=== PATIENT | female | born 1940 | race Caucasian/White ===

== ENCOUNTER 2019-11-21 06:12 | Emergency (ER) | payer MEDICARE, OTHER, MEDICAID ==
[2019-11-21] MEDS ORDERED: GI Cocktail Oral Solution 30 ML PO ONE (06:40)
[2019-11-21 06:51] LABS: CHLORIDE,CL 97 mmol/L (98-107); SODIUM,NA 133 mmol/L (136-145)
[2019-11-21] MEDS ORDERED: Aspirin 81 MG Tab.Chew ONE (07:02)
[2019-11-21] MEDS ORDERED: Nitroglycerin 0.4 MG Tab.SL ONE (07:05)
[2019-11-21] MEDS ORDERED: Nitroglycerin 0.4 MG Tab.SL SL ONE (07:13)
[2019-11-21] MEDS ORDERED: Metoprolol Tartrate 50 MG Tab PO ONE (07:29)
[2019-11-21] MEDS ORDERED: Heparin Sodium/0.45% NaCl 500 ML IV SCH (07:30)
--- NOTE | 2019-11-21 07:45 | EDM.PDOC ---
ED HPI GENERAL MEDICAL PROBLEM - General Chief Complaint: Gastrointestinal Problem Stated Complaint: Upper epigastric pain Time Seen by Provider: 11/21/19 06:40 Source of Information: Reports: Patient, Other (assisted staff) History Limitations: Reports: No Limitations - History of Present Illness INITIAL COMMENTS - FREE TEXT/NARRATIVE: Patient comes to ER with complaint of centralized chest pain that radiates to back. Pain on/off for 2-3 days. Worse last night after eating/medications. Some nausea at times. Patient denies SOB/URI complaints. Slept poorly. Pain not r adiate anywhere else. Has otherwise been feeling well with no other health changes over recent weeks. No history of previous [facility] but has prior diagnosis of CHF. Resides at [facility]. Upper Epigastric Pain Score (Numeric/FACES): 7 - Related Data Allergies Allergy/AdvReac Type Severity Reaction Status Date / Time doxycycline Allergy Other Verified 10/25/18 08:13 Home Meds: Home Meds DULoxetine [Cymbalta] 20 mg PO DAILY 11/21/19 [History] DULoxetine [Cymbalta] 30 mg PO DAILY 11/21/19 [History] Fluticasone Propionate [Flonase] 1 spray NASBOTH BID 11/21/19 [History] Gabapentin [Neurontin] 600 mg PO TID 11/21/19 [History] Hydrocodone/Acetaminophen [[place] 10-325 Tablet] 1 each PO BID 11/21/19 [History] Hydrocodone/Acetaminophen [[place] 10-325 Tablet] 1 each PO DAILY PRN 11/21/19 [History] Loratadine 10 mg PO DAILY 11/21/19 [History] Mag Hydrox/Aluminum Hyd/Simeth [Mylanta Maximum Strength Liq] 30 ml PO ASDIRECTED PRN 11/21/19 [History] Melatonin 3 mg PO BEDTIME 11/21/19 [History] Methyl Salicylate/Menthol [Muscle Rub Cream] 1 applic TOP ASDIRECTED PRN 11/21/19 [History] Multivitamin [Multi-Vitamin Daily] 1 each PO DAILY 11/21/19 [History] Omeprazole Magnesium [Prilosec Otc] 20 mg PO BID 11/21/19 [History] Oxybutynin Chloride [Ditropan Xl] 10 mg PO DAILY 11/21/19 [History] Sennosides/Docusate Sodium [Senna-Docusate Sodium Tablet] 1 tab PO DAILY 11/21/19 [History] Past Medical History HEENT History: Reports: Other (See Below) (Tinnitus) Cardiovascular History: Reports: Heart Failure, Heart Murmur, High Cholesterol, Hypertension Gastrointestinal History: Reports: GERD Genitourinary History: Reports: Other (See Below) (overactive bladder) Musculoskeletal History: Reports: Arthritis, Back Pain, Chronic, Osteoarthritis, Other (See Below) (spinal stenosis. Carpal tunnel.) Neurological History: Reports: Other (See Below) (restless leg) Psychiatric History: Reports: Anxiety Endocrine/Metabolic History: Reports: Obesity/BMI 30+ Hematologic History: Reports: Other (See Below) (monoclonal gammopathy) Social & Family History - Tobacco Use Smoking Status *Q: Never Smoker Second Hand Smoke Exposure: No - Caffeine Use Caffeine Use: Reports: Coffee - Alcohol Use Alcohol Use History: No - Recreational Drug Use Recreational Drug Use: No Drug Use in Last 12 Months: No ED ROS GENERAL - Review of Systems Review Of Systems: Comprehensive ROS is negative, except as noted in HPI. ED EXAM, GENERAL - Physical Exam Exam: See Below Exam Limited By: No Limitations General Appearance: Alert, WD/WN, No Apparent Distress, Obese Eye Exam: Bilateral Eye: EOMI, PERRL Ears: Hearing Grossly Normal Nose: No: Nasal Deformity, Nasal Swelling, Nasal Drainage Throat/Mouth: Normal Lips, Normal Voice, No Airway Compromise Head: Atraumatic, Normocephalic Neck: Normal Inspection, Supple, Non-Tender, Full Range of Motion Respiratory/Chest: No Respiratory Distress, Lungs Clear, Normal Breath Sounds, No Accessory Muscle Use, Chest Non-Tender Cardiovascular: Normal Peripheral Pulses, Regular Rate, Rhythm, No Murmur GI/Abdominal: Normal Bowel Sounds, Soft, Non-Tender (Female) Exam: Deferred Rectal (Female) Exam: Deferred Back Exam: No: CVA Tenderness (L), CVA Tenderness (R), Muscle Spasm Extremities: Non-Tender, Normal Capillary Refill, Pedal Edema (lower legs, right mildly worse than left) Neurological: Alert, Oriented, CN II-XII Intact, Normal Cognition Psychiatric: Normal Affect, Normal Mood Skin Exam: Warm, Dry, Intact, Normal Color EKG INTERPRETATION EKG Date: 11/21/19 Time: 06:39 Rhythm: NSR Rate (Beats/Min): 83 [place]: Normal P-Wave: Present QRS: Normal ST-T: Other (minimal ST morphology change noted V1/V2.) QT: Normal Comparison: NA - No Prior EKG Course - Vital Signs Last Recorded V/S: Last Vital Signs Temp 36.9 C 11/21/19 06:40 Pulse 85 11/21/19 07:35 Resp 20 11/21/19 07:22 BP 159/82 H 11/21/19 07:35 Pulse Ox 94 L 11/21/19 07:22 - Orders/Labs/Meds Orders: Active Orders 24 hr Category Date Time Status EKG Documentation Completion [RC] ASDIRECTED Care 11/21/19 06:39 Active Chest 1V Frontal [CR] Stat Exams 11/21/19 07:41 Ordered Heparin Sodium/0.45% NaCl [Heparin 25,000 Units in 1/2 Med 11/21/19 07:30 Ordered NS 500 ML] 500 ml IV TITRATE Medication Orders Heparin Sodium/Sodium Chloride (Heparin 25,000 Units In 1/2 Ns 500 Ml) 500 mls @ 18.507 mls/hr IV TITRATE RAVI; Protocol Last Admin: 11/21/19 07:36 Dose: 12 units/kg/hr, 18.507 mls/hr Documented by: TELMA Cosigned by: SAQIB Labs: Laboratory Tests 11/21/19 11/21/19 11/21/19 Range/Units 06:30 06:30 06:30 WBC 19.2 H (4.0-10.2) K/uL D-Dimer, Quantitative 664 H (0-400) ng/mL Sodium 133 L (136-145) mmol/L Potassium 3.8 (3.5-5.1) mmol/L Chloride 97 L (98-107) mmol/L Carbon Dioxide 26.8 (21.0-32.0) mmol/L BUN 15 (7-18) mg/dL Creatinine 0.59 (0.51-1.17) mg/dL Est Cr Clr Drug Dosing 57.36 mL/min Estimated GFR (MDRD) > 60 mL/min Glucose 132 H (74-106) mg/dL Calcium 9.0 (8.5-10.1) mg/dL Total Bilirubin 0.3 (0.2-1.0) mg/dL AST 79 H (15-37) U/L ALT 29 (12-78) U/L Alkaline Phosphatase 88 (46-116) IU/L Troponin I 6.194 H* (0.000-0.056) ng/mL Total Protein 8.5 H (6.4-8.2) g/dL Albumin 3.2 L (3.4-5.0) g/dL Amylase 68 (25-115) U/L Lipase 102 (73-393) U/L Meds: Medications Generic Name Dose Route Start Last Admin Trade Name Freq PRN Reason Stop Dose Admin Heparin Sodium/Sodium Chloride 500 mls @ 18.507 mls/hr 11/21/19 07:30 11/21/19 07:36 Heparin 25,000 Units In 1/2 Ns 500 Ml IV 12 units/kg/hr TITRATE RAVI 18.507 mls/hr Administration Protocol 12 UNITS/KG/HR Discontinued Medications Generic Name Dose Route Start Last Admin Trade Name Freq PRN Reason Stop Dose Admin Al Hydroxide/Mg Hydroxide 30 ml 11/21/19 06:40 11/21/19 07:13 Gi Cocktail PO 11/21/19 06:41 Not Given ONETIME ONE Aspirin Confirm 11/21/19 07:02 11/21/19 07:13 Aspirin Administered 11/21/19 07:03 324 mg Dose Administration 324 mg .ROUTE .STK-MED ONE Metoprolol Tartrate 50 mg 11/21/19 07:29 11/21/19 07:35 Lopressor PO 11/21/19 07:30 50 mg ONETIME ONE Administration Nitroglycerin Confirm 11/21/19 07:05 11/21/19 07:13 Nitrostat Administered 11/21/19 07:06 0.4 mg Dose Administration 0.4 mg .ROUTE .STK-MED ONE Nitroglycerin 0.4 mg 11/21/19 07:13 Nitrostat SL 11/21/19 07:14 ONETIME ONE - Re-Assessments/Exams Free Text/Narrative Re-Assessment/Exam: 11/21/19 07:54 Labs/EKG ordered. Troponin and DDimer elevated. Non-STEMI. Vital signs stable. [facility] called at 0700 and patient accepted for transfer by /hospitalist. ASA/Beta amy/Heparin given during stay. Pain improved significantly with one nitro. Second dose held due to BP drop. 11/21/19 08:14 Patient denies pain at this time Departure - Departure Time of Disposition: 07:59 Disposition: DC/Tfer to Acute Hospital 02 Condition: Good Clinical Impression: Non-STEMI (non-ST elevated myocardial infarction), Elevated d-dimer - Discharge Information *PRESCRIPTION DRUG MONITORING PROGRAM REVIEWED*: Not Applicable *COPY OF PRESCRIPTION DRUG MONITORING REPORT IN PATIENT MICHELLE: Not Applicable Referrals: Marilee Neville NP [Primary Care Provider] - Forms: ED Department Discharge Sepsis Event Note (ED) - Evaluation Sepsis Screening Result: No Definite Risk - Focused Exam Vital Signs: Vital Signs Temp Pulse Pulse Resp BP BP Pulse Ox 11/21/19 07:35 85 159/82 H 11/21/19 07:22 87 20 159/82 H 94 L 11/21/19 07:14 92 20 135/67 96 11/21/19 07:13 166/68 H 11/21/19 07:11 97 20 166/96 H 94 L 11/21/19 06:40 36.9 C 94 15 138/61 98 - My Orders Last 24 Hours: My Active Orders 11/21/19 06:39 EKG Documentation Completion [RC] ASDIRECTED 11/21/19 07:30 Heparin Sodium/0.45% NaCl [Heparin 25,000 Units in 1/2 NS 500 ML] 500 ml IV TITRATE 11/21/19 07:41 Chest 1V Frontal [CR] Stat - Assessment/Plan Last 24 Hours: My Active Orders 11/21/19 06:39 EKG Documentation Completion [RC] ASDIRECTED 11/21/19 07:30 Heparin Sodium/0.45% NaCl [Heparin 25,000 Units in 1/2 NS 500 ML] 500 ml IV TITRATE 11/21/19 07:41 Chest 1V Frontal [CR] Stat
== END 2019-11-21 08:25 ==
LOC: LL.ED 06:12
DX: I21.4 Non-ST elevation (NSTEMI) myocardial infarction (principal); R79.1 Abnormal coagulation profile; I11.0 Hypertensive heart disease with heart failure; I50.9 Heart failure, unspecified; K21.9 Gastro-esophageal reflux disease without esophagitis; F41.9 Anxiety disorder, unspecified; E66.9 Obesity, unspecified; Z68.33 Body mass index [BMI] 33.0-33.9, adult; Z88.1 Allergy status to other antibiotic agents; Z79.899 Other long term (current) drug therapy
CPT/HCPCS: 36415; 71045; 80053; 82150; 83690; 84484; 85025; 85379; 93005; 96365; 99285; A9270; J1644; 85048

== ENCOUNTER 2020-04-22 12:04 | Emergency (ER) | payer MEDICARE, OTHER, MEDICAID ==
--- NOTE | 2020-04-22 12:18 | EDM.PDOC ---
ED HPI GENERAL MEDICAL PROBLEM - General Chief Complaint: Genitourinary Problem Stated Complaint: painfull urination with visible blood/clots Time Seen by Provider: 04/22/20 12:10 Source of Information: Reports: Patient History Limitations: Reports: No Limitations - History of Present Illness INITIAL COMMENTS - FREE TEXT/NARRATIVE: She presents to the ED for evaluation of possible UTI. She reports pain with urination and blood and clots in the urine. No flank pain. Symptoms started yesterday and are worse today. No fever or chills. No abdominal pain, nausea or vomiting. No chest pain. No shortness of breath or cough. History of recurrent UTIs with hematuria in the past. pelvic pain Pain Score (Numeric/FACES): 4 - Related Data Allergies Allergy/AdvReac Type Severity Reaction Status Date / Time doxycycline Allergy Other Verified 04/22/20 12:06 Home Meds: Home Meds DULoxetine [Cymbalta] 20 mg PO DAILY 11/21/19 [History] DULoxetine [Cymbalta] 30 mg PO DAILY 11/21/19 [History] Fluticasone Propionate [Flonase] 1 spray NASBOTH Q12HR 11/21/19 [History] Gabapentin [Neurontin] 600 mg PO TID@,,11/21/19 [History] Hydrocodone/Acetaminophen [[place] 10-325 Tablet] 1 each PO DAILY PRN 11/21/19 [History] Hydrocodone/Acetaminophen [[place] 10-325 Tablet] 1 each PO TID@,,20 11/21/19 [History] Loratadine 10 mg PO DAILY 11/21/19 [History] Melatonin 3 mg PO BEDTIME 11/21/19 [History] Methyl Salicylate/Menthol [Muscle Rub Cream] 1 applic TOP ASDIRECTED PRN 11/21/19 [History] Multivitamin [Multi-Vitamin Daily] 1 each PO DAILY 11/21/19 [History] Oxybutynin Chloride [Ditropan Xl] 10 mg PO BEDTIME 11/21/19 [History] Sennosides/Docusate Sodium [Senna-Docusate Sodium Tablet] 1 tab PO DAILY 11/21/19 [History] Albuterol [Ventolin 2 MG/5 ML] 0.4 mg PO Q4HR PRN 04/22/20 [History] Aspirin 81 mg PO DAILY 04/22/20 [History] Calcium Carbonate/Vitamin D3 [Calcium 600-Vit D3 400 Tablet] 1 each PO BEDTIME 04/22/20 [History] Cholecalciferol (Vitamin D3) [Vitamin D3] 2,000 unit PO BEDTIME 04/22/20 [History] Clopidogrel [Plavix] 75 mg PO DAILY 04/22/20 [History] Cranberry 500 mg PO BEDTIME 04/22/20 [History] Cyclobenzaprine [Flexeril] 10 mg PO Q8HR PRN 04/22/20 [History] Ferrous Sulfate [Iron] 325 mg PO DAILY 04/22/20 [History] Magnesium Oxide [Magnesium] 400 mg PO DAILY 04/22/20 [History] Methenamine Hippurate [Hiprex] 1 gm PO Q12HR 04/22/20 [History] Metoprolol Succinate [Toprol XL 100mg] 100 mg PO DAILY 04/22/20 [History] Nitroglycerin [Nitrostat] 0.4 mg SL ASDIRECTED 04/22/20 [History] Omeprazole Magnesium [Prilosec Otc] 20 mg PO DAILY 04/22/20 [History] Phenazopyridine [Urinary Pain Relief] 95 mg PO TIDPC PRN tablet 04/22/20 [Rx] Sulfamethoxazole/Trimethoprim [Bactrim Ds Tablet] 1 each PO BID 5 Days #4 tablet 04/22/20 [Rx] atorvaSTATin [Lipitor] 40 mg PO BEDTIME 04/22/20 [History] bisacodyL [Bisacodyl] 5 mg PO Q12HR PRN 04/22/20 [History] rOPINIRole [Requip] 1 mg PO BEDTIME 04/22/20 [History] Past Medical History HEENT History: Reports: Other (See Below) (Tinnitus) Cardiovascular History: Reports: Heart Failure, Heart Murmur, High Cholesterol, Hypertension Gastrointestinal History: Reports: GERD Genitourinary History: Reports: Other (See Below) (overactive bladder) Musculoskeletal History: Reports: Arthritis, Back Pain, Chronic, Osteoarthritis, Other (See Below) (spinal stenosis. Carpal tunnel.) Neurological History: Reports: Other (See Below) (restless leg) Psychiatric History: Reports: Anxiety Endocrine/Metabolic History: Reports: Obesity/BMI 30+ Hematologic History: Reports: Other (See Below) (monoclonal gammopathy) Social & Family History - Caffeine Use Caffeine Use: Reports: Coffee ED ROS GENERAL - Review of Systems Review Of Systems: See Below Constitutional: Denies: Fever, Chills HEENT: Reports: Sinus Problem (Chronic) Respiratory: Reports: Cough. Denies: Shortness of Breath Cardiovascular: Denies: Chest Pain, Palpitations GI/Abdominal: Denies: Abdominal Pain, Nausea, Vomiting : Reports: Dysuria, Frequency, Hematuria, Urgency Musculoskeletal: Reports: Back Pain (Chronic and unchanged) Skin: Reports: No Symptoms Neurological: Denies: Confusion, Dizziness Psychiatric: Denies: Agitation, Anxiety ED EXAM, GENERAL - Physical Exam Exam: See Below Exam Limited By: No Limitations General Appearance: Alert, WD/WN, No Apparent Distress Respiratory/Chest: No Respiratory Distress, Lungs Clear, Normal Breath Sounds Cardiovascular: Regular Rate, Rhythm, No Murmur GI/Abdominal: Normal Bowel Sounds, Soft, Non-Tender, No Mass Back Exam: CVA Tenderness (R) (Mild). No: CVA Tenderness (L) Neurological: Alert, Oriented Psychiatric: Normal Affect, Normal Mood Skin Exam: Warm, Dry Course - Vital Signs Text/Narrative:: Patient is stable. Will treat presumptively for infection with Bactrim DS. Need repeat urine in 5 days. If blood does not clear with antibiotics, consider abdomen/pelvic CT for possible stone or other cause of the bleeding. Last Recorded V/S: Last Vital Signs Temp 36.3 C 04/22/20 12:06 Pulse 81 04/22/20 12:06 Resp 18 04/22/20 12:06 BP 149/55 H 04/22/20 12:06 Pulse Ox 95 04/22/20 12:06 - Orders/Labs/Meds Orders: Active Orders 24 hr Category Date Time Status Insert Douglas Catheter [Insert Urinary Catheter] [OM.PC] Care 04/22/20 13:30 Ordered Q24H Labs: Laboratory Tests 04/22/20 04/22/20 04/22/20 Range/Units 12:30 12:30 13:00 WBC 11.2 H (4.0-10.2) K/uL RBC 4.21 (3.77-5.09) M/uL Hgb 11.3 L D (11.7-15.5) g/dL Hct 37.0 (34.0-46.0) % MCV 87.9 D (84.0-98.0) fL MCH 26.8 L (28.2-33.3) pg MCHC 30.5 L (31.7-36.0) g/dL RDW 23.8 H (11.2-14.1) % Plt Count 211 (150-350) K/uL Add Manual Diff Yes Neutrophils % (Manual) 50 Band Neutrophils % 7 Lymphocytes % (Manual) 36 Monocytes % (Manual) 7 Absolute Neutrophils 6.3840 Lymphocytes # (Manual) 4.0320 Monocytes # (Manual) 0.7840 Sodium 137 (136-145) mmol/L Potassium 4.2 (3.5-5.1) mmol/L Chloride 102 (98-107) mmol/L Carbon Dioxide 28.6 (21.0-32.0) mmol/L BUN 20 H (7-18) mg/dL Creatinine 0.67 (0.51-1.17) mg/dL Est Cr Clr Drug Dosing TNP Estimated GFR (MDRD) > 60 mL/min Glucose 110 H (70-99) mg/dL Calcium 8.3 L (8.5-10.1) mg/dL Total Bilirubin 0.3 (0.2-1.0) mg/dL AST 25 (15-37) U/L ALT 29 (12-78) U/L Alkaline Phosphatase 87 (46-116) IU/L Total Protein 7.6 (6.4-8.2) g/dL Albumin 2.8 L (3.4-5.0) g/dL Specimen Type Urinblad Urine Color Red Urine Appearance Cloudy Urine pH 7.5 (5.0-9.0) Ur Specific [place] 1.025 (1.005-1.030) Urine Protein >=300 H (NEGATIVE) mg/dL Urine Glucose (UA) Negative (NEGATIVE) mg/dL Urine Ketones Negative (NEGATIVE) mg/dL Urine Occult Blood Large H (NEGATIVE) Urine Nitrite Negative (NEGATIVE) Urine Bilirubin Negative (NEGATIVE) Urine Urobilinogen 0.2 (0.2-1.0) E.U./dL Ur Leukocyte Esterase Negative (NEGATIVE) Urine RBC Packed /HPF Urine WBC 0-5 /HPF Ur Epithelial Cells Rare /LPF Urine Bacteria Rare (NONE TO FEW) /HPF Meds: Medications Discontinued Medications Generic Name Dose Route Start Last Admin Trade Name Freq PRN Reason Stop Dose Admin Phenazopyridine HCl 95 mg 04/22/20 13:12 04/22/20 13:29 Phenazopyridine 95 Mg Tab PO 95 mg TIDPC PRN Administration Dysuria Departure - Departure Time of Disposition: 13:31 Disposition: DC/Tfer to [facility] Condition: Good Clinical Impression: Hematuria, UTI (urinary tract infection) - Discharge Information *PRESCRIPTION DRUG MONITORING PROGRAM REVIEWED*: Not Applicable *COPY OF PRESCRIPTION DRUG MONITORING REPORT IN PATIENT MICHELLE: Not Applicable Prescriptions: Sulfamethoxazole/Trimethoprim [Bactrim Ds Tablet] 1 each PO BID 5 Days #4 tablet Referrals: Marilee Neville NP [Family Provider] - Forms: ED Department Discharge Additional Instructions: Push fluids. Bactrim DS twice daily for five days. Pyridium three times daily as needed for pain. Will leave Douglas catheter in place for 24 hours, contact PCP for removal order. Recommend repeat UA in 5-7 days. Hold Plavix and ASA, contact PCP for restart date. Sepsis Event Note (ED) - Evaluation Sepsis Screening Result: No Definite Risk - My Orders Last 24 Hours: My Active Orders 04/22/20 13:30 Insert [place] Catheter [Insert Urinary Catheter] [OM.PC] Q24H - Assessment/Plan Last 24 Hours: My Active Orders 04/22/20 13:30 Insert [place] Catheter [Insert Urinary Catheter] [OM.PC] Q24H Plan: Push fluids. Bactrim DS twice daily for five days. Pyridium three times daily as needed for pain. Will leave Douglas catheter in place for 24 hours. Recommend repeat UA in 5-7 days.
[2020-04-22 12:48] LABS: CHLORIDE,CL 102 mmol/L (98-107); SODIUM,NA 137 mmol/L (136-145)
[2020-04-22] MEDS: Phenazopyridine 95 MG Tab PO PRN (13:29)
== END 2020-04-22 14:30 ==
LOC: LL.ED 12:04 → SUPCPDRO 12:04 → LL.ED 14:30
DX: N39.0 Urinary tract infection, site not specified (principal); R31.9 Hematuria, unspecified; I11.0 Hypertensive heart disease with heart failure; I50.9 Heart failure, unspecified; E78.00 Pure hypercholesterolemia, unspecified; K21.9 Gastro-esophageal reflux disease without esophagitis; M19.90 Unspecified osteoarthritis, unspecified site; E66.9 Obesity, unspecified; Z88.1 Allergy status to other antibiotic agents; Z79.899 Other long term (current) drug therapy; Z79.82 Long term (current) use of aspirin
CPT/HCPCS: 36415; 51702; 80053; 81001; 85025; 99283; A9270

== ENCOUNTER 2020-04-23 14:27 | Emergency (ER) | payer MEDICARE, OTHER, MEDICAID ==
--- NOTE | 2020-04-23 14:38 | EDM.PDOC ---
ED HPI GENERAL MEDICAL PROBLEM - General Chief Complaint: Genitourinary Problem Stated Complaint: BLOODY URINE, FEVER Time Seen by Provider: 04/23/20 14:30 Source of Information: Reports: Patient, Detention Records, Old Records ([facility] EMR. No paper hospital chart available.) History Limitations: Reports: No Limitations - History of Present Illness INITIAL COMMENTS - FREE TEXT/NARRATIVE: The patient was brought to the emergency room via transport vehicle from [facility] in [place] after I received a telephone report from the patient's regular provider, Joaquina Hoffman PA-C, at [facility], prior to arrival to this facility. Patient was evaluated in our emergency room yesterday with suspected UTI with significant gross hematuria and patient started on Bactrim DS. After evaluation by her regular provider earlier today as above the patient was noted to have progressive gross hematuria and leukocytosis/anemia with no known colic or other UTI symptoms. Note that a Douglas catheter was placed in the emergency room yesterday, although the patient apparently did not have any problems with urinary retention at that time. She does have a history of recurrent UTIs and urinary incontinence. Patient does complain of 4/10 nonspecific pelvic abdominal cramping possibly secondary to her Douglas catheter. No recent history of other abdominal pain, heartburn, nausea, diarrhea, melena, gross hematochezia, or any food intolerance, including fatty foods, etc.. The patient denies any chest pain/pressure, heart flutter, dizziness, orthostasis, orthopnea, diaphoresis, paresthesias, recent decreased exercise tolerance, or any other anginal-type symptoms. The patient also denies any recent fever, cough, wheezing, dyspnea, etc.. Onset: Today, Gradual Onset Date: 04/22/20 Duration: Constant, Getting Worse Location: Reports: Abdomen, Pelvis. Denies: Head, Face, Neck, Chest, Back, Upper Extremity, Left, Upper Extremity, Right, Lower Extremity, Left, Lower Extremity, Right, Radiates to Quality: Reports: Ache, Same as Previous Episode Severity: Mild Improves with: Reports: None Worsens with: Reports: None Context: Reports: Other (As above). Denies: Sick Contact, Trauma Associated Symptoms: Reports: Weakness (Stable chronic). 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: Other Medication(s) (Bactrim DS as above) ABDOMINAL PAIN Pain Score (Numeric/FACES): 4 - Related Data Allergies Allergy/AdvReac Type Severity Reaction Status Date / Time doxycycline Allergy Other Verified 04/22/20 12:06 Home Meds: Home Meds DULoxetine [Cymbalta] 20 mg PO DAILY 11/21/19 [History] DULoxetine [Cymbalta] 30 mg PO DAILY 11/21/19 [History] Fluticasone Propionate [Flonase] 1 spray NASBOTH Q12HR 11/21/19 [History] Gabapentin [Neurontin] 600 mg PO TID@,,11/21/19 [History] Hydrocodone/Acetaminophen [[place] 10-325 Tablet] 1 each PO DAILY PRN 11/21/19 [History] Hydrocodone/Acetaminophen [[place] 10-325 Tablet] 1 each PO TID@,,11/21/19 [History] Loratadine 10 mg PO DAILY 11/21/19 [History] Melatonin 3 mg PO BEDTIME 11/21/19 [History] Methyl Salicylate/Menthol [Muscle Rub Cream] 1 applic TOP ASDIRECTED PRN 11/21/19 [History] Multivitamin [Multi-Vitamin Daily] 1 each PO DAILY 11/21/19 [History] Oxybutynin Chloride [Ditropan Xl] 10 mg PO BEDTIME 11/21/19 [History] Sennosides/Docusate Sodium [Senna-Docusate Sodium Tablet] 1 tab PO DAILY 11/21/19 [History] Calcium Carbonate/Vitamin D3 [Calcium 600-Vit D3 400 Tablet] 1 each PO BEDTIME 04/22/20 [History] Cholecalciferol (Vitamin D3) [Vitamin D3] 2,000 unit PO BEDTIME 04/22/20 [History] Cranberry 500 mg PO BEDTIME 04/22/20 [History] Cyclobenzaprine [Flexeril] 10 mg PO Q8HR PRN 04/22/20 [History] Ferrous Sulfate [Iron] 325 mg PO DAILY 04/22/20 [History] Magnesium Oxide [Magnesium] 400 mg PO DAILY 04/22/20 [History] Methenamine Hippurate [Hiprex] 1 gm PO Q12HR 04/22/20 [History] Metoprolol Succinate [Toprol XL 100mg] 100 mg PO DAILY 04/22/20 [History] Nitroglycerin [Nitrostat] 0.4 mg SL ASDIRECTED 04/22/20 [History] Omeprazole Magnesium [Prilosec Otc] 20 mg PO DAILY 04/22/20 [History] Phenazopyridine [Urinary Pain Relief] 95 mg PO TIDPC PRN tablet 04/22/20 [Rx] Sulfamethoxazole/Trimethoprim [Bactrim Ds Tablet] 1 each PO BID 5 Days #4 tablet 04/22/20 [Rx] bisacodyL [Bisacodyl] 5 mg PO Q12HR PRN 04/22/20 [History] rOPINIRole [Requip] 1 mg PO BEDTIME 04/22/20 [History] Albuterol [Ventolin HFA] 2 puff INH Q4H PRN 04/23/20 [History] atorvaSTATin [Lipitor] 40 mg PO BEDTIME 04/23/20 [History] Past Medical History HEENT History: Reports: Allergic Rhinitis, Cataract, Impaired Vision, Other (See Below). Denies: Glaucoma, Hard of Hearing, Macular Degeneration, Otitis Media, Retinal Detachment Other HEENT History: Patient wears glasses. Cardiovascular History: Reports: CAD, Cardiomyopathy, Heart Failure, Heart Murmur, High Cholesterol, Hypertension, MN, PTCA, PVD, Stents, Syncope, Other (See Below). Denies: Afib, Aneurysm, Arrhythmia, Blood Clots/VTE/DVT, Bypass Other Cardiovascular History: History of elevated D-dimer with no previous work- up. Acute MN in December 2019 with PTCA/stent x1 at that time. Diastolic dysfunction. Respiratory History: Reports: Bronchitis, Recurrent, COPD, Intubation, Previous. Denies: Asthma, Intubation, Difficult, PE, Pneumonia, Recurrent, Pneumothorax, Pulmonary Fibrosis, Sleep Apnea, TB Gastrointestinal History: Reports: Chronic Constipation, GERD. Denies: Bowel Obstruction, Celiac Disease, Cholelithiasis, Colon Polyp, Diverticulosis, Fecal Incontinence, Gastritis, GI Bleed, Hiatal Hernia, Inflammatory Bowel Disease, Irritable Bowel Syndrome, Jaundice, Pancreatitis, PUD Genitourinary History: Reports: Urinary Incontinence, UTI, Recurrent, Other (See Below). Denies: Acute Renal Failure, Chronic Renal Insuffiency, Renal Calculus, Retention, Urinary, STD Other Genitourinary History: Right-sided pyelonephritis with additional evidence of chronic cystitis by CT scan in March 2020 as below. Overactive bladder/urinary urgency. 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 Denies: Dysfunctional Uterine Bleeding, Endometriosis, Fibroids, Spontaneous , Therapeutic : 3 Para: 3 LMP (Approximate): Other (See Below) Other BARREL PLATER History: Menopause in her mid 50s. Full term without complications during pregnancies or deliveries. Musculoskeletal History: Reports: Arthritis, Back Pain, Chronic, Neck Pain, Chronic, Osteoarthritis. Denies: Fracture, Gout, Osteoporosis, RA, SLE Other Musculoskeletal History: History of carpal tunnel syndrome with surgery as below. Right ankle fracture in her 30s with surgery as below. Known history of severe degenerative disc disease with additional mild scoliosis and spinal stenosis. Chronic lumbar back pain with current implanted electrical stimulator unit. Neurological History: Reports: Neuropathy, Peripheral, Seizure, Other (See Below). Denies: Alzheimers Disease, Cerebral Aneurysms, Concussion (No MS Parkinson's disease head concussions anything like that), CVA, Headaches, Chronic, Head Trauma, Migraines, MS, Speech Problems, TIA, Vertigo (No stroke or mini stroke) Other Neuro History: History of grand mal seizures since age 17. Restless leg syndrome. Spinal stenosis with bilateral leg weakness and required wheelchair use. Psychiatric History: Reports: Addiction, Anxiety, Depression, Other (See Below). Denies: Abuse, Victim of, ADD, ADHD, Psych Hospitalization(s), PTSD, Suicide Attempt, Suicidal Ideation Other Psychiatric History: Chronic narcotic use secondary to chronic pain syndrome. Endocrine/Metabolic History: Reports: Obesity/BMI 30+, Other (See Below). Denies: Diabetes, Type I, Diabetes, Type II, Hypothyroidism, IDDM, Osteopenia, Osteoporosis Other Endocrine/Metabolic History: Hypomagnesemia. Hematologic History: Reports: Blood Transfusion(s), Iron Deficiency, Other (See Below). Denies: Anemia, B12 Deficiency Other Hematologic History: Blood transfusion with her back surgery as below. Immunologic History: Reports: Immunosuppression, Other (See Below). Denies: AIDS, HIV, SLE Other Immunologic History: Monoclonal gammopathy Oncologic (Cancer) History: Reports: None. Denies: Basal Cell Carcinoma, Breast, Cervix, Colon, Hodgkin's Lymphoma, Leukemia, Malignant Melanoma, Non- Hodgkin's Lymphoma, Ovarian, Squamous Cell Carcinoma, Uterine Dermatologic History: Reports: None. Denies: Eczema, Psoriasis - Infectious Disease History Infectious Disease History: Reports: Chicken Pox, Measles, Mumps, Novel Coronavirus (February 2020). Denies: C-Difficile, Meningitis, Mononucleosis, MRSA, Pertussis (Whooping Cough), Rheumatic Fever, Rubella, Scarlet Fever, Shingles, TB, VRE - Past Surgical History Head Surgeries/Procedures: Reports: None HEENT Surgical History: Reports: Cataract Surgery, Laser Surgery, Oral Surgery, Other (See Below). Denies: Adenoidectomy, Eye Surgery, LASIK, Myringotomy w Tub e(s), Naso-Sinus Surgery, Tonsillectomy Other HEENT Surgeries/Procedures: Bilateral cataract surgery in her 50s? Subsequent laser treatments of her posterior capsules. Almost complete teeth extraction with complete upper dentures and only a few remaining lower dentition. Cardiovascular Surgical History: Reports: Coronary Artery Stent, Percutaneous Transluminal Angioplasty, Other (See Below). Denies: Varicose, Vascular Surgery Other Cardiovascular Surgeries/Procedures: PTCA/stent x1 in December 2019. Respiratory Surgical History: Reports: None. Denies: Lung Biopsies, Thoracentesis GI Surgical History: Reports: Appendectomy, Colonoscopy, Other (See Below). Denies: Cholecystectomy, EGD, Hernia, Abdominal, Hernia, Inguinal, Hernia Repair/Other, Polypectomy Other GI Surgeries/Procedures: Appendectomy in her 30s. Colonoscopy in her 50s. Female Surgical History: Reports: None. Denies: Breast Biopsy, Section, D&C, Hysterectomy, Oophorectomy, Salpingo-Oophorectomy, Tubal Ligation Endocrine Surgical History: Reports: None. Denies: Thyroid Biopsy Neurological Surgical History: Reports: Lumbar Spine, Other (See Below). Denies: C-Spine, Discectomy, Laminectomy, Sacral Spine, Scoliosis, Spinal Fusion, Thoracic Spine, Vertebroplasty Other Neurological Surgeries/Procedures: Unknown type of lumbar surgeries x3, including her spinal cord? Lumbar electro-stimulator unit implant. Musculoskeletal Surgical History: Reports: Carpal Tunnel, ORIF, Other (See Below). Denies: Arthroscopic Procedure, Ganglion Cyst, Joint Replacement, Shoulder Surgery Other Musculoskeletal Surgeries/Procedures:: ORIF of the right ankle in her 30s with subsequent right ankle fusion in her 60s. Right-sided carpal tunnel release in her 50s. Oncologic Surgical History: Reports: None Dermatological Surgical History: Reports: Other (See Below) Other Dermatological Surgeries/Procedures: Pilonidal cyst surgeries x3 in her 20s. - Past Imaging History Past Imaging History: Reports: CAT Scan (CT of the abdomen and pelvis on 03/22/2020.), MRI (Lumbar spine on 07/08/2017. Thoracic spine on 11/23/2018.), Ultrasound (Bilateral renal ultrasound on 11/04/2018.) - History Comment History Comment: Patient is a somewhat poor historian. Social & Family History - Tobacco Use Tobacco Use Status *Q: Never Tobacco User Tobacco Use Within Last Twelve Months: No Used Tobacco, but Quit: No Smoking Cessation Information Provided To Patient: No Second Hand Smoke Exposure: No Second Hand Smoke Education Provided: No - Caffeine Use Caffeine Use: Reports: Coffee (5-6 cups/day), Soda (23 sodas per week), Tea (2 glasses/week). Denies: Energy Drinks - Alcohol Use Alcohol Use History: No Days Per Week of Alcohol Use: 0 Number of Drinks Per Day: 2 Number of Drinks Per Day Comment: Usually beer for holidays. No previous DWIs, problems with alcohol abuse, etc. Total Drinks Per Week: 0 Alcohol Use in Last Twelve Months: Yes - Recreational Drug Use Recreational Drug Use: No Drug Use in Last 12 Months: No Recreational Drug Type: Denies: Amphetamines (Speed), Cocaine, Heroin, Inhalants (Glues, Solvents, Aerosols), LSD (Acid), Marijuana/Hashish, Methamphetamine, Morphine, Oxycodone - Living Situation & Occupation Living situation: Reports: (December 2019, 3 children), Extended Care Facility (Currently at 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 ED EXAM, GENERAL - Physical Exam Exam: See Below Exam Limited By: No Limitations General Appearance: Alert, WD/WN, No Apparent Distress Eye Exam: Bilateral Eye: EOMI, Normal Inspection (Patient is wearing glasses. No vertigo or nystagmus.) Ears: Normal External Exam, Normal Canal, Hearing Grossly Normal, Normal TMs Nose: Normal Inspection, Normal Mucosa, No Blood Throat/Mouth: Normal Inspection, Normal Lips, Normal Gums, Normal Oropharynx, Normal Voice, No Airway Compromise. No: Normal Teeth (Complete upper dentures with only few remaining lower dentition with chipped teeth and some. On ptosis but no acute caries), Dysphagia, Inflammation, Perioral Cyanosis Head: Atraumatic, Normocephalic. No: Facial Swelling, Facial Tenderness, Sinus Tenderness Neck: Supple, Non-Tender, Carotid Bruit (Mild bilateral carotid bruits). No: Lymphadenopathy (L), Lymphadenopathy (R), Thyromegaly Respiratory/Chest: No Respiratory Distress, Lungs Clear, Normal Breath Sounds, No Accessory Muscle Use, Chest Non-Tender. No: Pleural Rub, Retractions Cardiovascular: Normal Peripheral Pulses, Regular Rate, Rhythm, No Gallop, No JVD, No Murmur, No Rub. No: No Edema (Dependent edema as below), Gallop/S3, Gallop/S4, Friction Rub Peripheral Pulses: 2+: Radial (L), Radial (R), Dorsalis Pedis (L), Dorsalis Pedis (R) GI/Abdominal: Normal Bowel Sounds, Soft, Non-Tender, No Organomegaly, No Distention, No Abnormal Bruit, No Mass, Pelvis Stable, Other (Obese). No: Guarding (Female) Exam: Deferred Rectal (Female) Exam: Deferred Back Exam: Decreased Range of Motion (Stable chronic especially in lumbar spine), Other (Mild scoliosis). No: CVA Tenderness (L), CVA Tenderness (R), Muscle Spasm, Paraspinal Tenderness, Vertebral Tenderness Extremities: Non-Tender, Normal Capillary Refill, Pedal Edema (+1 bilateral pedal/pretibial edema), Limited Range of Motion (Stable chronic), Other (Mild cyanosis in toes of the right foot). No: Brandon's Sign Neurological: Alert, Oriented, CN II-XII Intact, Normal Cognition, Normal Reflexes (Negative Babinski's), No Motor/Sensory Deficits. No: Normal Gait (Wheelchair use required) Psychiatric: Normal Affect, Normal Mood Skin Exam: Warm, Dry, Intact, Normal Color, No Rash, Stud(s) (Auricles bilaterally). No: Diaphoretic, Wound/Incision Lymphatic: No Adenopathy Course - Vital Signs Last Recorded V/S: Last Vital Signs Temp 36.7 C 04/23/20 14:33 Pulse 77 04/23/20 20:00 Resp 18 04/23/20 20:00 BP 110/40 L 04/23/20 20:00 Pulse Ox 98 04/23/20 20:00 Vital Signs - 24 hr 04/23/20 04/23/20 04/23/20 14:33 14:50 15:00 Temperature [ 36.7 C Temporal] Pulse, Peripheral [ Apical] Respiratory 24 H 15 17 Rate Blood Pressure 89/38 L 105/24 L [Right Upper Arm] O2 Sat by Pulse 98 93 L 96 Oximetry 04/23/20 04/23/20 04/23/20 15:15 15:30 15:45 Temperature [ Temporal] Pulse, Peripheral [ Apical] Respiratory 15 18 18 Rate Blood Pressure 121/52 L 115/36 L 126/28 L [Right Upper Arm] O2 Sat by Pulse 97 98 97 Oximetry 04/23/20 04/23/20 04/23/20 16:00 16:15 16:30 Temperature [ Temporal] Pulse, Peripheral [ Apical] Respiratory 19 17 17 Rate Blood Pressure 143/54 H 180/59 H 123/45 L [Right Upper Arm] O2 Sat by Pulse 96 97 96 Oximetry 04/23/20 04/23/20 04/23/20 16:45 17:00 17:15 Temperature [ Temporal] Pulse, Peripheral [ Apical] Respiratory 17 16 15 Rate Blood Pressure 128/40 L 132/46 L 129/39 L [Right Upper Arm] O2 Sat by Pulse 96 97 98 Oximetry 04/23/20 04/23/20 04/23/20 17:30 18:00 18:32 Temperature [ Temporal] Pulse, 80 Peripheral [ Apical] Respiratory 16 18 17 Rate Blood Pressure 127/54 L 113/45 L 75/54 L [Right Upper Arm] O2 Sat by Pulse 100 96 97 Oximetry 04/23/20 04/23/20 04/23/20 18:35 18:40 19:00 Temperature [ Temporal] Pulse, 73 Peripheral [ Apical] Respiratory 17 18 18 Rate Blood Pressure 171/47 H 130/75 139/75 [Right Upper Arm] O2 Sat by Pulse 97 97 97 Oximetry 04/23/20 20:00 Temperature [ Temporal] Pulse, 77 Peripheral [ Apical] Respiratory 18 Rate Blood Pressure 110/40 L [Right Upper Arm] O2 Sat by Pulse 98 Oximetry - Orders/Labs/Meds Orders: Active Orders 24 hr Category Date Time Status Cardiac Monitoring [RC] . DIRECTED Care 04/23/20 14:45 Ordered Insert Douglas Catheter [Insert Urinary Catheter] [OM.PC] Care 04/23/20 16:30 Ordered Q24H Peripheral IV Care [RC] . DIRECTED Care 04/23/20 14:44 Active Remove Douglas Catheter [Urinary Catheter Removal] [RC] Care 04/23/20 16:21 Active PER UNIT ROUTINE Urinary Catheter Assessment [RC] ASDIRECTED Care 04/23/20 16:22 Active Nothing Per Oral Diet [DIET] Diet 04/23/20 Breakfast Active Abdomen Series w Chest 1V [CR] Stat Exams 04/23/20 14:43 Taken CULTURE BLOOD [BC] Stat Lab 04/23/20 14:44 Ordered CULTURE BLOOD [BC] Stat Lab 04/23/20 14:45 Received CULTURE URINE [RM] Stat Lab 04/23/20 16:45 Received Lactated Ringers [Ringers, Lactated] 1,000 ml Med 04/23/20 16:30 Active IV ASDIRECTED Sodium Chloride 0.9% [Saline Flush] Med 04/23/20 14:43 Active 10 ml FLUSH ASDIRECTED PRN Blood Culture x2 Reflex Set [OM.PC] Urgent Oth 04/23/20 14:43 Ordered Obtain Past Medical Record [OM.PC] Urgent Oth 04/23/20 14:43 Active Peripheral IV Insertion Adult [OM.PC] Stat Oth 04/23/20 14:43 Ordered Resuscitation Status Stat Resus Stat 04/23/20 14:43 Ordered Medication Orders Lactated Ringer's (Ringers, Lactated) 1,000 mls @ 100 mls/hr IV ASDIRECTED RAVI Last Admin: 04/23/20 16:48 Dose: 100 mls/hr Documented by: COURTNEY Sodium Chloride (Sodium Chloride 0.9% 10 Ml Syringe) 10 ml FLUSH ASDIRECTED PRN PRN Reason: Keep Vein Open Last Admin: 04/23/20 15:15 Dose: 10 ml Documented by: Admin: 04/23/20 15:14 Dose: 10 ml Documented by: SEMAJ Labs: Laboratory Tests 04/23/20 04/23/20 04/23/20 Range/Units 14:43 14:45 14:45 WBC 23.9 H (4.0-10.2) K/uL RBC 3.42 L (3.77-5.09) M/uL Hgb 9.2 L (11.7-15.5) g/dL Hct 30.3 L (34.0-46.0) % MCV 88.6 (84.0-98.0) fL MCH 26.9 L (28.2-33.3) pg MCHC 30.4 L (31.7-36.0) g/dL RDW 23.6 H (11.2-14.1) % Plt Count 226 (150-350) K/uL Add Manual Diff Yes Neutrophils % (Manual) 70 Band Neutrophils % 2 Lymphocytes % (Manual) 16 Monocytes % (Manual) 12 Absolute Neutrophils 17.2080 Lymphocytes # (Manual) 3.8240 Monocytes # (Manual) 2.8680 PT (9.5-12.0) SEC INR APTT (24.5-32.8) SEC Sodium 132 L (136-145) mmol/L Potassium 4.5 (3.5-5.1) mmol/L Chloride 98 (98-107) mmol/L Carbon Dioxide 27.7 (21.0-32.0) mmol/L BUN 25 H (7-18) mg/dL Creatinine 1.00 (0.51-1.17) mg/dL Est Cr Clr Drug Dosing 33.84 mL/min Estimated GFR (MDRD) 54 mL/min Glucose 125 H (70-99) mg/dL Lactic Acid (0.4-2.0) mmol/L Uric Acid 4.8 (2.6-7.2) mg/dL Calcium 8.9 (8.5-10.1) mg/dL Magnesium 1.9 (1.8-2.4) mg/dL Total Bilirubin 0.2 (0.2-1.0) mg/dL AST 25 (15-37) U/L ALT 27 (12-78) U/L Alkaline Phosphatase 75 (46-116) IU/L Total Protein 7.5 (6.4-8.2) g/dL Albumin 3.0 L (3.4-5.0) g/dL Amylase 61 (25-115) U/L Lipase 63 L (73-393) U/L SARS-CoV-2 RNA (MIKE) (NEGATIVE) 04/23/20 04/23/20 04/23/20 Range/Units 14:45 14:45 15:40 WBC (4.0-10.2) K/uL RBC (3.77-5.09) M/uL Hgb (11.7-15.5) g/dL Hct (34.0-46.0) % MCV (84.0-98.0) fL MCH (28.2-33.3) pg MCHC (31.7-36.0) g/dL RDW (11.2-14.1) % Plt Count (150-350) K/uL Add Manual Diff Neutrophils % (Manual) Band Neutrophils % Lymphocytes % (Manual) Monocytes % (Manual) Absolute Neutrophils Lymphocytes # (Manual) Monocytes # (Manual) PT 10.1 (9.5-12.0) SEC INR 1.0 APTT 20.1 L (24.5-32.8) SEC Sodium (136-145) mmol/L Potassium (3.5-5.1) mmol/L Chloride (98-107) mmol/L Carbon Dioxide (21.0-32.0) mmol/L BUN (7-18) mg/dL Creatinine (0.51-1.17) mg/dL Est Cr Clr Drug Dosing mL/min Estimated GFR (MDRD) mL/min Glucose (70-99) mg/dL Lactic Acid 4.0 H (0.4-2.0) mmol/L Uric Acid (2.6-7.2) mg/dL Calcium (8.5-10.1) mg/dL Magnesium (1.8-2.4) mg/dL Total Bilirubin (0.2-1.0) mg/dL AST (15-37) U/L ALT (12-78) U/L Alkaline Phosphatase (46-116) IU/L Total Protein (6.4-8.2) g/dL Albumin (3.4-5.0) g/dL Amylase (25-115) U/L Lipase (73-393) U/L SARS-CoV-2 RNA (MIKE) Negative (NEGATIVE) 04/23/20 Range/Units 18:26 WBC (4.0-10.2) K/uL RBC (3.77-5.09) M/uL Hgb (11.7-15.5) g/dL Hct (34.0-46.0) % MCV (84.0-98.0) fL MCH (28.2-33.3) pg MCHC (31.7-36.0) g/dL RDW (11.2-14.1) % Plt Count (150-350) K/uL Add Manual Diff Neutrophils % (Manual) Band Neutrophils % Lymphocytes % (Manual) Monocytes % (Manual) Absolute Neutrophils Lymphocytes # (Manual) Monocytes # (Manual) PT (9.5-12.0) SEC INR APTT (24.5-32.8) SEC Sodium (136-145) mmol/L Potassium (3.5-5.1) mmol/L Chloride (98-107) mmol/L Carbon Dioxide (21.0-32.0) mmol/L BUN (7-18) mg/dL Creatinine (0.51-1.17) mg/dL Est Cr Clr Drug Dosing mL/min Estimated GFR (MDRD) mL/min Glucose (70-99) mg/dL Lactic Acid 1.9 (0.4-2.0) mmol/L Uric Acid (2.6-7.2) mg/dL Calcium (8.5-10.1) mg/dL Magnesium (1.8-2.4) mg/dL Total Bilirubin (0.2-1.0) mg/dL AST (15-37) U/L ALT (12-78) U/L Alkaline Phosphatase (46-116) IU/L Total Protein (6.4-8.2) g/dL Albumin (3.4-5.0) g/dL Amylase (25-115) U/L Lipase (73-393) U/L SARS-CoV-2 RNA (MIKE) (NEGATIVE) Note UA on 04/22/2020 did show some significant hematuria, however normal leukocyte esterase and negative nitrites at that time. Urine specimen from 04/23/2020 was sent for culture and sensitivity Blood cultures x2 were collected. Meds: Medications Generic Name Dose Route Start Last Admin Trade Name Freq PRN Reason Stop Dose Admin Lactated Ringer's 1,000 mls @ 100 mls/hr 04/23/20 16:30 04/23/20 16:48 Ringers, Lactated IV 100 mls/hr ASDIRECTED RAVI Administration Sodium Chloride 10 ml 04/23/20 14:43 04/23/20 15:15 Sodium Chloride 0.9% 10 Ml Syringe FLUSH 10 ml ASDIRECTED PRN Administration Keep Vein Open Discontinued Medications Generic Name Dose Route Start Last Admin Trade Name Freq PRN Reason Stop Dose Admin Ceftriaxone Sodium 2 gm 04/23/20 16:29 04/23/20 16:36 Ceftriaxone 2 Gm Vial IVPUSH 04/23/20 16:30 2 gm ONETIME ONE Administration Cyclobenzaprine HCl 10 mg 04/23/20 18:09 04/23/20 18:17 Cyclobenzaprine 10 Mg Tab PO 04/23/20 18:10 10 mg ONETIME ONE Administration Famotidine 40 mg 04/23/20 14:43 04/23/20 15:14 Famotidine 20 Mg/2 Ml Sdv IVPUSH 04/23/20 14:44 40 mg ONETIME ONE Administration Lactated Ringer's 1,000 mls @ 999 mls/hr 04/23/20 14:43 04/23/20 15:12 Ringers, Lactated IV 04/23/20 15:43 999 mls/hr .BOLUS ONE Administration Pantoprazole Sodium 40 mg 04/23/20 14:43 04/23/20 15:14 Pantoprazole 40 Mg Vial IVPUSH 04/23/20 14:44 40 mg ONETIME ONE Administration - Radiology Interpretation Free Text/Narrative:: 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 Acute abdominal x-rays shows evidence of moderate stool but no free air, ileus, or obstruction. Note to moderate osteoarthritic changes with mild scoliosis and implanted electrical stimulator unit in the lumbar area. Moderately elevated right hemidiaphragm with additional mild COPD changes with no evidence of cardiomegaly, CHF, pneumothorax, pulmonary infiltrates, etc. Departure - Departure Time of Disposition: 21:35 Disposition: DC/Tfer to Acute Hospital 02 Condition: Fair Clinical Impression: Hypoalbuminemia, Elevated lactic acid level, Hyponatremia, Peptic reflux disease, Mixed anxiety depressive disorder Hematuria Qualifiers: Hematuria type: gross Qualified Code(s): R31.0 - Gross hematuria Coronary artery disease Qualifiers: Coronary Disease-Associated Artery/Lesion type: [place] artery [place] vs. transplanted heart: [place] heart Associated angina: without angina Qualified Code(s): I25.10 - Atherosclerotic heart disease of [place] coronary artery without angina pectoris Osteoarthritis Qualifiers: Osteoarthritis location: multiple joints Osteoarthritis type: primary Qualified Code(s): M89.49 - Other hypertrophic osteoarthropathy, multiple sites COPD (chronic obstructive pulmonary disease) Qualifiers: COPD type: emphysema Emphysema type: panlobular Qualified Code(s): J43.1 - Panlobular emphysema Anemia Qualifiers: Anemia type: other cause Other causes of anemia: acute posthemorrhagic Qualified Code(s): D62 - Acute posthemorrhagic anemia - Discharge Information *PRESCRIPTION DRUG MONITORING PROGRAM REVIEWED*: Not Applicable *COPY OF PRESCRIPTION DRUG MONITORING REPORT IN PATIENT MICHELLE: Not Applicable Referrals: Joaquina Hoffman PA [Primary Care Provider] - Forms: ED Department Discharge, Interfacility Transfer EMTALA Care Plan Goals: Ambulance transfer as below. Sepsis Event Note (ED) - Focused Exam Vital Signs: Vital Signs Temp Pulse Resp BP Pulse Ox 04/23/20 20:00 77 18 110/40 L 98 04/23/20 19:00 73 18 139/75 97 04/23/20 18:40 18 130/75 97 04/23/20 18:35 17 171/47 H 97 04/23/20 18:32 17 75/54 L 97 04/23/20 18:00 18 113/45 L 96 04/23/20 17:30 80 16 127/54 L 100 04/23/20 17:15 15 129/39 L 98 04/23/20 17:00 16 132/46 L 97 04/23/20 16:45 17 128/40 L 96 04/23/20 16:30 17 123/45 L 96 04/23/20 16:15 17 180/59 H 97 04/23/20 16:00 19 143/54 H 96 04/23/20 15:45 18 126/28 L 97 04/23/20 15:30 18 115/36 L 98 04/23/20 15:15 15 121/52 L 97 04/23/20 15:00 17 105/24 L 96 04/23/20 14:50 15 89/38 L 93 L 04/23/20 14:33 36.7 C 24 H 98 - Problem List & Annotations (1) Hematuria SNOMED Code(s): 26732396 Code(s): R31.9 - HEMATURIA, UNSPECIFIED Status: Acute Priority: High Current Visit: Yes Onset Date: ~04/22/20 Annotation/Comment:: The patient and her daughter are requesting transfer to [facility] in [place]. Telephone consultation at 7 PM this evening with Dr. Peters, hospitalist at [facility] in [place], who does accept the patient for direct admission and probable urology consultation. Note progressive hematuria since emergency room evaluation yesterday. A 3-hole Douglas catheter placement and bladder irrigation were required in the emergency room today as below with improved gross hematuria with this therapy prior to patient transfer.. Possible concomitant UTI with IV Rocephin given as below secondary to possible beginning sepsis. CT scan of the abdomen pelvis on 03/22/2020 did indicate some right-sided pyelonephritis with possible chronic bladder wall inflammation/cystitis. Urology consultation for possible cystoscopy, repeat CT scan, etc. depending on her clinical course. Vital signs and clinical exam were stable at time of transfer with ambulance transfer via ambulance with shoe shanker accompaniment. Secondary to lack of ambulance availability and need for another transfer from our facility there was a delay in ambulance transport without sequelae. Qualifiers: Hematuria type: gross Qualified Code(s): R31.0 - Gross hematuria (2) Elevated lactic acid level SNOMED Code(s): 2766595 Code(s): R79.89 - OTHER SPECIFIED ABNORMAL FINDINGS OF BLOOD CHEMISTRY Status: Acute Priority: High Current Visit: Yes Onset Date: 04/23/20 Annotation/Comment:: Patient does meet sepsis criteria. Blood cultures x2 were collected. Yesterday's urine specimen was not sent for culture and sensitivity. Secondary to significant gross hematuria, including clot formation and clotted Douglas catheter the patient was changed to a 3-hole Douglas irrigation catheter with irrigation initiated in the emergency room and urine specimen collected for culture and sensitivity. Lactic acid levelrepeated prior to patient's discharge was normal. Patient was initially hydrated with 1 L IV bolus of lactated Ringer's with subsequent lactated Ringer's at 100 cc/h, which will be continued in route. Note that Rocephin 2 g IV was also given in the emergency room prior to patient's transfer. Patient did show some fairly inconsistent and probable inaccurate blood pressures during the later part of her emergency room care including blood pressure of 75/54 and subsequent immediate blood pressure of 171/49 both nonsymptomatic in nature. Continue to observe closely by accepting providers. Note mildly elevated CRP earlier today with additional progression of her leukocytosis from 11.2 yesterday to 23.9 today. (3) COPD (chronic obstructive pulmonary disease) SNOMED Code(s): 01360316 Code(s): J44.9 - CHRONIC OBSTRUCTIVE PULMONARY DISEASE, UNSPECIFIED Status: Chronic Priority: Medium Current Visit: Yes Annotation/Comment:: No recent bronchitic type symptoms. Today's x-ray did not show any evidence of pneumonia. Note negative COVID-19 evaluation in our facility. Qualifiers: COPD type: emphysema Emphysema type: panlobular Qualified Code(s): J43.1 - Panlobular emphysema (4) Coronary artery disease SNOMED Code(s): 35552606 Code(s): I25.10 - ATHSCL HEART DISEASE OF [place] CORONARY ARTERY W/O ANG PCTRS Status: Chronic Priority: Medium Current Visit: Yes Annotation/Comment:: No chest pain or anginal type symptoms. No significant CHF by today's chest x-ray or clinical exam with history of diastolic dysfunction and previous PTCA/stent. Qualifiers: Coronary Disease-Associated Artery/Lesion type: [place] artery [place] vs. transplanted heart: [place] heart Associated angina: without angina Qualified Code(s): I25.10 - Atherosclerotic heart disease of [place] coronary artery without angina pectoris (5) Hypoalbuminemia SNOMED Code(s): 935195270 Code(s): E88.09 - OTH DISORDERS OF PLASMA-PROTEIN METABOLISM, NEC Status: Chronic Priority: Medium Current Visit: Yes Annotation/Comment:: Observe for now (6) Hyponatremia SNOMED Code(s): 01413153 Code(s): E87.1 - HYPO-OSMOLALITY AND HYPONATREMIA Status: Acute Priority: Medium Current Visit: Yes Onset Date: 04/23/20 Annotation/Comment:: [place] danny Ringer's given as above. (7) Osteoarthritis SNOMED Code(s): 075404246 Code(s): M19.90 - UNSPECIFIED OSTEOARTHRITIS, UNSPECIFIED SITE Status: Chronic Priority: Medium Current Visit: Yes Annotation/Comment:: Stable by history with current implantable electrical stimulator in the lumbar region. Flexeril given in the emergency room secondary to mild exacerbation of her low back pain and some leg cramps versus arthritic complaints. 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 High-dose IV Pepcid and IV Protonix given as GI prophylaxis. (9) Anemia SNOMED Code(s): 942850849 Code(s): D64.9 - ANEMIA, UNSPECIFIED Status: Acute Priority: High Current Visit: Yes Onset Date: 04/23/20 Annotation/Comment:: Note progressive anemia secondary to significant gross hematuria as above. Hemogl obin of 11.3 yesterday in our emergency room with subsequent decrease of her hemoglobin to 9.2 this afternoon. Platelets, INR, and PTT are normal. Continue to observe closely by accepting providers. Qualifiers: Anemia type: other cause Other causes of anemia: acute posthemorrhagic Qualified Code(s): D62 - Acute posthemorrhagic anemia (10) Mixed anxiety depressive disorder SNOMED Code(s): 162019583 Code(s): F41.8 - OTHER SPECIFIED ANXIETY DISORDERS Status: Chronic Priority: Medium Current Visit: Yes Annotation/Comment:: Stable in the emergency room and by history. Note chronic narcotic use secondary to chronic pain syndrome. - Problem List Review Problem List Initiated/Reviewed/Updated: Yes - My Orders Last 24 Hours: My Active Orders 04/23/20 Breakfast Nothing Per Oral Diet [DIET] 04/23/20 14:43 Abdomen Series w Chest 1V [CR] Stat Sodium Chloride 0.9% [Saline Flush] 10 ml FLUSH ASDIRECTED PRN Blood Culture x2 Reflex Set [OM.PC] Urgent Obtain Past Medical Record [OM.PC] Urgent Peripheral IV Insertion Adult [OM.PC] Stat Resuscitation Status Stat 04/23/20 14:44 Peripheral IV Care [RC] . DIRECTED CULTURE BLOOD [BC] Stat 04/23/20 14:45 Cardiac Monitoring [RC] . DIRECTED CULTURE BLOOD [BC] Stat 04/23/20 16:21 Remove Douglas Catheter [Urinary Catheter Removal] [RC] PER UNIT ROUTINE 04/23/20 16:22 Urinary Catheter Assessment [RC] ASDIRECTED 04/23/20 16:30 Insert Douglas Catheter [Insert Urinary Catheter] [OM.PC] Q24H Lactated Ringers [Ringers, Lactated] 1,000 ml IV ASDIRECTED 04/23/20 16:45 CULTURE URINE [RM] Stat - Assessment/Plan Last 24 Hours: My Active Orders 04/23/20 Breakfast Nothing Per Oral Diet [DIET] 04/23/20 14:43 Abdomen Series w Chest 1V [CR] Stat Sodium Chloride 0.9% [Saline Flush] 10 ml FLUSH ASDIRECTED PRN Blood Culture x2 Reflex Set [OM.PC] Urgent Obtain Past Medical Record [OM.PC] Urgent Peripheral IV Insertion Adult [OM.PC] Stat Resuscitation Status Stat 04/23/20 14:44 Peripheral IV Care [RC] . DIRECTED CULTURE BLOOD [BC] Stat 04/23/20 14:45 Cardiac Monitoring [RC] . DIRECTED CULTURE BLOOD [BC] Stat 04/23/20 16:21 Remove Douglas Catheter [Urinary Catheter Removal] [RC] PER UNIT ROUTINE 04/23/20 16:22 Urinary Catheter Assessment [RC] ASDIRECTED 04/23/20 16:30 Insert Douglas Catheter [Insert Urinary Catheter] [OM.PC] Q24H Lactated Ringers [Ringers, Lactated] 1,000 ml IV ASDIRECTED 04/23/20 16:45 CULTURE URINE [RM] Stat Assessment:: As above Plan: As above. Extensive precautions were given to the patient and her daughter, Gabriella by telephone, who are in agreement with the treatment plan. Ambulance transfer to [facility] in [place] as above.
[2020-04-23] MEDS ORDERED: Pantoprazole 40 MG Vial IVPUSH ONE (14:43)
[2020-04-23] MEDS ORDERED: Lactated Ringers 1,000 ML IV ONE (14:43)
[2020-04-23] MEDS ORDERED: Famotidine 20 MG/2 ML SDV IVPUSH ONE (14:43)
[2020-04-23 15:06] LABS: PTT,PARTIAL THROMBOPLSTIN TIME 20.1 SEC (24.5-32.8)
[2020-04-23] MEDS: Sodium Chloride 0.9% 10 ML Syringe FLUSH PRN ×2 (15:14→15:15)
[2020-04-23] MEDS ORDERED: cefTRIAXone 2 GM Vial IVPUSH ONE (16:29)
[2020-04-23] MEDS ORDERED: Lactated Ringers 1,000 ML IV SCH (16:30)
[2020-04-23] MEDS ORDERED: Cyclobenzaprine 10 MG Tab PO ONE (18:09)
[2020-04-23 20:07] VITALS: BP 110/40; PULSE 77
== END 2020-04-23 20:35 ==
LOC: LL.ED 14:27
DX: J43.1 Panlobular emphysema (principal); D62 Acute posthemorrhagic anemia; M89.49 Other hypertrophic osteoarthropathy, multiple sites; I25.10 Atherosclerotic heart disease of native coronary artery without angina pectoris; R31.0 Gross hematuria; E88.09 Other disorders of plasma-protein metabolism, not elsewhere classified; R74.02 Elevation of levels of lactic acid dehydrogenase [LDH]; E87.1 Hypo-osmolality and hyponatremia; K21.9 Gastro-esophageal reflux disease without esophagitis; F41.8 Other specified anxiety disorders; I11.0 Hypertensive heart disease with heart failure; I50.9 Heart failure, unspecified; G25.81 Restless legs syndrome; I25.2 Old myocardial infarction; E66.9 Obesity, unspecified; Z20.822 Contact with and (suspected) exposure to COVID-19; Z88.1 Allergy status to other antibiotic agents; Z79.899 Other long term (current) drug therapy; Z95.5 Presence of coronary angioplasty implant and graft
CPT/HCPCS: 36415; 51702; 74022; 80053; 82150; 83605; 83690; 83735; 84550; 85025; 85610; 85730; 87040; 87086; 96374; 96375; 99284; 99285-25; A9270-GY; C9113; J0696; J3490; J7120; U0002

== ENCOUNTER 2020-05-10 07:09 | Emergency (ER) | payer MEDICARE, OTHER ==
[2020-05-10] MEDS ORDERED: Lactated Ringers 1,000 ML IV ONE ×2 (07:10→07:30)
[2020-05-10] MEDS ORDERED: Midazolam 1 MG/ML 2 ML SDV ONE ×2 (07:19→07:20)
[2020-05-10] MEDS ORDERED: Succinylcholine 200 MG/10 ML MDV ONE (07:19)
[2020-05-10] MEDS ORDERED: Famotidine 20 MG/2 ML SDV ONE (07:20)
[2020-05-10] MEDS ORDERED: Norepinephrine 4 MG/4 ML SDV ONE ×2 (07:20→07:35)
[2020-05-10] MEDS ORDERED: Ondansetron 4 MG/2 ML SDV ONE ×2 (07:20→07:48)
[2020-05-10] MEDS ORDERED: HYDROmorphone 1 MG/ML Syringe ONE (07:20)
[2020-05-10] MEDS ORDERED: Rocuronium 100 MG/10 ML MDV ONE ×2 (07:20→07:26)
[2020-05-10] MEDS ORDERED: Sodium Chloride 0.9% 10 ML Syringe FLUSH PRN (07:31)
[2020-05-10] MEDS ORDERED: Famotidine 20 MG/2 ML SDV IVPUSH ONE (07:31)
--- NOTE | 2020-05-10 07:31 | EDM.PDOC ---
ED HPI GENERAL MEDICAL PROBLEM - General Chief Complaint: Cardiovascular Problem Stated Complaint: code blue Time Seen by Provider: 05/10/20 07:09 Source of Information: Reports: Patient, EMS, Family (Patient's daughter, Sherly), Correction Records, Old Records ([facility] EMR. No paper hospital chart available.). 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 CPR was not required, although the patient was very not responsive with agonal breathing and response only to pain. Very limited history obtained from the [facility]. The patient apparently did not feel well yesterday with progressive decreased blood pressures during the course of the night. Patient was apparently started on verapamil on 05/03. No apparent recent chest pain or anginal type symptoms, fever, etc., with recent hospital discharge from [facility] on 04/27 for severely hemorrhagic cystitis and urosepsis during that hospitalization. Onset: Unknown/Unsure Onset Date: 05/10/20 Onset Time: 05:30 Context: Reports: Other (As above). Denies: Sick Contact, Trauma (Okay come from event) Associated Symptoms: Reports: Shortness of Breath (Agonal breathing), Other (Lethargic, responsive to pain only I did I just told him that date if you). 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 - Related Data Allergies Allergy/AdvReac Type Severity Reaction Status Date / Time doxycycline Allergy Other Verified 04/22/20 12:06 Home Meds: Home Meds DULoxetine [Cymbalta] 20 mg PO DAILY 11/21/19 [History] DULoxetine [Cymbalta] 30 mg PO DAILY 11/21/19 [History] Fluticasone Propionate [Flonase] 1 spray NASBOTH Q12HR 11/21/19 [History] Gabapentin [Neurontin] 600 mg PO TID@08,14,20 11/21/19 [History] Hydrocodone/Acetaminophen [Strong 10-325 Tablet] 1 each PO DAILY PRN 10/12/20 [History] Hydrocodone/Acetaminophen [Strong 10-325 Tablet] 1 each PO TID@,,11/21/19 [History] Loratadine 10 mg PO DAILY 11/21/19 [History] Melatonin 3 mg PO BEDTIME 11/21/19 [History] Methyl Salicylate/Menthol [Muscle Rub Cream] 1 applic TOP ASDIRECTED PRN 11/21/19 [History] Multivitamin [Multi-Vitamin Daily] 1 each PO DAILY 11/21/19 [History] Oxybutynin Chloride [Ditropan Xl] 10 mg PO BEDTIME 11/21/19 [History] Sennosides/Docusate Sodium [Senna-Docusate Sodium Tablet] 1 tab PO DAILY 11/21/19 [History] Calcium Carbonate/Vitamin D3 [Calcium 600-Vit D3 400 Tablet] 1 each PO BEDTIME 04/22/20 [History] Cholecalciferol (Vitamin D3) [Vitamin D3] 2,000 unit PO BEDTIME 04/22/20 [History] Cranberry 500 mg PO BEDTIME 04/22/20 [History] Cyclobenzaprine [Flexeril] 10 mg PO Q8HR PRN 04/22/20 [History] Ferrous Sulfate [Iron] 325 mg PO DAILY 04/22/20 [History] Magnesium Oxide [Magnesium] 400 mg PO DAILY 04/22/20 [History] Methenamine Hippurate [Hiprex] 1 gm PO Q12HR 04/22/20 [History] Metoprolol Succinate [Toprol XL 100mg] 100 mg PO DAILY 04/22/20 [History] Nitroglycerin [Nitrostat] 0.4 mg SL ASDIRECTED 04/22/20 [History] Omeprazole Magnesium [Prilosec Otc] 20 mg PO DAILY 04/22/20 [History] Phenazopyridine [Urinary Pain Relief] 95 mg PO TIDPC PRN tablet 04/22/20 [Rx] Sulfamethoxazole/Trimethoprim [Bactrim Ds Tablet] 1 each PO BID 5 Days #4 tablet 04/22/20 [Rx] bisacodyL [Bisacodyl] 5 mg PO Q12HR PRN 04/22/20 [History] rOPINIRole [Requip] 1 mg PO BEDTIME 04/22/20 [History] Albuterol [Ventolin HFA] 2 puff INH Q4H PRN 04/23/20 [History] atorvaSTATin [Lipitor] 40 mg PO BEDTIME 04/23/20 [History] Past Medical History HEENT History: Reports: Allergic Rhinitis, Cataract, Impaired Vision, Other (See Below). Denies: Glaucoma, Hard of Hearing, Macular Degeneration, Otitis Media, Retinal Detachment Other HEENT History: Patient wears glasses. Cardiovascular History: Reports: CAD, Cardiomyopathy, Heart Failure, Heart Murmur, High Cholesterol, Hypertension, GA, PTCA, PVD, Stents, Syncope, Other (See Below). Denies: Afib, Aneurysm, Arrhythmia, Blood Clots/VTE/DVT, Bypass Other Cardiovascular History: History of elevated D-dimer with no previous work- up. Acute GA in December 2019 with PTCA/stent x1 at that time. Diastolic dysfunction. Respiratory History: Reports: Bronchitis, Recurrent, COPD, Intubation, Previous. Denies: Asthma, Intubation, Difficult, PE, Pneumonia, Recurrent, Pneumothorax, Pulmonary Fibrosis, Sleep Apnea, TB Gastrointestinal History: Reports: Chronic Constipation, GERD. Denies: Bowel Obstruction, Celiac Disease, Cholelithiasis, Colon Polyp, Diverticulosis, Fecal Incontinence, Gastritis, GI Bleed, Hiatal Hernia, Inflammatory Bowel Disease, Irritable Bowel Syndrome, Jaundice, Pancreatitis, PUD Genitourinary History: Reports: Urinary Incontinence, UTI, Recurrent, Other (See Below). Denies: Acute Renal Failure, Chronic Renal Insuffiency, Renal Calculus, Retention, Urinary, STD Other Genitourinary History: Hemorrhagic cystitis with severe bleeding and secondary urosepsis requiring hospitalization at [facility] with discharge from that facility on 04/27/2020. Right-sided pyelonephritis with additional evidence of chronic cystitis by CT scan in March 2020 as below. Overactive bladder/urinary urgency. 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 Full term without complications during pregnancies or deliveries. Musculoskeletal History: Reports: Arthritis, Back Pain, Chronic, Neck Pain, Chronic, Osteoarthritis. Denies: Fracture, Gout, Osteoporosis, RA, SLE Other Musculoskeletal History: History of carpal tunnel syndrome with surgery as below. Right ankle fracture in her 30s with surgery as below. Known history of severe degenerative disc disease with additional mild scoliosis and spinal s tenosis. Chronic lumbar back pain with current implanted electrical stimulator unit. Neurological History: Reports: Neuropathy, Peripheral, Seizure, Other (See Below). Denies: Alzheimers Disease, Cerebral Aneurysms, Concussion (No MS Parkinson's disease head concussions anything like that), CVA, Headaches, Chronic, Head Trauma, Migraines, MS, Speech Problems, TIA, Vertigo (No stroke or mini stroke) Other Neuro History: History of grand mal seizures since age 17. Restless leg syndrome. Spinal stenosis with bilateral leg weakness and required wheelchair use. Psychiatric History: Reports: Addiction, Anxiety, Depression, Other (See Below). Denies: Abuse, Victim of, ADD, ADHD, Psych Hospitalization(s), PTSD, Suicide Attempt, Suicidal Ideation Other Psychiatric History: Chronic narcotic use secondary to chronic pain syndrome. Endocrine/Metabolic History: Reports: Obesity/BMI 30+, Other (See Below). Denies: Diabetes, Gestational, Diabetes, Type I, Diabetes, Type II, Diabetes Mellitus, Type 3c, Hypothyroidism, IDDM, Osteopenia, Osteoporosis Other Endocrine/Metabolic History: Hypoalbuminemia. Hyponatremia. Hypomagnesemia. Hematologic History: Reports: Blood Transfusion(s), Iron Deficiency, Other (See Below). Denies: Anemia, B12 Deficiency Other Hematologic History: Blood transfusion with her back surgery as below. Immunologic History: Reports: Immunosuppression, Other (See Below). Denies: AIDS, HIV, SLE Other Immunologic History: Monoclonal gammopathy Oncologic (Cancer) History: Reports: None. Denies: Basal Cell Carcinoma, Breast, Cervix, Colon, Hodgkin's Lymphoma, Leukemia, Malignant Melanoma, Non- Hodgkin's Lymphoma, Ovarian, Squamous Cell Carcinoma, Uterine Dermatologic History: Reports: None. Denies: Eczema, Psoriasis - Infectious Disease History Infectious Disease History: Reports: Chicken Pox, Measles, Mumps, Novel [place] virus (February 2020). Denies: C-Difficile, Meningitis, Mononucleosis, MRSA, Pertussis (Whooping Cough), Rheumatic Fever, Rubella, Scarlet Fever, Shingles, TB, VRE - Past Surgical History Head Surgeries/Procedures: Reports: None HEENT Surgical History: Reports: Cataract Surgery, Laser Surgery, Oral Surgery, Other (See Below). Denies: Adenoidectomy, Eye Surgery, LASIK, Myringotomy w Tube(s), Naso-Sinus Surgery, Tonsillectomy Other HEENT Surgeries/Procedures: Bilateral cataract surgery in her 50s? Subsequent laser treatments of her posterior capsules. Almost complete teeth extraction with complete upper dentures and only a few remaining lower dentition. Cardiovascular Surgical History: Reports: Coronary Artery Stent, Percutaneous Transluminal Angioplasty, Other (See Below). Denies: Varicose, Vascular Surgery Other Cardiovascular Surgeries/Procedures: PTCA/stent x1 in December 2019. Respiratory Surgical History: Reports: None. Denies: Lung Biopsies, Thoracentesis GI Surgical History: Reports: Appendectomy, Colonoscopy, Other (See Below). Denies: Cholecystectomy, EGD, Hernia, Abdominal, Hernia, Inguinal, Hernia Repair/Other, Polypectomy Other GI Surgeries/Procedures: Appendectomy in her 30s. Colonoscopy in her 50s. Female Surgical History: Reports: None. Denies: Breast Biopsy, Section, D&C, Hysterectomy, Oophorectomy, Salpingo-Oophorectomy, Tubal Ligation Endocrine Surgical History: Reports: None. Denies: Thyroid Biopsy Neurological Surgical History: Reports: Lumbar Spine, Other (See Below). Denies: C-Spine, Discectomy, Laminectomy, Sacral Spine, Scoliosis, Spinal Fusion, Thoracic Spine, Vertebroplasty Other Neurological Surgeries/Procedures: Unknown type of lumbar surgeries x3, including her spinal cord? Lumbar electro-stimulator unit implant. Musculoskeletal Surgical History: Reports: Carpal Tunnel, ORIF, Other (See Below). Denies: Arthroscopic Procedure, Ganglion Cyst, Joint Replacement, Shoulder Surgery Other Musculoskeletal Surgeries/Procedures:: ORIF of the right ankle in her 30s with subsequent right ankle fusion in her 60s. Right-sided carpal tunnel release in her 50s. Oncologic Surgical History: Reports: None Dermatological Surgical History: Reports: Other (See Below) Other Dermatological Surgeries/Procedures: Pilonidal cyst surgeries x3 in her 20s. - Past Imaging History Past Imaging History: Reports: CAT Scan (CT of the abdomen and pelvis on 03/22/2020.), MRI (Lumbar spine on 07/08/2017. Thoracic spine on 11/23/2018.), Ultrasound (Bilateral renal ultrasound on 11/04/2018.) - History Comment History Comment: Patient is a somewhat poor historian. Social & Family History - Caffeine Use Caffeine Use: Reports: Coffee (5-6 cups/day), Soda (23 sodas per week), Tea (2 glasses/week). 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 Positive gag reflex.). No: Normal Teeth (Completely absent dentition with no dentures) Head Exam: Atraumatic, Normocephalic. No: Facial Swelling, Facial Tenderness, Sinus Tenderness Neck: Supple, Non-Tender, Full Range of Motion, Carotid Bruit (Mild bilateral carotid bruits). No: Lymphadenopathy (L), Lymphadenopathy (R), Thyromegaly Respiratory/Chest: Chest Non-Tender, Rales (Mild diffuse bilateral), Other (Agonal breathing) Cardiovascular: Normal Peripheral Pulses, Regular Rate, Rhythm, No Gallop, No JVD, No Murmur, No Rub. No: No Edema (Dependent edema as below), Systolic Murmur, Gallop/S3, Gallop/S4, Friction Rub GI/Abdominal: Normal Bowel Sounds, Soft, Non-Tender, No Organomegaly, No Distention, No Abnormal Bruit, No Mass, Pelvis Stable, Other (Morbidly obese). No: Guarding (Female) Exam: Deferred Rectal (Female) Exam: Deferred Neurological: Babinski (Moderate right-sided positive), Other (Responsive to pain only) Back Exam: Normal Inspection, Full Range of Motion. No: CVA Tenderness (L), CVA Tenderness (R), Muscle Spasm Extremities: Normal Range of Motion, Non-Tender, Normal Capillary Refill, Pedal Edema (Trace to +1 bilateral pedal/pretibial edema). No: Brandon's Sign Psychiatric: Other (Not responsive) Skin Exam: Warm, Dry, Intact, Normal Color, No Rash, Ecchymosis (Occasional). No: Diaphoretic, Petechiae, Wound/Incision ED NEURO PROCEDURES - Endotracheal Intubation Time of Intubation: 07:23 ET Intubation Indication: Respiratory Failure Preparation: Suction, Balloon Tested, BVM Set Up Airway Assessment: Obese, Large Tongue Pre-Oxygenation: Assisted with BVM, 100% FiO2 Anesthesia Meds: Rocuronium (80 mg), Succinylcholine (100 mg), Other (Versed 2 mg) Placement: Orotracheal, Cuffed, Uncomplicated Placement Cords Visualized: Yes, Grade 1 ETT Size In mm: 7.0 Number of Attempts: 1 Confirmed By: CO2 Indicator, Bilateral Breath Sounds, Chest Xray Tube Secured By: By RN #1 Interpretation EKG Date: 05/10/20 Time: 08:15 Rhythm: NSR Rate (Beats/Min): 72 [place]: Normal (Left) P-Wave: Enlarged (Mild diffuse biphasic P waves) QRS: Normal (0.07 seconds) ST-T: Other (Noisy baseline with questionable ST elevations in V2 and V3. T wave inversion in lead V1 and aVL) KY/PQ Interval: 0.19 seconds with extreme poor R wave progression in the anterior leads Comparison: NA - No Prior EKG EKG Interpretation Comments: 1. No definite acute ischemic changes with possibility of developing anterior wall STEMI 2. Left atrial enlargement Course - Vital Signs Last Recorded V/S: See E med and Stroke code sheet - Orders/Labs/Meds Labs: Laboratory Tests 05/10/20 05/10/20 05/10/20 Range/Units 07:20 07:20 07:20 WBC 57.1 H* (4.0-10.2) K/uL RBC 3.51 L (3.77-5.09) M/uL Hgb 9.9 L (11.7-15.5) g/dL Hct 32.2 L (34.0-46.0) % MCV 91.7 D (84.0-98.0) fL MCH 28.2 (28.2-33.3) pg MCHC 30.7 L (31.7-36.0) g/dL RDW 20.1 H (11.2-14.1) % Plt Count 194 (150-350) K/uL Add Manual Diff Yes Neutrophils % (Manual) 64 Band Neutrophils % 12 Lymphocytes % (Manual) 4 Monocytes % (Manual) 20 Absolute Neutrophils 43.3960 Lymphocytes # (Manual) 2.2840 Monocytes # (Manual) 11.4200 PT 11.1 (9.5-12.0) SEC INR 1.1 APTT 26.5 (24.5-32.8) SEC D-Dimer, Quantitative 925 H (0-400) ng/mL Sodium (136-145) mmol/L Potassium (3.5-5.1) mmol/L Chloride (98-107) mmol/L Carbon Dioxide (21.0-32.0) mmol/L BUN (7-18) mg/dL Creatinine (0.51-1.17) mg/dL Est Cr Clr Drug Dosing Estimated GFR (MDRD) mL/min Glucose (70-99) mg/dL Lactic Acid (0.4-2.0) mmol/L Uric Acid (2.6-7.2) mg/dL Calcium (8.5-10.1) mg/dL Magnesium (1.8-2.4) mg/dL Total Bilirubin (0.2-1.0) mg/dL AST (15-37) U/L ALT (12-78) U/L Alkaline Phosphatase (46-116) IU/L Creatine Kinase (26-308) U/L Creatine Kinase Index (0.0-2.5) % CK-MB (CK-2) (0.00-3.60) ng/mL Troponin I (0.000-0.056) ng/mL NT-Pro-B Natriuret Pep (0-125) pg/mL Total Protein (6.4-8.2) g/dL Albumin (3.4-5.0) g/dL TSH, Ultra Sensitive (0.358-3.740) mIU/mL Prolactin ng/mL 05/10/20 05/10/20 05/10/20 Range/Units 07:20 07:20 07:20 WBC (4.0-10.2) K/uL RBC (3.77-5.09) M/uL Hgb (11.7-15.5) g/dL Hct (34.0-46.0) % MCV (84.0-98.0) fL MCH (28.2-33.3) pg MCHC (31.7-36.0) g/dL RDW (11.2-14.1) % Plt Count (150-350) K/uL Add Manual Diff Neutrophils % (Manual) Band Neutrophils % Lymphocytes % (Manual) Monocytes % (Manual) Absolute Neutrophils Lymphocytes # (Manual) Monocytes # (Manual) PT (9.5-12.0) SEC INR APTT (24.5-32.8) SEC D-Dimer, Quantitative (0-400) ng/mL Sodium 139 (136-145) mmol/L Potassium 4.2 (3.5-5.1) mmol/L Chloride 102 (98-107) mmol/L Carbon Dioxide 28.1 (21.0-32.0) mmol/L BUN 30 H (7-18) mg/dL Creatinine 1.97 H (0.51-1.17) mg/dL Est Cr Clr Drug Dosing TNP Estimated GFR (MDRD) 25 mL/min Glucose 108 H (70-99) mg/dL Lactic Acid 2.2 H (0.4-2.0) mmol/L Uric Acid 6.1 (2.6-7.2) mg/dL Calcium 9.2 (8.5-10.1) mg/dL Magnesium 1.6 L (1.8-2.4) mg/dL Total Bilirubin 0.6 (0.2-1.0) mg/dL AST 30 (15-37) U/L ALT 28 (12-78) U/L Alkaline Phosphatase 86 (46-116) IU/L Creatine Kinase 57 (26-308) U/L Creatine Kinase Index 0.7 (0.0-2.5) % CK-MB (CK-2) 0.40 (0.00-3.60) ng/mL Troponin I 0.123 H* (0.000-0.056) ng/mL NT-Pro-B Natriuret Pep 74136 H (0-125) pg/mL Total Protein 7.2 (6.4-8.2) g/dL Albumin 2.7 L (3.4-5.0) g/dL TSH, Ultra Sensitive 5.149 H (0.358-3.740) mIU/mL Prolactin 10.4 ng/mL Meds: Medications Discontinued Medications Generic Name Dose Route Start Last Admin Trade Name Roman PRN Reason Stop Dose Admin Diazepam 2.5 mg 05/10/20 08:18 Diazepam 10 Mg/2 Ml Syringe IVPUSH 05/10/20 08:19 ONETIME ONE Diazepam Confirm 05/10/20 08:21 Diazepam 10 Mg/2 Ml Syringe Administered 05/10/20 08:22 Dose 10 mg .ROUTE .STK-MED ONE Famotidine 40 mg 05/10/20 07:31 Famotidine 20 Mg/2 Ml Sdv IVPUSH 05/10/20 07:32 ONETIME ONE Hydromorphone HCl 1 mg 05/10/20 07:46 Hydromorphone 1 Mg/Ml Syringe IVPUSH 05/10/20 07:47 ONETIME ONE Vancomycin HCl 2 gm/ Sodium 500 mls @ 165 mls/hr 05/10/20 07:44 Chloride IV 05/10/20 10:45 ONETIME ONE Norepinephrine Bitartrate 4 mg 250 mls @ 7.5 mls/hr 05/10/20 07:45 / Dextrose/Water IV TITRATE RAVI Protocol 2 MCG/MIN Sodium Chloride 1,000 mls @ 999 mls/hr 05/10/20 07:52 Normal Saline IV 05/10/20 08:52 .BOLUS ONE Lactated Ringer's 1,000 mls @ 999 mls/hr 05/10/20 07:30 Ringers, Lactated IV 05/10/20 08:30 .BOLUS ONE Midazolam HCl Confirm 05/10/20 07:19 Midazolam 1 Mg/Ml 2 Ml Sdv Administered 05/10/20 07:20 Dose 2 mg .ROUTE .STK-MED ONE Norepinephrine Bitartrate Confirm 05/10/20 07:35 Norepinephrine 4 Mg/4 Ml Sdv Administered 05/10/20 07:36 Dose 4 mg .ROUTE .STK-MED ONE Ondansetron HCl 4 mg 05/10/20 07:46 Ondansetron 4 Mg/2 Ml Sdv IVPUSH 05/10/20 07:47 ONETIME ONE Ondansetron HCl Confirm 05/10/20 07:48 Ondansetron 4 Mg/2 Ml Sdv Administered 05/10/20 07:49 Dose 4 mg .ROUTE .STK-MED ONE Rocuronium [place] Confirm 05/10/20 07:26 Rocuronium 100 Mg/10 Ml Mdv Administered 05/10/20 07:27 Dose 100 mg .ROUTE .STK-MED ONE Sodium Chloride 10 ml 05/10/20 07:31 Sodium Chloride 0.9% 10 Ml Syringe FLUSH ASDIRECTED PRN Keep Vein Open Succinylcholine Chloride Confirm 05/10/20 07:19 Succinylcholine 200 Mg/10 Ml Mdv Administered 05/10/20 07:20 Dose 200 mg .ROUTE .STK-MED ONE - Radiology Interpretation Free Text/Narrative:: child monitor shows normal sinus rhythm in the 70s to 80s with occasional PVCs noted. Chest x-ray, portable, shows borderline deep endotracheal tube placement, although excellent airflow based on clinical exam. Moderate cardiomegaly with mild CHF. No pulmonary infiltrates, pneumothorax, etc. Telephone consultation at 8:26 AM with the radiology department at [facility]. Preliminary verbal report of noncontrast CT scan of the head was positive for an old left cerebellar lacunar infarct with otherwise no evidence of acute CVA, cerebral hemorrhage, etc. Otherwise stable microvascular cerebral disease. CT Results Date: 05/10/20 CT Results Time: 08:26 Departure - Departure Time of Disposition: 09:22 Disposition: DC/Tfer to Acute Hospital 02 Condition: Critical Clinical Impression: Mixed anxiety depressive disorder, Peptic reflux disease, Renal insufficiency, Hypomagnesemia, Hypothyroidism (acquired), Hypoalbuminemia, Elevated d-dimer Anemia Qualifiers: Anemia type: other cause Other causes of anemia: acute posthemorrhagic Qualified Code(s): D62 - Acute posthemorrhagic anemia COPD (chronic obstructive pulmonary disease) Qualifiers: COPD type: emphysema Emphysema type: panlobular Qualified Code(s): J43.1 - Panlobular emphysema Coronary artery disease Qualifiers: Coronary Disease-Associated Artery/Lesion type: [place] artery [place] vs. adams splanted heart: stebbins heart Associated angina: without angina Qualified Code(s): I25.10 - Atherosclerotic heart disease of [place] coronary artery without angina pectoris CHF (congestive heart failure) Qualifiers: Heart failure type: combined systolic and diastolic Heart failure chronicity: acute on chronic Qualified Code(s): I50.43 - Acute on chronic combined systolic (congestive) and diastolic (congestive) heart failure CVA (cerebral vascular accident) Qualifiers: CVA mechanism: unspecified Qualified Code(s): I63.9 - Cerebral infarction, unspecified Respiratory failure Qualifiers: Chronicity: acute Respiratory failure complication: hypoxia Qualified Code(s): J96.01 - Acute respiratory failure with hypoxia Sepsis Qualifiers: Sepsis type: sepsis due to unspecified organism Sepsis acute organ dysfunction status: with acute organ dysfunction Severe sepsis acute organ dysfunction type: acute respiratory failure Acute respiratory failure type: with hypoxia Severe sepsis shock status: with septic shock Qualified Code(s): A41.9 - Sepsis, unspecified organism - Discharge Information *PRESCRIPTION DRUG MONITORING PROGRAM REVIEWED*: Not Applicable *COPY OF PRESCRIPTION DRUG MONITORING REPORT IN PATIENT MICHELLE: Not Applicable Referrals: Joaquina Hoffman PA [Primary Care Provider] - Forms: ED Department Discharge, Interfacility Transfer EMTALA - Problem List & Annotations (1) CVA (cerebral vascular accident) SNOMED Code(s): 293585140 Code(s): I63.9 - CEREBRAL INFARCTION, UNSPECIFIED Status: Acute Priority: High Onset Date: 05/10/20 Annotation/Comment:: Stroke code called by this provider immediately upon arrival to patient to our emergency room. [facility] at 7:30 AM with subsequent telephone consultation at 7:[address] Linares, stroke neurologist, at [facility] [place], with no further treatment recommendations given. He did advise possible initiation of fresh frozen plasma, if evidence of acute bleeding was present, although this was not required. Much improved vital signs, oxygenation, etc. at time of patient transfer with patient still lethargic and given IV sedation and pain control as above. Note that Emed was used to document patient care. CT of the head was delayed secondary to patient's respiratory failure and distress with successful placement of endotracheal tube after 1 attempt. Strong positive right-sided Babinski on arrival, although improved with treatment in the emergency room. Patient was unable to perform a complete neurological exam. CT scan of the head does not show an acute CVA or hemorrhagic bleed with probable MRI of the head at time of arrival to accepting facility. Note that during course of performance of CT the endotracheal tube was accidentally moved deeper to 24 cm throughout the initial 22 cm with airflight team assisting us none withdrawing the endotracheal tube back to the original position with excellent oxygenation. In addition, multiple medication changes by the airflight team prior to patient's transfer. Qualifiers: CVA mechanism: unspecified Qualified Code(s): I63.9 - Cerebral infarction, unspecified (2) Sepsis SNOMED Code(s): 47508899 Code(s): A41.9 - SEPSIS, UNSPECIFIED ORGANISM Status: Acute Priority: High Onset Date: ~05/10/20 Annotation/Comment:: Note significant history urosepsis requiring hospitalization at [facility] as above. Significant leukocytosis possibly secondary to either sepsis and/or stress reaction from patient's respiratory failure, etc. as above/below. Blood cultures could not be obtained secondary to unstable patient at time of her arrival. High-dose IV vancomycin was initiated in the emergency room. Note mildly elevated lactic acid level. Qualifiers: Sepsis type: sepsis due to unspecified organism Sepsis acute organ dysfunction status: with acute organ dysfunction Severe sepsis acute organ dysfunction type: acute respiratory failure Acute respiratory failure type: with hypoxia Severe sepsis shock status: with septic shock Qualified Code(s): A41.9 - Sepsis, unspecified organism; R65.21 - Severe sepsis with septic shock; J96.01 - Acute respiratory failure with hypoxia (3) Respiratory failure SNOMED Code(s): 998561457 Code(s): J96.90 - RESPIRATORY FAILURE, UNSP, UNSP W HYPOXIA OR HYPERCAPNIA Status: Acute Priority: High Onset Date: 05/10/20 Annotation/Comment:: As above Qualifiers: Chronicity: acute Respiratory failure complication: hypoxia Qualified Code(s): J96.01 - Acute respiratory failure with hypoxia (4) Coronary artery disease SNOMED Code(s): 20017347 Code(s): I25.10 - ATHSCL HEART DISEASE OF [place] CORONARY ARTERY W/O ANG PCTRS Status: Chronic Priority: Medium Annotation/Comment:: No chest pain or anginal type symptoms. Note significant CHF by blood work and today's chest x-ray. History of diastolic dysfunction and previous PTCA/stent. Limited history available. Possible acute GA at this time. Qualifiers: Coronary Disease-Associated Artery/Lesion type: [place] artery [place] vs. transplanted heart: [place] heart Associated angina: without angina Qualified Code(s): I25.10 - Atherosclerotic heart disease of [place] coronary artery without angina pectoris (5) CHF (congestive heart failure) SNOMED Code(s): 69034768 Code(s): I50.9 - HEART FAILURE, UNSPECIFIED Status: Acute Priority: High Annotation/Comment:: Moderate CHF based on chest x-ray and blood work. No diuresis at this time secondary patient's recent hypotension and possibility of sepsis. Note aggressive IV hydration during the course of her care as above. Possible concomitant acute GA, although no definite acute EKG changes with suspected possible developing anterior wall non-STEMI as above. Further cardiology consultation, work-up, etc. per accepting providers. Qualifiers: Heart failure type: combined systolic and diastolic Heart failure chroni city: acute on chronic Qualified Code(s): I50.43 - Acute on chronic combined systolic (congestive) and diastolic (congestive) heart failure (6) Anemia SNOMED Code(s): 206317016 Code(s): D64.9 - ANEMIA, UNSPECIFIED Status: Acute Priority: High Onset Date: 04/23/20 Annotation/Comment:: Stable recent progressive anemia after hospitalization for hemorrhagic cystitis as above. High-dose IV Pepcid given as GI prophylaxis. No evidence of acute GI bleed. Qualifiers: Anemia type: other cause Other causes of anemia: acute posthemorrhagic Qualified Code(s): D62 - Acute posthemorrhagic anemia (7) Hypomagnesemia SNOMED Code(s): 582681306 Code(s): E83.42 - HYPOMAGNESEMIA Status: Acute Priority: High Onset Date: 05/10/20 Annotation/Comment:: Consider supplementation by accepting providers, however note initial significant hypotension. (8) COPD (chronic obstructive pulmonary disease) SNOMED Code(s): 79603828 Code(s): J44.9 - CHRONIC OBSTRUCTIVE PULMONARY DISEASE, UNSPECIFIED Status: Chronic Priority: Medium Annotation/Comment:: No recent bronchitic type symptoms or fever. Note negative COVID-19 evaluation in our facility on 04/23/2020 at time of patient's transfer for urosepsis as above. Patient already has had COVID-19 in the past. No evidence of pneumonia by today's x-ray. Qualifiers: COPD type: emphysema Emphysema type: panlobular Qualified Code(s): J43.1 - Panlobular emphysema (9) Hypoalbuminemia SNOMED Code(s): 572939678 Code(s): E88.09 - OTH DISORDERS OF PLASMA-PROTEIN METABOLISM, NEC Status: Chronic Priority: Medium Annotation/Comment:: Observe for now (10) Mixed anxiety depressive disorder SNOMED Code(s): 817187758 Code(s): F41.8 - OTHER SPECIFIED ANXIETY DISORDERS Status: Chronic Priority: Medium Annotation/Comment:: Stable in the emergency room and by history. Note chronic narcotic use secondary to chronic pain syndrome. (11) Peptic reflux disease SNOMED Code(s): 368992314 Code(s): K21.9 - GASTRO-ESOPHAGEAL REFLUX DISEASE WITHOUT ESOPHAGITIS Status: Chronic Priority: Medium Annotation/Comment:: No evidence of GI bleed despite progressive anemia. High-dose IV Pepcid and IV Protonix given as GI prophylaxis. (12) Renal insufficiency SNOMED Code(s): 478900483, 689561364 Code(s): N28.9 - DISORDER OF KIDNEY AND URETER, UNSPECIFIED Status: Acute Priority: Medium Onset Date: 05/10/20 Annotation/Comment:: Continue to observe closely by accepting providers. (13) Elevated d-dimer SNOMED Code(s): 787578147 Code(s): R79.89 - OTHER SPECIFIED ABNORMAL FINDINGS OF BLOOD CHEMISTRY Status: Chronic Priority: High Annotation/Comment:: Chronic condition. Observe for now. - Problem List Review Problem List Initiated/Reviewed/Updated: Yes - Assessment/Plan Assessment:: As above Plan: As above. Extensive precautions were given to the patient's daughter, who is in agreement with the treatment plan. Air ambulance transfer to [facility] in [place] as above.
[2020-05-10] MEDS ORDERED: Vancomycin 2 GM in Sodium Chloride 0.9% 500 ML IV ONE ×2 (07:44→07:54)
[2020-05-10] MEDS ORDERED: Norepinephrine 4 MG in Dextrose 5% in Water 246 ML IV SCH ×2 (07:45)
[2020-05-10] MEDS ORDERED: HYDROmorphone 1 MG/ML Syringe IVPUSH ONE (07:46)
[2020-05-10] MEDS ORDERED: Ondansetron 4 MG/2 ML SDV IVPUSH ONE (07:46)
[2020-05-10 07:52] LABS: PTT,PARTIAL THROMBOPLSTIN TIME 26.5 SEC (24.5-32.8)
[2020-05-10] MEDS ORDERED: Sodium Chloride 0.9% 1,000 ML IV ONE (07:52)
[2020-05-10] MEDS ORDERED: Sodium Chloride 0.9% 10 ML Syringe ONE ×4 (08:24)
[2020-05-10 08:36] LABS: CHLORIDE,CL 102 mmol/L (98-107); SODIUM,NA 139 mmol/L (136-145)
== END 2020-05-10 09:07 ==
LOC: LL.ED 07:09
DX: A41.9 Sepsis, unspecified organism (principal); R65.21 Severe sepsis with septic shock; J96.01 Acute respiratory failure with hypoxia; I11.0 Hypertensive heart disease with heart failure; I50.43 Acute on chronic combined systolic (congestive) and diastolic (congestive) heart failure; J43.1 Panlobular emphysema; I63.9 Cerebral infarction, unspecified; I25.10 Atherosclerotic heart disease of native coronary artery without angina pectoris; K21.9 Gastro-esophageal reflux disease without esophagitis; F41.8 Other specified anxiety disorders; N28.9 Disorder of kidney and ureter, unspecified; E83.42 Hypomagnesemia; E03.9 Hypothyroidism, unspecified; E88.09 Other disorders of plasma-protein metabolism, not elsewhere classified; R79.1 Abnormal coagulation profile; D62 Acute posthemorrhagic anemia; E78.00 Pure hypercholesterolemia, unspecified; E66.9 Obesity, unspecified; R01.1 Cardiac murmur, unspecified; Z88.1 Allergy status to other antibiotic agents; Z79.899 Other long term (current) drug therapy
CPT/HCPCS: 31500; 36415; 43752; 70450; 71045; 80053; 82550; 82553; 83605; 83735; 83880; 84146; 84443; 84484; 84550; 85025; 85379; 85610; 85730; 93005; 93010; 96365; 96374; 96375; 99285; 99285-25; J0330; J1170; J2250; J2405; J3360; J3370; J3490; J7040; J7120

== ENCOUNTER 2020-05-23 20:10 | Inpatient (IN) | payer MEDICARE, OTHER ==
[2020-05-23] MEDS ORDERED: Sodium Chloride 0.9% 1,000 ML IV SCH (21:15)
--- NOTE | 2020-05-23 21:20 | EDM.PDOC ---
ED HPI GENERAL MEDICAL PROBLEM - General Chief Complaint: General Stated Complaint: INCREASED LETHARGY, SYNCOPAL EPISODE X 2 Time Seen by Provider: 05/23/20 20:14 Source of Information: Reports: Patient, Family History Limitations: Reports: No Limitations - History of Present Illness INITIAL COMMENTS - FREE TEXT/NARRATIVE: Pt. presents to ER via EMS today from [facility]. Pt. was admitted to the [facility] on 05/21/[address] [facility] with septic shock and respiratory failure secondary to R sided pyelonephritis. Pt. had been seen initially at this facility at which time she was intubated due to respiratory failure. She was started on levophed, broad spectrum antibiotics and transferred to [place]. Pt. urine grew ciprofloxacin resistant pseudomonas. CT abd. and pelvis at that time showed R sided pyelo without abscess formation. Pt. was subsequently transitioned to cefepime 2000mg every 8 hours. She improved and was weaned off pressors. She self-extubated herself in the ICU but did not require further ventilatory support, according to daughter. Her blood cultures both drawn at this facility and at [place] did not grow any bacteria. Pt. was transferred to [facility] on 05/21. She is to continue cefepime administered thru picc line until 05/24/2020. group home staff relates that the patient was more confused, fatigued, and was hypotensive at the [facility] with BP in the 80s today. Staff states that she has been afebrile, and was afebrile on arrival to ER. CBC, CRP, chemistry, and UA were performed late this afternoon by pt. PCP. White count was 15.4, up from 13.6 2 days ago. CRP was 4 and LDH was 311. CMP was also obtained. Renal function and electrolytes were stable. UA showed trace leukocyte esterase, negative nitrates. To note, pt. was started back on her gabapentin on Thursday. Pt. denies any shortness of breath. Denies any cough or chest congestion. Denies any rashes. No abdominal discomfort. Denies any headache. No neck pain. No unilateral weakness. No report of facial droop. Pt. was able to answer most questions but relies heavily on her daughter. Daughter states that she thinks the patient is more fatigued and seems less alert today. Onset: Today Location: Reports: Generalized Associated Symptoms: Reports: Confusion, Malaise. Denies: Chest Pain, Cough, cough w sputum, Diaphoresis, Fever/Chills, Headaches, Loss of Appetite, Nausea/Vomiting, Rash, Seizure, Shortness of Breath, Syncope - Related Data Allergies Allergy/AdvReac Type Severity Reaction Status Date / Time doxycycline Allergy Other Verified 05/23/20 20:20 Home Meds: Home Meds DULoxetine [Cymbalta] 20 mg PO DAILY 11/21/19 [History] DULoxetine [Cymbalta] 30 mg PO DAILY 11/21/19 [History] Gabapentin [Neurontin] 600 mg PO TID@,,11/21/19 [History] Hydrocodone/Acetaminophen [[place] 10-325 Tablet] 1 each PO DAILY PRN 11/21/19 [History] Hydrocodone/Acetaminophen [[place] 10-325 Tablet] 1 each PO TID@,,11/21/19 [History] Loratadine 10 mg PO DAILY 11/21/19 [History] Melatonin 3 mg PO BEDTIME 11/21/19 [History] Multivitamin [Multi-Vitamin Daily] 1 each PO DAILY 11/21/19 [History] Oxybutynin Chloride [Ditropan Xl] 10 mg PO BEDTIME 11/21/19 [History] Sennosides/Docusate Sodium [Senna-Docusate Sodium Tablet] 2 tab PO DAILY 11/21/19 [History] Calcium Carbonate/Vitamin D3 [Calcium 600-Vit D3 400 Tablet] 1 each PO BEDTIME 04/22/20 [History] Cholecalciferol (Vitamin D3) [Vitamin D3] 2,000 unit PO BEDTIME 04/22/20 [History] Cranberry 500 mg PO BEDTIME 04/22/20 [History] Cyclobenzaprine [Flexeril] 10 mg PO Q8HR PRN 04/22/20 [History] Ferrous Sulfate [Iron] 325 mg PO DAILY 04/22/20 [History] Magnesium Oxide [Magnesium] 400 mg PO DAILY 04/22/20 [History] Methenamine Hippurate [Hiprex] 1 gm PO Q12HR 04/22/20 [History] Metoprolol Succinate [Toprol XL 100mg] 100 mg PO DAILY 04/22/20 [History] Nitroglycerin [Nitrostat] 0.4 mg SL ASDIRECTED PRN 04/22/20 [History] bisacodyL [Bisacodyl] 5 mg PO Q12HR PRN 04/22/20 [History] rOPINIRole [Requip] 1 mg PO BEDTIME 04/22/20 [History] Albuterol [Ventolin HFA] 2 puff INH Q4H PRN 04/23/20 [History] atorvaSTATin [Lipitor] 40 mg PO BEDTIME 04/23/20 [History] Aspirin 81 mg PO DAILY 05/23/20 [History] Cefepime [Maxipime] 2 gm IV Q8HR 05/23/20 [History] Clopidogrel [Plavix] 75 mg PO DAILY 05/23/20 [History] Famotidine 20 mg PO DAILY 05/23/20 [History] Lactulose 10 gm PO DAILY PRN 05/23/20 [History] Methyl Salicylate/Menthol [Muscle Rub] 85 gm TP QID PRN 05/23/20 [History] Omeprazole 40 mg PO DAILY 05/23/20 [History] Phenazopyridine [Pyridium] 200 mg PO Q8H PRN 05/23/20 [History] ramipriL [Ramipril] 1.25 mg PO DAILY 05/23/20 [History] Past Medical History HEENT History: Reports: Allergic Rhinitis, Cataract, Impaired Vision, Other (See Below). Denies: Glaucoma, Hard of Hearing, Macular Degeneration, Otitis Media, Retinal Detachment Other HEENT History: Patient wears glasses. Cardiovascular History: Reports: CAD, Cardiomyopathy, Heart Failure, Heart Murmur, High Cholesterol, Hypertension, IA, PTCA, PVD, Stents, Syncope, Other (See Below). Denies: Afib, Aneurysm, Arrhythmia, Blood Clots/VTE/DVT, Bypass Other Cardiovascular History: History of elevated D-dimer with no previous work- up. Acute IA in December 2019 with PTCA/stent x1 at that time. Diastolic dysfunction. Respiratory History: Reports: Bronchitis, Recurrent, COPD, Intubation, Previous. Denies: Asthma, Intubation, Difficult, PE, Pneumonia, Recurrent, Pneumothorax, Pulmonary Fibrosis, Sleep Apnea, TB Gastrointestinal History: Reports: Chronic Constipation, GERD. Denies: Bowel Obstruction, Celiac Disease, Cholelithiasis, Colon Polyp, Diverticulosis, Fecal Incontinence, Gastritis, GI Bleed, Hiatal Hernia, Inflammatory Bowel Disease, Irritable Bowel Syndrome, Jaundice, Pancreatitis, PUD Genitourinary History: Reports: Urinary Incontinence, UTI, Recurrent, Other (See Below). Denies: Acute Renal Failure, Chronic Renal Insuffiency, Renal Calculus, Retention, Urinary, STD Other Genitourinary History: Hemorrhagic cystitis with severe bleeding and secondary urosepsis requiring hospitalization at [facility] with discharge from that facility on 04/27/2020. Right-sided pyelonephritis with additional evidence of chronic cystitis by CT scan in March 2020 as below. Overactive bladder/urinary urgency. HYPO DIPPER History: Reports: . Denies: Dysfunctional Uterine Bleeding, Endometriosis, Fibroids, Spontaneous , Therapeutic Other HYPO DIPPER History: Menopause in her mid 50s. Full term without complications during pregnancies or deliveries. Musculoskeletal History: Reports: Arthritis, Back Pain, Chronic, Neck Pain, Chronic, Osteoarthritis. Denies: Fracture, Gout, Osteoporosis, RA, SLE Other Musculoskeletal History: History of carpal tunnel syndrome with surgery as below. Right ankle fracture in her 30s with surgery as below. Known history of severe degenerative disc disease with additional mild scoliosis and spinal stenosis. Chronic lumbar back pain with current implanted electrical stimulator unit. Neurological History: Reports: Neuropathy, Peripheral, Seizure, Other (See Below). Denies: Alzheimers Disease, Cerebral Aneurysms, Concussion (No MS Parkinson's disease head concussions anything like that), CVA, Headaches, Chronic, Head Trauma, Migraines, MS, Speech Problems, TIA, Vertigo (No stroke or mini stroke) Other Neuro History: History of grand mal seizures since age 17. Restless leg syndrome. Spinal stenosis with bilateral leg weakness and required wheelchair use. Psychiatric History: Reports: Addiction, Anxiety, Depression, Other (See Below). Denies: Abuse, Victim of, ADD, ADHD, Psych Hospitalization(s), PTSD, Suicide Attempt, Suicidal Ideation Other Psychiatric History: Chronic narcotic use secondary to chronic pain syndrome. Endocrine/Metabolic History: Reports: Obesity/BMI 30+, Other (See Below). Denies: Diabetes, Gestational, Diabetes, Type I, Diabetes, Type II, Diabetes Mellitus, Type 3c, Hypothyroidism, IDDM, Osteopenia, Osteoporosis Other Endocrine/Metabolic History: Hypoalbuminemia. Hyponatremia. Hypomagnesemia. Hematologic History: Reports: Blood Transfusion(s), Iron Deficiency, Other (See Below). Denies: Anemia, B12 Deficiency Other Hematologic History: Blood transfusion with her back surgery as below. Immunologic History: Reports: Immunosuppression, Other (See Below). Denies: AIDS, HIV, SLE Other Immunologic History: Monoclonal gammopathy Oncologic (Cancer) History: Reports: None. Denies: Basal Cell Carcinoma, Breast, Cervix, Colon, Hodgkin's Lymphoma, Leukemia, Malignant Melanoma, Non- Hodgkin's Lymphoma, Ovarian, Squamous Cell Carcinoma, Uterine Dermatologic History: Reports: None. Denies: Eczema, Psoriasis - Infectious Disease History Infectious Disease History: Reports: Chicken Pox, Measles, Mumps, Novel Coronavirus (February 2020). Denies: C-Difficile, Meningitis, Mononucleosis, MRSA, Pertussis (Whooping Cough), Rheumatic Fever, Rubella, Scarlet Fever, Shingles, TB, VRE - Past Surgical History Head Surgeries/Procedures: Reports: None HEENT Surgical History: Reports: Cataract Surgery, Laser Surgery, Oral Surgery, Other (See Below). Denies: Adenoidectomy, Eye Surgery, LASIK, Myringotomy w Tube(s), Naso-Sinus Surgery, Tonsillectomy Other HEENT Surgeries/Procedures: Bilateral cataract surgery in her 50s? Subsequent laser treatments of her posterior capsules. Almost complete teeth extraction with complete upper dentures and only a few remaining lower dentition. Cardiovascular Surgical History: Reports: Coronary Artery Stent, Percutaneous Transluminal Angioplasty, Other (See Below). Denies: Varicose, Vascular Surgery Other Cardiovascular Surgeries/Procedures: PTCA/stent x1 in December 2019. Respiratory Surgical History: Reports: None. Denies: Lung Biopsies, Thoracentesis GI Surgical History: Reports: Appendectomy, Colonoscopy, Other (See Below). Denies: Cholecystectomy, EGD, Hernia, Abdominal, Hernia, Inguinal, Hernia Repair/Other, Polypectomy Other GI Surgeries/Procedures: Appendectomy in her 30s. Colonoscopy in her 50s. Female Surgical History: Reports: None. Denies: Breast Biopsy, Section, D&C, Hysterectomy, Oophorectomy, Salpingo-Oophorectomy, Tubal Ligation Endocrine Surgical History: Reports: None. Denies: Thyroid Biopsy Neurological Surgical History: Reports: Lumbar Spine, Other (See Below). Denies: C-Spine, Discectomy, Laminectomy, Sacral Spine, Scoliosis, Spinal Fusion, Thoracic Spine, Vertebroplasty Other Neurological Surgeries/Procedures: Unknown type of lumbar surgeries x3, including her spinal cord? Lumbar electro-stimulator unit implant. Musculoskeletal Surgical History: Reports: Carpal Tunnel, ORIF, Other (See Below). Denies: Arthroscopic Procedure, Ganglion Cyst, Joint Replacement, Shoulder Surgery Other Musculoskeletal Surgeries/Procedures:: ORIF of the right ankle in her 30s with subsequent right ankle fusion in her 60s. Right-sided carpal tunnel release in her 50s. Oncologic Surgical History: Reports: None Dermatological Surgical History: Reports: Other (See Below) Other Dermatological Surgeries/Procedures: Pilonidal cyst surgeries x3 in her 20s. - Past Imaging History Past Imaging History: Reports: CAT Scan (CT of the abdomen and pelvis on 03/22/2020.), MRI (Lumbar spine on 07/08/2017. Thoracic spine on 11/23/2018.), Ultrasound (Bilateral renal ultrasound on 11/04/2018.) - History Comment History Comment: Patient is a somewhat poor historian. 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67.) ED ROS GENERAL - Review of Systems Review Of Systems: See Below Constitutional: Reports: Malaise, Fatigue HEENT: Reports: No Symptoms Respiratory: Reports: No Symptoms Cardiovascular: Reports: No Symptoms Endocrine: Reports: Fatigue GI/Abdominal: Reports: No Symptoms : Reports: Other (See HPI) Musculoskeletal: Reports: No Symptoms Skin: Reports: No Symptoms Neurological: Reports: Confusion, Other (fatigue) Psychiatric: Reports: No Symptoms Hematologic/Lymphatic: Reports: No Symptoms Immunologic: Reports: No Symptoms ED EXAM, GENERAL - Physical Exam Exam: See Below Exam Limited By: No Limitations General Appearance: Alert, WD/WN, No Apparent Distress Eye Exam: Bilateral Eye: EOMI, Normal Fundi, Normal Inspection, PERRL Ears: Normal External Exam, Normal Canal, Normal TMs Ear Exam: Bilateral Ear: Auricle Normal, Canal Normal, TM normal Nose: Normal Inspection, No Blood Throat/Mouth: Normal Inspection, Normal Lips, Normal Voice, No Airway Compromise. No: Normal Teeth (poor dentition. No obvious dental abscess noted. No erythema to hypopharynx.) Head: Atraumatic, Normocephalic Neck: Normal Inspection, Supple, Non-Tender. No: Lymphadenopathy (L), Lymphadenopathy (R) Respiratory/Chest: No Respiratory Distress, Lungs Clear, Normal Breath Sounds, No Accessory Muscle Use, Chest Non-Tender Cardiovascular: Normal Peripheral Pulses, Regular Rate, Rhythm, No Edema, No JVD, No Murmur Peripheral Pulses: 3+: Radial (L) GI/Abdominal: Soft, Non-Tender, No Distention, No Mass (Female) Exam: Deferred Rectal (Female) Exam: Deferred Back Exam: Normal Inspection, Full Range of Motion Extremities: Normal Inspection, Normal Range of Motion, Normal Capillary Refill Neurological: Alert, Oriented, No Motor/Sensory Deficits, Other (Pt. in wheelchair. Equal strength in upper and lower extremities. No pronator drift. No facial droop. Smile and eyebrow raise are symmetrical. Speech is fluent, having difficulty finding words occasionally. ) Psychiatric: Normal Affect, Normal Mood Skin Exam: Warm, Dry, Pallor Lymphatic: No Adenopathy #1 Interpretation Rhythm: NSR ST-T: Normal QT: Prolonged (1st degree AV block) Comparison: No Change (No significant change from previous.) Course - Vital Signs Last Recorded V/S: Last Vital Signs Temp 36.3 C 05/23/20 20:14 Pulse 89 05/23/20 20:35 Resp 16 05/23/20 20:14 BP 84/48 L 05/23/20 20:35 Pulse Ox 99 05/23/20 20:14 - Orders/Labs/Meds Orders: Active Orders 24 hr Category Date Time Status EKG Documentation Completion [RC] ASDIRECTED Care 05/23/20 20:29 Active Peripheral IV Care [RC] . DIRECTED Care 05/23/20 20:29 Active Abdomen Pelvis w Cont [CT] Stat Exams 05/23/20 21:30 Taken Chest 1V Frontal [CR] Stat Exams 05/23/20 20:26 Taken CULTURE BLOOD [BC] Stat Lab 05/23/20 20:55 Received CULTURE BLOOD [BC] Stat Lab 05/23/20 21:10 Received CULTURE URINE [RM] Stat Lab 05/23/20 21:38 Ordered UA RFX LEO AND CULT IF INDIC [URIN] Stat Lab 05/23/20 20:28 Ordered Sodium Chloride 0.9% [Normal Saline] 1,000 ml Med 05/23/20 21:15 Active IV ASDIRECTED Sodium Chloride 0.9% [Saline Flush] Med 05/23/20 20:26 Active 10 ml FLUSH ASDIRECTED PRN Blood Culture x2 Reflex Set [OM.PC] Stat Oth 05/23/20 20:27 Ordered Peripheral IV Insertion Adult [OM.PC] Routine Oth 05/23/20 20:27 Ordered Medication Orders Sodium Chloride (Normal Saline) 1,000 mls @ 500 mls/hr IV ASDIRECTED RAVI Last Admin: 05/23/20 21:17 Dose: 500 mls/hr Documented by: JENNY Sodium Chloride (Sodium Chloride 0.9% 10 Ml Syringe) 10 ml FLUSH ASDIRECTED PRN PRN Reason: Keep Vein Open Labs: Laboratory Tests 05/23/20 05/23/20 05/23/20 Range/Units 20:55 20:55 20:55 PT 10.6 (9.5-12.0) SEC INR 1.1 APTT 22.5 L (24.5-32.8) SEC Sodium Cancelled Potassium Cancelled Chloride Cancelled Carbon Dioxide Cancelled BUN Cancelled Creatinine Cancelled Est Cr Clr Drug Dosing Cancelled Estimated GFR (MDRD) Cancelled Glucose Cancelled Lactic Acid (0.4-2.0) mmol/L Calcium Cancelled Magnesium 2.1 (1.8-2.4) mg/dL Total Bilirubin Cancelled AST Cancelled ALT Cancelled Alkaline Phosphatase Cancelled Troponin I 0.056 (0.000-0.056) ng/mL C-Reactive Protein Cancelled NT-Pro-B Natriuret Pep 4225 H (0-125) pg/mL Total Protein Cancelled Albumin Cancelled SARS-CoV-2 Ag (Rapid) (NEGATIVE) 05/23/20 05/23/20 Range/Units 20:55 21:15 PT (9.5-12.0) SEC INR APTT (24.5-32.8) SEC Sodium Potassium Chloride Carbon Dioxide BUN Creatinine Est Cr Clr Drug Dosing Estimated GFR (MDRD) Glucose Lactic Acid 1.5 (0.4-2.0) mmol/L Calcium Magnesium (1.8-2.4) mg/dL Total Bilirubin AST ALT Alkaline Phosphatase Troponin I (0.000-0.056) ng/mL C-Reactive Protein NT-Pro-B Natriuret Pep (0-125) pg/mL Total Protein Albumin SARS-CoV-2 Ag (Rapid) Negative (NEGATIVE) Meds: Medications Generic Name Dose Route Start Last Admin Trade Name Freq PRN Reason Stop Dose Admin Sodium Chloride 1,000 mls @ 500 mls/hr 05/23/20 21:15 05/23/20 21:17 Normal Saline IV 500 mls/hr ASDIRECTED RAVI Administration Sodium Chloride 10 ml 05/23/20 20:26 Sodium Chloride 0.9% 10 Ml Syringe FLUSH ASDIRECTED PRN Keep Vein Open Discontinued Medications Generic Name Dose Route Start Last Admin Trade Name Freq PRN Reason Stop Dose Admin Iopamidol 100 ml 05/23/20 21:45 05/23/20 21:57 Iopamidol 612 Mg/Ml 100 Ml Bottle IVPUSH 05/23/20 21:46 100 ml ONETIME STA Administration - Radiology Interpretation Free Text/Narrative:: Chest xray obtained. No lobar consolidation, pleural effusion, or pneumothorax. Borderline cardiomegaly without failure pattern. No evidence of acute infiltrate. CT abdomen and pelvis with IV contrast were obtained. Interval resolution of R perinephric fat stranding. Mild residual enhancement of distal R ureter, consistent with recent infection vs. residual infectious process. There is wall thickening of the distal rectum/anus which was not present on CT scan on 05/10/2020. Findings concerning for development of proctocolitis, ? early c-diff colitis. - Re-Assessments/Exams Free Text/Narrative Re-Assessment/Exam: PICC line was accessed. Pt. was judiciously given a liter of NS over several hours. Pt. blood pressure increased from the 80-90 range systolic into the 100- 115 range systolic. Pt. did not report any difficulty breathing. Lung sounds were unchanged. Departure - Departure Time of Disposition: 23:17 Disposition: Admitted As Inpatient 68 Clinical Impression: Pyelonephritis, Infection with Pseudomonas aeruginosa resistant to multiple drugs, Systemic inflammatory response syndrome (SIRS) due to infectious process, Proctocolitis - Discharge Information Referrals: PCP,None [Primary Care Provider] - Forms: ED Department Discharge Sepsis Event Note (ED) - Evaluation Sepsis Screening Result: No Definite Risk - Focused Exam Vital Signs: Vital Signs Temp Pulse Resp BP Pulse Ox 05/23/20 20:35 89 84/48 L 05/23/20 20:14 36.3 C 91 16 100/50 L 99 - My Orders Last 24 Hours: My Active Orders 05/23/20 20:26 Chest 1V Frontal [CR] Stat Sodium Chloride 0.9% [Saline Flush] 10 ml FLUSH ASDIRECTED PRN 05/23/20 20:27 Blood Culture x2 Reflex Set [OM.PC] Stat Peripheral IV Insertion Adult [OM.PC] Routine 05/23/20 20:28 UA RFX LEO AND CULT IF INDIC [URIN] Stat 05/23/20 20:29 EKG Documentation Completion [RC] ASDIRECTED Peripheral IV Care [RC] . DIRECTED 05/23/20 20:55 CULTURE BLOOD [BC] Stat 05/23/20 21:10 CULTURE BLOOD [BC] Stat 05/23/20 21:15 Sodium Chloride 0.9% [Normal Saline] 1,000 ml IV ASDIRECTED 05/23/20 21:30 Abdomen Pelvis w Cont [CT] Stat 05/23/20 21:38 CULTURE URINE [RM] Stat - Assessment/Plan Admission H&P: Please use this note as an admission H&P Last 24 Hours: My Active Orders 05/23/20 20:26 Chest 1V Frontal [CR] Stat Sodium Chloride 0.9% [Saline Flush] 10 ml FLUSH ASDIRECTED PRN 05/23/20 20:27 Blood Culture x2 Reflex Set [OM.PC] Stat Peripheral IV Insertion Adult [OM.PC] Routine 05/23/20 20:28 UA RFX LEO AND CULT IF INDIC [URIN] Stat 05/23/20 20:29 EKG Documentation Completion [RC] ASDIRECTED Peripheral IV Care [RC] . DIRECTED 05/23/20 20:55 CULTURE BLOOD [BC] Stat 05/23/20 21:10 CULTURE BLOOD [BC] Stat 05/23/20 21:15 Sodium Chloride 0.9% [Normal Saline] 1,000 ml IV ASDIRECTED 05/23/20 21:30 Abdomen Pelvis w Cont [CT] Stat 05/23/20 21:38 CULTURE URINE [RM] Stat Plan: Pt. will be admitted acute. Pt. is a code 1. She will be on telemetry. Discontinue gabapentin. Will stop oral protonix and start IV protonix daily for now. Lactic acid this evening was 1.5. This will be repeated in 4 hours. In the AM, will obtain lactic acid, CBC, CMP, and CRP. Discussed findings with Dr. Lopez, [place] [facility]. He advised extending coverage with Cefepime for 5-7 days. Blood cultures were redrawn tonight. Will attempt to get blood culture off of PICC line. Nursing is having problems with obtaining blood return; will utilize Cath Isak. Pt. did have trace LE in urine. This will be cultured. Stool for c-diff was ordered. Pt. has not had significant diarrhea. Appearance on CT consistent with early infectious process, per radiologist. Will empirically start Vancomycin 125 mg PO QID, pending stool study. Continue normal saline at 75ml/hr. after first liter. Discussed findings with pt. daughter, Latasha. Anticipate discharge when trended lactic acid is normal, pt. is hemodynamically stable, respiratory difficulty, and not showing any signs of acute organ failure.
[2020-05-23] MEDS ORDERED: Iopamidol 612 MG/ML 100 ML Bottle IVPUSH STA (21:45)
[2020-05-24] MEDS ORDERED: Albuterol 6.7 GM Inhaler INH PRN (00:06)
[2020-05-24] MEDS ORDERED: Menthol/Methyl Salicylate 85 GM Tube TOP PRN (00:06)
[2020-05-24] MEDS ORDERED: D5 1/2 NS w/ 20 mEq/L KCl 1,000 ML IV SCH (00:15)
[2020-05-24] MEDS: Pantoprazole 40 MG Vial IVPUSH SCH ×3 (01:22→20:04)
[2020-05-24] MEDS: Enoxaparin 30 MG/0.3 ML Syringe SUBCUT SCH ×2 (01:38→08:37)
[2020-05-24] MEDS ORDERED: Alteplase 2 MG Vial IVPUSH ONE (02:06)
[2020-05-24] MEDS: Sodium Chloride 0.9% 10 ML Syringe FLUSH PRN ×5 (04:10→20:07)
[2020-05-24] MEDS ORDERED: Cefepime 2 GM Vial IV SCH (08:00)
[2020-05-24] MEDS: Cefepime 2 GM in Sodium Chloride 0.9% 100 ML IV SCH ×2 (08:35→16:41)
[2020-05-24] MEDS: Multivitamin Tab PO SCH (08:41)
[2020-05-24] MEDS: Magnesium Oxide 400 MG Tab PO SCH (08:41)
[2020-05-24] MEDS: Aspirin 81 MG Tab.Chew PO SCH (08:41)
[2020-05-24] MEDS: Lisinopril 5 MG Tab PO SCH (08:42)
[2020-05-24] MEDS: Metoprolol Succinate 50 MG Tab.ER PO SCH (08:42)
[2020-05-24] MEDS: Acetaminophen/HYDROcodone 325-10 MG Tab PO SCH ×3 (08:43→20:05)
[2020-05-24] MEDS: Ferrous Sulfate 325 MG Tab PO SCH (08:43)
[2020-05-24] MEDS: Famotidine 20 MG Tab PO SCH (08:43)
[2020-05-24] MEDS: Vancomycin 125 MG Cap PO SCH ×4 (08:43→20:05)
[2020-05-24] MEDS: Clopidogrel 75 MG Tab PO SCH (08:43)
[2020-05-24] MEDS: DULoxetine 20 MG Cap PO SCH (08:44)
[2020-05-24] MEDS: DULoxetine 30 MG Cap PO SCH (08:44)
[2020-05-24] MEDS: Acetaminophen/HYDROcodone 325-10 MG Tab PO PRN (12:43)
--- NOTE | 2020-05-24 15:01 | PCM.PN ---
- General Info Date of Service: 05/24/20 Admission Dx/Problem (Free Text): 1. UTI with recent urosepsis with secondary respiratory failure requiring intubation 2. CHF 3. Coronary artery disease Functional Status: Reports: Pain Controlled, Tolerating Diet, Ambulating (With difficulty with assist), Urinating (However severe incontinence), Incentive Spirometry. Denies: New Symptoms Pain Score: 2 - Review of Systems General: Reports: Weakness (Moderate generalized). Denies: Fever, Fatigue, Malaise, Chills, Night Sweats, Appetite (Adequate) HEENT: Reports: No Symptoms Pulmonary: Reports: No Symptoms. Denies: Shortness of Breath, Pleuritic Chest Pain, Cough, Sputum, Hemoptysis, Wheezing Cardiovascular: Reports: No Symptoms. Denies: Chest Pain, Dyspnea on Exertion, Orthopnea, Edema, Lightheadedness Gastrointestinal: Reports: Abdominal Pain, Other (Some bladder discomfort). Denies: Constipation (No bowel movement since admission despite previous history of possible loose stools), Decreased Appetite, Diarrhea, Difficulty Swallowing, Flatus, Hematochezia, Vomiting Genitourinary: Reports: Dysuria, Frequency, Burning, Incontinence. Denies: Urgency, Hematuria, Retention, Flank Pain Musculoskeletal: Reports: No Symptoms. Denies: Neck Pain, Shoulder Pain, Arm Pain, Back Pain, Leg Pain Skin: Reports: Other (2 cm decubitus ulcer in the coccyx region). Denies: Diaphoresis Neurological: Reports: Difficulty Walking, Weakness (Generalized weakness) Psychiatric: Reports: No Symptoms. Denies: Confusion, Depression, Anxiety, Agitation, Cravings, Hallucinations, Homicidal Ideation - Patient Data Vitals - Most Recent: Last Vital Signs Temp 36.6 C 05/24/20 12:00 Pulse 74 05/24/20 12:00 Resp 20 05/24/20 12:00 BP 105/35 L 05/24/20 12:00 Pulse Ox 98 05/24/20 12:00 Vital Signs - 24 hr 05/23/20 05/23/20 05/23/20 20:14 20:35 21:00 Temperature [ Axillary] Temperature [ Oral] Temperature [ 36.3 C Temporal] Pulse, Peripheral Pulse, Peripheral [ Left] Pulse, 91 89 86 Peripheral [ Right Pulse Oximetry] Respiratory 16 17 Rate Blood Pressure Blood Pressure 100/50 L 84/48 L 86/43 L [Right Upper Arm] O2 Sat by Pulse 99 98 Oximetry 05/23/20 05/23/20 05/23/20 21:15 22:00 22:15 Temperature [ Axillary] Temperature [ Oral] Temperature [ 36.6 C Temporal] Pulse, Peripheral Pulse, Peripheral [ Left] Pulse, 82 78 Peripheral [ Right Pulse Oximetry] Respiratory 17 Rate Blood Pressure Blood Pressure 101/44 L 90/34 L 98/39 L [Right Upper Arm] O2 Sat by Pulse 99 98 Oximetry 05/23/20 05/23/20 05/24/20 22:45 23:00 01:39 Temperature [ 36.1 C Axillary] Temperature [ Oral] Temperature [ 36.3 C Temporal] Pulse, Peripheral Pulse, Peripheral [ Left] Pulse, 79 81 70 Peripheral [ Right Pulse Oximetry] Respiratory 15 14 Rate Blood Pressure Blood Pressure 115/41 L 114/51 L 129/58 L [Right Upper Arm] O2 Sat by Pulse 96 99 96 Oximetry 05/24/20 05/24/20 05/24/20 04:00 05:59 07:20 Temperature [ 36.3 C Axillary] Temperature [ 36.7 C 36.9 C Oral] Temperature [ Temporal] Pulse, Peripheral Pulse, 76 Peripheral [ Left] Pulse, 77 76 Peripheral [ Right Pulse Oximetry] Respiratory 16 14 16 Rate Blood Pressure Blood Pressure 117/52 L 122/40 L 111/47 L [Right Upper Arm] O2 Sat by Pulse 97 96 100 Oximetry 05/24/20 05/24/20 05/24/20 08:42 10:00 12:00 Temperature [ Axillary] Temperature [ 36.8 C 36.6 C Oral] Temperature [ Temporal] Pulse, 76 Peripheral Pulse, 74 Peripheral [ Left] Pulse, 81 Peripheral [ Right Pulse Oximetry] Respiratory 14 20 Rate Blood Pressure 111/47 L Blood Pressure 110/48 L 105/35 L [Right Upper Arm] O2 Sat by Pulse 100 98 Oximetry Weight - Most Recent: 78.245 kg I&O - Last 24 Hours: Intake & Output 05/23/20 05/24/20 05/24/20 22:59 06:59 14:59 Output Total 600 Balance -600 Imaging Impressions - Last 24 Hours: quality assurance monitor body shows normal sinus rhythm with heart rate in the 70s. Chest x-ray, portable, shows evidence of probable pulmonary obstructive changes with possible mild pulmonary hypertension and/or borderline centralized CHF. Note chest x-ray report from 05/23/2020 did not indicate any evidence of CHF. Lab Results Last 24 Hours: Laboratory Results - last 24 hr 05/23/20 05/23/20 05/23/20 Range/Units 20:55 20:55 20:55 WBC (4.0-10.2) K/uL RBC (3.77-5.09) M/uL Hgb (11.7-15.5) g/dL Hct (34.0-46.0) % MCV (84.0-98.0) fL MCH (28.2-33.3) pg MCHC (31.7-36.0) g/dL RDW (11.2-14.1) % Plt Count (150-350) K/uL Add Manual Diff Neutrophils % (Manual) Band Neutrophils % Lymphocytes % (Manual) Atypical Lymphs % Monocytes % (Manual) Absolute Neutrophils Lymphocytes # (Manual) Monocytes # (Manual) PT 10.6 (9.5-12.0) SEC INR 1.1 APTT 22.5 L (24.5-32.8) SEC D-Dimer, Quantitative (0-400) ng/mL Sodium Cancelled Potassium Cancelled Chloride Cancelled Carbon Dioxide Cancelled BUN Cancelled Creatinine Cancelled Est Cr Clr Drug Dosing Cancelled Estimated GFR (MDRD) Cancelled Glucose Cancelled Lactic Acid (0.4-2.0) mmol/L Calcium Cancelled Magnesium 2.1 (1.8-2.4) mg/dL Total Bilirubin Cancelled AST Cancelled ALT Cancelled Alkaline Phosphatase Cancelled Creatine Kinase (26-308) U/L Creatine Kinase Index (0.0-2.5) % CK-MB (CK-2) (0.00-3.60) ng/mL Troponin I 0.056 (0.000-0.056) ng/mL C-Reactive Protein Cancelled NT-Pro-B Natriuret Pep 4225 H (0-125) pg/mL Total Protein Cancelled Albumin Cancelled Specimen Type Urine Color Urine Appearance Urine pH (5.0-9.0) Ur Specific [place] (1.005-1.030) Urine Protein (NEGATIVE) mg/dL Urine Glucose (UA) (NEGATIVE) mg/dL Urine Ketones (NEGATIVE) mg/dL Urine Occult Blood (NEGATIVE) Urine Nitrite (NEGATIVE) Urine Bilirubin (NEGATIVE) Urine Urobilinogen (0.2-1.0) E.U./dL Ur Leukocyte Esterase (NEGATIVE) Urine RBC /HPF Urine WBC /HPF Ur Epithelial Cells /LPF Amorphous Sediment (0/HPF) /HPF Urine Bacteria (NONE TO FEW) /HPF Urine Yeast (NEGATIVE) /HPF SARS-CoV-2 Ag (Rapid) (NEGATIVE) 05/23/20 05/23/20 05/24/20 Range/Units 20:55 21:15 01:29 WBC (4.0-10.2) K/uL RBC (3.77-5.09) M/uL Hgb (11.7-15.5) g/dL Hct (34.0-46.0) % MCV (84.0-98.0) fL MCH (28.2-33.3) pg MCHC (31.7-36.0) g/dL RDW (11.2-14.1) % Plt Count (150-350) K/uL Add Manual Diff Neutrophils % (Manual) Band Neutrophils % Lymphocytes % (Manual) Atypical Lymphs % Monocytes % (Manual) Absolute Neutrophils Lymphocytes # (Manual) Monocytes # (Manual) PT (9.5-12.0) SEC INR APTT (24.5-32.8) SEC D-Dimer, Quantitative (0-400) ng/mL Sodium Potassium Chloride Carbon Dioxide BUN Creatinine Est Cr Clr Drug Dosing Estimated GFR (MDRD) Glucose Lactic Acid 1.5 0.9 (0.4-2.0) mmol/L Calcium Magnesium (1.8-2.4) mg/dL Total Bilirubin AST ALT Alkaline Phosphatase Creatine Kinase (26-308) U/L Creatine Kinase Index (0.0-2.5) % CK-MB (CK-2) (0.00-3.60) ng/mL Troponin I (0.000-0.056) ng/mL C-Reactive Protein NT-Pro-B Natriuret Pep (0-125) pg/mL Total Protein Albumin Specimen Type Urine Color Urine Appearance Urine pH (5.0-9.0) Ur Specific [place] (1.005-1.030) Urine Protein (NEGATIVE) mg/dL Urine Glucose (UA) (NEGATIVE) mg/dL Urine Ketones (NEGATIVE) mg/dL Urine Occult Blood (NEGATIVE) Urine Nitrite (NEGATIVE) Urine Bilirubin (NEGATIVE) Urine Urobilinogen (0.2-1.0) E.U./dL Ur Leukocyte Esterase (NEGATIVE) Urine RBC /HPF Urine WBC /HPF Ur Epithelial Cells /LPF Amorphous Sediment (0/HPF) /HPF Urine Bacteria (NONE TO FEW) /HPF Urine Yeast (NEGATIVE) /HPF SARS-CoV-2 Ag (Rapid) Negative (NEGATIVE) 05/24/20 05/24/20 05/24/20 Range/Units 07:15 07:15 07:30 WBC 14.1 H (4.0-10.2) K/uL RBC 3.54 L (3.77-5.09) M/uL Hgb 9.9 L (11.7-15.5) g/dL Hct 32.9 L (34.0-46.0) % MCV 92.9 (84.0-98.0) fL MCH 28.0 L (28.2-33.3) pg MCHC 30.1 L (31.7-36.0) g/dL RDW 18.9 H (11.2-14.1) % Plt Count 194 (150-350) K/uL Add Manual Diff Yes Neutrophils % (Manual) 64 Band Neutrophils % 1 Lymphocytes % (Manual) 17 Atypical Lymphs % 3 Monocytes % (Manual) 15 Absolute Neutrophils 9.1650 Lymphocytes # (Manual) 2.8200 Monocytes # (Manual) 2.1150 PT (9.5-12.0) SEC INR APTT (24.5-32.8) SEC D-Dimer, Quantitative (0-400) ng/mL Sodium 138 Potassium 3.3 L Chloride 104 Carbon Dioxide 24.7 BUN 32 H Creatinine 1.13 Est Cr Clr Drug Dosing 29.95 Estimated GFR (MDRD) 47 Glucose 105 H Lactic Acid 1.3 (0.4-2.0) mmol/L Calcium 8.6 Magnesium (1.8-2.4) mg/dL Total Bilirubin 0.3 AST 30 ALT 43 Alkaline Phosphatase 84 Creatine Kinase (26-308) U/L Creatine Kinase Index (0.0-2.5) % CK-MB (CK-2) (0.00-3.60) ng/mL Troponin I (0.000-0.056) ng/mL C-Reactive Protein 3.7 H NT-Pro-B Natriuret Pep (0-125) pg/mL Total Protein 7.2 Albumin 2.3 L Specimen Type Urine Color Urine Appearance Urine pH (5.0-9.0) Ur Specific [place] (1.005-1.030) Urine Protein (NEGATIVE) mg/dL Urine Glucose (UA) (NEGATIVE) mg/dL Urine Ketones (NEGATIVE) mg/dL Urine Occult Blood (NEGATIVE) Urine Nitrite (NEGATIVE) Urine Bilirubin (NEGATIVE) Urine Urobilinogen (0.2-1.0) E.U./dL Ur Leukocyte Esterase (NEGATIVE) Urine RBC /HPF Urine WBC /HPF Ur Epithelial Cells /LPF Amorphous Sediment (0/HPF) /HPF Urine Bacteria (NONE TO FEW) /HPF Urine Yeast (NEGATIVE) /HPF SARS-CoV-2 Ag (Rapid) (NEGATIVE) 05/24/20 05/24/20 05/24/20 Range/Units 07:30 07:30 12:40 WBC (4.0-10.2) K/uL RBC (3.77-5.09) M/uL Hgb (11.7-15.5) g/dL Hct (34.0-46.0) % MCV (84.0-98.0) fL MCH (28.2-33.3) pg MCHC (31.7-36.0) g/dL RDW (11.2-14.1) % Plt Count (150-350) K/uL Add Manual Diff Neutrophils % (Manual) Band Neutrophils % Lymphocytes % (Manual) Atypical Lymphs % Monocytes % (Manual) Absolute Neutrophils Lymphocytes # (Manual) Monocytes # (Manual) PT (9.5-12.0) SEC INR APTT (24.5-32.8) SEC D-Dimer, Quantitative 2490 H (0-400) ng/mL Sodium Potassium Chloride Carbon Dioxide BUN Creatinine Est Cr Clr Drug Dosing Estimated GFR (MDRD) Glucose Lactic Acid (0.4-2.0) mmol/L Calcium Magnesium (1.8-2.4) mg/dL Total Bilirubin AST ALT Alkaline Phosphatase Creatine Kinase 32 (26-308) U/L Creatine Kinase Index 19.7 H (0.0-2.5) % CK-MB (CK-2) 6.30 H* (0.00-3.60) ng/mL Troponin I 0.052 (0.000-0.056) ng/mL C-Reactive Protein NT-Pro-B Natriuret Pep 2843 H (0-125) pg/mL Total Protein Albumin Specimen Type [place] Urine Color Yellow Urine Appearance Clear Urine pH 6.5 (5.0-9.0) Ur Specific [place] 1.015 (1.005-1.030) Urine Protein 100 H (NEGATIVE) mg/dL Urine Glucose (UA) Negative (NEGATIVE) mg/dL Urine Ketones Negative (NEGATIVE) mg/dL Urine Occult Blood Moderate H (NEGATIVE) Urine Nitrite Negative (NEGATIVE) Urine Bilirubin Negative (NEGATIVE) Urine Urobilinogen 0.2 (0.2-1.0) E.U./dL Ur Leukocyte Esterase Negative (NEGATIVE) Urine RBC 0-5 /HPF Urine WBC 5-10 H /HPF Ur Epithelial Cells Rare /LPF Amorphous Sediment Few (0/HPF) /HPF Urine Bacteria Few (NONE TO FEW) /HPF Urine Yeast Many H (NEGATIVE) /HPF SARS-CoV-2 Ag (Rapid) (NEGATIVE) Robert Results Last 24 Hours: Urine culture and sensitivity collected today with results pending. Med Orders - Current: Current Medications Hydrocodone Bitart/Acetaminophen (Acetaminophen/Hydrocodone 325-10 Mg Tab) 1 tab PO TID PRN PRN Reason: Pain Last Admin: 05/24/20 12:43 Dose: 1 tab Documented by: Hydrocodone Bitart/Acetaminophen (Acetaminophen/Hydrocodone 325-10 Mg Tab) 1 tab PO TID@08,14,20 [facility] Last Admin: 05/24/20 13:39 Dose: Not Given Documented by: Albuterol (Albuterol 6.7 Gm Inhaler) 2 gm INH Q4H PRN PRN Reason: Shortness of Breath Aspirin (Aspirin 81 Mg Tab.Chew) 81 mg PO DAILY [facility] Last Admin: 05/24/20 08:41 Dose: 81 mg Documented by: Atorvastatin Calcium (Atorvastatin 40 Mg Tab) 40 mg PO BEDTIME [facility] Calcium Carbonate (Calcium Carbonate/Vitamin D3 1500 Mg-400 Units Tab) 1 tab PO BEDTIME [facility] Cholecalciferol (Cholecalciferol (Vitamin D3) 25 Mcg Tab) 2,000 mcg PO BEDTIME [facility] Clopidogrel Bisulfate (Clopidogrel 75 Mg Tab) 75 mg PO DAILY [facility] Last Admin: 05/24/20 08:43 Dose: 75 mg Documented by: Duloxetine HCl (Duloxetine 20 Mg Cap) 20 mg PO DAILY [facility] Last Admin: 05/24/20 08:44 Dose: 20 mg Documented by: Duloxetine HCl (Duloxetine 30 Mg Cap) 30 mg PO DAILY [facility] Last Admin: 05/24/20 08:44 Dose: 30 mg Documented by: Enoxaparin Sodium (Enoxaparin 30 Mg/0.3 Ml Syringe) 30 mg SUBCUT DAILY [facility] Last Admin: 05/24/20 08:37 Dose: 30 mg Documented by: Famotidine (Famotidine 20 Mg Tab) 20 mg PO DAILY [facility] Last Admin: 05/24/20 08:43 Dose: 20 mg Documented by: Ferrous Sulfate (Ferrous Sulfate 325 Mg Tab) 325 mg PO DAILY [facility] Last Admin: 05/24/20 08:43 Dose: 325 mg Documented by: Sodium Chloride (Normal Saline) 1,000 mls @ 500 mls/hr IV ASDIRECTED [facility] Last Admin: 05/23/20 21:17 Dose: 500 mls/hr Documented by: Potassium Chloride/Dextrose/Sod Cl (D5 1/2 Ns W/ 20 Meq/L Kcl) 1,000 mls @ 75 mls/hr IV ASDIRECTED [facility] Last Admin: 05/24/20 01:32 Dose: 75 mls/hr Documented by: Cefepime HCl 2 gm/ Sodium (Chloride) 100 mls @ 200 mls/hr IV Q8HR [facility] Last Admin: 05/24/20 08:35 Dose: 200 mls/hr Documented by: Lisinopril (Lisinopril 5 Mg Tab) 2.5 mg PO DAILY [facility] Last Admin: 05/24/20 08:42 Dose: 2.5 mg Documented by: Magnesium Oxide (Magnesium Oxide 400 Mg Tab) 400 mg PO DAILY [facility] Last Admin: 05/24/20 08:41 Dose: 400 mg Documented by: Methenamine Hippurate (Methenamine Hippurate 1 Gm Tab) 1 gm PO Q12HR [facility] Last Admin: 05/24/20 08:44 Dose: 1 gm Documented by: Methyl Salicylate (Menthol/Methyl Salicylate 85 Gm Tube) 85 gm TOP QID PRN PRN Reason: Pain Metoprolol Succinate (Metoprolol Succinate 50 Mg Tab.Er) 100 mg PO DAILY [facility] Last Admin: 05/24/20 08:42 Dose: 100 mg Documented by: Multivitamins/Minerals/Vitamin C (Multivitamin Tab) 1 tab PO DAILY [facility] Last Admin: 05/24/20 08:41 Dose: 1 tab Documented by: Oxybutynin Chloride (Oxybutynin 5 Mg Tab.Er) 10 mg PO BEDTIME [facility] Pantoprazole Sodium (Pantoprazole 40 Mg Vial) 40 mg IVPUSH Q12HR [facility] Last Admin: 05/24/20 08:44 Dose: 40 mg Documented by: Ropinirole HCl (Ropinirole 1 Mg Tab) 1 mg PO BEDTIME [facility] Senna/Docusate Sodium (Docusate Sodium/Sennosides 50-8.6 Mg Tab) 2 tab PO DAILY [facility] Last Admin: 05/24/20 08:43 Dose: 2 tab Documented by: Sodium Chloride (Sodium Chloride 0.9% 10 Ml Syringe) 10 ml FLUSH ASDIRECTED PRN PRN Reason: Keep Vein Open Last Admin: 05/24/20 08:37 Dose: 10 ml Documented by: Vancomycin HCl (Vancomycin 125 Mg Cap) 125 mg PO QID [facility] Last Admin: 05/24/20 12:43 Dose: 125 mg Documented by: Discontinued Medications Alteplase, Recombinant (Alteplase 2 Mg Vial) 2 mg IVPUSH ONETIME ONE Stop: 05/24/20 02:07 Last Admin: 05/24/20 04:09 Dose: 2 mg Documented by: Cefepime HCl (Cefepime 2 Gm Vial) 2 gm IV Q8HR [facility] Iopamidol (Iopamidol 612 Mg/Ml 100 Ml Bottle) 100 ml IVPUSH ONETIME STA Stop: 05/23/20 21:46 Last Admin: 05/23/20 21:57 Dose: 100 ml Documented by: - Exam Quality Assessment: Supplemental Oxygen, Urine Catheter (Placed after rounds on 05/24), DVT Prophylaxis. No: Central Line/PICC, Skin Breakdown, Restraints General: Alert, Oriented, Cooperative, No Acute Distress HEENT: Pupils Equal, Pupils Reactive, EOMI, Mucous Membr. Moist/[place]. No: Scleral Icterus Neck: Supple, Trachea Midline, No JVD, No Thyromegaly, Carotid Bruit (Mild bilat eral carotid bruits). No: Lymphadenopathy Lungs: Normal Respiratory Effort, Rales (Mild bilateral baseline). No: Rhonchi, Rub, Wheezing Cardiovascular: Regular Rate, Regular Rhythm, No Murmurs. No: Gallops, Rubs GI/Abdominal Exam: Normal Bowel Sounds, Soft, Non-Tender, No Organomegaly, No Distention, No Abnormal Bruit, No Mass, Other (Obese). No: Guarding (Female) Exam: Deferred Back Exam: Full Range of Motion, Other (Mild kyphoscoliosis). No: CVA Tenderness (L), CVA Tenderness (R), Muscle Spasm, Paraspinal Tenderness, Vertebral Tenderness Extremities: Normal Range of Motion, Non-Tender, Normal Capillary Refill, Pedal Edema (Trace+1 bilateral pedal/pretibial edema). No: Brandon's Sign Peripheral Pulses: 2+: Radial (L), Radial (R), Dorsalis Pedis (L), Dorsalis Pedis (R) Skin: Ecchymosis (Hands and forearms bilaterally secondary to previous IV sites), Other (2 cm grade 2 decubitus ulcer over the coccyx) Wound/Incisions: No Drainage, Erythema Improving Neurological: No New Focal Deficit, Other (Moderate generalized weakness) Psy/Mental Status: Alert, Normal Affect, Normal Mood. No: Agitated, Hallucinat ions, Withdrawal Symptoms #1 Interpretation EKG Date: 05/24/20 Time: 12:13 Rhythm: NSR Rate (Beats/Min): 79 [place]: Normal (Left) P-Wave: Enlarged (Moderate diffuse biphasic) QRS: Normal (0.08 seconds) ST-T: Other (Moderate T wave inversion in leads I and aVL relatively stable from 05/23/2020, however significantly more prominent since previous EKG on 05/10/2020. Noisy baseline) PA/PQ Interval: 0.21 seconds representing a stable first-degree AV block with stable poor R wave progression in the anterior leads. Comparison: NA - No Prior EKG (As above) EKG Interpretation Comments: 1. Stable lateral wall cardiac ischemia 2. First-degree AV block 3. Left atrial enlargement - Patient Data Lab Results Last 24 hrs: Laboratory Results - last 24 hr 05/23/20 05/23/20 05/23/20 Range/Units 20:55 20:55 20:55 WBC (4.0-10.2) K/uL RBC (3.77-5.09) M/uL Hgb (11.7-15.5) g/dL Hct (34.0-46.0) % MCV (84.0-98.0) fL MCH (28.2-33.3) pg MCHC (31.7-36.0) g/dL RDW (11.2-14.1) % Plt Count (150-350) K/uL Add Manual Diff Neutrophils % (Manual) Band Neutrophils % Lymphocytes % (Manual) Atypical Lymphs % Monocytes % (Manual) Absolute Neutrophils Lymphocytes # (Manual) Monocytes # (Manual) PT 10.6 (9.5-12.0) SEC INR 1.1 APTT 22.5 L (24.5-32.8) SEC D-Dimer, Quantitative (0-400) ng/mL Sodium Cancelled Potassium Cancelled Chloride Cancelled Carbon Dioxide Cancelled BUN Cancelled Creatinine Cancelled Est Cr Clr Drug Dosing Cancelled Estimated GFR (MDRD) Cancelled Glucose Cancelled Lactic Acid (0.4-2.0) mmol/L Calcium Cancelled Magnesium 2.1 (1.8-2.4) mg/dL Total Bilirubin Cancelled AST Cancelled ALT Cancelled Alkaline Phosphatase Cancelled Creatine Kinase (26-308) U/L Creatine Kinase Index (0.0-2.5) % CK-MB (CK-2) (0.00-3.60) ng/mL Troponin I 0.056 (0.000-0.056) ng/mL C-Reactive Protein Cancelled NT-Pro-B Natriuret Pep 4225 H (0-125) pg/mL Total Protein Cancelled Albumin Cancelled Specimen Type Urine Color Urine Appearance Urine pH (5.0-9.0) Ur Specific [place] (1.005-1.030) Urine Protein (NEGATIVE) mg/dL Urine Glucose (UA) (NEGATIVE) mg/dL Urine Ketones (NEGATIVE) mg/dL Urine Occult Blood (NEGATIVE) Urine Nitrite (NEGATIVE) Urine Bilirubin (NEGATIVE) Urine Urobilinogen (0.2-1.0) E.U./dL Ur Leukocyte Esterase (NEGATIVE) Urine RBC /HPF Urine WBC /HPF Ur Epithelial Cells /LPF Amorphous Sediment (0/HPF) /HPF Urine Bacteria (NONE TO FEW) /HPF Urine Yeast (NEGATIVE) /HPF SARS-CoV-2 Ag (Rapid) (NEGATIVE) 04/14/21 04/14/21 04/15/21 Range/Units 20:55 21:15 01:29 WBC (4.0-10.2) K/uL RBC (3.77-5.09) M/uL Hgb (11.7-15.5) g/dL Hct (34.0-46.0) % MCV (84.0-98.0) fL MCH (28.2-33.3) pg MCHC (31.7-36.0) g/dL RDW (11.2-14.1) % Plt Count (150-350) K/uL Add Manual Diff Neutrophils % (Manual) Band Neutrophils % Lymphocytes % (Manual) Atypical Lymphs % Monocytes % (Manual) Absolute Neutrophils Lymphocytes # (Manual) Monocytes # (Manual) PT (9.5-12.0) SEC INR APTT (24.5-32.8) SEC D-Dimer, Quantitative (0-400) ng/mL Sodium Potassium Chloride Carbon Dioxide BUN Creatinine Est Cr Clr Drug Dosing Estimated GFR (MDRD) Glucose Lactic Acid 1.5 0.9 (0.4-2.0) mmol/L Calcium Magnesium (1.8-2.4) mg/dL Total Bilirubin AST ALT Alkaline Phosphatase Creatine Kinase (26-308) U/L Creatine Kinase Index (0.0-2.5) % CK-MB (CK-2) (0.00-3.60) ng/mL Troponin I (0.000-0.056) ng/mL C-Reactive Protein NT-Pro-B Natriuret Pep (0-125) pg/mL Total Protein Albumin Specimen Type Urine Color Urine Appearance Urine pH (5.0-9.0) Ur Specific [place] (1.005-1.030) Urine Protein (NEGATIVE) mg/dL Urine Glucose (UA) (NEGATIVE) mg/dL Urine Ketones (NEGATIVE) mg/dL Urine Occult Blood (NEGATIVE) Urine Nitrite (NEGATIVE) Urine Bilirubin (NEGATIVE) Urine Urobilinogen (0.2-1.0) E.U./dL Ur Leukocyte Esterase (NEGATIVE) Urine RBC /HPF Urine WBC /HPF Ur Epithelial Cells /LPF Amorphous Sediment (0/HPF) /HPF Urine Bacteria (NONE TO FEW) /HPF Urine Yeast (NEGATIVE) /HPF SARS-CoV-2 Ag (Rapid) Negative (NEGATIVE) 04/15/21 04/15/21 04/15/21 Range/Units 07:15 07:15 07:30 WBC 14.1 H (4.0-10.2) K/uL RBC 3.54 L (3.77-5.09) M/uL Hgb 9.9 L (11.7-15.5) g/dL Hct 32.9 L (34.0-46.0) % MCV 92.9 (84.0-98.0) fL MCH 28.0 L (28.2-33.3) pg MCHC 30.1 L (31.7-36.0) g/dL RDW 18.9 H (11.2-14.1) % Plt Count 194 (150-350) K/uL Add Manual Diff Yes Neutrophils % (Manual) 64 Band Neutrophils % 1 Lymphocytes % (Manual) 17 Atypical Lymphs % 3 Monocytes % (Manual) 15 Absolute Neutrophils 9.1650 Lymphocytes # (Manual) 2.8200 Monocytes # (Manual) 2.1150 PT (9.5-12.0) SEC INR APTT (24.5-32.8) SEC D-Dimer, Quantitative (0-400) ng/mL Sodium 138 Potassium 3.3 L Chloride 104 Carbon Dioxide 24.7 BUN 32 H Creatinine 1.13 Est Cr Clr Drug Dosing 29.95 Estimated GFR (MDRD) 47 Glucose 105 H Lactic Acid 1.3 (0.4-2.0) mmol/L Calcium 8.6 Magnesium (1.8-2.4) mg/dL Total Bilirubin 0.3 AST 30 ALT 43 Alkaline Phosphatase 84 Creatine Kinase (26-308) U/L Creatine Kinase Index (0.0-2.5) % CK-MB (CK-2) (0.00-3.60) ng/mL Troponin I (0.000-0.056) ng/mL C-Reactive Protein 3.7 H NT-Pro-B Natriuret Pep (0-125) pg/mL Total Protein 7.2 Albumin 2.3 L Specimen Type Urine Color Urine Appearance Urine pH (5.0-9.0) Ur Specific [place] (1.005-1.030) Urine Protein (NEGATIVE) mg/dL Urine Glucose (UA) (NEGATIVE) mg/dL Urine Ketones (NEGATIVE) mg/dL Urine Occult Blood (NEGATIVE) Urine Nitrite (NEGATIVE) Urine Bilirubin (NEGATIVE) Urine Urobilinogen (0.2-1.0) E.U./dL Ur Leukocyte Esterase (NEGATIVE) Urine RBC /HPF Urine WBC /HPF Ur Epithelial Cells /LPF Amorphous Sediment (0/HPF) /HPF Urine Bacteria (NONE TO FEW) /HPF Urine Yeast (NEGATIVE) /HPF SARS-CoV-2 Ag (Rapid) (NEGATIVE) 05/24/20 05/24/20 05/24/20 Range/Units 07:30 07:30 12:40 WBC (4.0-10.2) K/uL RBC (3.77-5.09) M/uL Hgb (11.7-15.5) g/dL Hct (34.0-46.0) % MCV (84.0-98.0) fL MCH (28.2-33.3) pg MCHC (31.7-36.0) g/dL RDW (11.2-14.1) % Plt Count (150-350) K/uL Add Manual Diff Neutrophils % (Manual) Band Neutrophils % Lymphocytes % (Manual) Atypical Lymphs % Monocytes % (Manual) Absolute Neutrophils Lymphocytes # (Manual) Monocytes # (Manual) PT (9.5-12.0) SEC INR APTT (24.5-32.8) SEC D-Dimer, Quantitative 2490 H (0-400) ng/mL Sodium Potassium Chloride Carbon Dioxide BUN Creatinine Est Cr Clr Drug Dosing Estimated GFR (MDRD) Glucose Lactic Acid (0.4-2.0) mmol/L Calcium Magnesium (1.8-2.4) mg/dL Total Bilirubin AST ALT Alkaline Phosphatase Creatine Kinase 32 (26-308) U/L Creatine Kinase Index 19.7 H (0.0-2.5) % CK-MB (CK-2) 6.30 H* (0.00-3.60) ng/mL Troponin I 0.052 (0.000-0.056) ng/mL C-Reactive Protein NT-Pro-B Natriuret Pep 2843 H (0-125) pg/mL Total Protein Albumin Specimen Type [place] Urine Color Yellow Urine Appearance Clear Urine pH 6.5 (5.0-9.0) Ur Specific [place] 1.015 (1.005-1.030) Urine Protein 100 H (NEGATIVE) mg/dL Urine Glucose (UA) Negative (NEGATIVE) mg/dL Urine Ketones Negative (NEGATIVE) mg/dL Urine Occult Blood Moderate H (NEGATIVE) Urine Nitrite Negative (NEGATIVE) Urine Bilirubin Negative (NEGATIVE) Urine Urobilinogen 0.2 (0.2-1.0) E.U./dL Ur Leukocyte Esterase Negative (NEGATIVE) Urine RBC 0-5 /HPF Urine WBC 5-10 H /HPF Ur Epithelial Cells Rare /LPF Amorphous Sediment Few (0/HPF) /HPF Urine Bacteria Few (NONE TO FEW) /HPF Urine Yeast Many H (NEGATIVE) /HPF SARS-CoV-2 Ag (Rapid) (NEGATIVE) Result Diagrams: 05/24/20 07:30 05/24/20 07:15 Sepsis Event Note - Evaluation Sepsis Screening Result: No Definite Risk - Focused Exam Vital Signs: Vital Signs Temp Temp Pulse Pulse Pulse Resp BP 05/24/20 12:00 36.6 C 74 20 05/24/20 10:00 36.8 C 81 14 05/24/20 08:42 76 111/47 L 05/24/20 07:20 36.9 C 76 16 05/24/20 05:59 36.7 C 76 14 05/24/20 04:00 36.3 C 77 16 BP Pulse Ox 05/24/20 12:00 105/35 L 98 05/24/20 10:00 110/48 L 100 05/24/20 08:42 05/24/20 07:20 111/47 L 100 05/24/20 05:59 122/40 L 96 05/24/20 04:00 117/52 L 97 - Problem List & Annotations (1) Pyelonephritis SNOMED Code(s): 06720322 Code(s): N12 - TUBULO-INTERSTITIAL NEPHRITIS, NOT SPCF ACUTE OR CHRONIC Status: Acute Priority: High Current Visit: Yes Onset Date: 05/10/20 Annotation/Comment:: No significant history of significant right-sided pyelonephritis with secondary urosepsis resulting in respiratory failure on 05/10/2020 and requiring intubation by me in this facility on that day. Prolonged hospitalization both at [facility] and the [facility] with subsequent transfer to this facility for further IV antibiotic therapy. Note that the on-call powerhouse mechanic apprentice provider did have an infectious disease consultation as per admission history and physical. Continue recommended antibiotics for now. Secondary to significant urinary incontinence and secondary perineal dermatitis and for better accurate diagnosis a Douglas catheter was placed on 05/24 with cath UA and culture and sensitivity reordered. Patient placed on telemetry secondary to previous history of urosepsis, borderline CHF, etc.. Note that the patient was hospitalized at [facility] from 05/10 through 05/21/2020 with subsequent hospitalization at the [facility] in [place]. (2) Proctocolitis SNOMED Code(s): 292089714 Code(s): K52.9 - NONINFECTIVE GASTROENTERITIS AND COLITIS, UNSPECIFIED Status: Acute Priority: High Current Visit: Yes Onset Date: 05/23/20 Annotation/Comment:: As evident by CT scan of the abdomen and pelvis on 03/25/2020. Previous history of mild loose stools prior to admission after aggressive previous treatment for her urosepsis both at [facility] and at the [facility] in [place]. The patient has not had a bowel movement since admission with no direct evidence of C. difficile colitis, although specimen has been ordered by on-call [facility] provider. He also started oral vancomycin therapy as a preventative measure. Continue isolation precautions. (3) Anemia SNOMED Code(s): 899123432 Code(s): D64.9 - ANEMIA, UNSPECIFIED Status: Acute Priority: High Current Visit: Yes Onset Date: 04/23/20 Qualifiers: Anemia type: other cause Other causes of anemia: acute posthemorrhagic Qualified Code(s): D62 - Acute posthemorrhagic anemia Annotation/Comment:: Note previous hemorrhagic cystitis resulting in significant anemia both on 05/10 and persistent anemia on 05/24. Iron studies, etc. in the a.m. No evidence of acute bleeding at this time. (4) CHF (congestive heart failure) SNOMED Code(s): 31510040 Code(s): I50.9 - HEART FAILURE, UNSPECIFIED Status: Acute Priority: High Current Visit: Yes Qualifiers: Heart failure type: combined systolic and diastolic Heart failure chronicity: acute on chronic Qualified Code(s): I50.43 - Acute on chronic combined systolic (congestive) and diastolic (congestive) heart failure Annotation/Comment:: No chest pain or anginal type symptoms with moderately elevated BNP, however only mild CHF by clinical exam and chest x-ray. Continue to observe closely with medication adjustments during this hospitalization. Consider echocardiogram on an outpatient basis, if this was not previously performed at [facility] as above. Note slowly improved BNP since admiss ion. CK index and CK-MB are elevated with relatively stable high normal troponin I. Note relatively low normal CK. EKG is relatively stable. Repeat cardiac enzymes in the a.m. (5) UTI (urinary tract infection) SNOMED Code(s): 06864332 Code(s): N39.0 - URINARY TRACT INFECTION, SITE NOT SPECIFIED Status: Acute Priority: Medium Current Visit: Yes Onset Date: 05/10/20 Qualifiers: Urinary tract infection type: acute cystitis Hematuria presence: with hematuria Qualified Code(s): N30.01 - Acute cystitis with hematuria Annotation/Comment:: As above (6) Elevated d-dimer SNOMED Code(s): 086216352 Code(s): R79.89 - OTHER SPECIFIED ABNORMAL FINDINGS OF BLOOD CHEMISTRY Status: Chronic Priority: High Current Visit: Yes Annotation/Comment:: Chronic condition. Observe for now with patient apparently having venous Doppler studies of the lower extremities at [facility] per history from her daughter on 05/24. [facility] records will be reviewed in order to determine further work-up in that facility during recent hospitalization as above. (7) Hypokalemia SNOMED Code(s): 56739961 Code(s): E87.6 - HYPOKALEMIA Status: Acute Priority: Medium Current Visit: Yes Onset Date: 05/24/20 Annotation/Comment:: Medication adjustment during this hospitalization. (8) Coronary artery disease SNOMED Code(s): 48335711 Code(s): I25.10 - ATHSCL HEART DISEASE OF [place] CORONARY ARTERY W/O ANG PCTRS Status: Chronic Priority: Medium Current Visit: Yes Qualifiers: Coronary Disease-Associated Artery/Lesion type: [place] artery [place] vs. transplanted heart: [place] heart Associated angina: without angina Qualified Code(s): I25.10 - Atherosclerotic heart disease of [place] coronary artery without angina pectoris Annotation/Comment:: No chest pain or anginal type symptoms with likely stable lateral wall cardiac ischemia.. Note significant CHF by blood work and chest x- ray on 05/10 at time of urosepsis/respiratory failure. History of diastolic dysfunction and previous PTCA/stent. Continue to observe closely. (9) Mixed anxiety depressive disorder SNOMED Code(s): 712499678 Code(s): F41.8 - OTHER SPECIFIED ANXIETY DISORDERS Status: Chronic Priority: Medium Current Visit: Yes Annotation/Comment:: Stable by history and during this hospitalization. Note chronic narcotic use secondary to chronic pain syndrome. (10) Peptic reflux disease SNOMED Code(s): 427207824 Code(s): K21.9 - GASTRO-ESOPHAGEAL REFLUX DISEASE WITHOUT ESOPHAGITIS Status: Chronic Priority: Medium Current Visit: Yes Annotation/Comment:: No evidence of GI bleed despite recent progressive anemia as above. Continue to observe closely. - Problem List Review Problem List Initiated/Reviewed/Updated: Yes - My Orders Last 24 Hours: My Active Orders 05/24/20 Lunch Fluid Restriction [DIET] 05/24/20 11:48 Chest 1V Frontal [CR] Stat 05/24/20 11:49 EKG Documentation Completion [RC] ASDIRECTED EKG 12 Lead [EK] Stat 05/24/20 12:00 Douglas Catheter Insertion [Insert Urinary Catheter] [OM.PC] Q24H Urinary Catheter Assessment [RC] ASDIRECTED 05/24/20 13:00 CULTURE URINE [RM] Routine - Assessment Assessment:: As above - Plan Plan:: As above. Extensive precautions were given to the patient and her daughter, who are in agreement with the treatment plan. flex o writer operator physician assumes care in the a.m. The patient will require about 3-4 days of inpatient/acute care secondary to multiple health problems as above. Expect somewhat prolonged hospitalization secondary to previous significant history of urosepsis, etc.
[2020-05-24] MEDS: Potassium Chloride 20 MEQ Tab.ER PO SCH (17:17)
[2020-05-24] MEDS ORDERED: Calcium Carbonate/Vitamin D3 1500 MG-400 Units Tab PO SCH (20:00)
[2020-05-24] MEDS ORDERED: atorvaSTATin 40 MG Tab PO SCH (20:00)
[2020-05-24] MEDS ORDERED: Oxybutynin 5 MG Tab.ER PO SCH (20:00)
[2020-05-24] MEDS ORDERED: rOPINIRole 1 MG Tab PO SCH (20:00)
[2020-05-24] MEDS ORDERED: Cholecalciferol (Vitamin D3) 25 MCG Tab PO SCH ×2 (20:00)
[2020-05-25] MEDS: Cefepime 2 GM in Sodium Chloride 0.9% 100 ML IV SCH ×3 (00:01→15:09)
[2020-05-25] MEDS: Sodium Chloride 0.9% 10 ML Syringe FLUSH PRN ×2 (00:02→07:41)
[2020-05-25] MEDS: Acetaminophen/HYDROcodone 325-10 MG Tab PO PRN (01:57)
[2020-05-25] MEDS: Pantoprazole 40 MG Vial IVPUSH SCH (07:41)
[2020-05-25] MEDS: DULoxetine 20 MG Cap PO SCH (07:42)
[2020-05-25] MEDS: Multivitamin Tab PO SCH (07:43)
[2020-05-25] MEDS: DULoxetine 30 MG Cap PO SCH (07:43)
[2020-05-25] MEDS: Clopidogrel 75 MG Tab PO SCH (07:44)
[2020-05-25] MEDS: Potassium Chloride 20 MEQ Tab.ER PO SCH (07:44)
[2020-05-25] MEDS: Ferrous Sulfate 325 MG Tab PO SCH (07:45)
[2020-05-25] MEDS: Metoprolol Succinate 50 MG Tab.ER PO SCH (07:45)
[2020-05-25] MEDS: Aspirin 81 MG Tab.Chew PO SCH (07:45)
[2020-05-25] MEDS: Vancomycin 125 MG Cap PO SCH ×2 (07:46→12:23)
[2020-05-25] MEDS: Enoxaparin 30 MG/0.3 ML Syringe SUBCUT SCH (07:46)
[2020-05-25] MEDS: Lisinopril 5 MG Tab PO SCH (07:47)
[2020-05-25] MEDS: Acetaminophen/HYDROcodone 325-10 MG Tab PO SCH ×2 (07:48→14:29)
[2020-05-25] MEDS: Famotidine 20 MG Tab PO SCH (07:49)
[2020-05-25] MEDS: Magnesium Oxide 400 MG Tab PO SCH (07:49)
--- NOTE | 2020-05-25 12:15 | PCM.PN ---
- General Info Date of Service: 05/25/20 Admission Dx/Problem (Free Text): 1. UTI with recent urosepsis with secondary respiratory failure requiring intubation 2. CHF 3. Coronary artery disease Subjective Update: Feeling much better. Reports poor appetite. Functional Status: Reports: Pain Controlled, Urinating. Denies: New Symptoms Pain Score: 0 - Review of Systems General: Reports: Appetite (poor) HEENT: Reports: Other (no acute changes) Pulmonary: Denies: Shortness of Breath, Pleuritic Chest Pain, Cough, Sputum, Hemoptysis, Wheezing Cardiovascular: Denies: Chest Pain, Dyspnea on Exertion, Lightheadedness Gastrointestinal: Reports: Decreased Appetite, Nausea (mild), Other (no BM since admission). Denies: Abdominal Pain, Diarrhea, Hematochezia, Vomiting Genitourinary: Denies: Dysuria, Frequency, Burning, Pain, Urgency, Hematuria, Flank Pain Musculoskeletal: Reports: Other (no acute changes from baseline) Skin: Reports: Bruising (from IVs/blood draws) Neurological: Reports: No Symptoms Psychiatric: Reports: No Symptoms - Patient Data Vitals - Most Recent: Last Vital Signs Temp 36.6 C 05/25/20 08:00 Pulse 80 05/25/20 08:00 Resp 14 05/25/20 08:00 BP 140/60 05/25/20 08:00 Pulse Ox 100 05/25/20 08:00 Weight - Most Recent: 78.245 kg I&O - Last 24 Hours: Intake & Output 05/24/20 05/25/20 05/25/20 22:59 06:59 14:59 Intake Total 526 420 Output Total 300 150 Balance 226 -150 420 Lab Results Last 24 Hours: Laboratory Results - last 24 hr 05/24/20 05/24/20 05/24/20 Range/Units 07:30 07:30 12:40 WBC (4.0-10.2) K/uL RBC (3.77-5.09) M/uL Hgb (11.7-15.5) g/dL Hct (34.0-46.0) % MCV (84.0-98.0) fL MCH (28.2-33.3) pg MCHC (31.7-36.0) g/dL RDW (11.2-14.1) % Plt Count (150-350) K/uL Add Manual Diff Neutrophils % (Manual) Band Neutrophils % Lymphocytes % (Manual) Atypical Lymphs % Monocytes % (Manual) Absolute Neutrophils Lymphocytes # (Manual) Monocytes # (Manual) D-Dimer, Quantitative 2490 H (0-400) ng/mL Sodium (136-145) mmol/L Potassium (3.5-5.1) mmol/L Chloride (98-107) mmol/L Carbon Dioxide (21.0-32.0) mmol/L BUN (7-18) mg/dL Creatinine (0.51-1.17) mg/dL Est Cr Clr Drug Dosing mL/min Estimated GFR (MDRD) mL/min Glucose (70-99) mg/dL Lactic Acid (0.4-2.0) mmol/L Uric Acid (2.6-7.2) mg/dL Calcium (8.5-10.1) mg/dL Magnesium (1.8-2.4) mg/dL Iron (50-175) ug/dL TIBC (250-450) ug/dL % Saturation Ferritin (8-388) ng/mL Creatine Kinase 32 (26-308) U/L Creatine Kinase Index 19.7 H (0.0-2.5) % CK-MB (CK-2) 6.30 H* (0.00-3.60) ng/mL Troponin I 0.052 (0.000-0.056) ng/mL NT-Pro-B Natriuret Pep 2843 H (0-125) pg/mL Vitamin B12 (193-986) pg/mL Specimen Type Urincath Urine Color Yellow Urine Appearance Clear Urine pH 6.5 (5.0-9.0) Ur Specific [place] 1.015 (1.005-1.030) Urine Protein 100 H (NEGATIVE) mg/dL Urine Glucose (UA) Negative (NEGATIVE) mg/dL Urine Ketones Negative (NEGATIVE) mg/dL Urine Occult Blood Moderate H (NEGATIVE) Urine Nitrite Negative (NEGATIVE) Urine Bilirubin Negative (NEGATIVE) Urine Urobilinogen 0.2 (0.2-1.0) E.U./dL Ur Leukocyte Esterase Negative (NEGATIVE) Urine RBC 0-5 /HPF Urine WBC 5-10 H /HPF Ur Epithelial Cells Rare /LPF Amorphous Sediment Few (0/HPF) /HPF Urine Bacteria Few (NONE TO FEW) /HPF Urine Yeast Many H (NEGATIVE) /HPF 05/25/20 05/25/20 05/25/20 Range/Units 07:15 07:15 07:15 WBC 9.6 (4.0-10.2) K/uL RBC 3.66 L (3.77-5.09) M/uL Hgb 10.3 L (11.7-15.5) g/dL Hct 34.0 (34.0-46.0) % MCV 92.9 (84.0-98.0) fL MCH 28.1 L (28.2-33.3) pg MCHC 30.3 L (31.7-36.0) g/dL RDW 19.0 H (11.2-14.1) % Plt Count 194 (150-350) K/uL Add Manual Diff Yes Neutrophils % (Manual) 63 Band Neutrophils % 7 Lymphocytes % (Manual) 18 Atypical Lymphs % 5 Monocytes % (Manual) 7 Absolute Neutrophils 6.7200 Lymphocytes # (Manual) 2.2080 Monocytes # (Manual) 0.6720 D-Dimer, Quantitative 2170 H (0-400) ng/mL Sodium (136-145) mmol/L Potassium (3.5-5.1) mmol/L Chloride (98-107) mmol/L Carbon Dioxide (21.0-32.0) mmol/L BUN (7-18) mg/dL Creatinine (0.51-1.17) mg/dL Est Cr Clr Drug Dosing mL/min Estimated GFR (MDRD) mL/min Glucose (70-99) mg/dL Lactic Acid 0.8 (0.4-2.0) mmol/L Uric Acid (2.6-7.2) mg/dL Calcium (8.5-10.1) mg/dL Magnesium (1.8-2.4) mg/dL Iron (50-175) ug/dL TIBC (250-450) ug/dL % Saturation Ferritin (8-388) ng/mL Creatine Kinase (26-308) U/L Creatine Kinase Index (0.0-2.5) % CK-MB (CK-2) (0.00-3.60) ng/mL Troponin I (0.000-0.056) ng/mL NT-Pro-B Natriuret Pep (0-125) pg/mL Vitamin B12 (193-986) pg/mL Specimen Type Urine Color Urine Appearance Urine pH (5.0-9.0) Ur Specific [place] (1.005-1.030) Urine Protein (NEGATIVE) mg/dL Urine Glucose (UA) (NEGATIVE) mg/dL Urine Ketones (NEGATIVE) mg/dL Urine Occult Blood (NEGATIVE) Urine Nitrite (NEGATIVE) Urine Bilirubin (NEGATIVE) Urine Urobilinogen (0.2-1.0) E.U./dL Ur Leukocyte Esterase (NEGATIVE) Urine RBC /HPF Urine WBC /HPF Ur Epithelial Cells /LPF Amorphous Sediment (0/HPF) /HPF Urine Bacteria (NONE TO FEW) /HPF Urine Yeast (NEGATIVE) /HPF 05/25/20 05/25/20 Range/Units 07:15 07:55 WBC (4.0-10.2) K/uL RBC (3.77-5.09) M/uL Hgb (11.7-15.5) g/dL Hct (34.0-46.0) % MCV (84.0-98.0) fL MCH (28.2-33.3) pg MCHC (31.7-36.0) g/dL RDW (11.2-14.1) % Plt Count (150-350) K/uL Add Manual Diff Neutrophils % (Manual) Band Neutrophils % Lymphocytes % (Manual) Atypical Lymphs % Monocytes % (Manual) Absolute Neutrophils Lymphocytes # (Manual) Monocytes # (Manual) D-Dimer, Quantitative (0-400) ng/mL Sodium 137 (136-145) mmol/L Potassium 4.4 (3.5-5.1) mmol/L Chloride 107 (98-107) mmol/L Carbon Dioxide 22.6 (21.0-32.0) mmol/L BUN 28 H (7-18) mg/dL Creatinine 0.98 (0.51-1.17) mg/dL Est Cr Clr Drug Dosing 34.53 mL/min Estimated GFR (MDRD) 55 mL/min Glucose 99 (70-99) mg/dL Lactic Acid (0.4-2.0) mmol/L Uric Acid 5.7 (2.6-7.2) mg/dL Calcium 9.3 (8.5-10.1) mg/dL Magnesium 1.9 (1.8-2.4) mg/dL Iron 37 L (50-175) ug/dL TIBC 309 (250-450) ug/dL % Saturation 11.56765 Ferritin 63 (8-388) ng/mL Creatine Kinase (26-308) U/L Creatine Kinase Index (0.0-2.5) % CK-MB (CK-2) (0.00-3.60) ng/mL Troponin I 0.027 (0.000-0.056) ng/mL NT-Pro-B Natriuret Pep 3366 H (0-125) pg/mL Vitamin B12 2660 H (193-986) pg/mL Specimen Type Urine Color Urine Appearance Urine pH (5.0-9.0) Ur Specific [place] (1.005-1.030) Urine Protein (NEGATIVE) mg/dL Urine Glucose (UA) (NEGATIVE) mg/dL Urine Ketones (NEGATIVE) mg/dL Urine Occult Blood (NEGATIVE) Urine Nitrite (NEGATIVE) Urine Bilirubin (NEGATIVE) Urine Urobilinogen (0.2-1.0) E.U./dL Ur Leukocyte Esterase (NEGATIVE) Urine RBC /HPF Urine WBC /HPF Ur Epithelial Cells /LPF Amorphous Sediment (0/HPF) /HPF Urine Bacteria (NONE TO FEW) /HPF Urine Yeast (NEGATIVE) /HPF Robert Results Last 24 Hours: Microbiology 05/23/20 21:10 Aerobic Blood Culture - Preliminary Blood - Venous - Lab Draw NO GROWTH AFTER 1 DAY Anaerobic Blood Culture - Preliminary NO GROWTH AFTER 1 DAY 05/23/20 20:55 Aerobic Blood Culture - Preliminary Blood - Venous NO GROWTH AFTER 1 DAY Anaerobic Blood Culture - Preliminary NO GROWTH AFTER 1 DAY Med Orders - Current: Current Medications Hydrocodone Bitart/Acetaminophen (Acetaminophen/Hydrocodone 325-10 Mg Tab) 1 tab PO TID PRN PRN Reason: Pain Last Admin: 05/25/20 01:57 Dose: 1 tab Documented by: Hydrocodone Bitart/Acetaminophen (Acetaminophen/Hydrocodone 325-10 Mg Tab) 1 tab PO TID@,, [facility] Last Admin: 05/25/20 07:48 Dose: 1 tab Documented by: Albuterol (Albuterol 6.7 Gm Inhaler) 2 gm INH Q4H PRN PRN Reason: Shortness of Breath Aspirin (Aspirin 81 Mg Tab.Chew) 81 mg PO DAILY [facility] Last Admin: 05/25/20 07:45 Dose: 81 mg Documented by: Atorvastatin Calcium (Atorvastatin 40 Mg Tab) 40 mg PO BEDTIME [facility] Last Admin: 05/24/20 20:06 Dose: 40 mg Documented by: Calcium Carbonate (Calcium Carbonate/Vitamin D3 1500 Mg-400 Units Tab) 1 tab PO BEDTIME [facility] Last Admin: 05/24/20 20:05 Dose: 1 tab Documented by: Cholecalciferol (Cholecalciferol (Vitamin D3) 25 Mcg Tab) 50 mcg PO BEDTIME [facility] Last Admin: 05/24/20 20:05 Dose: 50 mcg Documented by: Clopidogrel Bisulfate (Clopidogrel 75 Mg Tab) 75 mg PO DAILY [facility] Last Admin: 05/25/20 07:44 Dose: 75 mg Documented by: Duloxetine HCl (Duloxetine 20 Mg Cap) 20 mg PO DAILY [facility] Last Admin: 05/25/20 07:42 Dose: 20 mg Documented by: Duloxetine HCl (Duloxetine 30 Mg Cap) 30 mg PO DAILY [facility] Last Admin: 05/25/20 07:43 Dose: 30 mg Documented by: Enoxaparin Sodium (Enoxaparin 30 Mg/0.3 Ml Syringe) 30 mg SUBCUT DAILY [facility] Last Admin: 05/25/20 07:46 Dose: 30 mg Documented by: Famotidine (Famotidine 20 Mg Tab) 20 mg PO DAILY [facility] Last Admin: 05/25/20 07:49 Dose: 20 mg Documented by: Ferrous Sulfate (Ferrous Sulfate 325 Mg Tab) 325 mg PO DAILY [facility] Last Admin: 05/25/20 07:45 Dose: 325 mg Documented by: Cefepime HCl 2 gm/ Sodium (Chloride) 100 mls @ 200 mls/hr IV Q8HR [facility] Last Admin: 05/25/20 07:40 Dose: 200 mls/hr Documented by: Lisinopril (Lisinopril 5 Mg Tab) 2.5 mg PO DAILY [facility] Last Admin: 05/25/20 07:47 Dose: 2.5 mg Documented by: Magnesium Oxide (Magnesium Oxide 400 Mg Tab) 400 mg PO DAILY [facility] Last Admin: 05/25/20 07:49 Dose: 400 mg Documented by: Methenamine Hippurate (Methenamine Hippurate 1 Gm Tab) 1 gm PO Q12HR [facility] Last Admin: 05/25/20 07:42 Dose: 1 gm Documented by: Methyl Salicylate (Menthol/Methyl Salicylate 85 Gm Tube) 85 gm TOP QID PRN PRN Reason: Pain Metoprolol Succinate (Metoprolol Succinate 50 Mg Tab.Er) 100 mg PO DAILY [facility] Last Admin: 05/25/20 07:45 Dose: 100 mg Documented by: Multivitamins/Minerals/Vitamin C (Multivitamin Tab) 1 tab PO DAILY [facility] Last Admin: 05/25/20 07:43 Dose: 1 tab Documented by: Oxybutynin Chloride (Oxybutynin 5 Mg Tab.Er) 10 mg PO BEDTIME [facility] Last Admin: 05/24/20 20:06 Dose: 10 mg Documented by: Pantoprazole Sodium (Pantoprazole 40 Mg Vial) 40 mg IVPUSH Q12HR [facility] Last Admin: 05/25/20 07:41 Dose: 40 mg Documented by: Potassium Chloride (Potassium Chloride 20 Meq Tab.Er) 20 meq PO BID [facility] Last Admin: 05/25/20 07:44 Dose: 20 meq Documented by: Ropinirole HCl (Ropinirole 1 Mg Tab) 1 mg PO BEDTIME [facility] Last Admin: 05/24/20 20:06 Dose: 1 mg Documented by: Senna/Docusate Sodium (Docusate Sodium/Sennosides 50-8.6 Mg Tab) 2 tab PO DAILY [facility] Last Admin: 05/25/20 07:43 Dose: 2 tab Documented by: Sodium Chloride (Sodium Chloride 0.9% 10 Ml Syringe) 10 ml FLUSH ASDIRECTED PRN PRN Reason: Keep Vein Open Last Admin: 05/25/20 07:41 Dose: 10 ml Documented by: Vancomycin HCl (Vancomycin 125 Mg Cap) 125 mg PO QID [facility] Last Admin: 05/25/20 07:46 Dose: 125 mg Documented by: Discontinued Medications Alteplase, Recombinant (Alteplase 2 Mg Vial) 2 mg IVPUSH ONETIME ONE Stop: 05/24/20 02:07 Last Admin: 05/24/20 04:09 Dose: 2 mg Documented by: Cefepime HCl (Cefepime 2 Gm Vial) 2 gm IV Q8HR [facility] Cholecalciferol (Cholecalciferol (Vitamin D3) 25 Mcg Tab) 2,000 mcg PO BEDTIME [facility] Sodium Chloride (Normal Saline) 1,000 mls @ 500 mls/hr IV ASDIRECTED [facility] Last Admin: 05/23/20 21:17 Dose: 500 mls/hr Documented by: Potassium Chloride/Dextrose/Sod Cl (D5 1/2 Ns W/ 20 Meq/L Kcl) 1,000 mls @ 75 mls/hr IV ASDIRECTED RAVI Last Admin: 05/24/20 01:32 Dose: 75 mls/hr Documented by: Iopamidol (Iopamidol 612 Mg/Ml 100 Ml Bottle) 100 ml IVPUSH ONETIME STA Stop: 05/23/20 21:46 Last Admin: 05/23/20 21:57 Dose: 100 ml Documented by: - Exam Quality Assessment: DVT Prophylaxis General: Alert, Oriented, Cooperative, No Acute Distress HEENT: Pupils Equal, Pupils Reactive, EOMI, Mucous Membr. Moist/[place] Neck: Supple Lungs: Clear to Auscultation, Normal Respiratory Effort Cardiovascular: Regular Rate, Regular Rhythm GI/Abdominal Exam: Normal Bowel Sounds, Soft, Non-Tender, No Distention (Female) Exam: Deferred Back Exam: No: CVA Tenderness (L), CVA Tenderness (R), Muscle Spasm Extremities: Non-Tender, Normal Capillary Refill Skin: Warm, Dry Neurological: No New Focal Deficit Psy/Mental Status: Alert, Normal Affect, Normal Mood - Patient Data Lab Results Last 24 hrs: Laboratory Results - last 24 hr 05/24/20 05/24/20 05/24/20 Range/Units 07:30 07:30 12:40 WBC (4.0-10.2) K/uL RBC (3.77-5.09) M/uL Hgb (11.7-15.5) g/dL Hct (34.0-46.0) % MCV (84.0-98.0) fL MCH (28.2-33.3) pg MCHC (31.7-36.0) g/dL RDW (11.2-14.1) % Plt Count (150-350) K/uL Add Manual Diff Neutrophils % (Manual) Band Neutrophils % Lymphocytes % (Manual) Atypical Lymphs % Monocytes % (Manual) Absolute Neutrophils Lymphocytes # (Manual) Monocytes # (Manual) D-Dimer, Quantitative 2490 H (0-400) ng/mL Sodium (136-145) mmol/L Potassium (3.5-5.1) mmol/L Chloride (98-107) mmol/L Carbon Dioxide (21.0-32.0) mmol/L BUN (7-18) mg/dL Creatinine (0.51-1.17) mg/dL Est Cr Clr Drug Dosing mL/min Estimated GFR (MDRD) mL/min Glucose (70-99) mg/dL Lactic Acid (0.4-2.0) mmol/L Uric Acid (2.6-7.2) mg/dL Calcium (8.5-10.1) mg/dL Magnesium (1.8-2.4) mg/dL Iron (50-175) ug/dL TIBC (250-450) ug/dL % Saturation Ferritin (8-388) ng/mL Creatine Kinase 32 (26-308) U/L Creatine Kinase Index 19.7 H (0.0-2.5) % CK-MB (CK-2) 6.30 H* (0.00-3.60) ng/mL Troponin I 0.052 (0.000-0.056) ng/mL NT-Pro-B Natriuret Pep 2843 H (0-125) pg/mL Vitamin B12 (193-986) pg/mL Specimen Type Urincath Urine Color Yellow Urine Appearance Clear Urine pH 6.5 (5.0-9.0) Ur Specific [place] 1.015 (1.005-1.030) Urine Protein 100 H (NEGATIVE) mg/dL Urine Glucose (UA) Negative (NEGATIVE) mg/dL Urine Ketones Negative (NEGATIVE) mg/dL Urine Occult Blood Moderate H (NEGATIVE) Urine Nitrite Negative (NEGATIVE) Urine Bilirubin Negative (NEGATIVE) Urine Urobilinogen 0.2 (0.2-1.0) E.U./dL Ur Leukocyte Esterase Negative (NEGATIVE) Urine RBC 0-5 /HPF Urine WBC 5-10 H /HPF Ur Epithelial Cells Rare /LPF Amorphous Sediment Few (0/HPF) /HPF Urine Bacteria Few (NONE TO FEW) /HPF Urine Yeast Many H (NEGATIVE) /HPF 05/25/20 05/25/20 05/25/20 Range/Units 07:15 07:15 07:15 WBC 9.6 (4.0-10.2) K/uL RBC 3.66 L (3.77-5.09) M/uL Hgb 10.3 L (11.7-15.5) g/dL Hct 34.0 (34.0-46.0) % MCV 92.9 (84.0-98.0) fL MCH 28.1 L (28.2-33.3) pg MCHC 30.3 L (31.7-36.0) g/dL RDW 19.0 H (11.2-14.1) % Plt Count 194 (150-350) K/uL Add Manual Diff Yes Neutrophils % (Manual) 63 Band Neutrophils % 7 Lymphocytes % (Manual) 18 Atypical Lymphs % 5 Monocytes % (Manual) 7 Absolute Neutrophils 6.7200 Lymphocytes # (Manual) 2.2080 Monocytes # (Manual) 0.6720 D-Dimer, Quantitative 2170 H (0-400) ng/mL Sodium (136-145) mmol/L Potassium (3.5-5.1) mmol/L Chloride (98-107) mmol/L Carbon Dioxide (21.0-32.0) mmol/L BUN (7-18) mg/dL Creatinine (0.51-1.17) mg/dL Est Cr Clr Drug Dosing mL/min Estimated GFR (MDRD) mL/min Glucose (70-99) mg/dL Lactic Acid 0.8 (0.4-2.0) mmol/L Uric Acid (2.6-7.2) mg/dL Calcium (8.5-10.1) mg/dL Magnesium (1.8-2.4) mg/dL Iron (50-175) ug/dL TIBC (250-450) ug/dL % Saturation Ferritin (8-388) ng/mL Creatine Kinase (26-308) U/L Creatine Kinase Index (0.0-2.5) % CK-MB (CK-2) (0.00-3.60) ng/mL Troponin I (0.000-0.056) ng/mL NT-Pro-B Natriuret Pep (0-125) pg/mL Vitamin B12 (193-986) pg/mL Specimen Type Urine Color Urine Appearance Urine pH (5.0-9.0) Ur Specific [place] (1.005-1.030) Urine Protein (NEGATIVE) mg/dL Urine Glucose (UA) (NEGATIVE) mg/dL Urine Ketones (NEGATIVE) mg/dL Urine Occult Blood (NEGATIVE) Urine Nitrite (NEGATIVE) Urine Bilirubin (NEGATIVE) Urine Urobilinogen (0.2-1.0) E.U./dL Ur Leukocyte Esterase (NEGATIVE) Urine RBC /HPF Urine WBC /HPF Ur Epithelial Cells /LPF Amorphous Sediment (0/HPF) /HPF Urine Bacteria (NONE TO FEW) /HPF Urine Yeast (NEGATIVE) /HPF 05/25/20 05/25/20 Range/Units 07:15 07:55 WBC (4.0-10.2) K/uL RBC (3.77-5.09) M/uL Hgb (11.7-15.5) g/dL Hct (34.0-46.0) % MCV (84.0-98.0) fL MCH (28.2-33.3) pg MCHC (31.7-36.0) g/dL RDW (11.2-14.1) % Plt Count (150-350) K/uL Add Manual Diff Neutrophils % (Manual) Band Neutrophils % Lymphocytes % (Manual) Atypical Lymphs % Monocytes % (Manual) Absolute Neutrophils Lymphocytes # (Manual) Monocytes # (Manual) D-Dimer, Quantitative (0-400) ng/mL Sodium 137 (136-145) mmol/L Potassium 4.4 (3.5-5.1) mmol/L Chloride 107 (98-107) mmol/L Carbon Dioxide 22.6 (21.0-32.0) mmol/L BUN 28 H (7-18) mg/dL Creatinine 0.98 (0.51-1.17) mg/dL Est Cr Clr Drug Dosing 34.53 mL/min Estimated GFR (MDRD) 55 mL/min Glucose 99 (70-99) mg/dL Lactic Acid (0.4-2.0) mmol/L Uric Acid 5.7 (2.6-7.2) mg/dL Calcium 9.3 (8.5-10.1) mg/dL Magnesium 1.9 (1.8-2.4) mg/dL Iron 37 L (50-175) ug/dL TIBC 309 (250-450) ug/dL % Saturation 11.25372 Ferritin 63 (8-388) ng/mL Creatine Kinase (26-308) U/L Creatine Kinase Index (0.0-2.5) % CK-MB (CK-2) (0.00-3.60) ng/mL Troponin I 0.027 (0.000-0.056) ng/mL NT-Pro-B Natriuret Pep 3366 H (0-125) pg/mL Vitamin B12 2660 H (193-986) pg/mL Specimen Type Urine Color Urine Appearance Urine pH (5.0-9.0) Ur Specific [place] (1.005-1.030) Urine Protein (NEGATIVE) mg/dL Urine Glucose (UA) (NEGATIVE) mg/dL Urine Ketones (NEGATIVE) mg/dL Urine Occult Blood (NEGATIVE) Urine Nitrite (NEGATIVE) Urine Bilirubin (NEGATIVE) Urine Urobilinogen (0.2-1.0) E.U./dL Ur Leukocyte Esterase (NEGATIVE) Urine RBC /HPF Urine WBC /HPF Ur Epithelial Cells /LPF Amorphous Sediment (0/HPF) /HPF Urine Bacteria (NONE TO FEW) /HPF Urine Yeast (NEGATIVE) /HPF Result Diagrams: 05/25/20 07:15 05/25/20 07:55 Robert Results Last 24 hrs: Microbiology 05/23/20 21:10 Aerobic Blood Culture - Preliminary Blood - Venous - Lab Draw NO GROWTH AFTER 1 DAY Anaerobic Blood Culture - Preliminary NO GROWTH AFTER 1 DAY 05/23/20 20:55 Aerobic Blood Culture - Preliminary Blood - Venous NO GROWTH AFTER 1 DAY Anaerobic Blood Culture - Preliminary NO GROWTH AFTER 1 DAY Sepsis Event Note - Evaluation Sepsis Screening Result: No Definite Risk - Focused Exam Vital Signs: Vital Signs Temp Pulse Pulse Pulse Resp BP BP 05/25/20 08:00 36.6 C 80 14 140/60 05/25/20 07:47 140/60 05/25/20 07:45 80 140/60 05/25/20 04:00 36.9 C 72 15 110/58 L Pulse Ox 05/25/20 08:00 100 05/25/20 07:47 05/25/20 07:45 05/25/20 04:00 96 - Problem List & Annotations (1) Pyelonephritis SNOMED Code(s): 39129863 Code(s): N12 - TUBULO-INTERSTITIAL NEPHRITIS, NOT SPCF ACUTE OR CHRONIC Status: Acute Priority: High Current Visit: Yes Onset Date: 05/10/20 Annotation/Comment:: No significant history of significant right-sided pyelonephritis with secondary urosepsis resulting in respiratory failure on 05/10/2020 and requiring intubation by in this facility on that day. Prolonged hospitalization both at [facility] and the [facility] with subsequent transfer to this facility for further IV antibiotic therapy. Note that the on-call [facility] provider did have an infectious disease consultation as per admission history and physical. Continue recommended antibiotics for now. Secondary to significant urinary incontinence and secondary perineal dermatitis and for better accurate diagnosis a [place] catheter was placed on 05/24 with cath UA and culture and sensitivity reordered. Patient placed on telemetry secondary to previous history of urosepsis, borderline CHF, etc.. Note that the patient was hospitalized at [facility] from 05/10 through 05/21/2020 with subsequent hospitalization at the [facility]. (2) Anemia SNOMED Code(s): 498055065 Code(s): D64.9 - ANEMIA, UNSPECIFIED Status: Acute Priority: Medium Current Visit: Yes Onset Date: 04/23/20 Qualifiers: Anemia type: other cause Other causes of anemia: acute posthemorrhagic Qualified Code(s): D62 - Acute posthemorrhagic anemia Annotation/Comment:: Note previous hemorrhagic cystitis resulting in significant anemia both on 05/10 and persistent anemia on 05/24. Iron studies normal except fo r low Iron. Follow up with PCP for further eval/treatment as needed. No evidence of acute bleeding at this time. (3) Hypokalemia SNOMED Code(s): 05170660 Code(s): E87.6 - HYPOKALEMIA Status: Acute Priority: Medium Current Visit: Yes Onset Date: 05/24/20 Annotation/Comment:: Medication adjustment during this hospitalization. Normal level today (4) Elevated d-dimer SNOMED Code(s): 758367674 Code(s): R79.89 - OTHER SPECIFIED ABNORMAL FINDINGS OF BLOOD CHEMISTRY Status: Chronic Priority: Medium Current Visit: Yes Annotation/Comment:: Chronic condition. Observe for now with patient apparently having venous Doppl er studies of the lower extremities at [facility] per history from her daughter on 05/24. No acute changes suggestive of PE/DVT on ROS (5) Proctocolitis SNOMED Code(s): 999469765 Code(s): K52.9 - NONINFECTIVE GASTROENTERITIS AND COLITIS, UNSPECIFIED Status: Acute Priority: Medium Current Visit: Yes Onset Date: 04/14/21 Annotation/Comment:: As evident by CT scan of the abdomen and pelvis on 03/25/2020. Previous history of mild loose stools prior to admission after aggressive previous treatment for her urosepsis both at [facility] and at the [facility]. Specimen has been ordered by on-call [facility] provider. He also started oral vancomycin therapy as a preventative measure. This was discontinued today as patient has not had a stool for 2 days which would not be consistent with active C-Diff infection. (6) CHF (congestive heart failure) SNOMED Code(s): 12107571 Code(s): I50.9 - HEART FAILURE, UNSPECIFIED Status: Chronic Priority: Medium Current Visit: Yes Qualifiers: Heart failure type: combined systolic and diastolic Heart failure chronici ty: acute on chronic Qualified Code(s): I50.43 - Acute on chronic combined systolic (congestive) and diastolic (congestive) heart failure Annotation/Comment:: No chest pain or anginal type symptoms with moderately elevated BNP, however only mild CHF by clinical exam and chest x-ray. Note slowly improved BNP since admission. CK index and CK-MB are elevated with relatively stable high normal troponin I. (7) Coronary artery disease SNOMED Code(s): 22678230 Code(s): I25.10 - ATHSCL HEART DISEASE OF [place] CORONARY ARTERY W/O ANG PCTRS Status: Chronic Priority: Low Current Visit: Yes Qualifiers: Coronary Disease-Associated Artery/Lesion type: [place] artery [place] vs. transplanted heart: [place] heart Associated angina: without angina Qualified Code(s): I25.10 - Atherosclerotic heart disease of [place] coronary artery without angina pectoris Annotation/Comment:: No chest pain or anginal type symptoms with likely stable lateral wall cardiac ischemia.. Note significant CHF by blood work and chest x- ray on 05/10 at time of urosepsis/respiratory failure. History of diastolic dysfunction and previous PTCA/stent. (8) Mixed anxiety depressive disorder SNOMED Code(s): 533149662 Code(s): F41.8 - OTHER SPECIFIED ANXIETY DISORDERS Status: Chronic Priority: Medium Current Visit: Yes Annotation/Comment:: Stable by history and during this hospitalization. Note chronic narcotic use secondary to chronic pain syndrome. (9) Peptic reflux disease SNOMED Code(s): 078956077 Code(s): K21.9 - GASTRO-ESOPHAGEAL REFLUX DISEASE WITHOUT ESOPHAGITIS Status: Chronic Priority: Medium Current Visit: Yes Annotation/Comment:: No evidence of GI bleed despite recent progressive anemia as above. Continue to observe closely. - Problem List Review Problem List Initiated/Reviewed/Updated: Yes - My Orders Last 24 Hours: My Active Orders 05/25/20 08:10 Consult to Speech Language Pathology [DAUB COLOR MIXER Evaluation and Treatment] [CONS] Routine - Assessment Assessment:: As above - Plan Plan:: As above. Patient doing better today. Is interactive, awake, reports feeling much better. [facility] Otherwise consider discharge back to their facility tomorrow.
[2020-05-25] MEDS ORDERED: Fluconazole 100 MG Tab PO ONE (12:18)
[2020-05-25] MEDS ORDERED: Nystatin Topical Powder 15 GM Bottle TOP SCH (12:19)
--- NOTE | 2020-05-25 15:39 | PCM.DCSUM1 ---
Discharge Summary - Hospital Course Brief History: Admitted for treatment lethargy and syncope following diagnosis and initial treatment of pyelonephrtitis and sepsis. Diagnosis: Stroke: No - Discharge Data Discharge Date: 05/25/20 Discharge Disposition: DC/Tfer to SNF 03 Condition: Good - Referral to Home Health Primary Care Physician: SILVIA Hernández - Discharge Diagnosis/Problem(s) (1) Pyelonephritis SNOMED Code(s): 21259315 ICD Code: N12 - TUBULO-INTERSTITIAL NEPHRITIS, NOT SPCF ACUTE OR CHRONIC Status: Acute Priority: High Current Visit: Yes Onset Date: 05/10/20 Problem Details: Continue IV antibiotics. Follow up next week with PCP on rounds Thursday. Repeat UA Thursday. Will need to be decided if antibiotics can safely be discontnued. No significant history of significant right-sided pyelonephritis with secondary urosepsis resulting in respiratory failure on 05/10/2020 and requiring intubation by in this facility on that day. Prolonged hospitalization both at [facility] and the [facility] with subsequent transfer to this facility for further IV antibiotic therapy. Note that the on-call [facility] provider did have an infectious disease consultation as per admission history and physical. Continue recommended antibiotics for now. Secondary to significant urinary incontinence and secondary perineal dermatitis and for better accurate diagnosis a [place] catheter was placed on 05/24 with cath UA and culture and sensitivity reordered. Patient placed on telemetry secondary to previous history of urosepsis, borderline CHF, etc.. Note that the patient was hospitalized at [facility] from 05/10 through 05/21/2020 with subsequent hospitalization at the [facility]. (2) Anemia SNOMED Code(s): 131086209 ICD Code: D64.9 - ANEMIA, UNSPECIFIED Status: Acute Priority: Medium Current Visit: Yes Onset Date: 04/23/20 Problem Details: Note previous hemorrhagic cystitis resulting in significant anemia both on 05/10 and persistent anemia on 05/24. Iron studies normal except for low Iron. Follow up with PCP for further eval/treatment as needed. No evidence of acute bleeding at this time. Qualifiers: Anemia type: other cause Other causes of anemia: acute posthemorrhagic Qualified Code(s): D62 - Acute posthemorrhagic anemia (3) Hypokalemia SNOMED Code(s): 64416728 ICD Code: E87.6 - HYPOKALEMIA Status: Acute Priority: Medium Current Visit: Yes Onset Date: 05/24/20 Problem Details: Medication adjustment during this hospitalization. Normal level today (4) Elevated d-dimer SNOMED Code(s): 028411661 ICD Code: R79.89 - OTHER SPECIFIED ABNORMAL FINDINGS OF BLOOD CHEMISTRY Status: Chronic Priority: Medium Current Visit: Yes Problem Details: Chronic condition. Observe for now with patient apparently having venous Doppler studies of the lower extremities at [facility] per history from her daughter on 05/24. No acute changes suggestive of PE/DVT on ROS (5) Proctocolitis SNOMED Code(s): 113192870 ICD Code: K52.9 - NONINFECTIVE GASTROENTERITIS AND COLITIS, UNSPECIFIED Status: Acute Priority: Medium Current Visit: Yes Onset Date: 05/23/20 Problem Details: As evident by CT scan of the abdomen and pelvis on 03/25/2020. Previous history of mild loose stools prior to admission after aggressive previous treatment for her urosepsis both at [facility] and at the [facility] in [place]. Specimen has been ordered by on-call [facility] provider. He also started oral vancomycin therapy as a preventative measure. This was discontinued today as patient has not had a stool for 2 days which would not be consistent with active C-Diff infection. (6) CHF (congestive heart failure) SNOMED Code(s): 12391434 ICD Code: I50.9 - HEART FAILURE, UNSPECIFIED Status: Chronic Priority: Medium Current Visit: Yes Problem Details: No chest pain or anginal type symptoms with moderately elevated BNP, however only mild CHF by clinical exam and chest x-ray. Note slowly improved BNP since admission. CK index and CK-MB are elevated with relatively stable high normal troponin I. Qualifiers: Heart failure type: combined systolic and diastolic Heart failure chronicity: acute on chronic Qualified Code(s): I50.43 - Acute on chronic combined systolic (congestive) and diastolic (congestive) heart failure (7) Coronary artery disease SNOMED Code(s): 81827837 ICD Code: I25.10 - ATHSCL HEART DISEASE OF [place] CORONARY ARTERY W/O ANG PCTRS Status: Chronic Priority: Low Current Visit: Yes Problem Details: No chest pain or anginal type symptoms with likely stable lateral wall cardiac ischemia.. Note significant CHF by blood work and chest x-ray on 05/10 at time of urosepsis/respiratory failure. History of diastolic dysfunction and previous PTCA/stent. Qualifiers: Coronary Disease-Associated Artery/Lesion type: [place] artery [place] vs. transplanted heart: [place] heart Associated angina: without angina Qualified Code(s): I25.10 - Atherosclerotic heart disease of [place] coronary artery without angina pectoris (8) Mixed anxiety depressive disorder SNOMED Code(s): 479289142 ICD Code: F41.8 - OTHER SPECIFIED ANXIETY DISORDERS Status: Chronic Priority: Medium Current Visit: Yes Problem Details: Stable by history and during this hospitalization. Note chronic narcotic use secondary to chronic pain syndrome. (9) Peptic reflux disease SNOMED Code(s): 014178567 ICD Code: K21.9 - GASTRO-ESOPHAGEAL REFLUX DISEASE WITHOUT ESOPHAGITIS Status: Chronic Priority: Medium Current Visit: Yes Problem Details: No evidence of GI bleed despite recent progressive anemia as above. Continue to observe closely. - Patient Summary/Data Consults: Consultations 05/25/20 08:10 Consult to Speech Language Pathology [MITER OPERATOR Evaluation and Treatment] [CONS] Routine Hospital Course: As above. Improved throughout stay. Possible that patient's Gabapentin being restarted may have contributed to her lethargy. That was held during her stay. Will be cautiously restarted at lower dose today. - Patient Instructions Activity: Apply Ice Showering/Bathing: May Shower Other/Special Instructions: Follow up Thursday with PCP on rounds at [facility]. Be aware that we reduced the Gabapentin and you will need to increase that dose as needed. Recheck urine recommended on Thursday or Thursday to make certain infection appears to responding to antibiotics. Recheck Potassium next week to see if it is still within normal limits. Follow up with infectious disease as scheduled. - Discharge Plan *PRESCRIPTION DRUG MONITORING PROGRAM REVIEWED*: Not Applicable *COPY OF PRESCRIPTION DRUG MONITORING REPORT IN PATIENT MICHELLE: Not Applicable Prescriptions/Med Rec: Cefepime [Maxipime] 2 gm IV Q8HR #15 vial Gabapentin [Neurontin] 100 mg PO TID #90 cap Nystatin [Nystop] 1 gm TOP TID #1 bottle Home Medications: Home Meds DULoxetine [Cymbalta] 20 mg PO DAILY 11/21/19 [History] DULoxetine [Cymbalta] 30 mg PO DAILY 11/21/19 [History] Hydrocodone/Acetaminophen [[place] 10-325 Tablet] 1 each PO DAILY PRN 11/21/19 [History] Hydrocodone/Acetaminophen [[place] 10-325 Tablet] 1 each PO TID@08,14,20 11/21/19 [History] Loratadine 10 mg PO DAILY 11/21/19 [History] Melatonin 3 mg PO BEDTIME 11/21/19 [History] Multivitamin [Multi-Vitamin Daily] 1 each PO DAILY 11/21/19 [History] Oxybutynin Chloride [Ditropan Xl] 10 mg PO BEDTIME 11/21/19 [History] Sennosides/Docusate Sodium [Senna-Docusate Sodium Tablet] 2 tab PO DAILY 11/21/19 [History] Calcium Carbonate/Vitamin D3 [Calcium 600-Vit D3 400 Tablet] 1 each PO BEDTIME 0 04/22/20 [History] Cholecalciferol (Vitamin D3) [Vitamin D3] 2,000 unit PO BEDTIME 04/22/20 [History] Cranberry 500 mg PO BEDTIME 04/22/20 [History] Cyclobenzaprine [Flexeril] 10 mg PO Q8HR PRN 04/22/20 [History] Ferrous Sulfate [Iron] 325 mg PO DAILY 04/22/20 [History] Magnesium Oxide [Magnesium] 400 mg PO DAILY 04/22/20 [History] Methenamine Hippurate [Hiprex] 1 gm PO Q12HR 04/22/20 [History] Metoprolol Succinate [Toprol XL 100mg] 100 mg PO DAILY 04/22/20 [History] Nitroglycerin [Nitrostat] 0.4 mg SL ASDIRECTED PRN 04/22/20 [History] bisacodyL [Bisacodyl] 5 mg PO Q12HR PRN 04/22/20 [History] rOPINIRole [Requip] 1 mg PO BEDTIME 04/22/20 [History] Albuterol [Ventolin HFA] 2 puff INH Q4H PRN 04/23/20 [History] atorvaSTATin [Lipitor] 40 mg PO BEDTIME 04/23/20 [History] Aspirin 81 mg PO DAILY 05/23/20 [History] Clopidogrel [Plavix] 75 mg PO DAILY 05/23/20 [History] Famotidine 20 mg PO DAILY 05/23/20 [History] Lactulose 10 gm PO DAILY PRN 05/23/20 [History] Methyl Salicylate/Menthol [Muscle Rub] 85 gm TP QID PRN 05/23/20 [History] Omeprazole 40 mg PO DAILY 05/23/20 [History] Phenazopyridine [Pyridium] 200 mg PO Q8H PRN 05/23/20 [History] ramipriL [Ramipril] 1.25 mg PO DAILY 05/23/20 [History] Cefepime [Maxipime] 2 gm IV Q8HR #15 vial 05/25/20 [Rx] Gabapentin [Neurontin] 100 mg PO TID #90 cap 05/25/20 [Rx] Nystatin [Nystop] 1 gm TOP TID #1 bottle 05/25/20 [Rx] Forms: ED Department Discharge Referrals: PCP,None [Ordering Only Provider] - - Discharge Summary/Plan Comment DC Time >30 min.: No - Patient Data Vitals - Most Recent: Last Vital Signs Temp 36.5 C 05/25/20 12:00 Pulse 76 05/25/20 12:00 Resp 18 05/25/20 12:00 BP 137/62 05/25/20 12:00 Pulse Ox 99 05/25/20 12:00 Weight - Most Recent: 78.245 kg I&O - Last 24 hours: Intake & Output 05/25/20 05/25/20 05/25/20 06:59 14:59 22:59 Intake Total 780 Output Total 150 Balance -150 780 Lab Results - Last 24 hrs: Laboratory Results - last 24 hr 05/25/20 05/25/20 05/25/20 Range/Units 07:15 07:15 07:15 WBC 9.6 (4.0-10.2) K/uL RBC 3.66 L (3.77-5.09) M/uL Hgb 10.3 L (11.7-15.5) g/dL Hct 34.0 (34.0-46.0) % MCV 92.9 (84.0-98.0) fL MCH 28.1 L (28.2-33.3) pg MCHC 30.3 L (31.7-36.0) g/dL RDW 19.0 H (11.2-14.1) % Plt Count 194 (150-350) K/uL Add Manual Diff Yes Neutrophils % (Manual) 63 Band Neutrophils % 7 Lymphocytes % (Manual) 18 Atypical Lymphs % 5 Monocytes % (Manual) 7 Absolute Neutrophils 6.7200 Lymphocytes # (Manual) 2.2080 Monocytes # (Manual) 0.6720 D-Dimer, Quantitative 2170 H (0-400) ng/mL Sodium (136-145) mmol/L Potassium (3.5-5.1) mmol/L Chloride (98-107) mmol/L Carbon Dioxide (21.0-32.0) mmol/L BUN (7-18) mg/dL Creatinine (0.51-1.17) mg/dL Est Cr Clr Drug Dosing mL/min Estimated GFR (MDRD) mL/min Glucose (70-99) mg/dL Lactic Acid 0.8 (0.4-2.0) mmol/L Uric Acid (2.6-7.2) mg/dL Calcium (8.5-10.1) mg/dL Magnesium (1.8-2.4) mg/dL Iron (50-175) ug/dL TIBC (250-450) ug/dL % Saturation Ferritin (8-388) ng/mL Troponin I (0.000-0.056) ng/mL NT-Pro-B Natriuret Pep (0-125) pg/mL Vitamin B12 (193-986) pg/mL 05/25/20 05/25/20 Range/Units 07:15 07:55 WBC (4.0-10.2) K/uL RBC (3.77-5.09) M/uL Hgb (11.7-15.5) g/dL Hct (34.0-46.0) % MCV (84.0-98.0) fL MCH (28.2-33.3) pg MCHC (31.7-36.0) g/dL RDW (11.2-14.1) % Plt Count (150-350) K/uL Add Manual Diff Neutrophils % (Manual) Band Neutrophils % Lymphocytes % (Manual) Atypical Lymphs % Monocytes % (Manual) Absolute Neutrophils Lymphocytes # (Manual) Monocytes # (Manual) D-Dimer, Quantitative (0-400) ng/mL Sodium 137 (136-145) mmol/L Potassium 4.4 (3.5-5.1) mmol/L Chloride 107 (98-107) mmol/L Carbon Dioxide 22.6 (21.0-32.0) mmol/L BUN 28 H (7-18) mg/dL Creatinine 0.98 (0.51-1.17) mg/dL Est Cr Clr Drug Dosing 34.53 mL/min Estimated GFR (MDRD) 55 mL/min Glucose 99 (70-99) mg/dL Lactic Acid (0.4-2.0) mmol/L Uric Acid 5.7 (2.6-7.2) mg/dL Calcium 9.3 (8.5-10.1) mg/dL Magnesium 1.9 (1.8-2.4) mg/dL Iron 37 L (50-175) ug/dL TIBC 309 (250-450) ug/dL % Saturation 11.28181 Ferritin 63 (8-388) ng/mL Troponin I 0.027 (0.000-0.056) ng/mL NT-Pro-B Natriuret Pep 3366 H (0-125) pg/mL Vitamin B12 2660 H (193-986) pg/mL LEO Results - Last 24 hrs: Microbiology 05/23/20 21:10 Aerobic Blood Culture - Preliminary Blood - Venous - Lab Draw NO GROWTH AFTER 1 DAY Anaerobic Blood Culture - Preliminary NO GROWTH AFTER 1 DAY 05/23/20 20:55 Aerobic Blood Culture - Preliminary Blood - Venous NO GROWTH AFTER 1 DAY Anaerobic Blood Culture - Preliminary NO GROWTH AFTER 1 DAY Med Orders - Current: Current Medications Hydrocodone Bitart/Acetaminophen (Acetaminophen/Hydrocodone 325-10 Mg Tab) 1 tab PO TID PRN PRN Reason: Pain Last Admin: 05/25/20 01:57 Dose: 1 tab Documented by: Hydrocodone Bitart/Acetaminophen (Acetaminophen/Hydrocodone 325-10 Mg Tab) 1 tab PO TID@,, [facility] Last Admin: 05/25/20 14:29 Dose: 1 tab Documented by: Albuterol (Albuterol 6.7 Gm Inhaler) 2 gm INH Q4H PRN PRN Reason: Shortness of Breath Aspirin (Aspirin 81 Mg Tab.Chew) 81 mg PO DAILY@1200 [facility]I Atorvastatin Calcium (Atorvastatin 40 Mg Tab) 40 mg PO BEDTIME [facility] Last Admin: 05/24/20 20:06 Dose: 40 mg Documented by: Calcium Carbonate (Calcium Carbonate/Vitamin D3 1500 Mg-400 Units Tab) 1 tab PO BEDTIME [facility] Last Admin: 05/24/20 20:05 Dose: 1 tab Documented by: Cholecalciferol (Cholecalciferol (Vitamin D3) 25 Mcg Tab) 50 mcg PO BEDTIME [facility] Last Admin: 05/24/20 20:05 Dose: 50 mcg Documented by: Clopidogrel Bisulfate (Clopidogrel 75 Mg Tab) 75 mg PO DAILY [facility] Last Admin: 05/25/20 07:44 Dose: 75 mg Documented by: Duloxetine HCl (Duloxetine 20 Mg Cap) 20 mg PO DAILY [facility] Last Admin: 05/25/20 07:42 Dose: 20 mg Documented by: Duloxetine HCl (Duloxetine 30 Mg Cap) 30 mg PO DAILY [facility] Last Admin: 05/25/20 07:43 Dose: 30 mg Documented by: Enoxaparin Sodium (Enoxaparin 30 Mg/0.3 Ml Syringe) 30 mg SUBCUT DAILY [facility] Last Admin: 05/25/20 07:46 Dose: 30 mg Documented by: Famotidine (Famotidine 20 Mg Tab) 20 mg PO DAILY [facility] Last Admin: 05/25/20 07:49 Dose: 20 mg Documented by: Ferrous Sulfate (Ferrous Sulfate 325 Mg Tab) 325 mg PO DAILY@1200 [facility] Gabapentin (Gabapentin 100 Mg Cap) 100 mg PO TID [facility] Cefepime HCl 2 gm/ Sodium (Chloride) 100 mls @ 200 mls/hr IV Q8HR [facility] Last Admin: 05/25/20 15:09 Dose: 200 mls/hr Documented by: Lisinopril (Lisinopril 5 Mg Tab) 2.5 mg PO DAILY [facility] Last Admin: 05/25/20 07:47 Dose: 2.5 mg Documented by: Magnesium Oxide (Magnesium Oxide 400 Mg Tab) 400 mg PO DAILY@1200 [facility] Methenamine Hippurate (Methenamine Hippurate 1 Gm Tab) 1 gm PO Q12HR [facility] Last Admin: 05/25/20 07:42 Dose: 1 gm Documented by: Methyl Salicylate (Menthol/Methyl Salicylate 85 Gm Tube) 85 gm TOP QID PRN PRN Reason: Pain Metoprolol Succinate (Metoprolol Succinate 50 Mg Tab.Er) 100 mg PO DAILY [facility] Last Admin: 05/25/20 07:45 Dose: 100 mg Documented by: Multivitamins/Minerals/Vitamin C (Multivitamin Tab) 1 tab PO DAILY@1200 [facility] Nystatin (Nystatin Topical Powder 15 Gm Bottle) 1 gm TOP TID [facility] Last Admin: 05/25/20 13:00 Dose: 1 applic Documented by: Oxybutynin Chloride (Oxybutynin 5 Mg Tab.Er) 10 mg PO BEDTIME [facility] Last Admin: 05/24/20 20:06 Dose: 10 mg Documented by: Pantoprazole Sodium (Pantoprazole 40 Mg Vial) 40 mg IVPUSH Q12HR [facility] Last Admin: 05/25/20 07:41 Dose: 40 mg Documented by: Potassium Chloride (Potassium Chloride 20 Meq Tab.Er) 20 meq PO BID [facility] Last Admin: 05/25/20 07:44 Dose: 20 meq Documented by: Ropinirole HCl (Ropinirole 1 Mg Tab) 1 mg PO BEDTIME [facility] Last Admin: 05/24/20 20:06 Dose: 1 mg Documented by: Senna/Docusate Sodium (Docusate Sodium/Sennosides 50-8.6 Mg Tab) 2 tab PO DAILY@1200 [facility] Sodium Chloride (Sodium Chloride 0.9% 10 Ml Syringe) 10 ml FLUSH ASDIRECTED PRN PRN Reason: Keep Vein Open Last Admin: 05/25/20 07:41 Dose: 10 ml Documented by: Discontinued Medications Alteplase, Recombinant (Alteplase 2 Mg Vial) 2 mg IVPUSH ONETIME ONE Stop: 05/24/20 02:07 Last Admin: 05/24/20 04:09 Dose: 2 mg Documented by: Aspirin (Aspirin 81 Mg Tab.Chew) 81 mg PO DAILY [facility] Last Admin: 05/25/20 07:45 Dose: 81 mg Documented by: Cefepime HCl (Cefepime 2 Gm Vial) 2 gm IV Q8HR [facility] Cholecalciferol (Cholecalciferol (Vitamin D3) 25 Mcg Tab) 2,000 mcg PO BEDTIME [facility] Ferrous Sulfate (Ferrous Sulfate 325 Mg Tab) 325 mg PO DAILY [facility] Last Admin: 05/25/20 07:45 Dose: 325 mg Documented by: Fluconazole (Fluconazole 100 Mg Tab) 100 mg PO ONETIME ONE Stop: 05/25/20 12:19 Last Admin: 05/25/20 13:00 Dose: 100 mg Documented by: Sodium Chloride (Normal Saline) 1,000 mls @ 500 mls/hr IV ASDIRECTED [facility] Last Admin: 05/23/20 21:17 Dose: 500 mls/hr Documented by: Potassium Chloride/Dextrose/Sod Cl (D5 1/2 Ns W/ 20 Meq/L Kcl) 1,000 mls @ 75 mls/hr IV ASDIRECTED [facility] Last Admin: 05/24/20 01:32 Dose: 75 mls/hr Documented by: Iopamidol (Iopamidol 612 Mg/Ml 100 Ml Bottle) 100 ml IVPUSH ONETIME STA Stop: 05/23/20 21:46 Last Admin: 05/23/20 21:57 Dose: 100 ml Documented by: Magnesium Oxide (Magnesium Oxide 400 Mg Tab) 400 mg PO DAILY [facility] Last Admin: 05/25/20 07:49 Dose: 400 mg Documented by: Multivitamins/Minerals/Vitamin C (Multivitamin Tab) 1 tab PO DAILY [facility] Last Admin: 05/25/20 07:43 Dose: 1 tab Documented by: Senna/Docusate Sodium (Docusate Sodium/Sennosides 50-8.6 Mg Tab) 2 tab PO DAILY [facility] Last Admin: 05/25/20 07:43 Dose: 2 tab Documented by: Vancomycin HCl (Vancomycin 125 Mg Cap) 125 mg PO QID [facility] Last Admin: 05/25/20 12:23 Dose: Not Given Documented by:
[2020-05-25] MEDS ORDERED: Gabapentin 100 MG Cap PO SCH (18:00)
[2020-05-26] MEDS ORDERED: Aspirin 81 MG Tab.Chew PO SCH (12:00)
[2020-05-26] MEDS ORDERED: Magnesium Oxide 400 MG Tab PO SCH (12:00)
[2020-05-26] MEDS ORDERED: Multivitamin Tab PO SCH (12:00)
[2020-05-26] MEDS ORDERED: Ferrous Sulfate 325 MG Tab PO SCH (12:00)
== END 2020-05-25 16:05 | DRG 689 ==
LOC: LL.ED 20:10 → LL.MS 23:21
PROVIDERS: ADMIT Physician Assistant; ATTEND Physician Assistant
DX: N10 Acute pyelonephritis (principal); I50.43 Acute on chronic combined systolic (congestive) and diastolic (congestive) heart failure; D62 Acute posthemorrhagic anemia; E87.6 Hypokalemia; B96.5 Pseudomonas (aeruginosa) (mallei) (pseudomallei) as the cause of diseases classified elsewhere; R79.89 Other specified abnormal findings of blood chemistry; K52.9 Noninfective gastroenteritis and colitis, unspecified; F41.8 Other specified anxiety disorders; M19.90 Unspecified osteoarthritis, unspecified site; R65.10 Systemic inflammatory response syndrome (SIRS) of non-infectious origin without acute organ dysfunction; G89.29 Other chronic pain; M54.5 Low back pain; M54.2 Cervicalgia; G25.81 Restless legs syndrome; I25.10 Atherosclerotic heart disease of native coronary artery without angina pectoris; H54.7 Unspecified visual loss; I11.0 Hypertensive heart disease with heart failure; I50.9 Heart failure, unspecified; E78.5 Hyperlipidemia, unspecified; K59.09 Other constipation; K21.9 Gastro-esophageal reflux disease without esophagitis; Z20.822 Contact with and (suspected) exposure to COVID-19; J44.9 Chronic obstructive pulmonary disease, unspecified; Z90.49 Acquired absence of other specified parts of digestive tract; Z79.02 Long term (current) use of antithrombotics/antiplatelets; Z98.42 Cataract extraction status, left eye; I25.2 Old myocardial infarction; Z95.5 Presence of coronary angioplasty implant and graft; Z98.41 Cataract extraction status, right eye; Z79.82 Long term (current) use of aspirin; Z79.899 Other long term (current) drug therapy; Z88.1 Allergy status to other antibiotic agents
CPT/HCPCS: 36415; 71045; 74177; 83605; 83735; 83880; 84484; 85610; 85730; 87040 ×2; 87426; 93005; 99285; J7030; Q9967; 51702; 80048; 80053; 81001; 82550; 82553; 82607; 82728; 83540; 83550; 84550; 85025; 85379; 86140; 87086; 87088; 92610-GN; A9270-GY; C9113; J0692; J1650; J2997; J3480

== ENCOUNTER 2020-05-31 10:54 | Inpatient (IN) | payer MEDICARE, OTHER ==
--- NOTE | 2020-05-31 11:10 | EDM.PDOC ---
ED HPI GENERAL MEDICAL PROBLEM - General Chief Complaint: Neurological Problem Stated Complaint: more confusion noted by nursing staff Time Seen by Provider: 05/31/20 11:00 Source of Information: Reports: Patient, Family (Daughter, Sherly), Long Term Records, Old Records ([facility] EMR. No paper hospital chart available.) History Limitations: Reports: Altered Mental Status - History of Present Illness INITIAL COMMENTS - FREE TEXT/NARRATIVE: The patient was brought to the emergency room via transport vehicle from [facility] in [place] for evaluation of persistent progressive and intermittent confusion since discharge from our swing bed unit on 05/25/2020. Note that the patient was entered into our swing bed unit on 05/23/2025 for strengthening after recent extended hospitalization for urosepsis with secondary respiratory failure, etc. requiring intubation in this facility on 05/10/2020. The patient is an extremely poor historian secondary to her current mental status with limited history obtained from transfer prison records and also from her daughter. The patient has been experiencing intermittent frequent episodes of progressive confusion with some disorientation and forgetfulness with patient having brief episodes of absence' without true seizure activity. She has otherwise tolerated her reinitiation of her Neurontin therapy well since discharge with significantly decreased dosage from previous regimen prior to urosepsis as above. No history of recent headaches, visual changes, diplopia, or other change in neurological status. No recent history of abdominal pain, heartburn, diarrhea, melena, gross hematochezia, or any food intolerance, including fatty foods, etc., although some mild progressive anorexia and intermittent emesis since discharge on 05/25 with patient refusing her medications this morning. She also developed some nonspecific hives of her lower extremities since 05/28 with completion of her IV Cefepime on 05/30 by her daughter's history. No return of her previous significant gross hematuria. The patient also denies any recent fever, cough, wheezing, dyspnea, etc.. The patient denies any chest pain/pressure, heart flutter, dizziness, orthostasis, orthopnea, diaphoresis, paresthesias, recent decreased exercise tolerance, or any other anginal-type symptoms, although her overall activity is extremely low with patient requiring a wheelchair. She denies any specific pain or discomfort. Onset: Gradual, Unknown/Unsure Onset Date: 05/25/20 Duration: Getting Worse, Intermittent Location: Reports: Other (No pain) Quality: Reports: Same as Previous Episode (Confusion) Severity: Moderate (Confusion) Improves with: Reports: None Worsens with: Reports: None Context: Reports: Other (As above). Denies: Sick Contact, Trauma Associated Symptoms: Reports: Confusion, Loss of Appetite, Nausea/Vomiting, Rash ( as above), Seizure (Possible as above), Shortness of Breath, Weakness (Moderate generalized). 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) (None) - Related Data Allergies Allergy/AdvReac Type Severity Reaction Status Date / Time doxycycline Allergy Other Verified 05/31/20 10:55 Home Meds: Home Meds DULoxetine [Cymbalta] 20 mg PO DAILY 11/21/19 [History] DULoxetine [Cymbalta] 30 mg PO DAILY 11/21/19 [History] Hydrocodone/Acetaminophen [Lucien 10-325 Tablet] 1 each PO DAILY PRN 11/21/19 [History] Hydrocodone/Acetaminophen [Lucien 10-325 Tablet] 1 each PO TID@08,,11/21/19 [History] Loratadine 10 mg PO DAILY 11/21/19 [History] Melatonin 3 mg PO BEDTIME 11/21/19 [History] Oxybutynin Chloride [Ditropan Xl] 10 mg PO BEDTIME 11/21/19 [History] Sennosides/Docusate Sodium [Senna-Docusate Sodium Tablet] 2 tab PO DAILY 11/21/19 [History] Cyclobenzaprine [Flexeril] 10 mg PO Q8HR PRN 04/22/20 [History] Methenamine Hippurate [Hiprex] 1 gm PO Q12HR 04/22/20 [History] Metoprolol Succinate [Toprol XL 100mg] 100 mg PO DAILY 04/22/20 [History] Nitroglycerin [Nitrostat] 0.4 mg SL ASDIRECTED PRN 04/22/20 [History] bisacodyL [Bisacodyl] 5 mg PO Q12HR PRN 04/22/20 [History] rOPINIRole [Requip] 1 mg PO BEDTIME 04/22/20 [History] Albuterol [Ventolin HFA] 2 puff INH Q4H PRN 04/23/20 [History] atorvaSTATin [Lipitor] 40 mg PO BEDTIME 04/23/20 [History] Aspirin 81 mg PO DAILY 05/23/20 [History] Clopidogrel [Plavix] 75 mg PO DAILY 05/23/20 [History] Famotidine 20 mg PO DAILY 05/23/20 [History] Lactulose 10 gm PO DAILY PRN 05/23/20 [History] Methyl Salicylate/Menthol [Muscle Rub] 85 gm TP QID PRN 05/23/20 [History] Omeprazole 40 mg PO DAILY 05/23/20 [History] Phenazopyridine [Pyridium] 200 mg PO Q8H PRN 05/23/20 [History] ramipriL [Ramipril] 1.25 mg PO DAILY 05/23/20 [History] Gabapentin [Neurontin] 100 mg PO TID #90 cap 05/25/20 [Rx] Nystatin [Nystop] 1 gm TOP TID #1 bottle 05/25/20 [Rx] Past Medical History HEENT History: Reports: Allergic Rhinitis, Cataract, Impaired Vision, Other (See Below). Denies: Glaucoma, Hard of Hearing, Macular Degeneration, Otitis Media, Retinal Detachment, Sinusitis Other HEENT History: Patient wears glasses. Cardiovascular History: Reports: CAD, Cardiomyopathy, Heart Failure, Heart Murmur, High Cholesterol, Hypertension, [place], PTCA, PVD, Stents, Syncope, Other (See Below). Denies: Afib, Aneurysm, Arrhythmia, Blood Clots/VTE/DVT, Pacemaker Other Cardiovascular History: History of elevated D-dimer with no previous work- up. Acute NJ in December 2019 with PTCA/stent x1 at that time. Questional non- STEMI with anterior wall cardiac ischemia at time of respiratory failure on 05/10/2020. Diastolic dysfunction. Respiratory History: Reports: Bronchitis, Recurrent, COPD, Intubation, Previous, Other (See Below). Denies: Asthma, Intubation, Difficult, PE, Pneumonia, Recurrent, Pneumothorax, Pulmonary Fibrosis, Sleep Apnea, TB Other Respiratory History: Benign right lower lobe pulmonary granuloma by CT scan. Acute respiratory failure secondary to urosepsis requiring intubation on 05/10/2020. Gastrointestinal History: Reports: Chronic Constipation, GERD, Other (See Below). Denies: Celiac Disease, Cholelithiasis, Chronic Diarrhea, Colon Polyp, Diverticulosis, Fecal Incontinence, Gastritis, GI Bleed, Hepatitis, Hiatal Hernia, Inflammatory Bowel Disease, Irritable Bowel Syndrome, Jaundice, Pancreatitis, PUD Other Gastrointestinal History: Proctocolitis in May 2020 possibly secondary to antibiotic therapy and/or suspected possible secondary C. difficile infection, however undocumented. Genitourinary History: Reports: Chronic Renal Insuffiency, Urinary Incontinence, UTI, Recurrent, Other (See Below). Denies: Acute Renal Failure, Hydronephrosis, Neurogenic Bladder, Renal Calculus, Retention, Urinary, STD Other Genitourinary History: Hemorrhagic cystitis with severe bleeding and secondary urosepsis and right renal abscess requiring hospitalization at [facility] with discharge from that facility on 04/27/2020. Right-sided pyelonephritis with additional evidence of chronic cystitis by CT scan in March 2020 as below. Overactive bladder/urinary urgency. 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 Denies: Dysfunctional Uterine Bleeding, Endometriosis, Fibroids, Spontaneous : 3 Para: 3 Other FOREST ECOLOGY PROFESSOR History: Menopause in her mid 50s. Full term without complications during pregnancies or deliveries. Musculoskeletal History: Reports: Arthritis, Back Pain, Chronic, Fracture, Neck Pain, Chronic, Osteoarthritis, RA. 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 History of carpal tunnel syndrome with surgery as below. Right ankle fracture in her 30s with surgery as below. Known history of severe degenerative disc disease with additional mild scoliosis and spinal stenosis. Chronic lumbar back pain with current implanted electrical stimulator unit. Neurological History: Reports: CVA, Neuropathy, Peripheral, Seizure, Other (See Below). Denies: Alzheimers Disease, Cerebral Aneurysms, Concussion, Headaches, Chronic, Head Trauma, Migraines, MS, Parkinson's, TIA, Vertigo Other Neuro History: History of grand mal seizures since age 17. Restless leg syndrome. Spinal stenosis with bilateral leg weakness and required wheelchair use. 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 Psychiatric History: Reports: Addiction, Anxiety, Dementia, Depression, Other (See Below). Denies: Abuse, Victim of, ADD, ADHD, Alzheimers Disease, Psych Hospitalization(s), Psychosis, PTSD, Schizophrenia, Suicide Attempt, Suicidal Ideation Other Psychiatric History: Chronic narcotic use secondary to chronic pain syndrome. Endocrine/Metabolic History: Reports: Hypokalemia, Hypomagnesemia, Obesity/BMI 30+, Other (See Below). Denies: Diabetes, Gestational, Diabetes, Type I, Diabetes, Type II, Diabetes Mellitus, Type 3c Other Endocrine/Metabolic History: Hypoalbuminemia. Hyponatremia. Hematologic History: Reports: Anemia, Blood Transfusion(s), Iron Deficiency, Other (See Below) Other Hematologic History: Blood transfusion with her back surgery as below. Immunologic History: Reports: Immunosuppression, Other (See Below). Denies: AIDS, HIV, SLE Other Immunologic History: Monoclonal gammopathy Oncologic (Cancer) History: Reports: None. Denies: Basal Cell Carcinoma, Bladder, Breast, Cervix, Colon, Hodgkin's Lymphoma, Leukemia, Lung, Lymphoma, Malignant Melanoma, Non-Hodgkin's Lymphoma, Ovarian, Squamous Cell Carcinoma, Uterine Dermatologic History: Reports: None. Denies: Eczema, Psoriasis - Infectious Disease History Infectious Disease History: Reports: C-Difficile (Undocumented as above.), Chicken Pox, Measles, Mumps, Novel Coronavirus (February 2020 with subsequent Moderna immunizations x2.). Denies: Meningitis, Mononucleosis, MRSA, Pertussis (Whooping Cough), Rheumatic Fever, Rubella, Scarlet Fever, Shingles, TB, VRE - Past Surgical History Head Surgeries/Procedures: Reports: None HEENT Surgical History: Reports: Cataract Surgery, Laser Surgery, Oral Surgery, Other (See Below). Denies: Adenoidectomy, Eye Surgery, LASIK, Myringotomy w Tube(s), Naso-Sinus Surgery, Tonsillectomy Other HEENT Surgeries/Procedures: Bilateral cataract surgery in her 50s? Subsequent laser treatments of her posterior capsules. Almost complete teeth extraction with complete upper dentures and only a few remaining lower dentition and the patient not having partial lower dentures. Cardiovascular Surgical History: Reports: Coronary Artery Stent, Percutaneous Transluminal Angioplasty, Other (See Below). Denies: Aneurysm, Carotid Endarterectomy, Coronary Artery Bypass, Varicose Other Cardiovascular Surgeries/Procedures: PTCA/stent x1 in December 2019. Respiratory Surgical History: Reports: None. Denies: Thoracentesis GI Surgical History: Reports: Appendectomy, Colonoscopy, Other (See Below). Denies: Cholecystectomy, EGD, Hernia, Abdominal, Hernia, Inguinal, Hernia Repair/Other, Polypectomy Other GI Surgeries/Procedures: Appendectomy in her 30s. Colonoscopy in her 50s. Female Surgical History: Reports: None. Denies: Section, D&C, Oophorectomy, Salpingo-Oophorectomy, Tubal Ligation Endocrine Surgical History: Reports: None. Denies: Thyroid Biopsy Neurological Surgical History: Reports: Lumbar Spine, Other (See Below). Denies: C-Spine, Sacral Spine, Spinal Fusion, Thoracic Spine, Vertebroplasty Other Neurological Surgeries/Procedures: Unknown type of lumbar surgeries x3, including her spinal cord? Lumbar electro-stimulator unit implant. Musculoskeletal Surgical History: Reports: Carpal Tunnel, ORIF, Other (See Below). Denies: Arthroscopic Procedure, Ganglion Cyst, Joint Replacement, Shoulder Surgery Other Musculoskeletal Surgeries/Procedures:: ORIF of the right ankle in her 30s with subsequent right ankle fusion in her 60s. Right-sided carpal tunnel release in her 50s. Oncologic Surgical History: Reports: None Dermatological Surgical History: Reports: Other (See Below) Other Dermatological Surgeries/Procedures: Pilonidal cyst surgeries x3 in her 20s. - Past Imaging History Past Imaging History: Reports: CAT Scan (CT of the head on 05/30/2020 and 05/10/2020. CT of the abdomen and pelvis on 05/23/2020 and 03/22/2020.), MRI (Lumbar spine on 07/08/2017. Thoracic spine on 11/23/2018.), Ultrasound (Timmy ateral renal ultrasound on 11/04/2018.) - History Comment History Comment: Patient is a somewhat poor historian. Social & Family History - Family History Family Medical History: Unobtainable - Caffeine Use Caffeine Use: Reports: Coffee, Soda, Tea - Living Situation & Occupation Living situation: Reports: (December 2019, 3 children), Extended Care Facility (Currently at 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 ED EXAM, GENERAL - Physical Exam Exam: See Below Exam Limited By: No Limitations General Appearance: Alert, WD/WN, No Apparent Distress, Anxious (Mild) Eye Exam: Bilateral Eye: EOMI, Normal Fundi, Normal Inspection (No vertigo or nystagmus), Periorbital Changes Ears: Normal External Exam, Normal Canal, Hearing Grossly Normal, Normal TMs Nose: Normal Inspection, Normal Mucosa, No Blood Throat/Mouth: Normal Lips, Normal Gums, Normal Oropharynx, Normal Voice, No Airway Compromise. No: Normal Teeth (Complete upper dentures with only a few remaining lower dentition with no acute caries or abscess, however moderate peridontosis.), Dysphagia, Inflammation, Perioral Cyanosis Head: Atraumatic, Normocephalic. No: Facial Swelling, Facial Tenderness, Sinus Tenderness Neck: Supple, Non-Tender, Full Range of Motion, Carotid Bruit (Mild bilateral carotid bruits), Limited Range of Motion. No: Lymphadenopathy (L), Lymphadenopathy (R), Thyromegaly Respiratory/Chest: No Respiratory Distress, Lungs Clear, Normal Breath Sounds, No Accessory Muscle Use, Chest Non-Tender Cardiovascular: Normal Peripheral Pulses, Regular Rate, Rhythm, No Gallop, No JVD, No Murmur, No Rub. No: No Edema (Dependent edema as below), Gallop/S3, Gallop/S4, Friction Rub Peripheral Pulses: 2+: Radial (L), Radial (R), Dorsalis Pedis (L), Dorsalis Pedis (R) GI/Abdominal: Normal Bowel Sounds, Soft, Non-Tender, No Organomegaly, No Distention, No Abnormal Bruit, No Mass, Pelvis Stable, Other (Obese. Multiple small areas of ecchymosis on abdomen secondary to previous Lovenox injections.). No: Guarding (Female) Exam: Deferred Rectal (Female) Exam: Deferred Back Exam: Full Range of Motion, Other (Mild kyphoscoliosis). No: CVA Tenderness (L), CVA Tenderness (R), Decreased Range of Motion, Muscle Spasm, Paraspinal Tenderness, Vertebral Tenderness Extremities: Normal Range of Motion, Non-Tender, Pedal Edema (Trace bilateral pedal/pretibial edema), Other (Moderate rheumatoid arthritic changes including on the hands with ulnar deviation but no acute inflammation). No: Brandon's Sign Neurological: Alert, Confused (Moderate with disorientation to place and sporadic forgetfulness but no evidence of absence' or other seizure activity), Other (Negative Babinski's, finger to nose, and pronator rotation tests. No evidence of facial paresis, tongue deviation, orthostasis, etc.. ). No: Oriented, Normal Gait (Stable by history moderate generalized weakness with patient requiring a wheelchair) Psychiatric: Anxious (Mild), Depressed Mood (Borderline) Skin Exam: Ecchymosis (As above), Rash (Mild to moderate confluent urticarial rash on the lower extremities bilaterally), Wound/Incision (2 cm grade 2 ulcer in the inferior aspect of the rectal fold with no significant drainage, erythema, lymphangitis, etc. DuoDERM in place with wound specimen collected.). No: Diaphoretic Lymphatic: No Adenopathy Course - Vital Signs Last Recorded V/S: Last Vital Signs Temp 35.9 C L 05/31/20 13:30 Pulse 95 05/31/20 14:06 Resp 16 05/31/20 14:06 BP 130/51 L 05/31/20 14:06 Pulse Ox 97 05/31/20 14:06 - Orders/Labs/Meds Orders: Active Orders 24 hr Category Date Time Status Cardiac Monitoring [RC] . DIRECTED Care 05/31/20 11:48 Active Nothing Per Oral Diet [DIET] Diet 05/31/20 Breakfast Active Abdomen Pelvis w Cont [CT] Stat Exams 05/31/20 11:17 Stop Req Abdomen Series w Chest 1V [CR] Stat Exams 05/31/20 11:17 Taken CULTURE BLOOD [BC] Stat Lab 05/31/20 12:00 Received CULTURE BLOOD [BC] Stat Lab 05/31/20 12:55 Received CULTURE URINE [RM] Stat Lab 05/31/20 11:30 Received MISCELLANEOUS CULT [MREF] Stat Lab 05/31/20 11:45 Received Blood Culture x2 Reflex Set [OM.PC] Urgent Oth 05/31/20 11:17 Ordered Obtain Past Medical Record [OM.PC] Urgent Oth 05/31/20 11:17 Active Resuscitation Status Stat Resus Stat 05/31/20 11:17 Ordered Labs: Laboratory Tests 05/31/20 05/31/20 05/31/20 Range/Units 11:30 12:02 12:55 WBC (4.0-10.2) K/uL RBC (3.77-5.09) M/uL Hgb (11.7-15.5) g/dL Hct (34.0-46.0) % MCV (84.0-98.0) fL MCH (28.2-33.3) pg MCHC (31.7-36.0) g/dL RDW (11.2-14.1) % Plt Count (150-350) K/uL Add Manual Diff Neutrophils % (Manual) Band Neutrophils % Lymphocytes % (Manual) Monocytes % (Manual) Absolute Neutrophils Lymphocytes # (Manual) Monocytes # (Manual) Anisocytosis PT (9.5-12.0) SEC INR APTT (24.5-32.8) SEC Sodium (136-145) mmol/L Potassium (3.5-5.1) mmol/L Chloride (98-107) mmol/L Carbon Dioxide (21.0-32.0) mmol/L BUN (7-18) mg/dL Creatinine (0.51-1.17) mg/dL Est Cr Clr Drug Dosing mL/min Estimated GFR (MDRD) mL/min Glucose (70-99) mg/dL Lactic Acid (0.4-2.0) mmol/L Uric Acid (2.6-7.2) mg/dL Calcium (8.5-10.1) mg/dL Magnesium (1.8-2.4) mg/dL Total Bilirubin (0.2-1.0) mg/dL AST (15-37) U/L ALT (12-78) U/L Alkaline Phosphatase (46-116) IU/L Total Protein (6.4-8.2) g/dL Albumin (3.4-5.0) g/dL Amylase 55 (25-115) U/L Lipase (73-393) U/L Specimen Type Urincath Urine Color Yellow Urine Appearance Slightly cloudy Urine pH 6.5 (5.0-9.0) Ur Specific [place] 1.025 (1.005-1.030) Urine Protein 100 H (NEGATIVE) mg/dL Urine Glucose (UA) Negative (NEGATIVE) mg/dL Urine Ketones Negative (NEGATIVE) mg/dL Urine Occult Blood Small H (NEGATIVE) Urine Nitrite Negative (NEGATIVE) Urine Bilirubin Negative (NEGATIVE) Urine Urobilinogen 0.2 (0.2-1.0) E.U./dL Ur Leukocyte Esterase Small H (NEGATIVE) Urine RBC 0-5 /HPF Urine WBC 75-100 H /HPF Ur Epithelial Cells Few /LPF Urine Bacteria Many H (NONE TO FEW) /HPF Granular Casts (Auto) Few Urine Yeast Few H (NEGATIVE) /HPF Urinalysis Comment SARS-CoV-2 RNA (MIKE) Positive H (NEGATIVE) 05/31/20 05/31/20 05/31/20 Range/Units 12:55 12:55 12:55 WBC 13.4 H (4.0-10.2) K/uL RBC 4.12 (3.77-5.09) M/uL Hgb 11.7 (11.7-15.5) g/dL Hct 37.7 (34.0-46.0) % MCV 91.5 (84.0-98.0) fL MCH 28.4 (28.2-33.3) pg MCHC 31.0 L (31.7-36.0) g/dL RDW 18.9 H (11.2-14.1) % Plt Count 133 L (150-350) K/uL Add Manual Diff Yes Neutrophils % (Manual) 56 Band Neutrophils % 2 Lymphocytes % (Manual) 25 Monocytes % (Manual) 17 Absolute Neutrophils 7.7720 Lymphocytes # (Manual) 3.3500 Monocytes # (Manual) 2.2780 Anisocytosis 1+ slight PT 11.6 (9.5-12.0) SEC INR 1.2 APTT 22.5 L (24.5-32.8) SEC Sodium 138 (136-145) mmol/L Potassium 4.0 (3.5-5.1) mmol/L Chloride 103 (98-107) mmol/L Carbon Dioxide 21.4 (21.0-32.0) mmol/L BUN 43 H (7-18) mg/dL Creatinine 1.55 H (0.51-1.17) mg/dL Est Cr Clr Drug Dosing 21.83 mL/min Estimated GFR (MDRD) 32 mL/min Glucose 100 H (70-99) mg/dL Lactic Acid (0.4-2.0) mmol/L Uric Acid 7.3 H (2.6-7.2) mg/dL Calcium 9.9 (8.5-10.1) mg/dL Magnesium 2.4 (1.8-2.4) mg/dL Total Bilirubin 0.3 (0.2-1.0) mg/dL AST 33 (15-37) U/L ALT 26 (12-78) U/L Alkaline Phosphatase 113 (46-116) IU/L Total Protein 8.3 H (6.4-8.2) g/dL Albumin 2.5 L (3.4-5.0) g/dL Amylase (25-115) U/L Lipase 182 (73-393) U/L Specimen Type Urine Color Urine Appearance Urine pH (5.0-9.0) Ur Specific [place] (1.005-1.030) Urine Protein (NEGATIVE) mg/dL Urine Glucose (UA) (NEGATIVE) mg/dL Urine Ketones (NEGATIVE) mg/dL Urine Occult Blood (NEGATIVE) Urine Nitrite (NEGATIVE) Urine Bilirubin (NEGATIVE) Urine Urobilinogen (0.2-1.0) E.U./dL Ur Leukocyte Esterase (NEGATIVE) Urine RBC /HPF Urine WBC /HPF Ur Epithelial Cells /LPF Urine Bacteria (NONE TO FEW) /HPF Granular Casts (Auto) Urine Yeast (NEGATIVE) /HPF Urinalysis Comment SARS-CoV-2 RNA (MIKE) (NEGATIVE) 05/31/20 Range/Units 12:55 WBC (4.0-10.2) K/uL RBC (3.77-5.09) M/uL Hgb (11.7-15.5) g/dL Hct (34.0-46.0) % MCV (84.0-98.0) fL MCH (28.2-33.3) pg MCHC (31.7-36.0) g/dL RDW (11.2-14.1) % Plt Count (150-350) K/uL Add Manual Diff Neutrophils % (Manual) Band Neutrophils % Lymphocytes % (Manual) Monocytes % (Manual) Absolute Neutrophils Lymphocytes # (Manual) Monocytes # (Manual) Anisocytosis PT (9.5-12.0) SEC INR APTT (24.5-32.8) SEC Sodium (136-145) mmol/L Potassium (3.5-5.1) mmol/L Chloride (98-107) mmol/L Carbon Dioxide (21.0-32.0) mmol/L BUN (7-18) mg/dL Creatinine (0.51-1.17) mg/dL Est Cr Clr Drug Dosing mL/min Estimated GFR (MDRD) mL/min Glucose (70-99) mg/dL Lactic Acid 1.7 (0.4-2.0) mmol/L Uric Acid (2.6-7.2) mg/dL Calcium (8.5-10.1) mg/dL Magnesium (1.8-2.4) mg/dL Total Bilirubin (0.2-1.0) mg/dL AST (15-37) U/L ALT (12-78) U/L Alkaline Phosphatase (46-116) IU/L Total Protein (6.4-8.2) g/dL Albumin (3.4-5.0) g/dL Amylase (25-115) U/L Lipase (73-393) U/L Specimen Type Urine Color Urine Appearance Urine pH (5.0-9.0) Ur Specific [place] (1.005-1.030) Urine Protein (NEGATIVE) mg/dL Urine Glucose (UA) (NEGATIVE) mg/dL Urine Ketones (NEGATIVE) mg/dL Urine Occult Blood (NEGATIVE) Urine Nitrite (NEGATIVE) Urine Bilirubin (NEGATIVE) Urine Urobilinogen (0.2-1.0) E.U./dL Ur Leukocyte Esterase (NEGATIVE) Urine RBC /HPF Urine WBC /HPF Ur Epithelial Cells /LPF Urine Bacteria (NONE TO FEW) /HPF Granular Casts (Auto) Urine Yeast (NEGATIVE) /HPF Urinalysis Comment SARS-CoV-2 RNA (MIKE) (NEGATIVE) Blood cultures x2 were collected Blood specimen sent out for IgG COVID-19 antibodies Urine specimen set up for culture and sensitivity. Meds: Medications Discontinued Medications Generic Name Dose Route Start Last Admin Trade Name Roman PRN Reason Stop Dose Admin Iopamidol 100 ml 05/31/20 11:37 Iopamidol 612 Mg/Ml 100 Ml Bottle IVPUSH 05/31/20 11:38 ONETIME ONE Iopamidol Confirm 05/31/20 11:40 Iopamidol 612 Mg/Ml 100 Ml Bottle Administered 05/31/20 11:41 Dose 100 ml .ROUTE .K-MED ONE - Radiology Interpretation Free Text/Narrative:: electronic device monitor shows normal sinus rhythm with average heart rate in the 80s to 90s with no ectopy or arrhythmia Acute abdominal x-rays, portable, shows evidence of moderately elevated right hemidiaphragm with possible borderline right perihilar pulmonary infiltrates versus borderline pulmonary hypertension and/your centralized CHF. Moderate osteoarthritic and osteoporotic changes with mild scoliosis noted. Note electrical stimulator. Moderate diffuse stool with nonspecific bowel gaseous pattern with no free air, fluid levels, ileus, or obstruction. Departure - Departure Time of Disposition: 14:30 Disposition: Refer to Observation Condition: Fair Clinical Impression: Mixed anxiety depressive disorder, Confusion, COVID-19, Renal insufficiency, Hyperuricemia COPD (chronic obstructive pulmonary disease) Qualifiers: COPD type: emphysema Emphysema type: panlobular Qualified Code(s): J43.1 - Panlobular emphysema Coronary artery disease Qualifiers: Coronary Disease-Associated Artery/Lesion type: [place] artery [place] vs. transplanted heart: [place] heart Associated angina: without angina Qualified Code(s): I25.10 - Atherosclerotic heart disease of [place] coronary artery without angina pectoris Hypertension Qualifiers: Hypertension type: essential hypertension Qualified Code(s): I10 - Essential (primary) hypertension Decubitus ulcer Qualifiers: Pressure injury location: buttock Pressure injury stage: stage 2 Laterality: unspecified laterality Qualified Code(s): L89.302 - Pressure ulcer of unspecified buttock, stage 2 UTI (urinary tract infection) Qualifiers: Urinary tract infection type: acute cystitis Hematuria presence: with hematuria Qualified Code(s): N30.01 - Acute cystitis with hematuria - Discharge Information *PRESCRIPTION DRUG MONITORING PROGRAM REVIEWED*: Not Applicable *COPY OF PRESCRIPTION DRUG MONITORING REPORT IN PATIENT MICHELLE: Not Applicable Referrals: Joaquina Hoffman PA [Primary Care Provider] - Forms: ED Department Discharge Care Plan Goals: See plan Sepsis Event Note (ED) - Evaluation Sepsis Screening Result: No Definite Risk - Focused Exam Vital Signs: Vital Signs Temp Pulse Resp BP Pulse Ox 05/31/20 14:06 95 16 130/51 L 97 05/31/20 13:30 35.9 C L 96 17 142/58 H 95 05/31/20 12:30 99 16 156/61 H 98 05/31/20 11:30 94 18 142/52 H 99 05/31/20 10:56 36.0 C L 94 20 164/49 H 98 - Problem List & Annotations (1) Confusion SNOMED Code(s): 880565936 Code(s): R41.0 - DISORIENTATION, UNSPECIFIED Status: Acute Priority: High Onset Date: ~05/25/20 Annotation/Comment:: Telephone consultation at 1:50 PM and subsequently at 2:[address] Jerez, hospitalist at [facility] in [place], with no beds available in that facility until tomorrow. Note recurrent COVID-19 infection as below with no further treatment, including IV steroids, etc. per his recommendations. The patient will be placed in observation status in this facility until a bed is available at [facility]. Subsequent telephone consultation with the patient's daughter, who is requesting that the patient stay in this facility until the above transfer can be arranged. Contact tracing, etc. were discussed with the patient's daughter and nurses that [facility] in [place] concerning patient's breakthrough repeat COVID-19 infection. Note progressive confusion of unknown etiology with possible organic brain syndrome, sequelae from current UTI/Covid infection, etc. 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 Note CT scan of the head on 05/30/2020 in this facility did not show any significant change from previous evaluation on 05/10/2020 with consideration of MRI of the brain in the future depending on her clinical course.. Questionable current absence' episodes per family history with no direct seizure activity noted in the emergency room today. Otherwise n eurological status is relatively stable. IgG antibody COVID-19 test will be sent out from today's blood work as per recommendations from Dr. Jerez as above. (2) COVID-19 SNOMED Code(s): 445959248 Code(s): U07.1 - COVID-19 Status: Acute Priority: High Onset Date: 05/31/20 Annotation/Comment:: Note repeat COVID-19 infection, which could be a partial explanation for patient's recent confusion as above. Patient did rec eive her initial Moderna immunization on 02/08/2020 with subsequent positive COVID-19 infection a couple of days thereafter. She also received her second Moderna immunization on 03/07/2020 with subsequent multiple negative COVID-19 rapid test both in this facility and at [facility] in [place]. No further treatment for her COVID-19 current infection at this time as above, although IgG antibodies have been ordered. No respiratory symptoms, distress, etc. with close observation of her neurological status, including neurological checks with vitals. Note urticaria on the lower extremities likely secondary to her COVID- 19 infection rather than her recent antibiotics. (3) UTI (urinary tract infection) SNOMED Code(s): 85033738 Code(s): N39.0 - URINARY TRACT INFECTION, SITE NOT SPECIFIED Status: Acute Priority: Medium Onset Date: 05/10/20 Annotation/Comment:: Note recent completion of IV Cefepime on 05/30 with cath UA showing probable persistent infection. Urine specimen set up for culture and sensitivity with previous IV antibiotic regimen per instructions from infectious disease at [facility], including continuation during recent swing bed care as above. Significant previous history of urosepsis with secondary respiratory failure and right renal abscess. In spite of mild progressive leukocytosis since yesterday's blood work, no direct clinical evidence of sepsis with normal lactic acid level at this time. IV vancomycin will be initiated and dosed by pharmacy with additional history of previous proctocolitis as above, although no current diarrhea or evidence of C. difficile infection. Note previous oral vancomycin therapy during recent swing bed care. Blood cultures x2 were collected. Qualifiers: Urinary tract infection type: acute cystitis Hematuria presence: with hematuria Qualified Code(s): N30.01 - Acute cystitis with hematuria (4) COPD (chronic obstructive pulmonary disease) SNOMED Code(s): 33468460 Code(s): J44.9 - CHRONIC OBSTRUCTIVE PULMONARY DISEASE, UNSPECIFIED Status: Chronic Priority: Medium Annotation/Comment:: No recent bronchitic type symptoms or fever. Qualifiers: COPD type: emphysema Emphysema type: panlobular Qualified Code(s): J43.1 - Panlobular emphysema (5) Coronary artery disease SNOMED Code(s): 81821584 Code(s): I25.10 - ATHSCL HEART DISEASE OF [place] CORONARY ARTERY W/O ANG PCTRS Status: Chronic Priority: Medium Annotation/Comment:: No chest pain or anginal type symptoms. History of diastolic dysfunction and previous PTCA/stent. Qualifiers: Coronary Disease-Associated Artery/Lesion type: [place] artery [place] vs. transplanted heart: [place] heart Associated angina: without angina Qualified Code(s): I25.10 - Atherosclerotic heart disease of [place] coronary artery without angina pectoris (6) Mixed anxiety depressive disorder SNOMED Code(s): 558515630 Code(s): F41.8 - OTHER SPECIFIED ANXIETY DISORDERS Status: Chronic Priority: Medium Annotation/Comment:: Stable by history. Note previous chronic narcotic use secondary to chronic pain syndrome. (7) Hypertension SNOMED Code(s): 85520903 Code(s): I10 - ESSENTIAL (PRIMARY) HYPERTENSION Status: Chronic Priority: Medium Annotation/Comment:: Somewhat elevated initially in the emergency room however improved prior to patient transfer with no further treatment required. Continue to observe closely by accepting providers. Qualifiers: Hypertension type: essential hypertension Qualified Code(s): I10 - Essential (primary) hypertension (8) Decubitus ulcer SNOMED Code(s): 539069292 Code(s): L89.90 - PRESSURE ULCER OF UNSPECIFIED SITE, UNSPECIFIED STAGE Status: Chronic Priority: High Annotation/Comment:: Slowly healing and improved grade 2 decubitus ulcer in the coccyx region from previous hospitalization at [facility] in [place] as above with no direct evidence of infection, although specimen collected for Gram stain, culture, and sensitivity. Qualifiers: Pressure injury location: buttock Pressure injury stage: stage 2 Laterality: unspecified laterality Qualified Code(s): L89.302 - Pressure ulcer of unspecified buttock, stage 2 (9) Renal insufficiency SNOMED Code(s): 178913113, 610851515 Code(s): N28.9 - DISORDER OF KIDNEY AND URETER, UNSPECIFIED Status: Acute Priority: Medium Onset Date: 05/10/20 Annotation/Comment:: Mild progression of her renal insufficiency since yesterday with close observation secondary to IV vancomycin therapy. (10) Hyperuricemia SNOMED Code(s): 79153944 Code(s): E79.0 - HYPERURICEMIA W/O SIGNS OF INFLAM ARTHRIT AND TOPHACEOUS DIS Status: Chronic Priority: Medium Onset Date: 05/31/20 Annotation/Comment:: Newly diagnosed. No gout type symptoms. Observe for now. - Problem List Review Problem List Initiated/Reviewed/Updated: Yes - My Orders Last 24 Hours: My Active Orders 05/31/20 Breakfast Nothing Per Oral Diet [DIET] 05/31/20 11:17 Abdomen Pelvis w Cont [CT] Stat Abdomen Series w Chest 1V [CR] Stat Blood Culture x2 Reflex Set [OM.PC] Urgent Obtain Past Medical Record [OM.PC] Urgent Resuscitation Status Stat 05/31/20 11:30 CULTURE URINE [RM] Stat 05/31/20 11:45 MISCELLANEOUS CULT [MREF] Stat 05/31/20 11:48 Cardiac Monitoring [RC] . DIRECTED 05/31/20 12:00 CULTURE BLOOD [BC] Stat 05/31/20 12:55 CULTURE BLOOD [BC] Stat - Assessment/Plan Admission H&P: Please use this note as an admission H&P Last 24 Hours: My Active Orders 05/31/20 Breakfast Nothing Per Oral Diet [DIET] 05/31/20 11:17 Abdomen Pelvis w Cont [CT] Stat Abdomen Series w Chest 1V [CR] Stat Blood Culture x2 Reflex Set [OM.PC] Urgent Obtain Past Medical Record [OM.PC] Urgent Resuscitation Status Stat 05/31/20 11:30 CULTURE URINE [RM] Stat 05/31/20 11:45 MISCELLANEOUS CULT [MREF] Stat 05/31/20 11:48 Cardiac Monitoring [RC] . DIRECTED 05/31/20 12:00 CULTURE BLOOD [BC] Stat 05/31/20 12:55 CULTURE BLOOD [BC] Stat Assessment:: As above Plan: As above. Extensive precautions were given to the patient and her daughter, who are in agreement with the treatment plan. The patient's condition is stable enough for observation status and general supervision. [facility] provider assumes care in the a.m.
[2020-05-31] MEDS ORDERED: Iopamidol 612 MG/ML 100 ML Bottle IVPUSH ONE (11:37)
[2020-05-31] MEDS ORDERED: Iopamidol 612 MG/ML 100 ML Bottle ONE (11:40)
[2020-05-31 13:19] LABS: PTT,PARTIAL THROMBOPLSTIN TIME 22.5 SEC (24.5-32.8)
[2020-05-31] MEDS ORDERED: Albuterol 6.7 GM Inhaler INH PRN (14:37)
[2020-05-31] MEDS ORDERED: Bisacodyl 5 MG Tab PO PRN (14:37)
[2020-05-31] MEDS ORDERED: Ondansetron 4 MG/2 ML SDV IVPUSH PRN (15:00)
[2020-05-31] MEDS ORDERED: Acetaminophen 325 MG Tab PO PRN (15:00)
[2020-05-31] MEDS ORDERED: Nitroglycerin 0.4 MG Tab.SL SL PRN (15:00)
[2020-05-31] MEDS ORDERED: Menthol/Methyl Salicylate 85 GM Tube TOP PRN (15:36)
[2020-05-31] MEDS: D5 1/2 NS w/ 20 mEq/L KCl 1,000 ML IV SCH (17:52)
[2020-05-31] MEDS: Enoxaparin 40 MG/0.4 ML Syringe SUBCUT SCH (17:54)
[2020-05-31] MEDS: Nystatin Topical Powder 15 GM Bottle TOP SCH (17:56)
[2020-05-31] MEDS: Gabapentin 100 MG Cap PO SCH (17:57)
[2020-05-31] MEDS ORDERED: Pantoprazole 40 MG Vial IVPUSH SCH ×2 (18:00→23:15)
[2020-05-31] MEDS: atorvaSTATin 40 MG Tab PO SCH ×2 (19:47→19:54)
[2020-05-31] MEDS: rOPINIRole 1 MG Tab PO SCH ×2 (19:47→19:56)
[2020-05-31] MEDS: Melatonin 3 MG Tab PO SCH ×2 (19:47→19:55)
[2020-05-31] MEDS: Sodium Chloride 0.9% 10 ML Syringe FLUSH SCH (19:47)
[2020-05-31] MEDS ORDERED: LORazepam 2 MG/ML SDV IVPUSH ONE (23:19)
[2020-05-31] MEDS ORDERED: LORazepam 2 MG/ML SDV ONE (23:25)
[2020-06-01] MEDS: D5 1/2 NS w/ 20 mEq/L KCl 1,000 ML IV SCH (07:57)
[2020-06-01] MEDS: Nystatin Topical Powder 15 GM Bottle TOP SCH ×3 (08:00→17:41)
[2020-06-01] MEDS: Clopidogrel 75 MG Tab PO SCH (08:40)
[2020-06-01] MEDS: Lisinopril 5 MG Tab PO SCH (08:40)
[2020-06-01] MEDS: DULoxetine 30 MG Cap PO SCH (08:40)
[2020-06-01] MEDS: DULoxetine 20 MG Cap PO SCH (08:40)
[2020-06-01] MEDS: Gabapentin 100 MG Cap PO SCH ×3 (08:40→17:40)
[2020-06-01] MEDS: Aspirin 81 MG Tab.Chew PO SCH (08:40)
[2020-06-01] MEDS: Sodium Chloride 0.9% 10 ML Syringe FLUSH SCH ×2 (08:40→20:24)
[2020-06-01] MEDS: Loratadine 10 MG Tab PO SCH (08:40)
[2020-06-01] MEDS: Metoprolol Succinate 50 MG Tab.ER PO SCH (08:41)
[2020-06-01] MEDS: Pantoprazole 40 MG Vial IVPUSH SCH ×2 (10:19→20:24)
[2020-06-01] MEDS ORDERED: Saliva Substitute Oral Spray 120 ML Bottle MUCMEM PRN (12:53)
--- NOTE | 2020-06-01 14:31 | PCM.PN ---
- General Info Date of Service: 06/01/20 Admission Dx/Problem (Free Text): Pt admitted with UTI and confusion On IV antibiotics - Review of Systems General: Reports: No Symptoms Pulmonary: Reports: No Symptoms Cardiovascular: Reports: No Symptoms Gastrointestinal: Reports: Abdominal Pain Skin: Reports: No Symptoms Neurological: Reports: Confusion - Patient Data Vitals - Most Recent: Last Vital Signs Temp 98.3 F 06/01/20 12:00 Pulse 106 H 06/01/20 12:00 Resp 16 06/01/20 12:00 BP 106/58 L 06/01/20 12:00 Pulse Ox 100 06/01/20 12:00 Weight - Most Recent: 167 lb 8.821 oz I&O - Last 24 Hours: Intake & Output 06/01/20 06/01/20 06/01/20 02:59 10:59 18:59 Intake Total 50 Balance 50 Lab Results Last 24 Hours: Laboratory Results - last 24 hr 05/31/20 06/01/20 Range/Units 12:55 09:17 SARS-CoV-2 RNA (MIKE) Negative (NEGATIVE) SARS-CoV-2 IgG Ab Reactive H (Non-Reactive) Robert Results Last 24 Hours: Microbiology 05/31/20 12:55 Aerobic Blood Culture - Preliminary Blood - Venous - Lab Draw NO GROWTH AFTER 1 DAY 05/31/20 12:00 Aerobic Blood Culture - Preliminary Blood - Venous NO GROWTH AFTER 1 DAY Med Orders - Current: Current Medications Acetaminophen (Acetaminophen 325 Mg Tab) 650 mg PO Q4H PRN PRN Reason: Pain Albuterol (Albuterol 6.7 Gm Inhaler) 0 gm INH Q4H PRN PRN Reason: Shortness of Breath Aspirin (Aspirin 81 Mg Tab.Chew) 81 mg PO DAILY [facility] Last Admin: 06/01/20 08:40 Dose: Not Given Documented by: Atorvastatin Calcium (Atorvastatin 40 Mg Tab) 40 mg PO BEDTIME [facility] Last Admin: 05/31/20 19:54 Dose: Not Given Documented by: Bisacodyl (Bisacodyl 5 Mg Tab) 5 mg PO Q12HR PRN PRN Reason: Constipation Clopidogrel Bisulfate (Clopidogrel 75 Mg Tab) 75 mg PO DAILY [facility] Last Admin: 06/01/20 08:40 Dose: Not Given Documented by: Duloxetine HCl (Duloxetine 20 Mg Cap) 20 mg PO DAILY [facility] Last Admin: 06/01/20 08:40 Dose: Not Given Documented by: Duloxetine HCl (Duloxetine 30 Mg Cap) 30 mg PO DAILY [facility] Last Admin: 06/01/20 08:40 Dose: Not Given Documented by: Enoxaparin Sodium (Enoxaparin 40 Mg/0.4 Ml Syringe) 40 mg SUBCUT DAILY@1800 [facility] Last Admin: 05/31/20 17:54 Dose: 40 mg Documented by: Gabapentin (Gabapentin 100 Mg Cap) 100 mg PO TID [facility] Last Admin: 06/01/20 13:17 Dose: Not Given Documented by: Potassium Chloride/Dextrose/Sod Cl (D5 1/2 Ns W/ 20 Meq/L Kcl) 1,000 mls @ 75 mls/hr IV ASDIRECTED [facility] Last Admin: 06/01/20 07:57 Dose: 75 mls/hr Documented by: Vancomycin HCl 1 gm/ Sodium (Chloride) 250 mls @ 165 mls/hr IV Q24H [facility] Last Admin: 05/31/20 16:12 Dose: 165 mls/hr Documented by: Lisinopril (Lisinopril 5 Mg Tab) 2.5 mg PO DAILY [facility] Last Admin: 06/01/20 08:40 Dose: Not Given Documented by: Loratadine (Loratadine 10 Mg Tab) 10 mg PO DAILY [facility] Last Admin: 06/01/20 08:40 Dose: Not Given Documented by: Melatonin (Melatonin 3 Mg Tab) 3 mg PO BEDTIME [facility] Last Admin: 05/31/20 19:55 Dose: Not Given Documented by: Methenamine Hippurate (Methenamine Hippurate 1 Gm Tab) 1 gm PO Q12HR [facility] Last Admin: 06/01/20 08:40 Dose: Not Given Documented by: Methyl Salicylate (Menthol/Methyl Salicylate 85 Gm Tube) 0 gm TOP QID PRN PRN Reason: pain Metoprolol Succinate (Metoprolol Succinate 50 Mg Tab.Er) 100 mg PO DAILY [facility] Last Admin: 06/01/20 08:41 Dose: Not Given Documented by: Nitroglycerin (Nitroglycerin 0.4 Mg Tab.Sl) 0.4 mg SL ASDIRECTED PRN PRN Reason: Chest Pain Nystatin (Nystatin Topical Powder 15 Gm Bottle) 1 gm TOP TID [facility] Last Admin: 06/01/20 12:00 Dose: 1 applic Documented by: Ondansetron HCl (Ondansetron 4 Mg/2 Ml Sdv) 4 mg IVPUSH Q6H PRN PRN Reason: Nausea/Vomiting Pantoprazole Sodium (Pantoprazole 40 Mg Vial) 40 mg IVPUSH Q12HR [facility] Last Admin: 06/01/20 10:19 Dose: Not Given Documented by: Ropinirole HCl (Ropinirole 1 Mg Tab) 1 mg PO BEDTIME [facility] Last Admin: 05/31/20 19:56 Dose: Not Given Documented by: Saliva Substitute (Saliva Substitute Oral [place] 120 Ml Bottle) 1 ml MUCMEM ASDIRECTED PRN PRN Reason: Dry Mouth Last Admin: 06/01/20 13:52 Dose: 1 applic Documented by: Senna/Docusate Sodium (Docusate Sodium/Sennosides 50-8.6 Mg Tab) 2 tab PO DAILY [facility] Last Admin: 06/01/20 08:40 Dose: Not Given Documented by: Sodium Chloride (Sodium Chloride 0.9% 10 Ml Syringe) 10 ml FLUSH Q12HR [facility] Last Admin: 06/01/20 08:40 Dose: Not Given Documented by: Discontinued Medications Vancomycin HCl 1 gm/ Dextrose/ (Water) 250 mls @ 165 mls/hr IV Q24H [facility] Last Admin: 05/31/20 18:16 Dose: Not Given Documented by: Iopamidol (Iopamidol 612 Mg/Ml 100 Ml Bottle) 100 ml IVPUSH ONETIME ONE Stop: 05/31/20 11:38 Last Admin: 06/01/20 14:07 Dose: Not Given Documented by: Iopamidol (Iopamidol 612 Mg/Ml 100 Ml Bottle) Confirm Administered Dose 100 ml .ROUTE .STK-MED ONE Stop: 05/31/20 11:41 Last Admin: 06/01/20 14:07 Dose: Not Given Documented by: Lorazepam (Lorazepam 2 Mg/Ml Sdv) 1 mg IVPUSH ONETIME ONE Stop: 05/31/20 23:20 Last Admin: 05/31/20 23:32 Dose: 1 mg Documented by: Lorazepam (Lorazepam 2 Mg/Ml Sdv) Confirm Administered Dose 2 mg .ROUTE .STK-MED ONE Stop: 05/31/20 23:26 Last Admin: 05/31/20 23:32 Dose: Not Given Documented by: Pantoprazole Sodium (Pantoprazole 40 Mg Vial) 40 mg IVPUSH Q12H RAVI Last Admin: 05/31/20 17:54 Dose: 40 mg Documented by: Pantoprazole Sodium (Pantoprazole 40 Mg Vial) 40 mg IVPUSH Q12H RAVI - Exam General: No Acute Distress Lungs: Clear to Auscultation Cardiovascular: Regular Rate GI/Abdominal Exam: Soft, Non-Tender Extremities: Normal Inspection Psy/Mental Status: Other (Mildly confused) - Patient Data Lab Results Last 24 hrs: Laboratory Results - last 24 hr 05/31/20 06/01/20 Range/Units 12:55 09:17 SARS-CoV-2 RNA (MIKE) Negative (NEGATIVE) SARS-CoV-2 IgG Ab Reactive H (Non-Reactive) Result Diagrams: 05/31/20 12:55 05/31/20 12:55 Robert Results Last 24 hrs: Microbiology 05/31/20 12:55 Aerobic Blood Culture - Preliminary Blood - Venous - Lab Draw NO GROWTH AFTER 1 DAY 05/31/20 12:00 Aerobic Blood Culture - Preliminary Blood - Venous NO GROWTH AFTER 1 DAY Sepsis Event Note - Evaluation Sepsis Screening Result: Severe Sepsis Risk - Focused Exam Vital Signs: Vital Signs Temp Temp Pulse Resp BP Pulse Ox 06/01/20 12:00 98.3 F 106 H 16 106/58 L 100 06/01/20 08:00 98.2 F 116 H 24 H 138/60 116 H 06/01/20 04:00 98.2 F 109 H 18 159/58 H 99 - Problem List Review Problem List Initiated/Reviewed/Updated: Yes - My Orders Last 24 Hours: My Active Orders 06/01/20 12:53 Carboxymethylcellulose/Lytes [Prem-Stir Oral [place]] 1 ml MUCMEM ASDIRECTED PRN - Assessment Assessment:: IMP: UTI - on antibiotics Confusion - mildly improved Repeat Covid negative X 2 today - Plan Plan:: Plan: Continue IV antibiotics still with limited bed availability
[2020-06-01] MEDS ORDERED: Pantoprazole 40 MG Vial IVPUSH SCH (14:45)
[2020-06-01] MEDS: Enoxaparin 40 MG/0.4 ML Syringe SUBCUT SCH (17:40)
[2020-06-01] MEDS: rOPINIRole 1 MG Tab PO SCH (20:26)
[2020-06-01] MEDS: atorvaSTATin 40 MG Tab PO SCH (20:26)
[2020-06-01] MEDS: Melatonin 3 MG Tab PO SCH (20:26)
[2020-06-02] MEDS ORDERED: Acetaminophen/HYDROcodone 325-10 MG Tab PO PRN (07:13)
[2020-06-02] MEDS: Pantoprazole 40 MG Vial IVPUSH SCH ×2 (07:38→19:57)
[2020-06-02] MEDS: Sodium Chloride 0.9% 10 ML Syringe FLUSH SCH ×3 (07:38→19:57)
[2020-06-02] MEDS: Metoprolol Succinate 50 MG Tab.ER PO SCH (07:46)
[2020-06-02] MEDS: DULoxetine 30 MG Cap PO SCH (07:47)
[2020-06-02] MEDS: Loratadine 10 MG Tab PO SCH (07:47)
[2020-06-02] MEDS: Aspirin 81 MG Tab.Chew PO SCH (07:47)
[2020-06-02] MEDS: Clopidogrel 75 MG Tab PO SCH (07:47)
[2020-06-02] MEDS: DULoxetine 20 MG Cap PO SCH (07:47)
[2020-06-02] MEDS: Gabapentin 100 MG Cap PO SCH ×3 (07:47→17:54)
[2020-06-02] MEDS: Lisinopril 5 MG Tab PO SCH (07:47)
[2020-06-02] MEDS: Acetaminophen/HYDROcodone 325-10 MG Tab PO SCH ×3 (07:48→19:56)
[2020-06-02] MEDS: Nystatin Topical Powder 15 GM Bottle TOP SCH ×3 (08:37→18:00)
[2020-06-02] MEDS ORDERED: Temazepam 15 MG Cap PO PRN (09:22)
[2020-06-02] MEDS ORDERED: Loperamide 2 MG Tab PO PRN (09:25)
[2020-06-02] MEDS ORDERED: Metoprolol Succinate 25 MG Tab.ER PO SCH (09:30)
[2020-06-02] MEDS ORDERED: metroNIDAZOLE/Normal Saline 500 MG in Premix Bag 1 BAG IV SCH (09:30)
--- NOTE | 2020-06-02 09:33 | PCM.PN ---
- General Info Date of Service: 06/02/20 Admission Dx/Problem (Free Text): 1. Confusion 2. COVID-19 3. UTI 4. Proctocolitis Subjective Update: Patient's mental status has improved, however she is still a somewhat poor historian. Functional Status: Reports: Pain Controlled, Tolerating Diet ( Although still somewhat suboptimal oral intake with questionable occasional possible aspiration), Urinating. Denies: Ambulating (Wheelchair-bound), New Symptoms Pain Score: 1 (Chronic low back pain unable to rate) - Review of Systems General: Reports: Weakness (Stable generalized) HEENT: Reports: Glasses Pulmonary: Reports: Cough, Other (Possible aspiration as above). Denies: Shortness of Breath, Sputum, Wheezing Cardiovascular: Reports: Palpitations (Chronic tachycardia), Edema (Stable dependent). Denies: Chest Pain Gastrointestinal: Reports: Decreased Appetite (As above), Diarrhea (Started yesterday with specimens collected), Difficulty Swallowing (As above). Denies: Abdominal Pain, Nausea, Vomiting Genitourinary: Reports: Incontinence Musculoskeletal: Reports: Back Pain (Stable chronic) Skin: Reports: Bruising (Stable from blood draws and IV sites) Neurological: Reports: Confusion (Improving slowly), Difficulty Walking (Chronic), Weakness (As above) Psychiatric: Reports: Confusion (As above), Anxiety (Mild improved). Denies: Depression, Agitation, Cravings, Hallucinations - Patient Data Vitals - Most Recent: Last Vital Signs Temp 36.6 C 06/02/20 06:58 Pulse 113 H 06/02/20 07:46 Resp 18 06/02/20 06:58 BP 167/71 H 06/02/20 07:47 Pulse Ox 95 06/02/20 06:58 Vital Signs - 24 hr 06/01/20 06/01/20 06/01/20 12:00 16:00 20:00 Temperature [ 36.8 C 37.0 C Axillary] Temperature [ 36.6 C Oral] Pulse, Peripheral Pulse, 106 H 106 H 108 H Peripheral [ Pulse Oximetry] Respiratory 16 16 16 Rate Blood Pressure Blood Pressure [Right Lower Arm] Blood Pressure 106/58 L 108/60 138/78 [Right Upper Arm] O2 Sat by Pulse 100 100 98 Oximetry 06/01/20 06/02/20 06/02/20 22:48 04:00 06:58 Temperature [ Axillary] Temperature [ 36.4 C 36.5 C 36.6 C Oral] Pulse, Peripheral Pulse, 109 H 113 H 113 H Peripheral [ Pulse Oximetry] Respiratory 14 14 18 Rate Blood Pressure Blood Pressure 167/71 H [Right Lower Arm] Blood Pressure 166/72 H 148/52 H [Right Upper Arm] O2 Sat by Pulse 95 97 95 Oximetry 06/02/20 06/02/20 07:46 07:47 Temperature [ Axillary] Temperature [ Oral] Pulse, 113 H Peripheral Pulse, Peripheral [ Pulse Oximetry] Respiratory Rate Blood Pressure 167/71 H 167/71 H Blood Pressure [Right Lower Arm] Blood Pressure [Right Upper Arm] O2 Sat by Pulse Oximetry Weight - Most Recent: 76 kg I&O - Last 24 Hours: Intake & Output 06/01/20 06/02/20 06/02/20 22:59 06:59 14:59 Intake Total 250 Balance 250 Imaging Impressions - Last 24 Hours: media monitor shows sinus tachycardia in the 110s with no other ectopy or arrhythmia Lab Results Last 24 Hours: Laboratory Results - last 24 hr 05/31/20 06/01/20 Range/Units 12:55 09:17 SARS-CoV-2 RNA (MIKE) Negative (NEGATIVE) SARS-CoV-2 IgG Ab Reactive H (Non-Reactive) Note COVID-19 test +2 of 3 specimens Labs to be drawn at 3 PM today along with trough vancomycin level Robert Results Last 24 Hours: Microbiology 05/31/20 11:45 Miscellaneous Reference Culture - Preliminary Abscess - Buttock, Unspecified Gram Stain - Final 05/31/20 12:55 Aerobic Blood Culture - Preliminary Blood - Venous - Lab Draw NO GROWTH AFTER 1 DAY 05/31/20 12:00 Aerobic Blood Culture - Preliminary Blood - Venous NO GROWTH AFTER 1 DAY Urine culture and sensitivity still pending Med Orders - Current: Current Medications Acetaminophen (Acetaminophen 325 Mg Tab) 650 mg PO Q4H PRN PRN Reason: Pain Last Admin: 06/01/20 21:33 Dose: 650 mg Documented by: Hydrocodone Bitart/Acetaminophen (Acetaminophen/Hydrocodone 325-10 Mg Tab) 1 tab PO 08,14,20 RAVI Last Admin: 06/02/20 07:48 Dose: 1 tab Documented by: Hydrocodone Bitart/Acetaminophen (Acetaminophen/Hydrocodone 325-10 Mg Tab) 1 tab PO DAILY PRN PRN Reason: pain Albuterol (Albuterol 6.7 Gm Inhaler) 0 gm INH Q4H PRN PRN Reason: Shortness of Breath Aspirin (Aspirin 81 Mg Tab.Chew) 81 mg PO DAILY [facility] Last Admin: 06/02/20 07:47 Dose: 81 mg Documented by: Atorvastatin Calcium (Atorvastatin 40 Mg Tab) 40 mg PO BEDTIME [facility] Last Admin: 06/01/20 20:26 Dose: 40 mg Documented by: Bisacodyl (Bisacodyl 5 Mg Tab) 5 mg PO Q12HR PRN PRN Reason: Constipation Clopidogrel Bisulfate (Clopidogrel 75 Mg Tab) 75 mg PO DAILY [facility] Last Admin: 06/02/20 07:47 Dose: 75 mg Documented by: Duloxetine HCl (Duloxetine 20 Mg Cap) 20 mg PO DAILY [facility] Last Admin: 06/02/20 07:47 Dose: 20 mg Documented by: Duloxetine HCl (Duloxetine 30 Mg Cap) 30 mg PO DAILY [facility] Last Admin: 06/02/20 07:47 Dose: 30 mg Documented by: Enoxaparin Sodium (Enoxaparin 40 Mg/0.4 Ml Syringe) 40 mg SUBCUT DAILY@1800 [facility] Last Admin: 06/01/20 17:40 Dose: 40 mg Documented by: Gabapentin (Gabapentin 100 Mg Cap) 100 mg PO TID [facility] Last Admin: 06/02/20 07:47 Dose: 100 mg Documented by: Vancomycin HCl 1 gm/ Sodium (Chloride) 250 mls @ 165 mls/hr IV Q24H [facility] Last Admin: 06/01/20 14:35 Dose: 165 mls/hr Documented by: Potassium Chloride/Dextrose/Sod Cl (D5 Ns With 20 Meq Kcl) 1,000 mls @ 70 mls/hr IV ASDIRECTED [facility] Metronidazole 500 mg/ Premix 100 mls @ 100 mls/hr IV Q8H [facility] Lisinopril (Lisinopril 5 Mg Tab) 2.5 mg PO QPM [facility] Loperamide HCl (Loperamide 2 Mg Tab) 2 mg PO Q6H PRN PRN Reason: Diarrhea Loratadine (Loratadine 10 Mg Tab) 10 mg PO DAILY [facility] Last Admin: 06/02/20 07:47 Dose: 10 mg Documented by: Melatonin (Melatonin 3 Mg Tab) 3 mg PO BEDTIME [facility] Last Admin: 06/01/20 20:26 Dose: 3 mg Documented by: Methenamine Hippurate (Methenamine Hippurate 1 Gm Tab) 1 gm PO Q12HR [facility] Last Admin: 06/02/20 07:47 Dose: 1 gm Documented by: Methyl Salicylate (Menthol/Methyl Salicylate 85 Gm Tube) 0 gm TOP QID PRN PRN Reason: pain Last Admin: 06/01/20 21:34 Dose: 1 dose Documented by: Metoprolol Succinate (Metoprolol Succinate 50 Mg Tab.Er) 100 mg PO DAILY [facility] Last Admin: 06/02/20 07:46 Dose: 100 mg Documented by: Metoprolol Succinate (Metoprolol Succinate 25 Mg Tab.Er) 25 mg PO DAILY [facility] Nitroglycerin (Nitroglycerin 0.4 Mg Tab.Sl) 0.4 mg SL ASDIRECTED PRN PRN Reason: Chest Pain Nystatin (Nystatin Topical Powder 15 Gm Bottle) 1 gm TOP TID [facility] Last Admin: 06/02/20 08:37 Dose: 1 applic Documented by: Ondansetron HCl (Ondansetron 4 Mg/2 Ml Sdv) 4 mg IVPUSH Q6H PRN PRN Reason: Nausea/Vomiting Last Admin: 06/02/20 07:38 Dose: 4 mg Documented by: Pantoprazole Sodium (Pantoprazole 40 Mg Vial) 40 mg IVPUSH Q12HR [facility] Last Admin: 06/02/20 07:38 Dose: 40 mg Documented by: Ropinirole HCl (Ropinirole 1 Mg Tab) 1 mg PO BEDTIME [facility] Last Admin: 06/01/20 20:26 Dose: 1 mg Documented by: Saliva Substitute (Saliva Substitute Oral Jarales 120 Ml Bottle) 1 ml MUCMEM ASDIRECTED PRN PRN Reason: Dry Mouth Last Admin: 06/01/20 13:52 Dose: 1 applic Documented by: Senna/Docusate Sodium (Docusate Sodium/Sennosides 50-8.6 Mg Tab) 2 tab PO DAILY [facility] Last Admin: 06/01/20 08:40 Dose: Not Given Documented by: Sodium Chloride (Sodium Chloride 0.9% 10 Ml Syringe) 10 ml FLUSH Q12HR [facility] Last Admin: 06/02/20 07:38 Dose: 10 ml Documented by: Temazepam (Temazepam 15 Mg Cap) 15 mg PO BEDTIME PRN PRN Reason: Insomnia Discontinued Medications Vancomycin HCl 1 gm/ Dextrose/ (Water) 250 mls @ 165 mls/hr IV Q24H [facility] Last Admin: 05/31/20 18:16 Dose: Not Given Documented by: Potassium Chloride/Dextrose/Sod Cl (D5 1/2 Ns W/ 20 Meq/L Kcl) 1,000 mls @ 75 mls/hr IV ASDIRECTED [facility] Last Admin: 06/01/20 07:57 Dose: 75 mls/hr Documented by: Iopamidol (Iopamidol 612 Mg/Ml 100 Ml Bottle) 100 ml IVPUSH ONETIME ONE Stop: 05/31/20 11:38 Last Admin: 06/01/20 14:07 Dose: Not Given Documented by: Iopamidol (Iopamidol 612 Mg/Ml 100 Ml Bottle) Confirm Administered Dose 100 ml .ROUTE .STK-MED ONE Stop: 05/31/20 11:41 Last Admin: 06/01/20 14:07 Dose: Not Given Documented by: Lisinopril (Lisinopril 5 Mg Tab) 2.5 mg PO DAILY [facility] Last Admin: 06/02/20 07:47 Dose: 2.5 mg Documented by: Lorazepam (Lorazepam 2 Mg/Ml Sdv) 1 mg IVPUSH ONETIME ONE Stop: 05/31/20 23:20 Last Admin: 05/31/20 23:32 Dose: 1 mg Documented by: Lorazepam (Lorazepam 2 Mg/Ml Sdv) Confirm Administered Dose 2 mg .ROUTE .STK-MED ONE Stop: 05/31/20 23:26 Last Admin: 05/31/20 23:32 Dose: Not Given Documented by: Pantoprazole Sodium (Pantoprazole 40 Mg Vial) 40 mg IVPUSH Q12H [facility] Last Admin: 05/31/20 17:54 Dose: 40 mg Documented by: Pantoprazole Sodium (Pantoprazole 40 Mg Vial) 40 mg IVPUSH Q12H [facility] - Exam Quality Assessment: Urine Catheter, DVT Prophylaxis (Lovenox). No: Supplemental Oxygen, Central Line/PICC General: Alert, Cooperative, No Acute Distress. No: Oriented (Although improved patient oriented x2) HEENT: Pupils Equal, Pupils Reactive, EOMI, Mucous Membr. Moist/[place] Neck: Supple, Trachea Midline, No JVD, No Thyromegaly. No: Lymphadenopathy, Ca rotid Bruit (Mild bilateral carotid bruits) Lungs: Normal Respiratory Effort, Rales (Mild bilateral basilar). No: Rhonchi, Rub, Wheezing Cardiovascular: No Murmurs, Tachycardia (Regular rhythm). No: Gallops GI/Abdominal Exam: Normal Bowel Sounds, Soft, Non-Tender, No Organomegaly, No Distention, No Abnormal Bruit, No Mass, Other (Obese). No: Guarding (Female) Exam: Deferred Back Exam: Other (Stable mild kyphoscoliosis). No: CVA Tenderness (L), CVA Tenderness (R), Decreased Range of Motion, Muscle Spasm, Paraspinal Tenderness, Vertebral Tenderness Extremities: Normal Range of Motion, Non-Tender, Normal Capillary Refill, Pedal Edema (Stable trace bilateral pedal/pretibial edema). No: Brandon's Sign Peripheral Pulses: 2+: Radial (L), Radial (R), Dorsalis Pedis (L), Dorsalis Pedis (R) Skin: Rash (Slowly improving urticarial rash on the lower extremities), Ecchymosis (Stable on forearms bilaterally secondary to blood draws and IV sites as above), Other (Stable grade 2 coccyx decubitus ulcer by history) Wound/Incisions: Healing Well, Dressing Dry and Intact Neurological: No New Focal Deficit, Other (Negative Babinski's. Patient more alert today and oriented x2 with previous stable neurological checks with vitals) Psy/Mental Status: Alert, Normal Affect, Normal Mood. No: Agitated, Hallucinations, Withdrawal Symptoms - Patient Data Lab Results Last 24 hrs: Laboratory Results - last 24 hr 05/31/20 06/01/20 Range/Units 12:55 09:17 SARS-CoV-2 RNA (MIKE) Negative (NEGATIVE) SARS-CoV-2 IgG Ab Reactive H (Non-Reactive) Result Diagrams: 05/31/20 12:55 05/31/20 12:55 Robert Results Last 24 hrs: Microbiology 05/31/20 11:45 Miscellaneous Reference Culture - Preliminary Abscess - Buttock, Unspecified Gram Stain - Final 05/31/20 12:55 Aerobic Blood Culture - Preliminary Blood - Venous - Lab Draw NO GROWTH AFTER 1 DAY 05/31/20 12:00 Aerobic Blood Culture - Preliminary Blood - Venous NO GROWTH AFTER 1 DAY Sepsis Event Note - Evaluation Sepsis Screening Result: Severe Sepsis Risk - Focused Exam Vital Signs: Vital Signs Temp Pulse Pulse Resp BP BP BP 06/02/20 07:47 167/71 H 06/02/20 07:46 113 H 167/71 H 06/02/20 06:58 36.6 C 113 H 18 167/71 H 06/02/20 04:00 36.5 C 113 H 14 148/52 H 06/01/20 22:48 36.4 C 109 H 14 166/72 H Pulse Ox 06/02/20 07:47 06/02/20 07:46 06/02/20 06:58 95 06/02/20 04:00 97 06/01/20 22:48 95 - Problem List & Annotations (1) Confusion SNOMED Code(s): 446069312 Code(s): R41.0 - DISORIENTATION, UNSPECIFIED Status: Acute Priority: High Current Visit: Yes Onset Date: ~05/25/20 Annotation/Comment:: Patient confusion is slowly improving. The patient and her daughter are comfortable staying in this facility with MRI of the brain to be conducted on 06/04. Telephone consultation at 1:50 PM on 05/31 and subsequently at 2:[address] Jerez, hospitalist at [facility] in [place], with no beds available in that facility. No beds available on 06/01 with various therapeutic options discussed with the patient and her daughter, who now agreed to stay in this facility for further work-up as above. Her confusion is improving slowly and may be returning back to normal baseline? Note recurrent COVID-19 infection as below with no further treatment, including IV steroids, etc. per recommendation from the hospitalist as above. The patient was changed from observation status to acute care in this facility on 06/02. Previous telephone consultation on 05/31 with the patient's daughter, who is requesting that the patient stay in this facility until the initially planned transfer could be arranged. Contact tra cing, etc. were discussed with the patient's daughter and nurses that [facility] in [place] concerning patient's breakthrough repeat COVID-19 infection. Note progressive confusion of unknown etiology with possible organic brain syndrome, sequelae from current UTI/Covid infection, etc. 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 Note CT scan of the head on 05/30/2020 in this facility did not show any significant change from previous evaluation on 05/10/2020. Questionable previous absence' episodes per family history prior to admission with no direct seizure activity noted in the emergency room or during this hospitalization . Otherwise neurological status is relatively stable. IgG antibody COVID-19 test has been sent out from ER's blood work as per recommendations from Dr. Jerez as above. (2) COVID-19 SNOMED Code(s): 876787507 Code(s): U07.1 - COVID-19 Status: Acute Priority: High Current Visit: Yes Onset Date: 05/31/20 Annotation/Comment:: As above. Note repeat COVID- 19 infection, which could be a partial explanation for patient's recent confusion as above. Patient did receive her initial Moderna immunization on 02/08/2020 with subsequent positive COVID-19 infection a couple of days th ereafter. She also received her second Moderna immunization on 03/07/2020 with subsequent multiple negative COVID-19 rapid test both in this facility and at [facility]. No further treatment for her COVID-19 current infection at this time as above, although IgG antibodies have been ordered. No respiratory symptoms, distress, etc. with close observation of her neurological status, including neurological checks with vitals, which has been stable during this hospitalization. Note urticaria on the lower extremities likely secondary to her COVID-19 infection rather than her recent antibiotics. (3) UTI (urinary tract infection) SNOMED Code(s): 15069253 Code(s): N39.0 - URINARY TRACT INFECTION, SITE NOT SPECIFIED Status: Acute Priority: Medium Current Visit: Yes Onset Date: 05/10/20 Qualifiers: Urinary tract infection type: acute cystitis Hematuria presence: with hematuria Qualified Code(s): N30.01 - Acute cystitis with hematuria Annotation/Comment:: Note recent completion of IV Cefepime on 05/30 with cath UA showing probable persistent infection. Urine specimen set up for culture and sensitivity with previous IV antibiotic regimen per instructions from infectious disease at [facility] in [place], including continuation during recent swing bed care as above. Significant previous history of urosepsis with secondary respiratory failure and right renal abscess. In spite of mild progressive leukocytosis prior to admission, no direct clinical evidence of sepsis with normal lactic acid level at this time. IV vancomycin was initiated and dosed by pharmacy with additional history of previous proctocolitis as above, although no diarrhea or evidence of C. difficile infection prior to placement in observation status. Diarrhea did begin once again on 06/01 with C. difficile stool antigen evaluation ordered. Note previous oral vancomycin therapy during recent swing bed care. Blood cultures x2 were collected and are negative during this hospitalization. (4) Proctocolitis SNOMED Code(s): 531211697 Code(s): K52.9 - NONINFECTIVE GASTROENTERITIS AND COLITIS, UNSPECIFIED Status: Acute Priority: Medium Current Visit: Yes Onset Date: 05/23/20 Annotation/Comment:: As above. Note evidence of possible proctocolitis by CT scan of the abdomen and pelvis on 03/25/2020. Previous history of mild loose stools prior to admission after aggressive previous treatment for her urosepsis both at [facility] and at the [facility]. (5) COPD (chronic obstructive pulmonary disease) SNOMED Code(s): 66938758 Code(s): J44.9 - CHRONIC OBSTRUCTIVE PULMONARY DISEASE, UNSPECIFIED Status: Chronic Priority: Medium Current Visit: Yes Qualifiers: COPD type: emphysema Emphysema type: panlobular Qualified Code(s): J43.1 - Panlobular emphysema Annotation/Comment:: No recent bronchitic type symptoms or fever. Secondary to possibility of aspiration and previous proctoscopy colitis IV Flagyl therapy was initiated on 06/02. (6) Coronary artery disease SNOMED Code(s): 50158528 Code(s): I25.10 - ATHSCL HEART DISEASE OF [place] CORONARY ARTERY W/O ANG PCTRS Status: Chronic Priority: Medium Current Visit: Yes Qualifiers: Coronary Disease-Associated Artery/Lesion type: [place] artery [place] vs. transplanted heart: [place] heart Associated angina: without angina Qualified Code(s): I25.10 - Atherosclerotic heart disease of [place] coronary artery without angina pectoris Annotation/Comment:: No chest pain or anginal type symptoms. History of diastolic dysfunction and previous PTCA/stent. (7) Mixed anxiety depressive disorder SNOMED Code(s): 289866887 Code(s): F41.8 - OTHER SPECIFIED ANXIETY DISORDERS Status: Chronic Priority: Medium Current Visit: Yes Annotation/Comment:: Stable by history. Note previous chronic narcotic use secondary to chronic pain syndrome. (8) Hypertension SNOMED Code(s): 49580594 Code(s): I10 - ESSENTIAL (PRIMARY) HYPERTENSION Status: Chronic Priority: Medium Current Visit: Yes Qualifiers: Hypertension type: essential hypertension Qualified Code(s): I10 - Essential (primary) hypertension Annotation/Comment:: Blood pressures continue to be somewhat elevated, although some medication noncompliance secondary to difficulty swallowing, mild anorexia, etc. during her observation status. Her lisinopril will be changed to a every afternoon regimen with Toprol-XL initiated on a daily basis on 06/02. Note mild sinus tachycardia. Blood pressures were somewhat elevated initially in the emergency room, however improved prior to patient transfer with additional occasional borderline hypotension during her observation status. Continue to observe closely. (9) Decubitus ulcer SNOMED Code(s): 762609884 Code(s): L89.90 - PRESSURE ULCER OF UNSPECIFIED SITE, UNSPECIFIED STAGE Status: Chronic Priority: High Current Visit: Yes Qualifiers: Pressure injury location: buttock Pressure injury stage: stage 2 Laterality: unspecified laterality Qualified Code(s): L89.302 - Pressure ulcer of unspecified buttock, stage 2 Annotation/Comment:: Slowly healing and improved grade 2 decubitus ulcer in the coccyx region from previous hospitalization at [facility] in [place] as above with no direct evidence of infection, although specimen collected for Gram stain with final culture, and sensitivity pending. (10) Renal insufficiency SNOMED Code(s): 412029637, 555285988 Code(s): N28.9 - DISORDER OF KIDNEY AND URETER, UNSPECIFIED Status: Acute Priority: Medium Current Visit: Yes Onset Date: 05/10/20 Annotation/Comment:: Mild progression of her renal insufficiency with close observation secondary to IV vancomycin therapy. (11) Hyperuricemia SNOMED Code(s): 82857164 Code(s): E79.0 - HYPERURICEMIA W/O SIGNS OF INFLAM ARTHRIT AND TOPHACEOUS DIS Status: Chronic Priority: Medium Current Visit: Yes Onset Date: 05/31/20 Annotation/Comment:: Newly diagnosed. No gout type symptoms. Observe for now. - Problem List Review Problem List Initiated/Reviewed/Updated: Yes - My Orders Last 24 Hours: My Active Orders 06/02/20 09:22 Temazepam [Restoril] 15 mg PO BEDTIME PRN 06/02/20 09:24 OCCULT BLOOD DIAGNOSTIC [OP] Routine 06/02/20 09:25 Loperamide [Imodium AD] 2 mg PO Q6H PRN 06/02/20 09:26 Vital Signs [RC] Q6HR 06/02/20 09:30 Dextrose 5%-0.9% NaCl with KCl [D5 NS with 20 mEq KCl] 1,000 ml IV ASDIRECTED Metoprolol Succinate [Toprol XL] 25 mg PO DAILY metroNIDAZOLE/Normal Saline [Flagyl in NS 500 MG/100 ML] 500 mg Premix Bag 1 bag IV Q8H 06/02/20 15:00 CBC WITH AUTO DIFF [HEME] Routine COMPREHENSIVE METABOLIC PN,CMP [CHEM] Routine FERRITIN [CHEM] Routine IRON/TIBC [CHEM] Routine VANCOMYCIN TROUGH [CHEM] Routine 06/02/20 18:00 lisinopriL [Prinivil] 2.5 mg PO QPM 06/04/20 05:11 Brain w wo Cont [MR] Urgent - Assessment Assessment:: As above - Plan Plan:: Plan: As above. Extensive precautions were given to the patient and her family, who are in agreement with the treatment plan. Anticipate extended hospital stay secondary to lack of bed availability at [facility] as above, multiple health problems as above, etc.
[2020-06-02] MEDS: metroNIDAZOLE/Normal Saline 500 MG in Premix Bag 1 BAG IV SCH ×2 (10:36→17:53)
[2020-06-02] MEDS: Dextrose 5%-0.9% NaCl with KCl 1,000 ML IV SCH (11:04)
[2020-06-02] MEDS ORDERED: Gentian Violet 59 ML Bottle MUCMEM ONE (14:23)
[2020-06-02] MEDS: Ferrous Sulfate 325 MG Tab PO SCH (17:53)
[2020-06-02] MEDS: Enoxaparin 40 MG/0.4 ML Syringe SUBCUT SCH (17:53)
[2020-06-02] MEDS ORDERED: Lisinopril 5 MG Tab PO SCH (18:00)
[2020-06-02] MEDS: atorvaSTATin 40 MG Tab PO SCH (19:55)
[2020-06-02] MEDS: rOPINIRole 1 MG Tab PO SCH (19:56)
[2020-06-02] MEDS: Melatonin 3 MG Tab PO SCH (19:57)
[2020-06-03] MEDS: metroNIDAZOLE/Normal Saline 500 MG in Premix Bag 1 BAG IV SCH ×3 (01:17→17:27)
[2020-06-03] MEDS: Dextrose 5%-0.9% NaCl with KCl 1,000 ML IV SCH (01:17)
[2020-06-03] MEDS: Ferrous Sulfate 325 MG Tab PO SCH ×2 (07:52→17:27)
[2020-06-03] MEDS: Clopidogrel 75 MG Tab PO SCH (07:52)
[2020-06-03] MEDS: DULoxetine 30 MG Cap PO SCH (07:52)
[2020-06-03] MEDS: Gabapentin 100 MG Cap PO SCH ×3 (07:53→17:30)
[2020-06-03] MEDS: DULoxetine 20 MG Cap PO SCH (07:53)
[2020-06-03] MEDS: Metoprolol Succinate 25 MG Tab.ER PO SCH ×2 (07:53→17:30)
[2020-06-03] MEDS: Loratadine 10 MG Tab PO SCH (07:59)
[2020-06-03] MEDS: Aspirin 81 MG Tab.Chew PO SCH (07:59)
[2020-06-03] MEDS: Acetaminophen/HYDROcodone 325-10 MG Tab PO SCH ×3 (07:59→19:14)
[2020-06-03] MEDS: Pantoprazole 40 MG Vial IVPUSH SCH ×2 (08:00→19:13)
[2020-06-03] MEDS: Nystatin Topical Powder 15 GM Bottle TOP SCH ×3 (08:00→17:30)
[2020-06-03] MEDS: Sodium Chloride 0.9% 10 ML Syringe FLUSH SCH ×5 (08:00→19:13)
--- NOTE | 2020-06-03 12:18 | PCM.PN ---
- General Info Date of Service: 06/03/20 Admission Dx/Problem (Free Text): 1. Confusion 2. COVID-19 3. UTI 4. Proctocolitis Functional Status: Reports: Pain Controlled, Tolerating Diet (Improved diet with no aspiration although possibility of trouble swallowing), Ambulating (With assist), Urinating, New Symptoms (Oral candidiasis) - Review of Systems General: Reports: Weakness (Slowly improving chronic generalized). Denies: Fever, Fatigue, Malaise, Chills, Night Sweats, Appetite (Improved as above) HEENT: Denies: Dysphasia, Ear Pain, Eye Pain, Headaches, Post Nasal Drip, Sinus Congestion, Sore Throat, Rhinitis, Visual Changes Pulmonary: Reports: No Symptoms. Denies: Shortness of Breath, Pleuritic Chest Pain, Cough, Sputum, Wheezing Cardiovascular: Reports: Edema (Stable dependent edema). Denies: Chest Pain, Palpitations, Dyspnea on Exertion, Orthopnea, Lightheadedness Gastrointestinal: Denies: Abdominal Pain, Constipation, Decreased Appetite, Diarrhea (Mild loose stools yesterday but no bowel movement today to this point), Difficulty Swallowing, Flatus, Hematochezia, Melena, Nausea, Vomiting Genitourinary: Reports: Incontinence. Denies: Dysuria, Frequency, Burning, Pain, Urgency, Hematuria, Retention, Flank Pain Musculoskeletal: Reports: No Symptoms. Denies: Neck Pain, Shoulder Pain, Arm Pain, Back Pain, Leg Pain Skin: Reports: Pallor, Bruising (Stable from previous IV sites and blood draws), Other (Slowly improving decubitus ulcer). Denies: Diaphoresis Neurological: Reports: Confusion (Continued slow improvement with patient likely had her normal baseline), Difficulty Walking (Improving slowly), Weakness (As above) Psychiatric: Reports: Confusion. Denies: Depression, Anxiety, Agitation, Crav ings, Hallucinations - Patient Data Vitals - Most Recent: Last Vital Signs Temp 36.4 C 06/03/20 06:00 Pulse 79 06/03/20 07:53 Resp 14 06/03/20 06:00 BP 158/78 H 06/03/20 07:53 Pulse Ox 97 06/03/20 06:00 Vital Signs - 24 hr 06/02/20 06/02/20 06/03/20 17:54 18:00 00:00 Temperature [ 36.6 C 36.6 C Oral] Pulse, Peripheral Pulse, 74 70 Peripheral [ Pulse Oximetry] Respiratory 18 14 Rate Blood Pressure 152/49 H Blood Pressure 150/49 H [Right Lower Arm] Blood Pressure 164/70 H [Right Upper Arm] O2 Sat by Pulse 98 99 Oximetry 06/03/20 06/03/20 06:00 07:53 Temperature [ 36.4 C Oral] Pulse, 79 Peripheral Pulse, 81 Peripheral [ Pulse Oximetry] Respiratory 14 Rate Blood Pressure 158/78 H Blood Pressure [Right Lower Arm] Blood Pressure 178/86 H [Right Upper Arm] O2 Sat by Pulse 97 Oximetry Weight - Most Recent: 77 kg I&O - Last 24 Hours: Intake & Output 06/02/20 06/03/20 06/03/20 22:59 06:59 14:59 Intake Total 910 994 240 Balance 910 994 240 Imaging Impressions - Last 24 Hours: equipment monitor phototypesetting shows normal sinus rhythm with mild first-degree AV block but no ectopy or arrhythmia. Average heart rate in the 70s. Acute abdominal x-rays still pending. Lab Results Last 24 Hours: Laboratory Results - last 24 hr 06/02/20 06/02/20 06/02/20 Range/Units 14:45 14:45 14:45 WBC 9.5 (4.0-10.2) K/uL RBC 3.37 L (3.77-5.09) M/uL Hgb 9.6 L D (11.7-15.5) g/dL Hct 31.1 L (34.0-46.0) % MCV 92.3 (84.0-98.0) fL MCH 28.5 (28.2-33.3) pg MCHC 30.9 L (31.7-36.0) g/dL RDW 18.8 H (11.2-14.1) % Plt Count 118 L (150-350) K/uL Add Manual Diff Yes Neutrophils % (Manual) 33 Band Neutrophils % 1 Lymphocytes % (Manual) 36 Monocytes % (Manual) 30 Absolute Neutrophils 3.2300 Lymphocytes # (Manual) 3.4200 Monocytes # (Manual) 2.8500 Sodium 138 (136-145) mmol/L Potassium 4.2 (3.5-5.1) mmol/L Chloride 107 (98-107) mmol/L Carbon Dioxide 17.5 L (21.0-32.0) mmol/L BUN 45 H (7-18) mg/dL Creatinine 1.96 H (0.51-1.17) mg/dL Est Cr Clr Drug Dosing 17.27 mL/min Estimated GFR (MDRD) 25 mL/min Glucose 124 H (70-99) mg/dL Calcium 8.6 (8.5-10.1) mg/dL Iron 37 L (50-175) ug/dL TIBC 258 (250-450) ug/dL % Saturation 14.98940 Ferritin 75 (8-388) ng/mL Total Bilirubin 0.2 (0.2-1.0) mg/dL AST 29 (15-37) U/L ALT 22 (12-78) U/L Alkaline Phosphatase 100 (46-116) IU/L Total Protein 6.6 (6.4-8.2) g/dL Albumin 2.1 L (3.4-5.0) g/dL Vancomycin Trough 23.5 H (10-20) ug/mL Blood work also ordered for 3 PM on 06/03 and pending at this time. Robert Results Last 24 Hours: Microbiology 05/31/20 12:00 Aerobic Blood Culture - Preliminary Blood - Venous NO GROWTH AFTER 3 DAYS 06/02/20 16:25 Stool Occult Blood (ROBERT) - Final Stool / Feces NEGATIVE OCCULT BLOOD REFERENCE RANGE: NEGATIVE 05/31/20 11:45 Miscellaneous Reference Culture - Preliminary Abscess - Buttock, Unspecified YEAST Iso Consis W/Enterocutan Annamaria Gram Stain - Final 05/31/20 12:55 Aerobic Blood Culture - Preliminary Blood - Venous - Lab Draw NO GROWTH AFTER 2 DAYS 05/31/20 14:40 MRSA (PCR) - Final Nasal, Unspecified 05/31/20 11:30 Urine Culture - Final Urine, Catheterized Yeast Isolated Med Orders - Current: Current Medications Acetaminophen (Acetaminophen 325 Mg Tab) 650 mg PO Q4H PRN PRN Reason: Pain Last Admin: 06/01/20 21:33 Dose: 650 mg Documented by: Hydrocodone Bitart/Acetaminophen (Acetaminophen/Hydrocodone 325-10 Mg Tab) 1 tab PO 08,14,20 RAVI Last Admin: 06/03/20 07:59 Dose: 1 tab Documented by: Hydrocodone Bitart/Acetaminophen (Acetaminophen/Hydrocodone 325-10 Mg Tab) 1 tab PO DAILY PRN PRN Reason: pain Albuterol (Albuterol 6.7 Gm Inhaler) 0 gm INH Q4H PRN PRN Reason: Shortness of Breath Aspirin (Aspirin 81 Mg Tab.Chew) 81 mg PO DAILY [facility] Last Admin: 06/03/20 07:59 Dose: 81 mg Documented by: Atorvastatin Calcium (Atorvastatin 40 Mg Tab) 40 mg PO BEDTIME [facility] Last Admin: 06/02/20 19:55 Dose: 40 mg Documented by: Bisacodyl (Bisacodyl 5 Mg Tab) 5 mg PO Q12HR PRN PRN Reason: Constipation Clopidogrel Bisulfate (Clopidogrel 75 Mg Tab) 75 mg PO DAILY [facility] Last Admin: 06/03/20 07:52 Dose: 75 mg Documented by: Duloxetine HCl (Duloxetine 20 Mg Cap) 20 mg PO DAILY [facility] Last Admin: 06/03/20 07:53 Dose: 20 mg Documented by: Duloxetine HCl (Duloxetine 30 Mg Cap) 30 mg PO DAILY [facility] Last Admin: 06/03/20 07:52 Dose: 30 mg Documented by: Enoxaparin Sodium (Enoxaparin 40 Mg/0.4 Ml Syringe) 40 mg SUBCUT DAILY@1800 [facility] Last Admin: 06/02/20 17:53 Dose: 40 mg Documented by: Ferrous Sulfate (Ferrous Sulfate 325 Mg Tab) 325 mg PO BIDMEALS [facility] Last Admin: 06/03/20 07:52 Dose: 325 mg Documented by: Gabapentin (Gabapentin 100 Mg Cap) 100 mg PO TID [facility] Last Admin: 06/03/20 07:53 Dose: 100 mg Documented by: Potassium Chloride/Dextrose/Sod Cl (D5 Ns With 20 Meq Kcl) 1,000 mls @ 70 mls/hr IV ASDIRECTED [facility] Last Admin: 06/03/20 01:17 Dose: 70 mls/hr Documented by: Metronidazole 500 mg/ Premix 100 mls @ 100 mls/hr IV 0200,1000,1800 [facility] Last Admin: 06/03/20 11:06 Dose: 100 mls/hr Documented by: Lisinopril (Lisinopril 5 Mg Tab) 2.5 mg PO QPM [facility] Last Admin: 06/02/20 17:54 Dose: 2.5 mg Documented by: Loperamide HCl (Loperamide 2 Mg Tab) 2 mg PO Q6H PRN PRN Reason: Diarrhea Loratadine (Loratadine 10 Mg Tab) 10 mg PO DAILY [facility] Last Admin: 06/03/20 07:59 Dose: 10 mg Documented by: Melatonin (Melatonin 3 Mg Tab) 3 mg PO BEDTIME [facility] Last Admin: 06/02/20 19:57 Dose: 3 mg Documented by: Methenamine Hippurate (Methenamine Hippurate 1 Gm Tab) 1 gm PO Q12HR [facility] Last Admin: 06/03/20 07:52 Dose: 1 gm Documented by: Methyl Salicylate (Menthol/Methyl Salicylate 85 Gm Tube) 0 gm TOP QID PRN PRN Reason: pain Last Admin: 06/01/20 21:34 Dose: 1 dose Documented by: Metoprolol Succinate (Metoprolol Succinate 25 Mg Tab.Er) 50 mg PO BID [facility] Last Admin: 06/03/20 07:53 Dose: 50 mg Documented by: Nitroglycerin (Nitroglycerin 0.4 Mg Tab.Sl) 0.4 mg SL ASDIRECTED PRN PRN Reason: Chest Pain Nystatin (Nystatin Topical Powder 15 Gm Bottle) 1 gm TOP TID [facility] Last Admin: 06/03/20 08:00 Dose: 1 applic Documented by: Ondansetron HCl (Ondansetron 4 Mg/2 Ml Sdv) 4 mg IVPUSH Q6H PRN PRN Reason: Nausea/Vomiting Last Admin: 06/02/20 07:38 Dose: 4 mg Documented by: Pantoprazole Sodium (Pantoprazole 40 Mg Vial) 40 mg IVPUSH Q12HR [facility] Last Admin: 06/03/20 08:00 Dose: 40 mg Documented by: Ropinirole HCl (Ropinirole 1 Mg Tab) 1 mg PO BEDTIME [facility] Last Admin: 06/02/20 19:56 Dose: 1 mg Documented by: Saliva Substitute (Saliva Substitute Oral [place] 120 Ml Bottle) 1 ml MUCMEM ASDIRECTED PRN PRN Reason: Dry Mouth Last Admin: 06/01/20 13:52 Dose: 1 applic Documented by: Senna/Docusate Sodium (Docusate Sodium/Sennosides 50-8.6 Mg Tab) 2 tab PO DAILY [facility] Last Admin: 06/03/20 08:00 Dose: Not Given Documented by: Sodium Chloride (Sodium Chloride 0.9% 10 Ml Syringe) 10 ml FLUSH Q12HR [facility] Last Admin: 06/03/20 11:06 Dose: 10 ml Documented by: Temazepam (Temazepam 15 Mg Cap) 15 mg PO BEDTIME PRN PRN Reason: Insomnia Discontinued Medications Gentian Josey (Gentian Josey 59 Ml Bottle) 0 ml MUCMEM DAILY ONE Stop: 06/02/20 14:24 Last Admin: 06/02/20 16:36 Dose: 1 applic Documented by: Vancomycin HCl 1 gm/ Dextrose/ (Water) 250 mls @ 165 mls/hr IV Q24H [facility] Last Admin: 05/31/20 18:16 Dose: Not Given Documented by: Potassium Chloride/Dextrose/Sod Cl (D5 1/2 Ns W/ 20 Meq/L Kcl) 1,000 mls @ 75 mls/hr IV ASDIRECTED [facility] Last Admin: 06/01/20 07:57 Dose: 75 mls/hr Documented by: Vancomycin HCl 1 gm/ Sodium (Chloride) 250 mls @ 165 mls/hr IV Q24H [facility] Last Admin: 06/02/20 15:56 Dose: Not Given Documented by: Metronidazole 500 mg/ Premix 100 mls @ 100 mls/hr IV Q8H [facility] Last Admin: 06/02/20 10:49 Dose: Not Given Documented by: Iopamidol (Iopamidol 612 Mg/Ml 100 Ml Bottle) 100 ml IVPUSH ONETIME ONE Stop: 05/31/20 11:38 Last Admin: 06/01/20 14:07 Dose: Not Given Documented by: Iopamidol (Iopamidol 612 Mg/Ml 100 Ml Bottle) Confirm Administered Dose 100 ml .ROUTE .STK-MED ONE Stop: 05/31/20 11:41 Last Admin: 06/01/20 14:07 Dose: Not Given Documented by: Lisinopril (Lisinopril 5 Mg Tab) 2.5 mg PO DAILY [facility] Last Admin: 06/02/20 07:47 Dose: 2.5 mg Documented by: Lorazepam (Lorazepam 2 Mg/Ml Sdv) 1 mg IVPUSH ONETIME ONE Stop: 05/31/20 23:20 Last Admin: 05/31/20 23:32 Dose: 1 mg Documented by: Lorazepam (Lorazepam 2 Mg/Ml Sdv) Confirm Administered Dose 2 mg .ROUTE .STK-MED ONE Stop: 05/31/20 23:26 Last Admin: 05/31/20 23:32 Dose: Not Given Documented by: Metoprolol Succinate (Metoprolol Succinate 50 Mg Tab.Er) 100 mg PO DAILY [facility] Last Admin: 06/02/20 07:46 Dose: 100 mg Documented by: Pantoprazole Sodium (Pantoprazole 40 Mg Vial) 40 mg IVPUSH Q12H [facility] Last Admin: 05/31/20 17:54 Dose: 40 mg Documented by: Pantoprazole Sodium (Pantoprazole 40 Mg Vial) 40 mg IVPUSH Q12H [facility] - Exam Quality Assessment: Supplemental Oxygen, DVT Prophylaxis (Lovenox). No: Urine Catheter General: Alert, Cooperative, No Acute Distress HEENT: Pupils Equal, Pupils Reactive, EOMI, Mucous Membr. Moist/[place], Other (Mild oral candidiasis) Neck: Trachea Midline, No JVD, No Thyromegaly, Carotid Bruit (Mild bilateral carotid bruits). No: Lymphadenopathy Lungs: Clear to Auscultation, Normal Respiratory Effort. No: Rhonchi, Rub, Wheezing Cardiovascular: Regular Rate, Regular Rhythm, No Murmurs. No: Gallops, Rubs GI/Abdominal Exam: Normal Bowel Sounds, Soft, Non-Tender, No Organomegaly, No Distention, No Abnormal Bruit, No Mass, Other (Obese). No: Guarding (Female) Exam: Deferred Back Exam: Full Range of Motion, Other (Mild kyphoscoliosis). No: CVA Tenderness (L), CVA Tenderness (R), Muscle Spasm, Paraspinal Tenderness, Vertebral Tenderness Extremities: Normal Range of Motion, Non-Tender, Pedal Edema (Trace bilateral pedal/pretibial edema), Other (Ecchymosis on the forearms bilaterally secondary to previous blood draws and IV sites). 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 No: Agitated, Hallucinations, Withdrawal Symptoms - Patient Data Lab Results Last 24 hrs: Laboratory Results - last 24 hr 06/02/20 06/02/20 06/02/20 Range/Units 14:45 14:45 14:45 WBC 9.5 (4.0-10.2) K/uL RBC 3.37 L (3.77-5.09) M/uL Hgb 9.6 L D (11.7-15.5) g/dL Hct 31.1 L (34.0-46.0) % MCV 92.3 (84.0-98.0) fL MCH 28.5 (28.2-33.3) pg MCHC 30.9 L (31.7-36.0) g/dL RDW 18.8 H (11.2-14.1) % Plt Count 118 L (150-350) K/uL Add Manual Diff Yes Neutrophils % (Manual) 33 Band Neutrophils % 1 Lymphocytes % (Manual) 36 Monocytes % (Manual) 30 Absolute Neutrophils 3.2300 Lymphocytes # (Manual) 3.4200 Monocytes # (Manual) 2.8500 Sodium 138 (136-145) mmol/L Potassium 4.2 (3.5-5.1) mmol/L Chloride 107 (98-107) mmol/L Carbon Dioxide 17.5 L (21.0-32.0) mmol/L BUN 45 H (7-18) mg/dL Creatinine 1.96 H (0.51-1.17) mg/dL Est Cr Clr Drug Dosing 17.27 mL/min Estimated GFR (MDRD) 25 mL/min Glucose 124 H (70-99) mg/dL Calcium 8.6 (8.5-10.1) mg/dL Iron 37 L (50-175) ug/dL TIBC 258 (250-450) ug/dL % Saturation 14.90222 Ferritin 75 (8-388) ng/mL Total Bilirubin 0.2 (0.2-1.0) mg/dL AST 29 (15-37) U/L ALT 22 (12-78) U/L Alkaline Phosphatase 100 (46-116) IU/L Total Protein 6.6 (6.4-8.2) g/dL Albumin 2.1 L (3.4-5.0) g/dL Vancomycin Trough 23.5 H (10-20) ug/mL Result Diagrams: 06/02/20 14:45 06/02/20 14:45 Robert Results Last 24 hrs: Microbiology 05/31/20 12:00 Aerobic Blood Culture - Preliminary Blood - Venous NO GROWTH AFTER 3 DAYS 06/02/20 16:25 Stool Occult Blood (ROBERT) - Final Stool / Feces NEGATIVE OCCULT BLOOD REFERENCE RANGE: NEGATIVE 05/31/20 11:45 Miscellaneous Reference Culture - Preliminary Abscess - Buttock, Unspecified YEAST Iso Consis W/Enterocutan Annamaria Gram Stain - Final 05/31/20 12:55 Aerobic Blood Culture - Preliminary Blood - Venous - Lab Draw NO GROWTH AFTER 2 DAYS 05/31/20 14:40 MRSA (PCR) - Final Nasal, Unspecified 05/31/20 11:30 Urine Culture - Final Urine, Catheterized Yeast Isolated Sepsis Event Note - Evaluation Sepsis Screening Result: No Definite Risk - Focused Exam Vital Signs: Vital Signs Temp Pulse Pulse Resp BP BP Pulse Ox 06/03/20 07:53 79 158/78 H 06/03/20 06:00 36.4 C 81 14 178/86 H 97 - Problem List & Annotations (1) Confusion SNOMED Code(s): 243787787 Code(s): R41.0 - DISORIENTATION, UNSPECIFIED Status: Acute Priority: High Current Visit: Yes Onset Date: ~05/25/20 Annotation/Comment:: Patient is likely back at her normal baseline with 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 The patient and her daughter are comfortable staying in this facility with MRI of the brain to be conducted on 06/04. Telephone consultation at 1:50 PM on 05/31 and subsequently at 2:[address] Jerez, hospitalist at [facility] in [place], with no beds available in that facility. No beds available on 06/01 with various therapeutic options discussed with the patient and her daughter, who now agreed to stay in this facility for further work-up as above. Her confusion continued to slowly throughout his hospitalization and may be returning back to normal baseline as above? Note recurrent COVID-19 infection as below with no further treatment, including IV steroids, etc. per recommendation from the hospitalist as above. The patient was changed from observation status to acute care in this facility on 06/02. Previous telephone consultation on 05/31 with the patient's daughter, who is requesting that the patient stay in this facility until the initially planned transfer could be arranged. Contact tracing, etc. were discussed with the patient's daughter and nurses that [facility] in [place] concerning patient's breakthrough repeat COVID-19 infection. Note progressive confusion of unknown etiology with possible organic brain syndrome, sequelae from current UTI/Covid infection, etc. 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 Note CT scan of the head on 05/30/2020 in this facility did not show any significant change from previous evaluation on 05/10/2020. Questionable previous absence' episodes per family history prior to admission with no direct seizure activity noted in the emergency room or during this hospitalization . Otherwise neurological status is relatively stable. IgG antibody COVID-19 test has been received and is negative with this evaluation performed from ER's blood work as per recommendations from Dr. Jerez as above. (2) COVID-19 SNOMED Code(s): 980021302 Code(s): U07.1 - COVID-19 Status: Acute Priority: High Current Visit: Yes Onset Date: 05/31/20 Annotation/Comment:: As above. Note repeat COVID- 19 infection, which could be a partial explanation for patient's recent confusion as above. Patient did receive her initial Moderna immunization on 02/08/2020 with subsequent positive COVID-19 infection a couple of days thereafter. She also received her second Moderna immunization on 03/07/2020 with subsequent multiple negative COVID-19 rapid test both in this facility and at [facility] in [place]. No further treatment for her COVID-19 current infection at this time. No respiratory symptoms, distress, etc. with close observation of her neurological status, including neurological checks with vitals, which has been stable during this hospitalization. Note urticaria on the lower extremities likely secondary to her COVID-19 infection rather than her recent antibiotics with almost complete resolution at this time. (3) UTI (urinary tract infection) SNOMED Code(s): 16743884 Code(s): N39.0 - URINARY TRACT INFECTION, SITE NOT SPECIFIED Status: Acute Priority: Medium Current Visit: Yes Onset Date: 05/10/20 Qualifiers: Urinary tract infection type: acute cystitis Hematuria presence: with hematuria Qualified Code(s): N30.01 - Acute cystitis with hematuria Annotation/Comment:: Urine culture now shows yeast with no other significant bacterial infection. Note recent completion of IV Cefepime on 05/30 with cath UA showing probable persistent infection. Urine specimen set up for culture and sensitivity with previous IV antibiotic regimen per instructions from infectious disease at [facility], including continuation during recent swing bed care as above. Significant previous history of urosepsis with secondary respiratory failure and right renal abscess. In spite of mild progressive leukocytosis prior to admission, no direct clinical evidence of sepsis with normal lactic acid level at this time. IV vancomycin was initiated and dosed by pharmacy with additional history of previous proctocolitis as above, although no diarrhea or evidence of C. difficile infection prior to placement in observation status. IV vancomycin dose was held on 06/02 secondary to elevated trough level. Diarrhea did begin once again on 06/01 with C. difficile stool antigen evaluation ordered and still pending. No diarrhea on 06/03. Note previous oral vancomycin therapy during recent swing bed care with this likely to be continued at time of discharge. Blood cultures x2 were collected and are negative during this hospitalization. (4) Proctocolitis SNOMED Code(s): 853812031 Code(s): K52.9 - NONINFECTIVE GASTROENTERITIS AND COLITIS, UNSPECIFIED Status: Acute Priority: Medium Current Visit: Yes Onset Date: 05/23/20 Annotation/Comment:: As above. Note evidence of possible proctocolitis by CT scan of the abdomen and pelvis on 03/25/2020. Previous history of mild loose stools prior to admission after aggressive previous treatment for her urosepsis both at [facility] and at the [facility] in [place]. Consider repeat CT scan of the abdomen and pelvis on an outpatient basis after completion of her antibiotics, including oral vancomycin as above, with further surgical referral for possible colonoscopy, etc. depending on her clinical course. 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 Secondary to possibility of aspiration and previous proctoscopy colitis IV Flagyl therapy was initiated on 06/02. (6) Coronary artery disease SNOMED Code(s): 28344011 Code(s): I25.10 - ATHSCL HEART DISEASE OF [place] CORONARY ARTERY W/O ANG PCTRS Status: Chronic Priority: Medium Current Visit: Yes Qualifiers: Coronary Disease-Associated Artery/Lesion type: [place] artery [place] vs. transplanted heart: [place] heart Associated angina: without angina Qualified Code(s): I25.10 - Atherosclerotic heart disease of [place] coronary artery without angina pectoris Annotation/Comment:: No chest pain or anginal type symptoms. History of diastolic dysfunction and previous PTCA/stent. (7) Mixed anxiety depressive disorder SNOMED Code(s): 374890207 Code(s): F41.8 - OTHER SPECIFIED ANXIETY DISORDERS Status: Chronic Priority: Medium Current Visit: Yes Annotation/Comment:: Stable by history. Note previous chronic narcotic use secondary to chronic pain syndrome. (8) Hypertension SNOMED Code(s): 05980152 Code(s): I10 - ESSENTIAL (PRIMARY) HYPERTENSION Status: Chronic Priority: Medium Current Visit: Yes Qualifiers: Hypertension type: essential hypertension Qualified Code(s): I10 - [place] tial (primary) hypertension Annotation/Comment:: Blood pressures continue to be somewhat elevated, although some medication noncompliance secondary to difficulty swallowing, mild anorexia, etc. during her observation status. Her lisinopril was changed to an every afternoon regimen with Toprol-XL split to a twice daily regimen on 06/02 secondary to persistent mild sinus tachycardia, which has since resolved. Her lisinopril will be increased to twice daily regimen, however. Blood pressures were somewhat elevated initially in the emergency room, however improved prior to patient transfer with additional occasional borderline hypotension during her observation status. Continue to observe closely. (9) Decubitus ulcer SNOMED Code(s): 417099284 Code(s): L89.90 - PRESSURE ULCER OF UNSPECIFIED SITE, UNSPECIFIED STAGE Status: Chronic Priority: High Current Visit: Yes Qualifiers: Pressure injury location: buttock Pressure injury stage: stage 2 Laterality: unspecified laterality Qualified Code(s): L89.302 - Pressure ulcer of unspecified buttock, stage 2 Annotation/Comment:: Slowly healing and improved grade 2 decubitus ulcer in the coccyx region from previous hospitalization at [facility] in [place] as above with no direct evidence of infection, although specimen collected for Gram stain with final culture, and sensitivity showing mostly yeast. (10) Renal insufficiency SNOMED Code(s): 821473160, 111347233 Code(s): N28.9 - DISORDER OF KIDNEY AND URETER, UNSPECIFIED Status: Acute Priority: Medium Current Visit: Yes Onset Date: 05/10/20 Annotation/Comment:: Mild progression of her renal insufficiency with close observation secondary to IV vancomycin therapy and increased lisinopril therapy as above. (11) Hyperuricemia SNOMED Code(s): 51159105 Code(s): E79.0 - HYPERURICEMIA W/O SIGNS OF INFLAM ARTHRIT AND TOPHACEOUS DIS Status: Chronic Priority: Medium Current Visit: Yes Onset Date: 05/31/20 Annotation/Comment:: Newly diagnosed. No gout type symptoms. Observe for now. (12) Oral candidiasis SNOMED Code(s): 09976277 Code(s): B37.0 - CANDIDAL STOMATITIS Status: Acute Priority: Medium Current Visit: Yes Onset Date: 06/02/20 Annotation/Comment:: Oral gentian josey initiated on 06/02. - Problem List Review Problem List Initiated/Reviewed/Updated: Yes - My Orders Last 24 Hours: My Active Orders 06/02/20 Lunch Fluid Restriction [DIET] 06/02/20 17:30 Ferrous Sulfate 325 mg PO BIDMEALS 06/02/20 18:00 lisinopriL [Prinivil] 2.5 mg PO QPM 06/02/20 20:00 Communication Order [RC] DAILY 06/03/20 05:11 Abdomen Series w Chest 1V [CR] Routine 06/03/20 08:00 Metoprolol Succinate [Toprol XL] 50 mg PO BID 06/03/20 15:00 BASIC METABOLIC PANEL,BMP [CHEM] Routine CBC WITH AUTO DIFF [HEME] Routine VANCOMYCIN TROUGH [CHEM] Routine 06/04/20 05:11 Brain w wo Cont [MR] Urgent - Assessment Assessment:: As above - Plan Plan:: Plan: As above. Extensive precautions were given to the patient and her family, who are in agreement with the treatment plan. Anticipate extended hospital stay secondary to lack of bed availability at [facility] in [place] as abov e, multiple health problems as above, etc.
[2020-06-03] MEDS: Lisinopril 5 MG Tab PO SCH ×2 (13:18→17:29)
[2020-06-03] MEDS ORDERED: Fluconazole 100 MG Tab PO ONE (15:41)
[2020-06-03] MEDS ORDERED: Dextrose 5%-0.45% NaCl 1,000 ML IV SCH (15:45)
[2020-06-03] MEDS: Enoxaparin 40 MG/0.4 ML Syringe SUBCUT SCH (17:27)
[2020-06-03] MEDS: Melatonin 3 MG Tab PO SCH (19:14)
[2020-06-03] MEDS: atorvaSTATin 40 MG Tab PO SCH (19:14)
[2020-06-03] MEDS: rOPINIRole 1 MG Tab PO SCH (19:14)
[2020-06-04] MEDS: metroNIDAZOLE/Normal Saline 500 MG in Premix Bag 1 BAG IV SCH ×3 (01:13→18:18)
[2020-06-04] MEDS: Pantoprazole 40 MG Vial IVPUSH SCH ×2 (08:02→20:24)
[2020-06-04] MEDS: DULoxetine 30 MG Cap PO SCH (08:03)
[2020-06-04] MEDS: Loratadine 10 MG Tab PO SCH (08:03)
[2020-06-04] MEDS: Lisinopril 5 MG Tab PO SCH ×2 (08:05→18:18)
[2020-06-04] MEDS: Ferrous Sulfate 325 MG Tab PO SCH ×2 (08:06→18:19)
[2020-06-04] MEDS: Metoprolol Succinate 25 MG Tab.ER PO SCH ×2 (08:06→18:20)
[2020-06-04] MEDS: Gabapentin 100 MG Cap PO SCH ×3 (08:06→18:20)
[2020-06-04] MEDS: Clopidogrel 75 MG Tab PO SCH (08:07)
[2020-06-04] MEDS: Aspirin 81 MG Tab.Chew PO SCH (08:07)
[2020-06-04] MEDS: Acetaminophen/HYDROcodone 325-10 MG Tab PO SCH ×3 (08:07→20:23)
[2020-06-04] MEDS: DULoxetine 20 MG Cap PO SCH (08:07)
[2020-06-04] MEDS: Sodium Chloride 0.9% 10 ML Syringe FLUSH SCH ×3 (08:09→20:15)
[2020-06-04] MEDS: Nystatin Topical Powder 15 GM Bottle TOP SCH ×3 (08:09→18:18)
[2020-06-04] MEDS ORDERED: Sodium Chloride 0.9% 10 ML Syringe FLUSH PRN (10:27)
--- NOTE | 2020-06-04 14:59 | PCM.PN ---
- General Info Date of Service: 06/04/20 Admission Dx/Problem (Free Text): 1. Confusion 2. COVID-19 3. UTI 4. Proctocolitis Functional Status: Reports: Pain Controlled, Tolerating Diet, Ambulating (With assist), Urinating. Denies: New Symptoms, Incentive Spirometry Pain Score: 4 (Chronic bilateral low leg pain) - Review of Systems General: Reports: Weakness (Slowly improving). Denies: Fever, Fatigue, Malaise, Chills, Night Sweats, Appetite (Adequate) HEENT: Denies: Dysphasia, Ear Pain, Headaches, Post Nasal Drip, Sinus Congestion, Rhinitis, Visual Changes Pulmonary: Reports: No Symptoms. Denies: Shortness of Breath, Pleuritic Chest Pain, Cough, Sputum, Hemoptysis, Wheezing Cardiovascular: Reports: No Symptoms. Denies: Chest Pain, Palpitations, Dyspnea on Exertion, Orthopnea, PND, Edema, Lightheadedness Gastrointestinal: Reports: Difficulty Swallowing (Some problems with swallowing pills). Denies: Abdominal Pain, Constipation, Decreased Appetite, Diarrhea (One loose stool yesterday morning with no bowel movement today and resolution of previous diarrhea), Flatus, Hematochezia, Melena, Nausea, Vomiting Genitourinary: Reports: No Symptoms. Denies: Dysuria, Frequency, Burning, Urgen cy, Incontinence, Hematuria, Retention, Flank Pain Musculoskeletal: Reports: No Symptoms. Denies: Neck Pain, Shoulder Pain, Arm Pain, Back Pain, Leg Pain Skin: Reports: Bruising (Improving in the forearms bilaterally secondary to previous IVs and blood draw), Rash (Almost completely resolved on the legs). Denies: Diaphoresis Neurological: Reports: Confusion (Stable back to normal baseline), Difficulty Walking, Weakness (Stable). Denies: Headache, Numbness, Paresthesia, Tingling Psychiatric: Reports: Confusion (As above). Denies: Depression, Anxiety, Agitation, Cravings - Patient Data Vitals - Most Recent: Last Vital Signs Temp 35.6 C L 06/04/20 14:33 Pulse 72 06/04/20 14:33 Resp 18 06/04/20 14:33 BP 157/59 H 06/04/20 14:33 Pulse Ox 96 06/04/20 14:33 Laboratory Results - last 24 hr 06/03/20 06/03/20 Range/Units 14:35 14:35 WBC 8.3 (4.0-10.2) K/uL RBC 3.55 L (3.77-5.09) M/uL Hgb 10.0 L (11.7-15.5) g/dL Hct 33.5 L (34.0-46.0) % MCV 94.4 (84.0-98.0) fL MCH 28.2 (28.2-33.3) pg MCHC 29.9 L (31.7-36.0) g/dL RDW 19.0 H (11.2-14.1) % Plt Count 105 L (150-350) K/uL Add Manual Diff Yes Neutrophils % (Manual) 37 Band Neutrophils % 2 Lymphocytes % (Manual) 29 Monocytes % (Manual) 29 Eosinophils % (Manual) 2 Basophils % (Manual) 1 Absolute Neutrophils 3.2370 Lymphocytes # (Manual) 2.4070 Monocytes # (Manual) 2.4070 Eosinophils # (Manual) 0.1660 Basophils # (Manual) 0.0830 Sodium 139 (136-145) mmol/L Potassium 4.5 (3.5-5.1) mmol/L Chloride 109 H (98-107) mmol/L Carbon Dioxide 18.5 L (21.0-32.0) mmol/L BUN 44 H (7-18) mg/dL Creatinine 2.09 H (0.51-1.17) mg/dL Est Cr Clr Drug Dosing 16.19 mL/min Estimated GFR (MDRD) 23 mL/min Glucose 125 H (70-99) mg/dL Calcium 8.3 L (8.5-10.1) mg/dL Vancomycin Trough 17.3 (10-20) ug/mL Weight - Most Recent: 79.5 kg I&O - Last 24 Hours: Intake & Output 06/03/20 06/04/20 06/04/20 22:59 06:59 14:59 Intake Total 300 518 400 Balance 300 518 400 Imaging Impressions - Last 24 Hours: environmental monitoring technician shows normal sinus rhythm in the 60s70s with no ectopy or arrhythmia Lab Results Last 24 Hours: Laboratory Results - last 24 hr 06/03/20 06/03/20 Range/Units 14:35 14:35 WBC 8.3 (4.0-10.2) K/uL RBC 3.55 L (3.77-5.09) M/uL Hgb 10.0 L (11.7-15.5) g/dL Hct 33.5 L (34.0-46.0) % MCV 94.4 (84.0-98.0) fL MCH 28.2 (28.2-33.3) pg MCHC 29.9 L (31.7-36.0) g/dL RDW 19.0 H (11.2-14.1) % Plt Count 105 L (150-350) K/uL Add Manual Diff Yes Neutrophils % (Manual) 37 Band Neutrophils % 2 Lymphocytes % (Manual) 29 Monocytes % (Manual) 29 Eosinophils % (Manual) 2 Basophils % (Manual) 1 Absolute Neutrophils 3.2370 Lymphocytes # (Manual) 2.4070 Monocytes # (Manual) 2.4070 Eosinophils # (Manual) 0.1660 Basophils # (Manual) 0.0830 Sodium 139 (136-145) mmol/L Potassium 4.5 (3.5-5.1) mmol/L Chloride 109 H (98-107) mmol/L Carbon Dioxide 18.5 L (21.0-32.0) mmol/L BUN 44 H (7-18) mg/dL Creatinine 2.09 H (0.51-1.17) mg/dL Est Cr Clr Drug Dosing 16.19 mL/min Estimated GFR (MDRD) 23 mL/min Glucose 125 H (70-99) mg/dL Calcium 8.3 L (8.5-10.1) mg/dL Vancomycin Trough 17.3 (10-20) ug/mL Robert Results Last 24 Hours: Microbiology 05/31/20 12:55 Aerobic Blood Culture - Preliminary Blood - Venous - Lab Draw NO GROWTH AFTER 4 DAYS 05/31/20 12:00 Aerobic Blood Culture - Preliminary Blood - Venous NO GROWTH AFTER 4 DAYS 05/31/20 11:45 Miscellaneous Reference Culture - Preliminary Abscess - Buttock, Unspecified YEAST Iso Consis W/Enterocutan Annamaria Gram Stain - Final Med Orders - Current: Current Medications Acetaminophen (Acetaminophen 325 Mg Tab) 650 mg PO Q4H PRN PRN Reason: Pain Last Admin: 06/01/20 21:33 Dose: 650 mg Documented by: Hydrocodone Bitart/Acetaminophen (Acetaminophen/Hydrocodone 325-10 Mg Tab) 1 tab PO 08,14,20 [facility] Last Admin: 06/04/20 14:29 Dose: 1 tab Documented by: Hydrocodone Bitart/Acetaminophen (Acetaminophen/Hydrocodone 325-10 Mg Tab) 1 tab PO DAILY PRN PRN Reason: pain Albuterol (Albuterol 6.7 Gm Inhaler) 0 gm INH Q4H PRN PRN Reason: Shortness of Breath Aspirin (Aspirin 81 Mg Tab.Chew) 81 mg PO DAILY [facility] Last Admin: 06/04/20 08:07 Dose: 81 mg Documented by: Atorvastatin Calcium (Atorvastatin 40 Mg Tab) 40 mg PO BEDTIME [facility] Last Admin: 06/03/20 19:14 Dose: 40 mg Documented by: Bisacodyl (Bisacodyl 5 Mg Tab) 5 mg PO Q12HR PRN PRN Reason: Constipation Clopidogrel Bisulfate (Clopidogrel 75 Mg Tab) 75 mg PO DAILY [facility] Last Admin: 06/04/20 08:07 Dose: 75 mg Documented by: Duloxetine HCl (Duloxetine 20 Mg Cap) 20 mg PO DAILY [facility] Last Admin: 06/04/20 08:07 Dose: 20 mg Documented by: Duloxetine HCl (Duloxetine 30 Mg Cap) 30 mg PO DAILY [facility] Last Admin: 06/04/20 08:03 Dose: 30 mg Documented by: Enoxaparin Sodium (Enoxaparin 40 Mg/0.4 Ml Syringe) 40 mg SUBCUT DAILY@1800 [facility] Last Admin: 06/03/20 17:27 Dose: 40 mg Documented by: Ferrous Sulfate (Ferrous Sulfate 325 Mg Tab) 325 mg PO BIDMEALS [facility] Last Admin: 06/04/20 08:06 Dose: 325 mg Documented by: Gabapentin (Gabapentin 100 Mg Cap) 100 mg PO TID [facility] Last Admin: 06/04/20 11:09 Dose: 100 mg Documented by: Metronidazole 500 mg/ Premix 100 mls @ 100 mls/hr IV 0200,1000,1800 [facility] Last Admin: 06/04/20 10:26 Dose: 100 mls/hr Documented by: Dextrose/Sodium Chloride (Dextrose 5%-1/2 Ns) 1,000 mls @ 75 mls/hr IV ASDIRECT ED [facility] Last Admin: 06/03/20 20:10 Dose: 75 mls/hr Documented by: Lisinopril (Lisinopril 5 Mg Tab) 2.5 mg PO BID [facility] Last Admin: 06/04/20 08:05 Dose: 2.5 mg Documented by: Loperamide HCl (Loperamide 2 Mg Tab) 2 mg PO Q6H PRN PRN Reason: Diarrhea Loratadine (Loratadine 10 Mg Tab) 10 mg PO DAILY [facility] Last Admin: 06/04/20 08:03 Dose: 10 mg Documented by: Melatonin (Melatonin 3 Mg Tab) 3 mg PO BEDTIME [facility] Last Admin: 06/03/20 19:14 Dose: 3 mg Documented by: Methenamine Hippurate (Methenamine Hippurate 1 Gm Tab) 1 gm PO Q12HR [facility] Last Admin: 06/04/20 08:02 Dose: 1 gm Documented by: Methyl Salicylate (Menthol/Methyl Salicylate 85 Gm Tube) 0 gm TOP QID PRN PRN Reason: pain Last Admin: 06/01/20 21:34 Dose: 1 dose Documented by: Metoprolol Succinate (Metoprolol Succinate 25 Mg Tab.Er) 50 mg PO BID [facility] Last Admin: 06/04/20 08:06 Dose: 50 mg Documented by: Nitroglycerin (Nitroglycerin 0.4 Mg Tab.Sl) 0.4 mg SL ASDIRECTED PRN PRN Reason: Chest Pain Nystatin (Nystatin Topical Powder 15 Gm Bottle) 1 gm TOP TID [facility] Last Admin: 06/04/20 11:09 Dose: 1 applic Documented by: Ondansetron HCl (Ondansetron 4 Mg/2 Ml Sdv) 4 mg IVPUSH Q6H PRN PRN Reason: Nausea/Vomiting Last Admin: 06/02/20 07:38 Dose: 4 mg Documented by: Pantoprazole Sodium (Pantoprazole 40 Mg Vial) 40 mg IVPUSH Q12HR [facility] Last Admin: 06/04/20 08:02 Dose: 40 mg Documented by: Ropinirole HCl (Ropinirole 1 Mg Tab) 1 mg PO BEDTIME [facility] Last Admin: 06/03/20 19:14 Dose: 1 mg Documented by: Saliva Substitute (Saliva Substitute Oral [place] 120 Ml Bottle) 1 ml MUCMEM ASDIRECTED PRN PRN Reason: Dry Mouth Last Admin: 06/01/20 13:52 Dose: 1 applic Documented by: Senna/Docusate Sodium (Docusate Sodium/Sennosides 50-8.6 Mg Tab) 2 tab PO DAILY [facility] Last Admin: 06/04/20 08:09 Dose: Not Given Documented by: Sodium Chloride (Sodium Chloride 0.9% 10 Ml Syringe) 10 ml FLUSH Q12HR [facility] Last Admin: 06/04/20 10:26 Dose: 10 ml Documented by: Sodium Chloride (Sodium Chloride 0.9% 10 Ml Syringe) 10 ml FLUSH ASDIRECTED PRN PRN Reason: Keep Vein Open Temazepam (Temazepam 15 Mg Cap) 15 mg PO BEDTIME PRN PRN Reason: Insomnia Discontinued Medications Fluconazole (Fluconazole 100 Mg Tab) 100 mg PO ONETIME ONE Stop: 06/03/20 15:42 Last Admin: 06/03/20 16:38 Dose: 100 mg Documented by: Gentian Josey (Gentian Josey 59 Ml Bottle) 0 ml MUCMEM DAILY ONE Stop: 06/02/20 14:24 Last Admin: 06/02/20 16:36 Dose: 1 applic Documented by: Vancomycin HCl 1 gm/ Dextrose/ (Water) 250 mls @ 165 mls/hr IV Q24H [facility] Last Admin: 05/31/20 18:16 Dose: Not Given Documented by: Potassium Chloride/Dextrose/Sod Cl (D5 1/2 Ns W/ 20 Meq/L Kcl) 1,000 mls @ 75 mls/hr IV ASDIRECTED [facility] Last Admin: 06/01/20 07:57 Dose: 75 mls/hr Documented by: Vancomycin HCl 1 gm/ Sodium (Chloride) 250 mls @ 165 mls/hr IV Q24H [facility] Last Admin: 06/02/20 15:56 Dose: Not Given Documented by: Potassium Chloride/Dextrose/Sod Cl (D5 Ns With 20 Meq Kcl) 1,000 mls @ 70 mls/hr IV ASDIRECTED [facility] Last Admin: 06/03/20 01:17 Dose: 70 mls/hr Documented by: Metronidazole 500 mg/ Premix 100 mls @ 100 mls/hr IV Q8H [facility] Last Admin: 06/02/20 10:49 Dose: Not Given Documented by: Vancomycin HCl 750 mg/ Sodium (Chloride) 250 mls @ 250 mls/hr IV ONETIME ONE Stop: 06/03/20 16:35 Last Admin: 06/03/20 16:37 Dose: 250 mls/hr Documented by: Iopamidol (Iopamidol 612 Mg/Ml 100 Ml Bottle) 100 ml IVPUSH ONETIME ONE Stop: 05/31/20 11:38 Last Admin: 06/01/20 14:07 Dose: Not Given Documented by: Iopamidol (Iopamidol 612 Mg/Ml 100 Ml Bottle) Confirm Administered Dose 100 ml .ROUTE .STK-MED ONE Stop: 05/31/20 11:41 Last Admin: 06/01/20 14:07 Dose: Not Given Documented by: Lisinopril (Lisinopril 5 Mg Tab) 2.5 mg PO DAILY [facility] Last Admin: 06/02/20 07:47 Dose: 2.5 mg Documented by: Lisinopril (Lisinopril 5 Mg Tab) 2.5 mg PO QPM [facility] Last Admin: 06/02/20 17:54 Dose: 2.5 mg Documented by: Lorazepam (Lorazepam 2 Mg/Ml Sdv) 1 mg IVPUSH ONETIME ONE Stop: 05/31/20 23:20 Last Admin: 05/31/20 23:32 Dose: 1 mg Documented by: Lorazepam (Lorazepam 2 Mg/Ml Sdv) Confirm Administered Dose 2 mg .ROUTE .STK-MED ONE Stop: 05/31/20 23:26 Last Admin: 05/31/20 23:32 Dose: Not Given Documented by: Metoprolol Succinate (Metoprolol Succinate 50 Mg Tab.Er) 100 mg PO DAILY [facility] Last Admin: 06/02/20 07:46 Dose: 100 mg Documented by: Pantoprazole Sodium (Pantoprazole 40 Mg Vial) 40 mg IVPUSH Q12H [facility] Last Admin: 05/31/20 17:54 Dose: 40 mg Documented by: Pantoprazole Sodium (Pantoprazole 40 Mg Vial) 40 mg IVPUSH Q12H [facility] - Exam Quality Assessment: DVT Prophylaxis. No: Supplemental Oxygen, Central Line/PICC, Urine Catheter, Skin Breakdown General: Alert, Cooperative, No Acute Distress. No: Oriented (Baseline confusion/organic brain syndrome) HEENT: Pupils Equal, Pupils Reactive, EOMI, Mucous Membr. Moist/[place]. No: Scleral Icterus Neck: Supple, Trachea Midline, No JVD, No Thyromegaly, Carotid Bruit (Stable mild bilateral carotid bruits). No: Lymphadenopathy Lungs: Clear to Auscultation, Normal Respiratory Effort. No: Rub Cardiovascular: Regular Rate, Regular Rhythm, No Murmurs. No: Gallops GI/Abdominal Exam: Normal Bowel Sounds, Soft, Non-Tender, No Organomegaly, No Distention, No Abnormal Bruit, No Mass, Other (Obese). No: Guarding (Female) Exam: Deferred Back Exam: Other (Stable kyphoscoliosis). No: CVA Tenderness (L), CVA Tenderness (R), Muscle Spasm, Paraspinal Tenderness, Vertebral Tenderness Extremities: Normal Inspection, Normal Range of Motion, Non-Tender, No Pedal Edema, Normal Capillary Refill. No: Pedal Edema, Brandon's Sign Peripheral Pulses: 2+: Radial (L), Radial (R), Dorsalis Pedis (L), Dorsalis Pedis (R) Skin: Rash (Almost complete resolution of urticarial rash in the lower extremities), Ecchymosis (Stable mild to moderate over the forearms bilaterally with no petechiae) Wound/Incisions: Healing Well, Dressing Dry and Intact (Decubitus ulcer in the coccyx region) Neurological: No New Focal Deficit Psy/Mental Status: Alert, Normal Affect, Normal Mood. No: Agitated, Hallucinations, Withdrawal Symptoms - Patient Data Lab Results Last 24 hrs: Laboratory Results - last 24 hr 06/03/20 06/03/20 Range/Units 14:35 14:35 WBC 8.3 (4.0-10.2) K/uL RBC 3.55 L (3.77-5.09) M/uL Hgb 10.0 L (11.7-15.5) g/dL Hct 33.5 L (34.0-46.0) % MCV 94.4 (84.0-98.0) fL MCH 28.2 (28.2-33.3) pg MCHC 29.9 L (31.7-36.0) g/dL RDW 19.0 H (11.2-14.1) % Plt Count 105 L (150-350) K/uL Add Manual Diff Yes Neutrophils % (Manual) 37 Band Neutrophils % 2 Lymphocytes % (Manual) 29 Monocytes % (Manual) 29 Eosinophils % (Manual) 2 Basophils % (Manual) 1 Absolute Neutrophils 3.2370 Lymphocytes # (Manual) 2.4070 Monocytes # (Manual) 2.4070 Eosinophils # (Manual) 0.1660 Basophils # (Manual) 0.0830 Sodium 139 (136-145) mmol/L Potassium 4.5 (3.5-5.1) mmol/L Chloride 109 H (98-107) mmol/L Carbon Dioxide 18.5 L (21.0-32.0) mmol/L BUN 44 H (7-18) mg/dL Creatinine 2.09 H (0.51-1.17) mg/dL Est Cr Clr Drug Dosing 16.19 mL/min Estimated GFR (MDRD) 23 mL/min Glucose 125 H (70-99) mg/dL Calcium 8.3 L (8.5-10.1) mg/dL Vancomycin Trough 17.3 (10-20) ug/mL Result Diagrams: 06/03/20 14:35 06/03/20 14:35 Robert Results Last 24 hrs: Microbiology 05/31/20 12:55 Aerobic Blood Culture - Preliminary Blood - Venous - Lab Draw NO GROWTH AFTER 4 DAYS 05/31/20 12:00 Aerobic Blood Culture - Preliminary Blood - Venous NO GROWTH AFTER 4 DAYS 05/31/20 11:45 Miscellaneous Reference Culture - Preliminary Abscess - Buttock, Unspecified YEAST Iso Consis W/Enterocutan Annamaria Gram Stain - Final Sepsis Event Note - Evaluation Sepsis Screening Result: No Definite Risk - Focused Exam Vital Signs: Vital Signs Temp Temp Pulse Pulse Resp BP BP 06/04/20 14:33 35.6 C L 72 18 157/59 H 06/04/20 08:10 36.5 C 78 18 06/04/20 08:06 78 155/55 H 06/04/20 08:05 155/55 H 06/04/20 05:49 36.4 C 72 14 BP Pulse Ox 06/04/20 14:33 96 06/04/20 08:10 155/55 H 97 06/04/20 08:06 06/04/20 08:05 06/04/20 05:49 155/68 H 100 - Problem List & Annotations (1) Confusion SNOMED Code(s): 632689414 Code(s): R41.0 - DISORIENTATION, UNSPECIFIED Status: Acute Priority: High Current Visit: Yes Onset Date: ~05/25/20 Annotation/Comment:: Patient is likely back at her normal baseline with 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 The patient and her daughter are comfortable staying in this facility with MRI of the brain initially requested by the patient's daughter with evaluation initially scheduled for 06/04/2020 canceled secondary to her electrical stimulator, which would require at least 1 week of manufacture approval and special equipment. MRI of the brain likely not indicated at this time secondary to patient's reaching her normal baseline. Telephone consultation at 1:50 PM on 05/31 and subsequently at 2:[address] Jerez, hospitalist at [facility] in [place], with no beds available in that facility. No beds available on 06/01 with various therapeutic options discussed with the patient and her daughter, who now agreed to stay in this facility for further work-up as above. Her confusion continued to slowly improve throughout his hospitalization. Note recurrent COVID-19 infection as below with no further treatment, including IV steroids, etc. per recommendation from the hospitalist as above. The patient was changed from observation status to acute care in this facility on 06/02. Previous telephone consultation on 05/31 with the patient's daughter, who is requesting that the patient stay in this facility until the initially planned transfer could be arranged. Contact tracing, etc. were discussed with the patient's daughter and nurses that [facility] in [place] concerning patient's breakthrough repeat COVID-19 infection. Note progressive confusion of unknown etiology however likely secondary to recurrent infections, which has been her tendency in the past. Cofactors include possible organic b rain syndrome, sequelae from current UTI/Covid infection, etc. 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 Note CT scan of the head on 05/30/2020 in this facility did not show any significant change from previous evaluation on 05/10/2020. Questionable previous absence' episodes per family history prior to admission with no direct seizure activity noted in the emergency room or during this hospitalization. Otherwise neurological status is relatively stable. IgG antibody COVID-19 test has been received and is negative with this evaluation performed from ER's blood work as per recommendations from Dr. Jerez as above. (2) COVID-19 SNOMED Code(s): 171670705 Code(s): U07.1 - COVID-19 Status: Acute Priority: High Current Visit: Yes Onset Date: 05/31/20 Annotation/Comment:: As above. Note repeat COVID- 19 infection, which could be a partial explanation for patient's recent confusion as above. Patient did receive her initial Moderna immunization on 02/08/2020 with subsequent positive COVID-19 infection a couple of days thereafter. She also received her second Moderna immunization on 03/07/2020 with subsequent multiple negative COVID-19 rapid test both in this facility and at [facility]. No further treatment for her COVID-19 current infection at this time. No respiratory symptoms, distress, etc. with close observation of her neurological status, including neurological checks with vitals, which has been stable during this hospitalization. Note urticaria on the lower extremities likely secondary to her COVID-19 infection rather than her recent antibiotics with almost complete resolution at this time. (3) UTI (urinary tract infection) SNOMED Code(s): 31870635 Code(s): N39.0 - URINARY TRACT INFECTION, SITE NOT SPECIFIED Status: Acute Priority: Medium Current Visit: Yes Onset Date: 05/10/20 Qualifiers: Urinary tract infection type: acute cystitis Hematuria presence: with hematuria Qualified Code(s): N30.01 - Acute cystitis with hematuria Annotation/Comment:: Urine culture now shows yeast with no other significant bacterial infection. Note recent completion of IV Cefepime on 05/30 with cath UA showing probable persistent infection. Urine specimen set up for culture and sensitivity with previous IV antibiotic regimen per instructions from infectious disease at [facility] in [place], including continuation during recent swing bed care as above. Significant previous history of urosepsis with secondary respiratory failure and right renal abscess. In spite of mild progressive trevor kocytosis prior to admission, no direct clinical evidence of sepsis with normal lactic acid level at this time. IV vancomycin was initiated and dosed by pharmacy with additional history of previous proctocolitis as above, although no diarrhea or evidence of C. difficile infection prior to placement in observation status. IV vancomycin dose was held on 06/02 secondary to elevated trough level. Low-dose vancomycin initiated on 06/03 with recommended repeat IV dose tomorrow prior to discharge. Subsequent 10-14-day of oral vancomycin is indicated secondary to possible proctocolitis as below. Diarrhea did begin once again on 06/01 with C. difficile stool antigen evaluation ordered and still pending. No diarrhea since 06/03. Note previous oral vancomycin therapy during recent swing bed care with this likely to be continued at time of discharge as above. Blood cultures x2 were collected and are negative during this hospitalization. Oral Diflucan x1 was given on 06/03. (4) Proctocolitis SNOMED Code(s): 778596549 Code(s): K52.9 - NONINFECTIVE GASTROENTERITIS AND COLITIS, UNSPECIFIED Status: Acute Priority: Medium Current Visit: Yes Onset Date: 05/23/20 Annotation/Comment:: As above. Note evidence of possible proctocolitis by CT scan of the abdomen and pelvis on 03/25/2020. Previous history of mild loose stools prior to admission after aggressive previous treatment for her urosepsis both at [facility] and at the [facility] in [place]. Consider repeat CT scan of the abdomen and pelvis on an outpatient basis after completion of her antibiotics, including oral vancomycin for recommended 10-14 days after discharge as above. Further surgical referral for possible colonoscopy, etc. depending on her clinical course. (5) COPD (chronic obstructive pulmonary disease) SNOMED Code(s): 65607773 Code(s): J44.9 - CHRONIC OBSTRUCTIVE PULMONARY DISEASE, UNSPECIFIED Status: Chronic Priority: Medium Current Visit: Yes Qualifiers: COPD type: emphysema Emphysema type: panlobular Qualified Code(s): J43.1 - Panlobular emphysema Annotation/Comment:: No recent bronchitic type symptoms or fever. Secondary to possibility of aspiration and previous proctoscopy colitis IV Flagyl therapy was initiated on 06/02. (6) Coronary artery disease SNOMED Code(s): 88466956 Code(s): I25.10 - ATHSCL HEART DISEASE OF [place] CORONARY ARTERY W/O ANG PCTRS Status: Chronic Priority: Medium Current Visit: Yes Qualifiers: Coronary Disease-Associated Artery/Lesion type: [place] artery [place] vs. transplanted heart: [place] heart Associated angina: without angina Qualified Code(s): I25.10 - Atherosclerotic heart disease of [place] coronary artery without angina pectoris Annotation/Comment:: No chest pain or anginal type symptoms. History of diastolic dysfunction and previous PTCA/stent. (7) Mixed anxiety depressive disorder SNOMED Code(s): 224233401 Code(s): F41.8 - OTHER SPECIFIED ANXIETY DISORDERS Status: Chronic Priority: Medium Current Visit: Yes Annotation/Comment:: Stable by history. Note previous chronic narcotic use secondary to chronic pain syndrome. (8) Hypertension SNOMED Code(s): 03579090 Code(s): I10 - ESSENTIAL (PRIMARY) HYPERTENSION Status: Chronic Priority: Medium Current Visit: Yes Qualifiers: Hypertension type: essential hypertension Qualified Code(s): I10 - Essential (primary) hypertension Annotation/Comment:: Blood pressures improved during later phases of hospitalization. Blood pressures continued to be somewhat elevated during the early phases of this hospitalization, although some medication noncompliance secondary to difficulty swallowing, mild anorexia, etc. during her observation status. Patient may benefit from a swallowing study on an outpatient basis. Her lisinopril was changed to an every afternoon regimen with Toprol-XL split to a twice daily regimen on 06/02 secondary to persistent mild sinus tachycardia, which has since resolved. Her lisinopril will be increased to twice daily regimen, however. Blood pressures were somewhat elevated initially in the emergency room, however improved prior to patient transfer with additional occasional borderline hypotension during her observation status. Continue to observe closely by her regular providers at discharge. (9) Decubitus ulcer SNOMED Code(s): 771106796 Code(s): L89.90 - PRESSURE ULCER OF UNSPECIFIED SITE, UNSPECIFIED STAGE Status: Chronic Priority: High Current Visit: Yes Qualifiers: Pressure injury location: buttock Pressure injury stage: stage 2 Laterality: unspecified laterality Qualified Code(s): L89.302 - Pressure ulcer of unspecified buttock, stage 2 Annotation/Comment:: Slowly healing and improved grade 2 decubitus ulcer in the coccyx region from previous hospitalization at [facility] in [place] as above with no direct evidence of infection, although specimen collected for Gram stain with final culture, and sensitivity showing mostly yeast. Oral Diflucan given as above. (10) Renal insufficiency SNOMED Code(s): 883708787, 722024849 Code(s): N28.9 - DISORDER OF KIDNEY AND URETER, UNSPECIFIED Status: Acute Priority: Medium Current Visit: Yes Onset Date: 05/10/20 Annotation/Comment:: Mild progression of her renal insufficiency with close observation secondary to IV vancomycin therapy and increased lisinopril therapy as above. (11) Hyperuricemia SNOMED Code(s): 52170736 Code(s): E79.0 - HYPERURICEMIA W/O SIGNS OF INFLAM ARTHRIT AND TOPHACEOUS DIS Status: Chronic Priority: Medium Current Visit: Yes Onset Date: 05/31/20 Annotation/Comment:: Newly diagnosed. No gout type symptoms. Observe for now. (12) Oral candidiasis SNOMED Code(s): 72777097 Code(s): B37.0 - CANDIDAL STOMATITIS Status: Acute Priority: Medium Current Visit: Yes Onset Date: 06/02/20 Annotation/Comment:: Oral gentian josey initiated on 06/02. Oral Diflucan given as above. - Problem List Review Problem List Initiated/Reviewed/Updated: Yes - My Orders Last 24 Hours: My Active Orders 06/03/20 15:45 Dextrose 5%-0.45% NaCl [Dextrose 5%-1/2 NS] 1,000 ml IV ASDIRECTED 06/04/20 05:11 Brain w wo Cont [MR] Urgent 06/04/20 10:27 Sodium Chloride 0.9% [Saline Flush] 10 ml FLUSH ASDIRECTED PRN 06/05/20 05:11 BASIC METABOLIC PANEL,BMP [CHEM] Routine CBC WITH AUTO DIFF [HEME] Routine VANCOMYCIN TROUGH [CHEM] Routine - Assessment Assessment:: As above - Plan Plan:: Plan: As above. Extensive precautions were given to the patient and her family, who are in agreement with the treatment plan. Anticipate extended hospital stay secondary to lack of bed availability at [facility] in [place] as above, multiple health problems as above, etc.. Probable discharge back to [facility] in [place] tomorrow. Lukas oscar physician assumes care later this evening.
[2020-06-04] MEDS: Enoxaparin 40 MG/0.4 ML Syringe SUBCUT SCH (18:19)
[2020-06-04] MEDS: rOPINIRole 1 MG Tab PO SCH (20:23)
[2020-06-04] MEDS: atorvaSTATin 40 MG Tab PO SCH (20:24)
[2020-06-04] MEDS: Melatonin 3 MG Tab PO SCH (20:24)
[2020-06-05] MEDS: metroNIDAZOLE/Normal Saline 500 MG in Premix Bag 1 BAG IV SCH ×2 (01:29→10:28)
[2020-06-05] MEDS: Lisinopril 5 MG Tab PO SCH (08:03)
[2020-06-05] MEDS: Metoprolol Succinate 25 MG Tab.ER PO SCH (08:05)
[2020-06-05] MEDS: DULoxetine 20 MG Cap PO SCH (08:06)
[2020-06-05] MEDS: Aspirin 81 MG Tab.Chew PO SCH (08:07)
[2020-06-05] MEDS: DULoxetine 30 MG Cap PO SCH (08:07)
[2020-06-05] MEDS: Clopidogrel 75 MG Tab PO SCH (08:07)
[2020-06-05] MEDS: Loratadine 10 MG Tab PO SCH (08:07)
[2020-06-05] MEDS: Ferrous Sulfate 325 MG Tab PO SCH (08:07)
[2020-06-05] MEDS: Gabapentin 100 MG Cap PO SCH ×2 (08:08→11:13)
[2020-06-05] MEDS: Acetaminophen/HYDROcodone 325-10 MG Tab PO SCH ×2 (08:08→14:45)
[2020-06-05] MEDS: Pantoprazole 40 MG Vial IVPUSH SCH (08:11)
[2020-06-05] MEDS: Sodium Chloride 0.9% 10 ML Syringe FLUSH SCH (08:11)
[2020-06-05] MEDS: Nystatin Topical Powder 15 GM Bottle TOP SCH ×2 (08:11→11:11)
--- NOTE | 2020-06-05 13:17 | PCM.DCSUM1 ---
Discharge Summary - Hospital Course HPI Initial Comments: Patient admitted for further evaluation of increased confusion, UTI,possible proctocolitis. Also + Covid screen Diagnosis: Stroke: No - Discharge Data Discharge Date: 06/05/20 Discharge Disposition: Home, Self-Care 01 Condition: Good - Referral to Home Health Primary Care Physician: SILVIA Hernández - Discharge Diagnosis/Problem(s) (1) Yeast UTI SNOMED Code(s): 256457538 ICD Code: B37.49 - OTHER UROGENITAL CANDIDIASIS Status: Acute Priority: High Current Visit: Yes Problem Details: Two week course Diflucan ordered. Dose 100mg daily given patient's reduced creatinine clearance. Noted to have yeast colonization of pressure sore. 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 The patient and her daughter are comfortable staying in this facility with MRI of the brain initially requested by the patient's daughter with evaluation initially scheduled for 06/04/2020 canceled secondary to her electrical stimulator, which would require at least 1 week of manufacture approval and special equipment. MRI of the brain likely not indicated at this time secondary to patient's reaching her normal baseline. Telephone consultation at 1:50 PM on 05/31 and subsequently at 2:[address] Jerez, hospitalist at [facility] in [place], with no beds available in that facility. No beds available on 06/01 with various therapeutic options discussed with the patient and her daughter, who now agreed to stay in this facility for further work-up as above. Her confusion continued to slowly improve throughout his hospitalization. Note recurrent COVID-19 infection as below with no further treatment, including IV steroids, etc. per recommendation from the hospitalist as above. The patient was changed from observation status to acute care in this facility on 06/02. Previous telephone consultation on 05/31 with the patient's daughter, who is requesting that the patient stay in this facility until the initially planned transfer could be arranged. Contact tracing, etc. were discussed with the patient's daughter and nurses that [facility] in [place] concerning patient's breakthrough repeat COVID-19 infection. Note progressive confusion of unknown etiology however likely secondary to recurrent infections, which has been her tendency in the past. Cofactors include possible organic brain syndrome, sequelae from current UTI/Covid infection, etc. 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 Note CT scan of the head on 05/30/2020 in this facility did not show any significant change from previous evaluation on 05/10/2020. Questionable previous absence' episodes per family history prior to admission with no direct seizure activity noted in the emergency room or during this hospitalization. Otherwise neurological status is relatively stable. IgG antibody COVID-19 test has been received and is negative with this evaluation performed from ER's blood work as per recommendations from Dr. Jerez as above. (3) UTI (urinary tract infection) SNOMED Code(s): 63143559 ICD Code: N39.0 - URINARY TRACT INFECTION, SITE NOT SPECIFIED Status: Acute Priority: Medium Current Visit: Yes Onset Date: 05/10/20 Problem Details: Urine cultures from 05/24 and 05/31 show yeast with no other significant bacterial infection. Note recent completion of IV Cefepime on 05/30. Significant previous history of urosepsis with secondary respiratory failure and right renal abscess. No diarrhea since 06/03. Blood cultures x2 were collected and are negative during this hospitalization. Oral Diflucan x1 was given on 06/03. Qualifiers: Urinary tract infection type: acute cystitis Hematuria presence: with hematuria Qualified Code(s): N30.01 - Acute cystitis with hematuria (4) COVID-19 SNOMED Code(s): 092367447 ICD Code: U07.1 - COVID-19 Status: Acute Priority: High Current Visit: Yes Onset Date: 05/31/20 Problem Details: COVID-19 + screen day of admission. Subsequent testing the following day negative however. Patient did receive her initial Moderna immunization on 02/08/2020 with subsequent positive COVID-19 infection a couple of days thereafter. She also received her second Moderna immunization on 03/07/2020 with subsequent multiple negative COVID-19 rapid test both in this facility and at [facility] in [place]. No further treatment for COVID-19 at this time. No respiratory symptoms, distress, etc. (5) Proctocolitis SNOMED Code(s): 315439667 ICD Code: K52.9 - NONINFECTIVE GASTROENTERITIS AND COLITIS, UNSPECIFIED Status: Acute Priority: Medium Current Visit: Yes Onset Date: 05/23/20 Problem Details: Note evidence of possible proctocolitis by CT scan of the abdomen and pelvis on 03/25/2020. Previous history of mild loose stools prior to admission after aggressive previous treatment for her urosepsis both at [facility]. Stool cultures negative. C-Diff negative. Did receive Vanco during stay. Due to negative C-Diff screen and elevating BUN/Cr, will not continue Vanco after discharge. (6) Renal insufficiency SNOMED Code(s): 485929295, 179819381 ICD Code: N28.9 - DISORDER OF KIDNEY AND URETER, UNSPECIFIED Status: Acute Priority: Medium Current Visit: Yes Onset Date: 05/10/20 Problem Details: Mild progression of her renal insufficiency with close observation secondary to IV vancomycin therapy and increased lisinopril therapy as above. (7) COPD (chronic obstructive pulmonary disease) SNOMED Code(s): 02693932 ICD Code: J44.9 - CHRONIC OBSTRUCTIVE PULMONARY DISEASE, UNSPECIFIED Status: Chronic Priority: Medium Current Visit: Yes Problem Details: No recent bronchitic type symptoms or fever. Secondary to possibility of aspiration and previous proctoscopy colitis IV Flagyl therapy was initiated on 06/02. Qualifiers: COPD type: emphysema Emphysema type: panlobular Qualified Code(s): J43.1 - Panlobular emphysema (8) Coronary artery disease SNOMED Code(s): 30865672 ICD Code: I25.10 - ATHSCL HEART DISEASE OF [place] CORONARY ARTERY W/O ANG PCTRS Status: Chronic Priority: Medium Current Visit: Yes Problem Details: No chest pain or anginal type symptoms. History of diastolic dysfunction and previous PTCA/stent. Qualifiers: Coronary Disease-Associated Artery/Lesion type: [place] artery [place] vs. transplanted heart: [place] heart Associated angina: without angina Qualified Code(s): I25.10 - Atherosclerotic heart disease of [place] coronary artery without angina pectoris (9) Decubitus ulcer SNOMED Code(s): 611560521 ICD Code: L89.90 - PRESSURE ULCER OF UNSPECIFIED SITE, UNSPECIFIED STAGE Status: Chronic Priority: High Current Visit: Yes Problem Details: Slowly healing and improved grade 2 decubitus ulcer in the coccyx region from previous hospitalization at [facility] in [place] as above with no direct evidence of infection, although specimen collected for Gram stain with final culture, and sensitivity showing mostly yeast. Oral Diflucan given as above. Qualifiers: Pressure injury location: buttock Pressure injury stage: stage 2 Laterality: unspecified laterality Qualified Code(s): L89.302 - Pressure ulcer of unspecified buttock, stage 2 (10) Hypertension SNOMED Code(s): 16901853 ICD Code: I10 - ESSENTIAL (PRIMARY) HYPERTENSION Status: Chronic Priority: Medium Current Visit: Yes Problem Details: Blood pressures improved during later phases of hospitalization. Blood pressures continued to be somewhat elevated during the early phases of this hospitalization, although some medication noncompliance secondary to difficulty swallowing, mild anorexia, etc. during her observation status. Patient may benefit from a swallowing study on an outpatient basis. Her lisinopril was changed to an every afternoon regimen with Toprol-XL split to a twice daily regimen on 06/02 secondary to persistent mild sinus tachycardia, which has since resolved. Her lisinopril will be increased to twice daily regimen, however. Blood pressures were somewhat elevated initially in the emergency room, however improved prior to patient transfer with additional occasional borderline hypotension during her observation status. Continue to observe closely by her regular providers at discharge. Qualifiers: Hypertension type: essential hypertension Qualified Code(s): I10 - Essential (primary) hypertension (11) Hyperuricemia SNOMED Code(s): 64806161 ICD Code: E79.0 - HYPERURICEMIA W/O SIGNS OF INFLAM ARTHRIT AND TOPHACEOUS DIS Status: Chronic Priority: Medium Current Visit: Yes Onset Date: 05/31/20 Problem Details: Newly diagnosed. No gout type symptoms. Observe for now. (12) Mixed anxiety depressive disorder SNOMED Code(s): 148232418 ICD Code: F41.8 - OTHER SPECIFIED ANXIETY DISORDERS Status: Chronic Priority: Medium Current Visit: Yes Problem Details: Stable by history. Note previous chronic narcotic use secondary to chronic pain syndrome. - Patient Summary/Data Hospital Course: Patient's interaction improved throughout stay. Less confusion noted. Suspect she is at her baseline the last few days. No fevers noted. WBC has been normal. No new complaints. BUN/Cr crept up while patient on Vanco. As noted above labs for C.Diff negative. Stool culture negative. Blood cultures negative. UC only grew out yeast. Yeast also noted growing in coccyx pressure sore. Patient discussed with ID at [facility] today, . She recommended d iscontinuing Vanco. No additional antibacterials recommended. Will start patient on two week course of Diflucan. OK to discharge back to [facility] today. Follow up as needed depending on response to above interventions. - Patient Instructions Diet: Usual Diet as Tolerated Activity: As Tolerated Other/Special Instructions: Note that patient's blood pressure medications have been split into BID dosing. Observe blood pressure and heart rate trends and have patient's primary provider review in 1 week to see if any further adjustment needs to be made. Also have patient's provider weigh in on if any additional preventive measures for UTI need to be added to current regimen. Follow up as needed if any additional problems/changes. - Discharge Plan *PRESCRIPTION DRUG MONITORING PROGRAM REVIEWED*: Not Applicable *COPY OF PRESCRIPTION DRUG MONITORING REPORT IN PATIENT MICHELLE: Not Applicable Prescriptions/Med Rec: Fluconazole [Diflucan] 100 mg PO DAILY #14 tab Ferrous Sulfate 325 mg PO BIDMEALS #30 tablet ramipriL [Ramipril] 1.25 mg PO BID #60 Metoprolol Succinate [Toprol XL] 50 mg PO BID #60 tab.er Home Medications: Home Meds DULoxetine [Cymbalta] 20 mg PO DAILY 11/21/19 [History] DULoxetine [Cymbalta] 30 mg PO DAILY 11/21/19 [History] Hydrocodone/Acetaminophen [Lafferty 10-325 Tablet] 1 each PO DAILY PRN 11/21/19 [History] Hydrocodone/Acetaminophen [[place] 10-325 Tablet] 1 each PO TID@,,11/21/19 [History] Loratadine 10 mg PO DAILY 11/21/19 [History] Melatonin 3 mg PO BEDTIME 11/21/19 [History] Oxybutynin Chloride [Ditropan Xl] 10 mg PO BEDTIME 11/21/19 [History] Sennosides/Docusate Sodium [Senna-Docusate Sodium Tablet] 2 tab PO DAILY 11/21/19 [History] Cyclobenzaprine [Flexeril] 10 mg PO Q8HR PRN 04/22/20 [History] Methenamine Hippurate [Hiprex] 1 gm PO Q12HR 04/22/20 [History] Nitroglycerin [Nitrostat] 0.4 mg SL ASDIRECTED PRN 04/22/20 [History] bisacodyL [Bisacodyl] 5 mg PO Q12HR PRN 04/22/20 [History] rOPINIRole [Requip] 1 mg PO BEDTIME 04/22/20 [History] Albuterol [Ventolin HFA] 2 puff INH Q4H PRN 04/23/20 [History] atorvaSTATin [Lipitor] 40 mg PO BEDTIME 04/23/20 [History] Aspirin 81 mg PO DAILY 05/23/20 [History] Clopidogrel [Plavix] 75 mg PO DAILY 05/23/20 [History] Famotidine 20 mg PO DAILY 05/23/20 [History] Lactulose 10 gm PO DAILY PRN 05/23/20 [History] Methyl Salicylate/Menthol [Muscle Rub] 85 gm TP QID PRN 05/23/20 [History] Omeprazole 40 mg PO DAILY 05/23/20 [History] Phenazopyridine [Pyridium] 200 mg PO Q8H PRN 05/23/20 [History] Gabapentin [Neurontin] 100 mg PO TID #90 cap 05/25/20 [Rx] Nystatin [Nystop] 1 gm TOP TID #1 bottle 05/25/20 [Rx] Carboxymethylcellulose/Lytes [Prem-Stir Oral [place]] 1 ml MUCMEM ASDIRECTED PRN bottle 06/05/20 [Rx] Ferrous Sulfate 325 mg PO BIDMEALS #30 tablet 06/05/20 [Rx] Fluconazole [Diflucan] 100 mg PO DAILY #14 tab 06/05/20 [Rx] Metoprolol Succinate [Toprol XL] 50 mg PO BID #60 tab.er 06/05/20 [Rx] ramipriL [Ramipril] 1.25 mg PO BID #60 06/05/20 [Rx] Forms: ED Department Discharge Referrals: Joaquina Hoffman PA [Primary Care Provider] - - Discharge Summary/Plan Comment DC Time >30 min.: No - General Info Date of Service: 06/05/20 Admission Dx/Problem (Free Text: 1. Confusion 2. COVID-19 + 3. UTI 4. ? Proctocolitis Subjective Update: Patient feels better/back to baseline. No acute complaints when asked. Functional Status: Reports: Pain Controlled, Tolerating Diet, Ambulating, Urina ting. Denies: New Symptoms - Review of Systems General: Reports: Weakness (chronic), Fatigue (chronic). Denies: Fever, Malaise, Chills, Night Sweats HEENT: Denies: Ear Pain, Eye Pain, Sinus Congestion, Sore Throat, Rhinitis, Visual Changes Pulmonary: Denies: Shortness of Breath, Pleuritic Chest Pain, Cough, Sputum, Hemoptysis, Wheezing Cardiovascular: Denies: Chest Pain, Palpitations, Lightheadedness Gastrointestinal: Denies: Abdominal Pain, Constipation, Diarrhea, Melena, Nausea, Vomiting Genitourinary: Denies: Dysuria, Frequency, Burning, Pain, Urgency, Hematuria, Flank Pain Musculoskeletal: Reports: Other (no acute changes from baseline) Skin: Reports: Other (chronic pressure sore buttock area/improving) Neurological: Reports: Confusion (chronic/improved), Difficulty Walking (chronic), Weakness (chronic). Denies: Dizziness, Headache, Numbness, Change in Speech Psychiatric: Reports: No Symptoms - Patient Data Vitals - Most Recent: Last Vital Signs Temp 36.3 C 06/05/20 12:00 Pulse 69 06/05/20 12:00 Resp 18 06/05/20 12:00 BP 155/58 H 06/05/20 12:00 Pulse Ox 99 06/05/20 12:00 Weight - Most Recent: 79.5 kg I&O - Last 24 hours: Intake & Output 06/04/20 06/05/20 06/05/20 22:59 06:59 14:59 Intake Total 990 345 360 Balance 990 345 360 Lab Results - Last 24 hrs: Laboratory Results - last 24 hr 06/05/20 06/05/20 06/05/20 Range/Units 07:25 07:25 10:50 WBC 6.9 (4.0-10.2) K/uL RBC 3.53 L (3.77-5.09) M/uL Hgb 10.0 L (11.7-15.5) g/dL Hct 32.9 L (34.0-46.0) % MCV 93.2 (84.0-98.0) fL MCH 28.3 (28.2-33.3) pg MCHC 30.4 L (31.7-36.0) g/dL RDW 18.8 H (11.2-14.1) % Plt Count 103 L (150-350) K/uL Neut % (Auto) 28.5 L (45.0-80.0) % Lymph % (Auto) 37.1 (10.0-50.0) % [place] % (Auto) 31.7 H (2.0-14.0) % Eos % (Auto) 1.0 (0.0-5.0) % Baso % (Auto) 1.7 (0.0-2.0) % Neut # (Auto) 1.95 (1.40-7.00) K/uL Lymph # (Auto) 2.55 (0.50-3.50) K/uL [place] # (Auto) 2.18 H (0.00-1.00) K/uL Eos # (Auto) 0.07 (0.00-0.50) K/uL Baso # (Auto) 0.12 (0.00-0.20) K/uL Sodium 139 (136-145) mmol/L Potassium 4.4 (3.5-5.1) mmol/L Chloride 110 H (98-107) mmol/L Carbon Dioxide 19.3 L (21.0-32.0) mmol/L BUN 39 H (7-18) mg/dL Creatinine 2.07 H (0.51-1.17) mg/dL Est Cr Clr Drug Dosing 16.35 mL/min Estimated GFR (MDRD) 23 mL/min Glucose 100 H (70-99) mg/dL Calcium 8.3 L (8.5-10.1) mg/dL Specimen Type Urinqcath Urine Color Light yellow Urine Appearance Slightly cloudy Urine pH 6.0 (5.0-9.0) Ur Specific [place] 1.015 (1.005-1.030) Urine Protein 30 H (NEGATIVE) mg/dL Urine Glucose (UA) Negative (NEGATIVE) mg/dL Urine Ketones Negative (NEGATIVE) mg/dL Urine Occult Blood Small H (NEGATIVE) Urine Nitrite Negative (NEGATIVE) Urine Bilirubin Negative (NEGATIVE) Urine Urobilinogen 0.2 (0.2-1.0) E.U./dL Ur Leukocyte Esterase Small H (NEGATIVE) Urine RBC 5-10 H /HPF Urine WBC 10-20 H /HPF Ur Epithelial Cells Few /LPF Amorphous Sediment Few (0/HPF) /HPF Urine Bacteria Few (NONE TO FEW) /HPF Vancomycin Trough 20.0 (10-20) ug/mL LEO Results - Last 24 hrs: Microbiology 05/31/20 12:55 Aerobic Blood Culture - Final Blood - Venous - Lab Draw NO GROWTH AFTER 5 DAYS 05/31/20 12:00 Aerobic Blood Culture - Final Blood - Venous NO GROWTH AFTER 5 DAYS 06/01/20 19:21 Cryptosporidium/Giardia - Final Stool / Feces 06/01/20 19:21 Clostridioides difficile Toxin Assay - Final Stool / Feces 05/31/20 11:45 Miscellaneous Reference Culture - Final Abscess - Buttock, Unspecified Dayanna Tropicalis Iso Consis W/Enterocutan Annamaria Gram Stain - Final Med Orders - Current: Current Medications Acetaminophen (Acetaminophen 325 Mg Tab) 650 mg PO Q4H PRN PRN Reason: Pain Last Admin: 06/01/20 21:33 Dose: 650 mg Documented by: Hydrocodone Bitart/Acetaminophen (Acetaminophen/Hydrocodone 325-10 Mg Tab) 1 tab PO 08,14,20 [facility] Last Admin: 06/05/20 08:08 Dose: 1 tab Documented by: Hydrocodone Bitart/Acetaminophen (Acetaminophen/Hydrocodone 325-10 Mg Tab) 1 tab PO DAILY PRN PRN Reason: pain Albuterol (Albuterol 6.7 Gm Inhaler) 0 gm INH Q4H PRN PRN Reason: Shortness of Breath Aspirin (Aspirin 81 Mg Tab.Chew) 81 mg PO DAILY [facility] Last Admin: 06/05/20 08:07 Dose: 81 mg Documented by: Atorvastatin Calcium (Atorvastatin 40 Mg Tab) 40 mg PO BEDTIME [facility] Last Admin: 06/04/20 20:24 Dose: 40 mg Documented by: Bisacodyl (Bisacodyl 5 Mg Tab) 5 mg PO Q12HR PRN PRN Reason: Constipation Clopidogrel Bisulfate (Clopidogrel 75 Mg Tab) 75 mg PO DAILY [facility] Last Admin: 06/05/20 08:07 Dose: 75 mg Documented by: Duloxetine HCl (Duloxetine 20 Mg Cap) 20 mg PO DAILY [facility] Last Admin: 06/05/20 08:06 Dose: 20 mg Documented by: Duloxetine HCl (Duloxetine 30 Mg Cap) 30 mg PO DAILY [facility] Last Admin: 06/05/20 08:07 Dose: 30 mg Documented by: Enoxaparin Sodium (Enoxaparin 40 Mg/0.4 Ml Syringe) 40 mg SUBCUT DAILY@1800 [facility] Last Admin: 06/04/20 18:19 Dose: 40 mg Documented by: Ferrous Sulfate (Ferrous Sulfate 325 Mg Tab) 325 mg PO BIDMEALS [facility] Last Admin: 06/05/20 08:07 Dose: 325 mg Documented by: Gabapentin (Gabapentin 100 Mg Cap) 100 mg PO TID [facility] Last Admin: 06/05/20 11:13 Dose: 100 mg Documented by: Lisinopril (Lisinopril 5 Mg Tab) 2.5 mg PO BID [facility] Last Admin: 06/05/20 08:03 Dose: 2.5 mg Documented by: Loperamide HCl (Loperamide 2 Mg Tab) 2 mg PO Q6H PRN PRN Reason: Diarrhea Loratadine (Loratadine 10 Mg Tab) 10 mg PO DAILY [facility] Last Admin: 06/05/20 08:07 Dose: 10 mg Documented by: Melatonin (Melatonin 3 Mg Tab) 3 mg PO BEDTIME [facility] Last Admin: 06/04/20 20:24 Dose: 3 mg Documented by: Methenamine Hippurate (Methenamine Hippurate 1 Gm Tab) 1 gm PO Q12HR [facility] Last Admin: 06/05/20 08:04 Dose: 1 gm Documented by: Methyl Salicylate (Menthol/Methyl Salicylate 85 Gm Tube) 0 gm TOP QID PRN PRN Reason: pain Last Admin: 06/01/20 21:34 Dose: 1 dose Documented by: Metoprolol Succinate (Metoprolol Succinate 25 Mg Tab.Er) 50 mg PO BID [facility] Last Admin: 06/05/20 08:05 Dose: 50 mg Documented by: Nitroglycerin (Nitroglycerin 0.4 Mg Tab.Sl) 0.4 mg SL ASDIRECTED PRN PRN Reason: Chest Pain Nystatin (Nystatin Topical Powder 15 Gm Bottle) 1 gm TOP TID [facility] Last Admin: 06/05/20 11:11 Dose: 1 applic Documented by: Ondansetron HCl (Ondansetron 4 Mg/2 Ml Sdv) 4 mg IVPUSH Q6H PRN PRN Reason: Nausea/Vomiting Last Admin: 06/02/20 07:38 Dose: 4 mg Documented by: Pantoprazole Sodium (Pantoprazole 40 Mg Vial) 40 mg IVPUSH Q12HR [facility] Last Admin: 06/05/20 08:11 Dose: 40 mg Documented by: Ropinirole HCl (Ropinirole 1 Mg Tab) 1 mg PO BEDTIME [facility] Last Admin: 06/04/20 20:23 Dose: 1 mg Documented by: Saliva Substitute (Saliva Substitute Oral [place] 120 Ml Bottle) 1 ml MUCMEM ASDIRECTED PRN PRN Reason: Dry Mouth Last Admin: 06/01/20 13:52 Dose: 1 applic Documented by: Senna/Docusate Sodium (Docusate Sodium/Sennosides 50-8.6 Mg Tab) 2 tab PO DAILY [facility] Last Admin: 06/05/20 08:06 Dose: 2 tab Documented by: Sodium Chloride (Sodium Chloride 0.9% 10 Ml Syringe) 10 ml FLUSH Q12HR [facility] Last Admin: 06/05/20 08:11 Dose: 10 ml Documented by: Sodium Chloride (Sodium Chloride 0.9% 10 Ml Syringe) 10 ml FLUSH ASDIRECTED PRN PRN Reason: Keep Vein Open Temazepam (Temazepam 15 Mg Cap) 15 mg PO BEDTIME PRN PRN Reason: Insomnia Discontinued Medications Fluconazole (Fluconazole 100 Mg Tab) 100 mg PO ONETIME ONE Stop: 06/03/20 15:42 Last Admin: 06/03/20 16:38 Dose: 100 mg Documented by: Gentian Josey (Gentian Josey 59 Ml Bottle) 0 ml MUCMEM DAILY ONE Stop: 06/02/20 14:24 Last Admin: 06/02/20 16:36 Dose: 1 applic Documented by: Vancomycin HCl 1 gm/ Dextrose/ (Water) 250 mls @ 165 mls/hr IV Q24H [facility] Last Admin: 05/31/20 18:16 Dose: Not Given Documented by: Potassium Chloride/Dextrose/Sod Cl (D5 1/2 Ns W/ 20 Meq/L Kcl) 1,000 mls @ 75 mls/hr IV ASDIRECTED [facility] Last Admin: 06/01/20 07:57 Dose: 75 mls/hr Documented by: Vancomycin HCl 1 gm/ Sodium (Chloride) 250 mls @ 165 mls/hr IV Q24H [facility] Last Admin: 06/02/20 15:56 Dose: Not Given Documented by: Potassium Chloride/Dextrose/Sod Cl (D5 Ns With 20 Meq Kcl) 1,000 mls @ 70 mls/hr IV ASDIRECTED [facility] Last Admin: 06/03/20 01:17 Dose: 70 mls/hr Documented by: Metronidazole 500 mg/ Premix 100 mls @ 100 mls/hr IV Q8H [facility] Last Admin: 06/02/20 10:49 Dose: Not Given Documented by: Metronidazole 500 mg/ Premix 100 mls @ 100 mls/hr IV 0200,1000,1800 [facility] Last Admin: 06/05/20 10:28 Dose: Not Given Documented by: Vancomycin HCl 750 mg/ Sodium (Chloride) 250 mls @ 250 mls/hr IV ONETIME ONE Stop: 06/03/20 16:35 Last Admin: 06/03/20 16:37 Dose: 250 mls/hr Documented by: Dextrose/Sodium Chloride (Dextrose 5%-1/2 Ns) 1,000 mls @ 75 mls/hr IV ASDIRECTED [facility] Last Admin: 06/03/20 20:10 Dose: 75 mls/hr Documented by: Iopamidol (Iopamidol 612 Mg/Ml 100 Ml Bottle) 100 ml IVPUSH ONETIME ONE Stop: 05/31/20 11:38 Last Admin: 06/01/20 14:07 Dose: Not Given Documented by: Iopamidol (Iopamidol 612 Mg/Ml 100 Ml Bottle) Confirm Administered Dose 100 ml .ROUTE .STK-MED ONE Stop: 05/31/20 11:41 Last Admin: 06/01/20 14:07 Dose: Not Given Documented by: Lisinopril (Lisinopril 5 Mg Tab) 2.5 mg PO DAILY [facility] Last Admin: 06/02/20 07:47 Dose: 2.5 mg Documented by: Lisinopril (Lisinopril 5 Mg Tab) 2.5 mg PO QPM [facility] Last Admin: 06/02/20 17:54 Dose: 2.5 mg Documented by: Lorazepam (Lorazepam 2 Mg/Ml Sdv) 1 mg IVPUSH ONETIME ONE Stop: 05/31/20 23:20 Last Admin: 05/31/20 23:32 Dose: 1 mg Documented by: Lorazepam (Lorazepam 2 Mg/Ml Sdv) Confirm Administered Dose 2 mg .ROUTE .STK-MED ONE Stop: 05/31/20 23:26 Last Admin: 05/31/20 23:32 Dose: Not Given Documented by: Metoprolol Succinate (Metoprolol Succinate 50 Mg Tab.Er) 100 mg PO DAILY [facility] Last Admin: 06/02/20 07:46 Dose: 100 mg Documented by: Pantoprazole Sodium (Pantoprazole 40 Mg Vial) 40 mg IVPUSH Q12H [facility] Last Admin: 05/31/20 17:54 Dose: 40 mg Documented by: Pantoprazole Sodium (Pantoprazole 40 Mg Vial) 40 mg IVPUSH Q12H [facility] - Exam Quality Assessment: Reports: DVT Prophylaxis General: Reports: Alert, Oriented, Cooperative, No Acute Distress HEENT: Reports: Pupils Equal, Pupils Reactive, EOMI, Mucous Membr. Moist/[place]ck: Reports: Supple Lungs: Reports: Clear to Auscultation, Normal Respiratory Effort Cardiovascular: Reports: Regular Rate, Regular Rhythm GI/Abdominal Exam: Normal Bowel Sounds, Soft, Non-Tender, No Distention (Female) Exam: Deferred Rectal (Female) Exam: Deferred Back Exam: Denies: CVA Tenderness (L), CVA Tenderness (R) Extremities: Non-Tender, Normal Capillary Refill, Pedal Edema Skin: Reports: Other (pressure ulcer buttocks area/dressing left in place) Neurological: Reports: No New Focal Deficit
[2020-06-05] MEDS ORDERED: Fluconazole 100 MG Tab PO ONE (14:37)
== END 2020-06-05 15:30 | disposition home or self-care (01) | DRG 689 ==
LOC: LL.ED 10:54 → LL.MS 14:24 → OBSVTOIN 14:24
PROVIDERS: ADMIT Family Medicine; ATTEND Family Medicine
PROC: 8E0ZXY6 Isolation (ICD-10-PCS; principal; 2020-05-31)
DX: N30.01 Acute cystitis with hematuria (principal); U07.1 COVID-19; I42.9 Cardiomyopathy, unspecified; I13.0 Hypertensive heart and chronic kidney disease with heart failure and stage 1 through stage 4 chronic kidney disease, or unspecified chronic kidney disease; B37.0 Candidal stomatitis; K52.9 Noninfective gastroenteritis and colitis, unspecified; N28.9 Disorder of kidney and ureter, unspecified; J43.1 Panlobular emphysema; I25.10 Atherosclerotic heart disease of native coronary artery without angina pectoris; I50.30 Unspecified diastolic (congestive) heart failure; L89.302 Pressure ulcer of unspecified buttock, stage 2; E78.00 Pure hypercholesterolemia, unspecified; E79.0 Hyperuricemia without signs of inflammatory arthritis and tophaceous disease; F41.8 Other specified anxiety disorders; H54.7 Unspecified visual loss; I50.9 Heart failure, unspecified; Z88.1 Allergy status to other antibiotic agents; Z79.02 Long term (current) use of antithrombotics/antiplatelets; Z79.82 Long term (current) use of aspirin; Z79.899 Other long term (current) drug therapy; D64.9 Anemia, unspecified; E78.5 Hyperlipidemia, unspecified; K59.09 Other constipation; K21.9 Gastro-esophageal reflux disease without esophagitis; N18.9 Chronic kidney disease, unspecified; R32 Unspecified urinary incontinence; F41.9 Anxiety disorder, unspecified; F03.90 Unspecified dementia, unspecified severity, without behavioral disturbance, psychotic disturbance, mood disturbance, and anxiety; F32.9 Major depressive disorder, single episode, unspecified; D50.9 Iron deficiency anemia, unspecified; Z98.42 Cataract extraction status, left eye; Z98.41 Cataract extraction status, right eye; Z90.49 Acquired absence of other specified parts of digestive tract; I25.2 Old myocardial infarction; Z95.5 Presence of coronary angioplasty implant and graft; Z98.890 Other specified postprocedural states; Z86.73 Personal history of transient ischemic attack (TIA), and cerebral infarction without residual deficits
CPT/HCPCS: 36415; 51701; 74022; 80048; 80053; 80202; 81001; 82150; 82272; 82728; 83540; 83550; 83605; 83690; 83735; 84550; 85025; 85610; 85730; 86769; 87040; 87070; 87086; 87205; 87324; 87328; 87329; 87641; 96372; 96374; 96375; 99223; 99232; 99233; 99238; 99285-25; A9270-GY; C9113; G0378; J1650; J2060; J2405; J3370; J3480; J3490; J7042; J7050; U0002

== ENCOUNTER 2020-06-18 17:03 | Emergency (ER) | payer MEDICARE, OTHER ==
[2020-06-18] MEDS ORDERED: Sodium Chloride 0.9% 10 ML Syringe FLUSH PRN (17:30)
[2020-06-18] MEDS: Cefepime 1 GM in Sodium Chloride 0.9% 50 ML IV ONE (18:10)
--- NOTE | 2020-06-18 18:12 | EDM.PDOC ---
ED HPI GENERAL MEDICAL PROBLEM - General Chief Complaint: General Stated Complaint: kidney problems Time Seen by Provider: 06/18/20 17:05 Source of Information: Reports: Patient, Family, Other (PCP) History Limitations: Reports: No Limitations - History of Present Illness INITIAL COMMENTS - FREE TEXT/NARRATIVE: Patient referred to ER by Flori, patient's PCP due to recurrent UTI. Patient's quick cath UA today showed packed WBCs. No fever. Patient mildly confused earlier but that resolved. Complains of some burning with urination. WBC 13.4 Has been seen multiple times in our ER for UTI starting April 21. Seen again April 23, May 10,, and . Required transfer to [facility] in [place] several times, once intubated due to urosepsis. UAs have grown out a variety of things, including E.Coli, Pseudomonas, and yeast. Has been on variety of IV antibiotics too. Unknown as to why pt suddenly is having such a severe issue with UTIs over the past few months. Patient's renal function has been affected by all of the medications she has been receiving for the infections recently. Noted today to have Cr of 2.43 which is highest patient has been noted to have in our system. Bun is 52. Na 126. K 5.5 Vital signs currently stable. Patient alert/oriented. Has been noticing right hip pain over past few weeks. - Related Data Allergies Allergy/AdvReac Type Severity Reaction Status Date / Time doxycycline Allergy Other Verified 05/31/20 10:55 Home Meds: Home Meds DULoxetine [Cymbalta] 20 mg PO DAILY 11/21/19 [History] DULoxetine [Cymbalta] 30 mg PO DAILY 11/21/19 [History] Hydrocodone/Acetaminophen [M[place]wood 10-325 Tablet] 1 each PO DAILY PRN 11/21/19 [History] Hydrocodone/Acetaminophen [[place]wood 10-325 Tablet] 1 each PO TID@08,14,20 11/21/19 [History] Loratadine 10 mg PO DAILY 11/21/19 [History] Melatonin 3 mg PO BEDTIME 11/21/19 [History] Oxybutynin Chloride [Ditropan Xl] 10 mg PO BEDTIME 11/21/19 [History] Sennosides/Docusate Sodium [Senna-Docusate Sodium Tablet] 2 tab PO DAILY 11/21/19 [History] Cyclobenzaprine [Flexeril] 10 mg PO Q8HR PRN 04/22/20 [History] Methenamine Hippurate [Hiprex] 1 gm PO Q12HR 04/22/20 [History] Nitroglycerin [Nitrostat] 0.4 mg SL ASDIRECTED PRN 04/22/20 [History] bisacodyL [Bisacodyl] 5 mg PO Q12HR PRN 04/22/20 [History] rOPINIRole [Requip] 1 mg PO BEDTIME 04/22/20 [History] Albuterol [Ventolin HFA] 2 puff INH Q4H PRN 04/23/20 [History] atorvaSTATin [Lipitor] 40 mg PO BEDTIME 04/23/20 [History] Aspirin 81 mg PO DAILY 05/23/20 [History] Clopidogrel [Plavix] 75 mg PO DAILY 05/23/20 [History] Famotidine 20 mg PO DAILY 05/23/20 [History] Lactulose 10 gm PO DAILY PRN 05/23/20 [History] Methyl Salicylate/Menthol [Muscle Rub] 85 gm TP QID PRN 05/23/20 [History] Omeprazole 40 mg PO DAILY 05/23/20 [History] Phenazopyridine [Pyridium] 200 mg PO Q8H PRN 05/23/20 [History] Gabapentin [Neurontin] 100 mg PO TID #90 cap 05/25/20 [Rx] Nystatin [Nystop] 1 gm TOP TID #1 bottle 05/25/20 [Rx] Carboxymethylcellulose/Lytes [Prem-Stir Oral Milnor] 1 ml MUCMEM ASDIRECTED PRN bottle 06/05/20 [Rx] Ferrous Sulfate 325 mg PO BIDMEALS #30 tablet 06/05/20 [Rx] Fluconazole [Diflucan] 100 mg PO DAILY #14 tab 06/05/20 [Rx] Metoprolol Succinate [Toprol XL] 50 mg PO BID #60 tab.er 06/05/20 [Rx] ramipriL [Ramipril] 1.25 mg PO BID #60 06/05/20 [Rx] Past Medical History HEENT History: Reports: Allergic Rhinitis, Cataract, Impaired Vision, Other (See Below) Other HEENT History: Patient wears glasses. Cardiovascular History: Reports: CAD, Cardiomyopathy, Heart Failure, Heart Murmur, High Cholesterol, Hypertension, AK, PTCA, PVD, Stents, Syncope, Other (See Below) Other Cardiovascular History: History of elevated D-dimer with no previous work- up. Acute AK in December 2019 with PTCA/stent x1 at that time. Questional non- STEMI with anterior wall cardiac ischemia at time of respiratory failure on 05/10/2020. Diastolic dysfunction. 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 Acute respiratory failure secondary to urosepsis requiring intubation on 05/10/2020. Gastrointestinal History: Reports: Chronic Constipation, GERD, Other (See Below) Other Gastrointestinal History: Proctocolitis in May 2020 possibly secondary to antibiotic therapy and/or suspected possible secondary C. difficile infection, however undocumented. Genitourinary History: Reports: Chronic Renal Insuffiency, Urinary Incontinence, UTI, Recurrent, Other (See Below) Other Genitourinary History: Hemorrhagic cystitis with severe bleeding and secondary urosepsis and right renal abscess requiring hospitalization at [facility] with discharge from that facility on 04/27/2020. Right-sided pyelonephritis with additional evidence of chronic cystitis by CT scan in 2020 as below. Overactive bladder/urinary urgency. EVENT EXECUTIVE History: Reports: Other EVENT EXECUTIVE History: Menopause in her mid 50s. Full term without complications during pregnancies or deliveries. 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 History of carpal tunnel syndrome with surgery as below. Right ankle fracture in her 30s with surgery as below. Known history of severe degenerative disc disease with additional mild scoliosis and spinal stenosis. Chronic lumbar back pain with current implanted electrical stimulator unit. Neurological History: Reports: CVA, Neuropathy, Peripheral, Seizure, Other (See Below) Other Neuro History: History of grand mal seizures since age 17. Restless leg syndrome. Spinal stenosis with bilateral leg weakness and required wheelchair use. 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 Psychiatric History: Reports: Addiction, Anxiety, Dementia, Depression, Other (See Below) Other Psychiatric History: Chronic narcotic use secondary to chronic pain syndrome. Endocrine/Metabolic History: Reports: Hypokalemia, Hypomagnesemia, Obesity/BMI 30+, Other (See Below) Other Endocrine/Metabolic History: Hypoalbuminemia. Hyponatremia. Hematologic History: Reports: Anemia, Blood Transfusion(s), Iron Deficiency, Other (See Below) Other Hematologic History: Blood transfusion with her back surgery as below. Immunologic History: Reports: Immunosuppression, Other (See Below) Other Immunologic History: Monoclonal gammopathy Oncologic (Cancer) History: Reports: None Dermatologic History: Reports: None - Infectious Disease History Infectious Disease History: Reports: C-Difficile, Chicken Pox, Measles, Mumps, Novel Coronavirus - Past Surgical History Head Surgeries/Procedures: Reports: None HEENT Surgical History: Reports: Cataract Surgery, Laser Surgery, Oral Surgery, Other (See Below) Other HEENT Surgeries/Procedures: Bilateral cataract surgery in her 50s? Subsequent laser treatments of her posterior capsules. Almost complete teeth extraction with complete upper dentures and only a few remaining lower dentition and the patient not having partial lower dentures. Cardiovascular Surgical History: Reports: Coronary Artery Stent, Percutaneous Transluminal Angioplasty, Other (See Below) Other Cardiovascular Surgeries/Procedures: PTCA/stent x1 in December 2019. Respiratory Surgical History: Reports: None GI Surgical History: Reports: Appendectomy, Colonoscopy, Other (See Below) Other GI Surgeries/Procedures: Appendectomy in her 30s. Colonoscopy in her 50s. Female Surgical History: Reports: None Endocrine Surgical History: Reports: None Neurological Surgical History: Reports: Lumbar Spine, Other (See Below) Other Neurological Surgeries/Procedures: Unknown type of lumbar surgeries x3, including her spinal cord? Lumbar electro-stimulator unit implant. Musculoskeletal Surgical History: Reports: Carpal Tunnel, ORIF, Other (See Below) Other Musculoskeletal Surgeries/Procedures:: ORIF of the right ankle in her 30s with subsequent right ankle fusion in her 60s. Right-sided carpal tunnel release in her 50s. Oncologic Surgical History: Reports: None Dermatological Surgical History: Reports: Other (See Below) - Past Imaging History Past Imaging History: Reports: CAT Scan (CT of the head on 05/30/2020 and 05/10/2020. CT of the abdomen and pelvis on 05/23/2020 and 03/22/2020.), MRI (Lumbar spine on 07/08/2017. Thoracic spine on 11/23/2018.), Ultrasound (Bilateral renal ultrasound on 11/04/2018.) - History Comment History Comment: Patient is a somewhat poor historian. 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 Denies: Flank Pain, Hematuria Musculoskeletal: Reports: Other (Left hip pain for several weeks is only acute change from baseline) Skin: Reports: No Symptoms Neurological: Reports: Confusion. Denies: Dizziness, Headache Psychiatric: Reports: Confusion ED EXAM, GENERAL - Physical Exam Exam: See Below Exam Limited By: No Limitations General Appearance: Alert, No Apparent Distress, Obese, Other (sitting in wheelchair) Eye Exam: Bilateral Eye: EOMI, PERRL Ears: Hearing Grossly Normal Nose: No: Nasal Deformity, Nasal Swelling, Nasal Drainage Throat/Mouth: Normal Lips, Normal Voice, No Airway Compromise Head: Atraumatic, Normocephalic Neck: Supple Respiratory/Chest: No Respiratory Distress, Lungs Clear, Normal Breath Sounds, No Accessory Muscle Use, Chest Non-Tender Cardiovascular: Regular Rate, Rhythm, No Murmur GI/Abdominal: Normal Bowel Sounds, Soft, No Distention, Other (mild discomfort with palpation over bladder) (Female) Exam: Deferred Rectal (Female) Exam: Deferred Back Exam: No: CVA Tenderness (L), CVA Tenderness (R), Muscle Spasm Extremities: Non-Tender, Normal Capillary Refill Neurological: Alert, Oriented, Normal Cognition Psychiatric: Normal Affect, Normal Mood Skin Exam: Warm, Dry, Intact, Normal Color Course - Vital Signs Last Recorded V/S: Last Vital Signs Temp 36.0 C L 06/18/20 17:08 Pulse 69 06/18/20 18:28 Resp 20 06/18/20 17:08 BP 100/41 L 06/18/20 18:28 Pulse Ox 96 06/18/20 17:56 - Orders/Labs/Meds Labs: Laboratory Tests 06/18/20 06/18/20 06/18/20 Range/Units 15:21 15:21 17:17 Lactic Acid 0.9 (0.4-2.0) mmol/L Magnesium 2.1 (1.8-2.4) mg/dL Total Bilirubin 0.3 (0.2-1.0) mg/dL Direct Bilirubin 0.1 (0.0-0.2) mg/dL Indirect Bilirubin 0.2 AST 39 H (15-37) U/L ALT 44 (12-78) U/L Alkaline Phosphatase 274 H (46-116) IU/L Total Protein 8.2 (6.4-8.2) g/dL Albumin 2.3 L (3.4-5.0) g/dL Globulin 5.9 Albumin/Globulin Ratio 0.39 Meds: Medications Discontinued Medications Generic Name Dose Route Start Last Admin Trade Name Freq PRN Reason Stop Dose Admin Cefepime HCl Confirm 06/18/20 17:51 06/18/20 18:28 Cefepime 1 Gm Vial Administered 06/18/20 17:52 Not Given Dose 1 gm .ROUTE .STK-MED ONE Cefepime HCl 1 gm/ Sodium 50 mls @ 100 mls/hr 06/18/20 17:37 06/18/20 18:10 Chloride IV 06/18/20 18:06 Not Given ONETIME ONE Cefepime HCl 1 gm/ Sodium 100 mls @ 100 mls/hr 06/18/20 17:47 06/18/20 18:28 Chloride IV 06/18/20 18:36 100 mls/hr ONETIME ONE Administration Sodium Chloride 500 mls @ 250 mls/hr 06/18/20 18:15 06/18/20 18:51 Normal Saline IV 250 mls/hr .BOLUS RAVI Administration Sodium Chloride 10 ml 06/18/20 17:30 Sodium Chloride 0.9% 10 Ml Syringe FLUSH ASDIRECTED PRN IV Use Sodium Chloride 10 ml 06/18/20 18:11 06/18/20 18:13 Sodium Chloride 0.9% 10 Ml Syringe FLUSH 10 ml ASDIRECTED PRN Administration Keep Vein Open - Re-Assessments/Exams Free Text/Narrative Re-Assessment/Exam: 06/18/20 18:15 UC, blood cultures, LFTs, and lactic performed. Normal lactic acid noted. Patient scheduled to see urology and ID at [facility] tomorrow. Given the multitude and severity of recent infections it was felt appropriate to transfer pt back to [facility] in order to be able to have consults with ID/Urology/Nephrology. Call placed to [facility] and patient discussed with . He accepted her for transfer and wished to have us start Cefepime. IV NS also initiated. Waiting at this time for confirmation of a bed at their facility. Departure - Departure Time of Disposition: 19:30 Disposition: DC/Tfer to Acute Hospital 02 Condition: Good Clinical Impression: Hyperkalemia, Hyponatremia, Renal insufficiency UTI (urinary tract infection) Qualifiers: Urinary tract infection type: acute cystitis Hematuria presence: with hematuria Qualified Code(s): N30.01 - Acute cystitis with hematuria - Discharge Information *PRESCRIPTION DRUG MONITORING PROGRAM REVIEWED*: Not Applicable *COPY OF PRESCRIPTION DRUG MONITORING REPORT IN PATIENT MICHELLE: Not Applicable Referrals: Joaquina Hoffman PA [Primary Care Provider] - Forms: ED Department Discharge Sepsis Event Note (ED) - Evaluation Sepsis Screening Result: No Definite Risk
[2020-06-18] MEDS: Sodium Chloride 0.9% 10 ML Syringe FLUSH PRN (18:13)
[2020-06-18] MEDS: Cefepime 1 GM in Sodium Chloride 0.9% 100 ML IV ONE (18:28)
[2020-06-18] MEDS: Cefepime 1 GM Vial ONE (18:28)
[2020-06-18 18:44] VITALS: BP 100/41; PULSE 69
[2020-06-18] MEDS: Sodium Chloride 0.9% 500 ML IV SCH (18:51)
== END 2020-06-18 19:30 ==
LOC: LL.ED 17:03
DX: D64.9 Anemia, unspecified (principal); I10 Essential (primary) hypertension; N39.0 Urinary tract infection, site not specified
CPT/HCPCS: 36415; 80048; 80076; 81001; 83605; 83735; 85025; 87040; 87086; 87088; 87186; 96365; 99284; 99285-25; J0692; J7040

== ENCOUNTER → 2021-11-23 | Emergency (ER) | payer MEDICARE, OTHER ==
[~2021-11-23] MED LIST: Ciprofloxacin 500 MG Tab ONE; Furosemide 40 MG Tab ONE; Ondansetron 4 MG Tab.DIS ONE
[2021-12-11 13:01] LABS: CORONAVIRUS COVID-19 NAA NEGATIVE (NEGATIVE); RESPIRATORY SYNCYTIAL VIR NAA NEGATIVE (NEGATIVE)
[2021-12-11 13:03] LABS: CHLORIDE,CL 95 mmol/L (98-107); SODIUM,NA 134 mmol/L (136-145)
[2021-12-11 13:04] LABS: ANION GAP 14.2 meq/L (7-15); ESTIMATED GFR 51 mL/min (>=60)
== END ==
LOC: LL.ED 16:20
DX: S37.30XA Unspecified injury of urethra, initial encounter (principal); N30.01 Acute cystitis with hematuria; Z20.822 Contact with and (suspected) exposure to COVID-19
CPT/HCPCS: 0241U; 36415; 71045; 80053; 81001; 83605; 83880; 84484; 85025; 93005; 93017; 99284; A9270

== ENCOUNTER 2022-03-08 11:33 | Emergency (ER) | payer MEDICARE, OTHER, MEDICAID | END 2022-03-08 13:15 | LOC: LL.ED 11:33 | DX: M25.551 Pain in right hip (principal); I25.10 Atherosclerotic heart disease of native coronary artery without angina pectoris; I11.0 Hypertensive heart disease with heart failure; I50.9 Heart failure, unspecified; E78.00 Pure hypercholesterolemia, unspecified; I25.2 Old myocardial infarction; J44.9 Chronic obstructive pulmonary disease, unspecified; Z88.1 Allergy status to other antibiotic agents; Z79.82 Long term (current) use of aspirin; Z79.02 Long term (current) use of antithrombotics/antiplatelets; Z79.899 Other long term (current) drug therapy; Z86.73 Personal history of transient ischemic attack (TIA), and cerebral infarction without residual deficits | CPT/HCPCS: 99283; 99284 ==

== ENCOUNTER 2023-01-25 20:36 | Emergency (ER) | payer MEDICARE, OTHER, MEDICAID ==
[2023-01-25 21:10] LABS: BASOPHILS ABSOLUTE AUTO 0.14 K/uL (0.00-0.20); BASOPHILS PERCENT AUTO 0.9 % (0.0-2.0); EOSINOPHILS ABSOLUTE AUTO 0.29 K/uL (0.00-0.50); EOSINOPHILS PERCENT AUTO 1.9 % (0.0-5.0); HEMATOCRIT 38.6 % (34.0-46.0); HEMOGLOBIN 12.4 g/dL (11.7-15.5); LYMPHOCYTES ABSOLUTE AUTO 4.61 K/uL (0.50-3.50); LYMPHOCYTES PERCENT AUTO 30.6 % (10.0-50.0); MEAN CORPUSCULAR HEMOGLOBIN 31.2 pg (28.2-33.3); MEAN CORPUSCULAR HGB CONC 32.1 g/dL (31.7-36.0); MONOCYTES ABSOLUTE AUTO 3.45 K/uL (0.00-1.00); MONOCYTES PERCENT AUTO 22.9 % (2.0-14.0); NEUTROPHILS ABSOLUTE AUTO 6.57 K/uL (1.40-7.00); NEUTROPHILS PERCENT AUTO 43.7 % (45.0-80.0); PLATELET COUNT,PLT 175 K/uL (150-350); RED BLOOD CELL COUNT 3.98 M/uL (3.77-5.09); RED CELL DISTRIBUTION WIDTH 14.4 % (11.2-14.1); WHITE BLOOD CELL COUNT,WBC 15.1 K/uL (4.0-10.2)
[2023-01-25] MEDS ORDERED: cefTRIAXone 1 GM in Sodium Chloride 0.9% 100 ML IV ONE (21:33)
[2023-01-25 21:41] LABS: ALANINE AMINOTRANSFERASE,ALT 19 U/L (12-78); ALBUMIN 3.1 g/dL (3.4-5.0); ALKALINE PHOSPHATASE 89 IU/L (46-116); ASPARTATE AMNIOTRANSFERASE,AST 13 U/L (15-37); BILIRUBIN TOTAL 0.2 mg/dL (0.2-1.0); BLOOD UREA NITROGEN,BUN 88 mg/dL (7-18); CALCIUM 9.1 mg/dL (8.5-10.1); CHLORIDE,CL 95 mmol/L (98-107); CREATININE 2.37 mg/dL (0.51-1.17); GLUCOSE RANDOM 74 mg/dL (70-99); MAGNESIUM 2.3 mg/dL (1.8-2.4); PRO B-TYPE NATRIUR PEPT,BNPPRO 788 pg/mL (0-125); PROTEIN TOTAL,TP 8.2 g/dL (6.4-8.2); SODIUM,NA 126 mmol/L (136-145)
[2023-01-25 21:43] LABS: ANION GAP 18.9 meq/L (7-15); POTASSIUM,K 6.9 mmol/L (3.5-5.1)
[2023-01-25 21:44] LABS: ESTIMATED GFR 20 mL/min (>=60)
[2023-01-25 21:47] LABS: CORONAVIRUS COVID-19 NAA NEGATIVE (NEGATIVE); INFLUENZA A NAA NEGATIVE (NEGATIVE); INFLUENZA B NAA NEGATIVE (NEGATIVE); RESPIRATORY SYNCYTIAL VIR NAA NEGATIVE (NEGATIVE)
[2023-01-25] MEDS ORDERED: Calcium Chloride 10% 1 GM/10 ML Syringe IVPUSH ONE (21:49)
[2023-01-25] MEDS: Sodium Chloride 0.9% 10 ML Syringe FLUSH PRN ×2 (21:49→22:17)
[2023-01-25] MEDS ORDERED: Insulin Regular, Human 100 Units/ML 3 ML Vial IV ONE (21:58)
[2023-01-25] MEDS ORDERED: 50% Dextrose in Water 50 ML Syringe IVPUSH ONE (21:58)
[2023-01-25] MEDS ORDERED: Glucagon,Human Recombinant 1 MG Vial IM PRN (21:58)
[2023-01-25] MEDS ORDERED: 50% Dextrose in Water 50 ML Syringe IVPUSH PRN (21:58)
[2023-01-25] MEDS ORDERED: Sodium Chloride 0.9% 500 ML IV SCH (22:00)
== END 2023-01-25 23:15 ==
LOC: LL.ED 20:36
DX: E87.5 Hyperkalemia (principal); N17.9 Acute kidney failure, unspecified; N39.0 Urinary tract infection, site not specified; I25.10 Atherosclerotic heart disease of native coronary artery without angina pectoris; I13.0 Hypertensive heart and chronic kidney disease with heart failure and stage 1 through stage 4 chronic kidney disease, or unspecified chronic kidney disease; I50.9 Heart failure, unspecified; I12.9 Hypertensive chronic kidney disease with stage 1 through stage 4 chronic kidney disease, or unspecified chronic kidney disease; E78.00 Pure hypercholesterolemia, unspecified; I25.2 Old myocardial infarction; J44.9 Chronic obstructive pulmonary disease, unspecified; E66.9 Obesity, unspecified; M19.90 Unspecified osteoarthritis, unspecified site; K21.9 Gastro-esophageal reflux disease without esophagitis; Z86.73 Personal history of transient ischemic attack (TIA), and cerebral infarction without residual deficits; Z20.822 Contact with and (suspected) exposure to COVID-19; Z95.5 Presence of coronary angioplasty implant and graft; Z86.16 Personal history of COVID-19; Z79.82 Long term (current) use of aspirin; Z79.899 Other long term (current) drug therapy; Z88.1 Allergy status to other antibiotic agents
CPT/HCPCS: 0241U; 36415; 71045; 80053; 82947; 83735; 83880; 84443; 84484; 85025; 93005; 93010; 96361; 96374; 96375; 99285; 99285-25; J0696; J1815-GY; J3490; J7040

== ENCOUNTER 2023-11-16 14:48 | Emergency (ER) | payer MEDICARE, OTHER, MEDICAID ==
[2023-11-16] MEDS ORDERED: Sodium Chloride 0.9% 10 ML Syringe FLUSH PRN ×2 (14:50→14:52)
[2023-11-16 15:38] LABS: INR 1.1 (0.9-1.1); LACTIC ACID 2.6 mmol/L (0.4-2.0); PROTHROMBIN TIME 10.5 SEC (9.0-11.1); PTT,PARTIAL THROMBOPLSTIN TIME 25.7 SEC (23.6-29.8)
[2023-11-16 15:45] LABS: ALANINE AMINOTRANSFERASE,ALT 24 U/L (12-78); ALBUMIN 2.9 g/dL (3.4-5.0); ALKALINE PHOSPHATASE 122 IU/L (46-116); ANION GAP 6.5 meq/L (7-15); ASPARTATE AMNIOTRANSFERASE,AST 29 U/L (15-37); BILIRUBIN TOTAL 0.6 mg/dL (0.2-1.0); BLOOD UREA NITROGEN,BUN 16 mg/dL (7-18); CALCIUM 9.4 mg/dL (8.5-10.1); CARBON DIOXIDE,CO2 29.5 mmol/L (21.0-32.0); CHLORIDE,CL 101 mmol/L (98-107); CREATININE 1.33 mg/dL (0.51-1.17); GLUCOSE RANDOM 139 mg/dL (70-99); POTASSIUM,K 4.4 mmol/L (3.5-5.1); PROTEIN TOTAL,TP 8.5 g/dL (6.4-8.2); SODIUM,NA 137 mmol/L (136-145)
[2023-11-16 15:47] LABS: ESTIMATED GFR 40 mL/min (>=60)
[2023-11-16] MEDS: Cefepime 2 GM Vial IVPUSH ONE (15:55)
[2023-11-16] MEDS: Lactated Ringers 1,000 ML IV ONE ×3 (15:59→18:19)
[2023-11-16 16:01] LABS: APPEARANCE,URINE CLOUDY; BILIRUBIN,URINE NEGATIVE (NEGATIVE); COLOR,URINE YELLOW; GLUCOSE,URINE NEGATIVE (NEGATIVE); KETONES,URINE 15 mg/dL (NEGATIVE); LEUKOCYTE ESTERASE,URINE LARGE (NEGATIVE); NITRITE,URINE NEGATIVE (NEGATIVE); OCCULT BLOOD,URINE MODERATE (NEGATIVE); PH,URINE 8.5 (5.0-9.0); PROTEIN,URINE 100 mg/dL (NEGATIVE); UROBILINOGEN,URINE 0.2 E.U./dL (0.2-1.0)
[2023-11-16 16:07] LABS: BACTERIA,URINE MODERATE /HPF (NONE TO FEW); EPITHELIAL CELLS,URINE FEW /LPF; MUCUS,URINE RARE /LPF (NEGATIVE); WBC,URINE >100 /HPF
[2023-11-16 16:08] LABS: AMORPHOUS SEDIMENT,URINE MANY /HPF (0/HPF)
[2023-11-16 16:14] LABS: MAGNESIUM 1.5 mg/dL (1.8-2.4)
[2023-11-16] MEDS: VANCOmycin 1.5 GM/300 ML 1.5 GM in Premix Bag 1 BAG IV ONE (16:17)
[2023-11-16] MEDS: Acetaminophen 325 MG Tab PO ONE (18:39)
[2023-11-16] MEDS: Gabapentin 300 MG Cap PO ONE (18:39)
[2023-11-16] MEDS ORDERED: Norepinephrine Bit/D5W Premix 250 ML IV SCH (18:45)
== END 2023-11-16 19:40 ==
LOC: LL.ED 14:48
DX: A41.9 Sepsis, unspecified organism (principal); R65.20 Severe sepsis without septic shock; N39.0 Urinary tract infection, site not specified; R74.02 Elevation of levels of lactic acid dehydrogenase [LDH]; I12.9 Hypertensive chronic kidney disease with stage 1 through stage 4 chronic kidney disease, or unspecified chronic kidney disease; I50.9 Heart failure, unspecified; N18.9 Chronic kidney disease, unspecified; E78.00 Pure hypercholesterolemia, unspecified; K21.9 Gastro-esophageal reflux disease without esophagitis; E66.9 Obesity, unspecified; Z86.16 Personal history of COVID-19; Z79.82 Long term (current) use of aspirin; Z79.899 Other long term (current) drug therapy; Z88.8 Allergy status to other drugs, medicaments and biological substances; Z68.38 Body mass index [BMI] 38.0-38.9, adult
CPT/HCPCS: 36415; 71045; 71250; 80053; 81001; 83605; 83735; 83880; 84484; 85610; 85730; 87040; 87077; 87086; 87088; 87186; 93005; 93010; 96361; 96365; 96375; 99284; 99285-25; A9270-GY; J0692; J3372; J7120

== ENCOUNTER 2024-02-02 23:05 | Emergency (ER) | payer MEDICARE, OTHER, MEDICAID ==
[2024-02-02 23:48] LABS: APPEARANCE,URINE CLOUDY; BILIRUBIN,URINE NEGATIVE (NEGATIVE); COLOR,URINE YELLOW; GLUCOSE,URINE NEGATIVE (NEGATIVE); KETONES,URINE NEGATIVE (NEGATIVE); LEUKOCYTE ESTERASE,URINE LARGE (NEGATIVE); NITRITE,URINE NEGATIVE (NEGATIVE); OCCULT BLOOD,URINE NEGATIVE (NEGATIVE); PH,URINE >= 9.0 (5.0-9.0); PROTEIN,URINE >=300 mg/dL (NEGATIVE); UROBILINOGEN,URINE 0.2 E.U./dL (0.2-1.0)
[2024-02-03 00:03] LABS: BASOPHILS ABSOLUTE AUTO 0.08 K/uL (0.00-0.20); BASOPHILS PERCENT AUTO 0.4 % (0.0-2.0); EOSINOPHILS ABSOLUTE AUTO 0.03 K/uL (0.00-0.50); EOSINOPHILS PERCENT AUTO 0.1 % (0.0-5.0); HEMATOCRIT 47.3 % (34.0-46.0); HEMOGLOBIN 14.9 g/dL (11.7-15.5); IMMATURE GRAN ABSOLUTE AUTO 0.21 10^3/uL (0.00-0.04); LYMPHOCYTES ABSOLUTE AUTO 2.53 K/uL (0.50-3.50); LYMPHOCYTES PERCENT AUTO 12.6 % (10.0-50.0); MEAN CORPUSCULAR HGB CONC 31.5 g/dL (31.7-36.0); MEAN CORPUSCULAR VOLUME 98.5 fL (84.0-98.0); MONOCYTES PERCENT AUTO 22.4 % (2.0-14.0); NEUTROPHILS ABSOLUTE AUTO 12.72 K/uL (1.40-7.00); NEUTROPHILS PERCENT AUTO 63.5 % (45.0-80.0); PLATELET COUNT,PLT 192 K/uL (150-350); RED CELL DISTRIBUTION WIDTH 14.4 % (11.2-14.1); WHITE BLOOD CELL COUNT,WBC 20.1 K/uL (4.0-10.2)
[2024-02-03 00:06] LABS: EPITHELIAL CELLS,URINE OCCASIONAL /LPF; RBC,URINE 0-5 /HPF
[2024-02-03 00:07] LABS: AMORPHOUS SEDIMENT,URINE MANY /HPF (0/HPF); BACTERIA,URINE MANY /HPF (NONE TO FEW); OTHER CRYSTALS,URINE MANY /HPF
[2024-02-03 00:09] LABS: ANION GAP 10.7 meq/L (7-15); CALCIUM 9.2 mg/dL (8.5-10.1); CARBON DIOXIDE,CO2 25.3 mmol/L (21.0-32.0); CREATININE 0.98 mg/dL (0.51-1.17); EST CRCL DRUG DOSING (CG) 32.34 mL/min; POTASSIUM,K 3.6 mmol/L (3.5-5.1)
[2024-02-03] MEDS: Sodium Chloride 0.9% 10 ML Syringe FLUSH PRN (00:56)
[2024-02-03] MEDS: cefTRIAXone 2 GM in Sodium Chloride 0.9% 100 ML IV ONE (00:56)
[2024-02-03 01:09] LABS: LACTIC ACID 1.9 mmol/L (0.4-2.0)
[2024-02-03] MEDS: cefTRIAXone 1 GM, Lidocaine 1% 2.1 ML IM ONE (01:35)
== END 2024-02-03 02:30 ==
LOC: LL.ED 23:05
DX: N39.0 Urinary tract infection, site not specified (principal); I13.0 Hypertensive heart and chronic kidney disease with heart failure and stage 1 through stage 4 chronic kidney disease, or unspecified chronic kidney disease; I50.9 Heart failure, unspecified; N18.9 Chronic kidney disease, unspecified; I25.10 Atherosclerotic heart disease of native coronary artery without angina pectoris; E78.00 Pure hypercholesterolemia, unspecified; J44.9 Chronic obstructive pulmonary disease, unspecified; E66.9 Obesity, unspecified; K21.9 Gastro-esophageal reflux disease without esophagitis; Z86.16 Personal history of COVID-19; Z95.0 Presence of cardiac pacemaker; Z90.49 Acquired absence of other specified parts of digestive tract; Z79.899 Other long term (current) drug therapy; Z79.82 Long term (current) use of aspirin; Z79.51 Long term (current) use of inhaled steroids; Z88.1 Allergy status to other antibiotic agents; Z68.39 Body mass index [BMI] 39.0-39.9, adult
CPT/HCPCS: 36415; 80048; 81001; 83605; 85025; 87040; 87086; 87088; 87186; 87428-QW; 93005; 93010; 96365; 96372; 99284; 99284-25; J0696; J3490